=== PATIENT | male | born 1955 | race Caucasian/White ===

== ENCOUNTER 2022-07-24 15:39 | Inpatient (IN) ==
--- NOTE | 2022-07-24 16:16 | Emergency Department Note ---
Impression & Plan Abnormal laboratory test result, Neutropenic fever ED Provider Note ED Provider Note NAME: ARNOLD CORRIGAN AGE:66 SEX: Male : 1955 ARRIVES VIA: Private vehicle INFORMANT: Patient ED PROVIDER(s): Sonal Barbosa DO CHIEF COMPLAINT: Abnormal outpatient labs, fever HPI: This is a 66-year-old male with a history of leukemia who states he had outpatient labs done earlier today and was called this afternoon and stated they were abnormal and that he needed to come to the emergency room. He states he also noticed he had a temperature this evening 100.6. He states he did reach out to Dr. Marte who is his oncologist here locally however his leukemia is primarily being managed through [facility]. He states he spoke with the nurse Violet who advised him to come to the emergency room. He states he was just discharged from [facility] after his second cycle of chemotherapy last Wednesday. He states he had an infusion of platelets on . He states he then had an additional infusion of 2 units of platelets this Wednesday and was feeling well. He states some of the petechiae he had had prior to his infusion have been improving. He denies blood with brushing his teeth, blood in the urine or stool. He states tonight was the first time he developed a fever. He states his platelet count on Wednesday was 2. He states his hemoglobin has recently been 7.9. He has not recently required transfusion of blood. He does not know if he receives any infusions for his white blood cell count. He denies any known sick contacts. PAST MEDICAL HISTORY:See Below PAST SURGICAL HISTORY:See Below FAMILY HISTORY:See Below SOCIAL HISTORY:See Below HOME MEDICATIONS:See Below ALLERGIES:See Below VITALS:See Below PHYSICAL EXAMINATION: GENERAL: alert, well appearing, well nourished, no distress, non-toxic EYE EXAM: normal conjunctiva, PERRL and EOM's grossly intact, no subconjunctival hemorrhage OROPHARYNX: no exudate, no erythema, lips, buccal mucosa, and tongue normal and mucous membranes are moist NECK: supple, no nuchal rigidity, no adenopathy, non-tender LUNGS: Clear to auscultation. Normal chest wall mechanics, no w/r/r HEART: no murmurs, S1 normal and S2 normal, double-lumen catheter noted right anterior superior chest wall ABDOMEN: abdomen soft, non-tender, normo-active bowel sounds, no masses, no rebound or guarding. BACK: Back is symmetrical on inspection and there is no deformity, no midline tenderness, no CVA tenderness. SKIN: no rashes, petechiae noted bilateral lower extremities, less so bilateral upper extremities, none noted on the trunk UPPER EXTREMITIES: upper extremities are grossly normal. FROM, nml pulses b/l. LOWER EXTREMITIES: No pitting edema. FROM, nml pulses b/l. NEURO EXAM: Normal sensorium, cranial nerves II-XII grossly intact, normal speech, no facial droop,nogross weakness of arms, no gross weakness of legs. Gross sensation intact. No ataxia. Vital Signs: reviewed and remarkable Differential Diagnosis: Neutropenic fever, thrombocytopenia, anemia, transfusion reaction, side effect of chemotherapy, bacteremia/sepsis as well as others were considered MEDICAL DECISION MAKING: This is a 66-year-old male who presents emergency department due to concern for fever and abnormal outpatient labs. Patient instructed to come the emergency room by heme-onc. Patient well-appearing here on arrival, he was febrile however otherwise hemodynamically stable. No other focal symptoms to suggest potential source of infection. Patient did just finish his second cycle of chemotherapy and has recently received 2 infusions of platelets due to ongoing thrombocytopenia. I did speak with the patient's surveillance investigator and we discussed additional fever on top of abnormal labs. She was in agreement with broad- spectrum antibiotic coverage especially in light of indwelling catheter. She was able to read me the outpatient labs which I did not have access to. Additio nal labs here do show pancytopenia. Per her instruction, packed cells and platelets were ordered after patient signed blood consent at bedside. Patient's other labs reassuring, chest x-ray unremarkable. Nasal swab was deferred due to thrombocytopenia and risk of bleeding. Case discussed with hospitalist for additional evaluation and management. Patient did receive transfusion of blood and platelets while in the emergency room prior to going upstairs to his room. Patient remained hemodynamically stable throughout. Unclear etiology of fever at this time. Consultation(s): 1628: Discussed with Dr. Marte. She recommends giving the patient 2 units of packed red cells and 2 units of platelets. Agrees with use of vancomycin and cefepime for empiric coverage. Would not check a COVID swab or bio fire until after administration of platelets due to risk of bleeding. 1632: Patient updated on discussion with heme-onc. Blood consent form signed at bedside. 1934: Discussed with Dr. Valenzuela, hospitalist service. ER Treatment Provided: See below Diagnostics Interpreted By Me: -ECG: Normal sinus at 65, normal axis, normal QRS, QTC 468, nonspecific T wave changes V3, V4, V5 -Cardiac Monitoring: An order was placed for continuous cardiac monitoring. The monitor shows a rate of [] with [] rhythm. -Laboratory studies: As stated above and show below. -Imaging studies: cxr Triage Nursing Note Reviewed Prior/Outside Records Reviewed Procedures: [] Critical Care: Critical care of 39 min performed to assess and manage high likelihood of life- threatening neutropenic fever and pancytopenia, involving labs and imaging performed with assessment to evaluate neutropenic fever and pancytopenia diagnosis with frequent reassessment. This time includes bedside time, treatment discussions with patient/family/consultants, documentation time and excludes procedure time. Past Med/Surg History Medical History (Updated 07/24/22 @ 22:02 by Sonal Barbosa DO) Coronary artery disease Depression Hyperlipidemia Leukemia Surgical History Hx of heart artery stent Hx of laminectomy Social History Smoking Status: Former smoker Preferred Language: Portuguese Feels Safe at Home: Yes Allergies Allergies Allergy/AdvReac Type Severity Reaction Status Date / Time No Known Allergies Allergy Verified 07/21/22 12:04 Home Meds Home Medications Medication Instructions Recorded Confirmed acyclovir 400 mg tablet 400 mg PO BID 07/16/22 07/24/22 atenolol 25 mg tablet 25 mg PO DAILY 07/16/22 07/24/22 calcium carbonate 200 mg calcium 200 mg PO TID 07/16/22 07/24/22 (500 mg) chewable tablet (Tums) docusate sodium 100 mg capsule 100 mg PO BID 07/16/22 07/24/22 (Colace) furosemide 40 mg tablet 40 mg PO DAILY 07/16/22 07/24/22 isosorbide mononitrate 120 mg 120 mg PO QAM 07/16/22 07/24/22 tablet,extended release 24 hr levofloxacin 750 mg tablet 750 mg PO DAILY 07/16/22 07/24/22 loratadine 10 mg tablet 10 mg PO DAILY PRN Allergy Symptoms 07/16/22 07/24/22 magnesium oxide 400 mg PO BID 07/16/22 07/24/22 melatonin 10 mg tablet 10 mg PO HS PRN Insomnia 07/16/22 07/24/22 ondansetron 8 mg disintegrating 8 mg PO Q8H PRN nausea 07/16/22 07/24/22 tablet polyethylene glycol 3350 17 gram 17 g PO BID 07/16/22 07/24/22 oral powder packet (Miralax) posaconazole 100 mg tablet,delayed 400 mg PO DAILY 07/16/22 07/24/22 release potassium chloride 20 mEq 20 meq PO BID 07/16/22 07/24/22 tablet,extended release sertraline 25 mg tablet 25 mg PO DAILY 07/16/22 07/24/22 venetoclax 50 mg tablet 50 mg PO DAILY 07/16/22 07/24/22 venetoclax 10 mg tablet (Venclexta) 20 mg PO DAILY 07/24/22 07/24/22 Results & Data (ED) Vital Signs Vital Signs - 24 hr 07/24/22 15:44 07/24/22 16:10 07/24/22 17:04 Temperature 38.1 C H 38.1 C H Temperature Source Temporal Artery Scan Oral Pulse Rate 78 Pulse Rate from SpO2 Sensor Pulse Rhythm Regular Pulse Strength Normal Respiratory Rate 20 Respiratory Effort / Characteristics Non-Labored Spontaneous Respiratory Depth Normal Respiratory Pattern Regular Blood Pressure 109/74 Blood Pressure Mean 85 Blood Pressure Position Sitting Pulse Oximetry 98 98 Oxygen Delivery Method Room Air Room Air Sepsis Recent Fever Within 48 Hours No Sepsis New/Unexplained Change in Mental Status No Sepsis Action Taken by Nursing No Action Required 07/24/22 18:13 07/24/22 18:19 07/24/22 18:21 Temperature 37.4 C 37.4 C 37.4 C Temperature Source Oral Oral Oral Pulse Rate 61 59 L 64 Pulse Rate from SpO2 Sensor Pulse Rhythm Regular Pulse Strength Normal Respiratory Rate 16 19 22 Respiratory Effort / Characteristics Respiratory Depth Respiratory Pattern Blood Pressure 108/65 108/65 110/64 Blood Pressure Mean 79 79 79 Blood Pressure Position Lying Pulse Oximetry 95 96 98 Oxygen Delivery Method Sepsis Recent Fever Within 48 Hours Sepsis New/Unexplained Change in Mental Status Sepsis Action Taken by Nursing 07/24/22 18:29 07/24/22 17:30 07/24/22 18:00 Temperature 37.4 C Temperature Source Oral Pulse Rate 62 62 60 Pulse Rate from SpO2 Sensor 61 Pulse Rhythm Regular Pulse Strength Normal Respiratory Rate 18 20 20 Respiratory Effort / Characteristics Respiratory Depth Respiratory Pattern Blood Pressure 109/69 99/58 L 100/56 L Blood Pressure Mean 82 71 70 Blood Pressure Position Lying Pulse Oximetry 98 98 95 Oxygen Delivery Method Room Air Room Air Sepsis Recent Fever Within 48 Hours Sepsis New/Unexplained Change in Mental Status Sepsis Action Taken by Nursing 07/24/22 18:09 07/24/22 18:35 Temperature 37.1 C Temperature Source Oral Pulse Rate 62 63 Pulse Rate from SpO2 Sensor 61 Pulse Rhythm Regular Pulse Strength Normal Respiratory Rate 16 17 Respiratory Effort / Characteristics Respiratory Depth Respiratory Pattern Blood Pressure 95/67 L 109/69 Blood Pressure Mean 76 82 Blood Pressure Position Lying Pulse Oximetry 97 98 Oxygen Delivery Method Room Air Sepsis Recent Fever Within 48 Hours Sepsis New/Unexplained Change in Mental Status Sepsis Action Taken by Nursing Laboratory Data 07/24/22 15:59 07/24/22 15:59 Lab Results 07/24/22 07/24/22 07/24/22 Range/Units 15:59 15:59 15:59 WBC 0.11 L* (4.8-10.8) K/ul RBC 2.16 L (4.70-6.10) M/uL Hgb 6.4 L* (14.0-18.0) g/dl Hct 19.5 L* (42.0-52.0) % MCV 90.3 (80.0-100.0) fL MCH 29.6 (25.0-34.0) pg MCHC 32.8 (32.0-36.0) g/dL RDW Std Deviation 51.8 H (36.4-46.3) fL RDW Coeff of Lazaro 15.8 H (11.5-14.5) % Plt Count 3 L* (130-400) K/uL Immature Gran % (Auto) Cancelled Neut % (Auto) Cancelled Lymph % (Auto) Cancelled [place] % (Auto) Cancelled Eos % (Auto) Cancelled Baso % (Auto) Cancelled Neut # (Auto) Cancelled Lymph # (Auto) Cancelled [place] # (Auto) Cancelled Eos # (Auto) Cancelled Baso # (Auto) Cancelled Immature Gran # (Auto) Cancelled Neutrophils % (Manual) Cancelled Band Neutrophils % Cancelled Lymphocytes % (Manual) Cancelled Prolymphocyte % Cancelled Reactive Lymphs % (Man) Cancelled Monocytes % (Manual) Cancelled Eosinophils % (Manual) Cancelled Basophils % (Manual) Cancelled Metamyelocytes % (Man) Cancelled Myelocytes % (Man) Cancelled Promyelocytes % (Man) Cancelled Blast Cells % (Manual) Cancelled Plasma Cell % (Manual) Cancelled Other Cells % Cancelled Nucleated RBC % Cancelled Neutrophils # (Manual) Cancelled Band Neutrophils # Cancelled Total Absolute Neuts Cancelled Lymphocytes # (Manual) Cancelled Prolymphocyte # Cancelled Reactive Lymphs # Cancelled Total Abs Lymphocytes Cancelled Monocytes # (Manual) Cancelled Eosinophils # (Manual) Cancelled Basophils # (Manual) Cancelled Metamyelocytes # (Man) Cancelled Myelocytes # (Manual) Cancelled Promyelocytes # (Man) Cancelled Blast Cells # (Man) Cancelled Plasma Cell # (Manual) Cancelled Other Cells # Cancelled Nucleated RBCs # (Man) Cancelled Hypersegmented Neuts Cancelled Hyposegmented Neuts Cancelled Hypogranular Neuts Cancelled Large Granular Lymphs Cancelled # Lrg Granular Lymphs Cancelled Hairy Cells Cancelled Smudge Cells Cancelled Toxic Granulation Cancelled Toxic Vacuolation Cancelled Dohle Bodies Cancelled Hina Rods Cancelled Platelet Estimate Signific. Decreased L (Normal) Hypogranular Platelets Cancelled Clumped Platelets Cancelled Giant Platelets Cancelled Platelet Satelliting Cancelled RBC Morphology Cancelled Polychromasia Cancelled Hypochromasia Cancelled Poikilocytosis Cancelled Basophilic Stippling Cancelled Anisocytosis Cancelled Microcytosis Cancelled Macrocytosis Cancelled Spherocytes Cancelled Pappenheimer Bodies Cancelled Sickle Cells Cancelled Target Cells Cancelled Tear Drop Cells Cancelled Ovalocytes Cancelled Stomatocytes Cancelled [place] Bodies Cancelled Echinocytes Cancelled Acanthocytes (Spur) Cancelled Rouleaux Cancelled RBC Agglutinates Cancelled Schistocytes Cancelled Sezary Cell Cancelled PT 13.8 H (9.0-12.0) Seconds INR 1.3 H (0.9-1.1) Sodium 139 (136-145) mmol/L Potassium 4.0 (3.5-5.1) mmol/L Chloride 105 (98-107) mmol/L Carbon Dioxide 27 (21-32) mmol/L Anion Gap 7 (3-11) BUN 19 (6-23) mg/dl Creatinine 0.73 (0.6-1.4) mg/dl Est Cr Clr Drug Dosing 83.3 ml/min Est GFR ( Amer) 112.0 ml/min Est GFR (Non-Af Amer) 96.7 ml/min BUN/Creatinine Ratio 26.0 H (10-20) Glucose 111 H (70-99(Fasting)) mg/dl Lactate (0.4-2.0) mmol/L Calcium 8.7 (8.5-10.1) mg/dl Magnesium 2.0 (1.7-2.4) mg/dl Total Bilirubin 1.1 H (0.2-1.0) mg/dl Direct Bilirubin 0.2 (0-0.2) mg/dl AST 12 L (13-39) U/L ALT 15 (7-52) U/L Alkaline Phosphatase 83 (34-104) U/L Troponin I High Sens 30.8 H (0-20) pg/ml Total Protein 6.5 (6.0-8.3) gm/dl Albumin 3.3 L (3.4-5.0) gm/dl Procalcitonin (0-0.5) ng/ml Urine Color Urine Appearance (Clear) Urine pH (4.5-7.5) Ur Specific [place] (1.000-1.030) Urine Protein (Negative) Urine Glucose (UA) (Negative) Urine Ketones (Negative) Urine Blood (Negative) Urine Nitrite (Negative) Urine Bilirubin (Negative) Urine Urobilinogen (Negative) Ur Leukocyte Esterase (Negative) Urine WBC (Auto) (0-5) /hpf Urine RBC (Auto) (0-4) /hpf U Hyaline Cast (Auto) (0-5) /lpf U Epithel Cells (Auto) (0-5) /lpf Urine Bacteria (Auto) (Negative) Blood Parasites ID Cancelled Blood Type Antibody Screen Crossmatch 07/24/22 07/24/22 07/24/22 Range/Units 15:59 16:46 16:46 WBC (4.8-10.8) K/ul RBC (4.70-6.10) M/uL Hgb (14.0-18.0) g/dl Hct (42.0-52.0) % MCV (80.0-100.0) fL MCH (25.0-34.0) pg MCHC (32.0-36.0) g/dL RDW Std Deviation (36.4-46.3) fL RDW Coeff of Lazaro (11.5-14.5) % Plt Count (130-400) K/uL Immature Gran % (Auto) Neut % (Auto) Lymph % (Auto) [place] % (Auto) Eos % (Auto) Baso % (Auto) Neut # (Auto) Lymph # (Auto) [place] # (Auto) Eos # (Auto) Baso # (Auto) Immature Gran # (Auto) Neutrophils % (Manual) Band Neutrophils % Lymphocytes % (Manual) Prolymphocyte % Reactive Lymphs % (Man) Monocytes % (Manual) Eosinophils % (Manual) Basophils % (Manual) Metamyelocytes % (Man) Myelocytes % (Man) Promyelocytes % (Man) Blast Cells % (Manual) Plasma Cell % (Manual) Other Cells % Nucleated RBC % Neutrophils # (Manual) Band Neutrophils # Total Absolute Neuts Lymphocytes # (Manual) Prolymphocyte # Reactive Lymphs # Total Abs Lymphocytes Monocytes # (Manual) Eosinophils # (Manual) Basophils # (Manual) Metamyelocytes # (Man) Myelocytes # (Manual) Promyelocytes # (Man) Blast Cells # (Man) Plasma Cell # (Manual) Other Cells # Nucleated RBCs # (Man) Hypersegmented Neuts Hyposegmented Neuts Hypogranular Neuts Large Granular Lymphs # Lrg Granular Lymphs Hairy Cells Smudge Cells Toxic Granulation Toxic Vacuolation Dohle Bodies Hina Rods Platelet Estimate (Normal) Hypogranular Platelets Clumped Platelets Giant Platelets Platelet Satelliting RBC Morphology Polychromasia Hypochromasia Poikilocytosis Basophilic Stippling Anisocytosis Microcytosis Macrocytosis Spherocytes Pappenheimer Bodies Sickle Cells Target Cells Tear Drop Cells Ovalocytes Stomatocytes [place] Bodies Echinocytes Acanthocytes (Spur) Rouleaux RBC Agglutinates Schistocytes Sezary Cell PT (9.0-12.0) Seconds INR (0.9-1.1) Sodium (136-145) mmol/L Potassium (3.5-5.1) mmol/L Chloride (98-107) mmol/L Carbon Dioxide (21-32) mmol/L Anion Gap (3-11) BUN (6-23) mg/dl Creatinine (0.6-1.4) mg/dl Est Cr Clr Drug Dosing ml/min Est GFR ( Amer) ml/min Est GFR (Non-Af Amer) ml/min BUN/Creatinine Ratio (10-20) Glucose (70-99(Fasting)) mg/dl Lactate 1.4 (0.4-2.0) mmol/L Calcium (8.5-10.1) mg/dl Magnesium (1.7-2.4) mg/dl Total Bilirubin (0.2-1.0) mg/dl Direct Bilirubin (0-0.2) mg/dl AST (13-39) U/L ALT (7-52) U/L Alkaline Phosphatase (34-104) U/L Troponin I High Sens (0-20) pg/ml Total Protein (6.0-8.3) gm/dl Albumin (3.4-5.0) gm/dl Procalcitonin 0.34 (0-0.5) ng/ml Urine Color Urine Appearance (Clear) Urine pH (4.5-7.5) Ur Specific [place] (1.000-1.030) Urine Protein (Negative) Urine Glucose (UA) (Negative) Urine Ketones (Negative) Urine Blood (Negative) Urine Nitrite (Negative) Urine Bilirubin (Negative) Urine Urobilinogen (Negative) Ur Leukocyte Esterase (Negative) Urine WBC (Auto) (0-5) /hpf Urine RBC (Auto) (0-4) /hpf U Hyaline Cast (Auto) (0-5) /lpf U Epithel Cells (Auto) (0-5) /lpf Urine Bacteria (Auto) (Negative) Blood Parasites ID Blood Type A Positive Antibody Screen NEGATIVE Crossmatch See Detail 07/24/22 Range/Units 17:11 WBC (4.8-10.8) K/ul RBC (4.70-6.10) M/uL Hgb (14.0-18.0) g/dl Hct (42.0-52.0) % MCV (80.0-100.0) fL MCH (25.0-34.0) pg MCHC (32.0-36.0) g/dL RDW Std Deviation (36.4-46.3) fL RDW Coeff of Lazaro (11.5-14.5) % Plt Count (130-400) K/uL Immature Gran % (Auto) Neut % (Auto) Lymph % (Auto) [place] % (Auto) Eos % (Auto) Baso % (Auto) Neut # (Auto) Lymph # (Auto) [place] # (Auto) Eos # (Auto) Baso # (Auto) Immature Gran # (Auto) Neutrophils % (Manual) Band Neutrophils % Lymphocytes % (Manual) Prolymphocyte % Reactive Lymphs % (Man) Monocytes % (Manual) Eosinophils % (Manual) Basophils % (Manual) Metamyelocytes % (Man) Myelocytes % (Man) Promyelocytes % (Man) Blast Cells % (Manual) Plasma Cell % (Manual) Other Cells % Nucleated RBC % Neutrophils # (Manual) Band Neutrophils # Total Absolute Neuts Lymphocytes # (Manual) Prolymphocyte # Reactive Lymphs # Total Abs Lymphocytes Monocytes # (Manual) Eosinophils # (Manual) Basophils # (Manual) Metamyelocytes # (Man) Myelocytes # (Manual) Promyelocytes # (Man) Blast Cells # (Man) Plasma Cell # (Manual) Other Cells # Nucleated RBCs # (Man) Hypersegmented Neuts Hyposegmented Neuts Hypogranular Neuts Large Granular Lymphs # Lrg Granular Lymphs Hairy Cells Smudge Cells Toxic Granulation Toxic Vacuolation Dohle Bodies Hina Rods Platelet Estimate (Normal) Hypogranular Platelets Clumped Platelets Giant Platelets Platelet Satelliting RBC Morphology Polychromasia Hypochromasia Poikilocytosis Basophilic Stippling Anisocytosis Microcytosis Macrocytosis Spherocytes Pappenheimer Bodies Sickle Cells Target Cells Tear Drop Cells Ovalocytes Stomatocytes [place] Bodies Echinocytes Acanthocytes (Spur) Rouleaux RBC Agglutinates Schistocytes Sezary Cell PT (9.0-12.0) Seconds INR (0.9-1.1) Sodium (136-145) mmol/L Potassium (3.5-5.1) mmol/L Chloride (98-107) mmol/L Carbon Dioxide (21-32) mmol/L Anion Gap (3-11) BUN (6-23) mg/dl Creatinine (0.6-1.4) mg/dl Est Cr Clr Drug Dosing ml/min Est GFR ( Amer) ml/min Est GFR (Non-Af Amer) ml/min BUN/Creatinine Ratio (10-20) Glucose (70-99(Fasting)) mg/dl Lactate (0.4-2.0) mmol/L Calcium (8.5-10.1) mg/dl Magnesium (1.7-2.4) mg/dl Total Bilirubin (0.2-1.0) mg/dl Direct Bilirubin (0-0.2) mg/dl AST (13-39) U/L ALT (7-52) U/L Alkaline Phosphatase (34-104) U/L Troponin I High Sens (0-20) pg/ml Total Protein (6.0-8.3) gm/dl Albumin (3.4-5.0) gm/dl Procalcitonin (0-0.5) ng/ml Urine Color Yellow Urine Appearance Clear (Clear) Urine pH 7.5 (4.5-7.5) Ur Specific [place] 1.013 (1.000-1.030) Urine Protein 1+ H (Negative) Urine Glucose (UA) Negative (Negative) Urine Ketones Negative (Negative) Urine Blood 1+ H (Negative) Urine Nitrite Negative (Negative) Urine Bilirubin Negative (Negative) Urine Urobilinogen Negative (Negative) Ur Leukocyte Esterase Negative (Negative) Urine WBC (Auto) 1-5 (0-5) /hpf Urine RBC (Auto) 5-10 H (0-4) /hpf U Hyaline Cast (Auto) 1-5 (0-5) /lpf U Epithel Cells (Auto) 5-10 H (0-5) /lpf Urine Bacteria (Auto) Negative (Negative) Blood Parasites ID Blood Type Antibody Screen Crossmatch Administered Medications Discontinued Medications Cefepime HCl (Maxipime) 2,000 mg in 20 mls @ 5 mls/min IV NOW STA; Protocol Stop: 07/24/22 16:33 Last Admin: 07/24/22 16:49 Dose: 5 mls/min Documented By: KT Vancomycin HCl 1,250 mg/ (Sodium Chloride) 525 mls @ 200 mls/hr IV NOW ONE Stop: 07/24/22 19:07 Last Admin: 07/24/22 17:05 Dose: 200 mls/hr Documented By: NH Acetaminophen (Ofirmev) 1,000 mg in 100 mls @ 400 mls/hr IV NOW STA Stop: 07/24/22 16:54 Last Infusion: 07/24/22 18:31 Dose: 0 mls/hr Documented By: Admin: 07/24/22 17:05 Dose: 400 mls/hr Documented By: HAILE Sodium Chloride (Nss 1000ml) 1,000 mls @ 125 mls/hr IV .Q8H SAULO Stop: 08/23/22 17:14 Last Admin: 07/24/22 21:40 Dose: Not Given Documented By: PAH Imaging Data Radiologist's Impression: Chest X-Ray 07/24/22 16:10 XR chest 1V portable HISTORY: Sepsis COMPARISON: None. FINDINGS: The cardiac silhouette is mildly enlarged. Coronary artery stents are noted. The lungs are clear. There is an old, healed left clavicle fracture. No pleural effusions. No pneumothorax. IMPRESSION: Mild cardiomegaly. ACT 112: Negative or not required by law. Electronically signed by: Taqueria Rasheed M.D. 07/24/2022 4:26 PM Discharge Plan Visit Data Chief Complaint: Abnormal Labs/Diagnostic Testing Stated Complaint: NEEDS PLATELETS AND BLOOD ED Provider: Sonal Barbosa Discharge Problem: Abnormal laboratory test result, Neutropenic fever Patient Disposition: Admitted As Inpatient Discharge Instructions Interventions: ED Discharge Assessment Last Done: 07/24/22 21:12
--- NOTE | 2022-07-24 16:27 | XRay Report ---
XR chest 1V portable HISTORY: Sepsis COMPARISON: None. FINDINGS: The cardiac silhouette is mildly enlarged. Coronary artery stents are noted. The lungs are clear. There is an old, healed left clavicle fracture. No pleural effusions. No pneumothorax. IMPRESSION: Mild cardiomegaly. ACT 112: Negative or not required by law. Electronically signed by: Taqueria Rasheed M.D. 07/24/2022 4:26 PM
[2022-07-24] MEDS ORDERED: CEFEPIME 2,000 MG/20 ML VIAL IV STA (16:30)
[2022-07-24] MEDS ORDERED: VANCOMYCIN HCL 1,250 MG in SODIUM CHLORIDE 0.9% 500 ML IV ONE (16:30)
[2022-07-24] MEDS ORDERED: VANCOMYCIN CONSULT ACTIVE PRN (16:30)
[2022-07-24 16:36] LABS: INR 1.3 (0.9-1.1); Prothrombin Time 13.8 Seconds (9.0-12.0)
[2022-07-24] MEDS ORDERED: ACETAMINOPHEN 1,000 MG/100 ML VIAL IV STA (16:40)
[2022-07-24] MEDS ORDERED: SODIUM CHLORIDE 0.9% 250 ML IV PRN (16:40)
[2022-07-24 16:46] LABS: Albumin Level 3.3 gm/dl (3.4-5.0); Bilirubin Direct 0.2 mg/dl (0-0.2); Bilirubin,Total 1.1 mg/dl (0.2-1.0); Calcium 8.7 mg/dl (8.5-10.1)
[2022-07-24 16:47] LABS: Hematocrit (blood only) 19.5 % (42.0-52.0); Hemoglobin 6.4 g/dl (14.0-18.0); Mean Corpuscular Hemoglobin 29.6 pg (25.0-34.0); Mean Corpuscular Hgb Conc 32.8 g/dL (32.0-36.0); Mean Corpuscular Volume 90.3 fL (80.0-100.0); Platelet Count 3 K/uL (130-400); RDW Coefficient of Variation 15.8 % (11.5-14.5); RDW Standard Deviation 51.8 fL (36.4-46.3); Red Blood Count 2.16 M/uL (4.70-6.10); White Blood Count 0.11 K/ul (4.8-10.8)
[2022-07-24 16:52] LABS: Creatinine Clr Calc Pharmacy 83.3 ml/min; Est GFR (Non-African American) 96.7 ml/min; Platelet Estimate Signific. Decreased (Normal); Total Protein 6.5 gm/dl (6.0-8.3)
[2022-07-24 16:54] LABS: Troponin I High Sensitivity 30.8 pg/ml (0-20)
[2022-07-24] MEDS ORDERED: SODIUM CHLORIDE 0.9% 1000ML 1,000 ML IV SCH (17:15)
--- NOTE | 2022-07-24 17:35 | History & Physical Report ---
Date of Service July 24, 2022 Assessment & Plan (1) Neutropenic fever: Plan: Empiric antibiotic coverage with vancomycin and cefepime Lactate 1.4 History, CXR and UA not revealing of source. Pt has a central catheter placed as a potential source and x1 blood culture taken from line. x1 Peripheral blood culture taken Biofire to be taken following platelet transfusion - will be placed on COVID precautions until then Neutropenic precautions (2) Pancytopenia due to antineoplastic chemotherapy: Plan: Hgb 6.4 -> Transfuse 2 units irradiated packed RBCs. Aim Hgb > 7.5 Plt 3 -> Transfuse 2 units. Aim Plt > 15 on repeat CBC 1 hour after all transfusions Consult oncology (3) Acute myelogenous leukemia: Plan: s/p induction chemotherapy with decitabine/venetoclax, reinduction with CLAG regimen 07/08-07/12 Continue infection prophylaxis with acyclovir and posaconazole, Levaquin on hold in favor of antibiotics as above Stop Venetoclax due to pancytopenia (4) Coronary artery disease: Plan: Not on antiplatelet suspect due to thrombocytopenia Continue atenolol with hold parameters and ISMN Unclear reason he is not on a statin (5) Depression: Plan: Patient report only taking sertraline as needed (6) Chronic heart failure with preserved ejection fraction: Plan: Noted on PMHx however patient denies prior history of this or pulmonary edema but takes Lasix for bilateral pitting edema. Continue Lasix but hold if systolic blood pressure less than 100. Plan VTE Prophylaxis - no chemical prophylaxis due to thrombocytopenia Diet - low Na Disposition - admit to PCU Admission and Anticipated Discharge Date Admission Date: July 24, 2022 History of Present Illness Chief Complaint: Neutropenic fever Primary Care Provider: NO PCP Leroy Royerluana is a 66 year old male with acute myelogenous leukemia who presents to the ER with abnormal outpatient labs and fever. Acute myelogenous leukemia s/p induction chemotherapy with decitabine/venetoclax, reinduction with CLAG regimen 07/08-07/12 at [facility]. Repeat routine oncology labs today with pancytopenia and initially had planned on arranging platelets and blood transfusions as an outpatient but he spiked a fever of 100.6 degrees Fahrenheit and on calling his oncologist recommended going straight to the emergency room. He reports having last transfusion of 2 units of platelets on Karlene and was feeling well at that time. This morning he felt a little fatigued after having a shower but otherwise feels in his normal health. No cough, nasal congestion, sinus pain, chest pain, sore throat, abdominal pain, diarrhea or urinary symptoms. No known infection exposures. In regards to the anemia he denies any bright red blood in stool, hemoptysis, hematemesis or melena. Allergies Allergy/AdvReac Type Severity Reaction Status Date / Time No Known Allergies Allergy Verified 07/21/22 12:04 Home Medications Medication Instructions Recorded Confirmed Type acyclovir 400 mg tablet 400 mg PO BID 07/16/22 07/24/22 History atenolol 25 mg tablet 25 mg PO DAILY 07/16/22 07/24/22 History calcium carbonate 200 mg calcium 200 mg PO TID 07/16/22 07/24/22 History (500 mg) chewable tablet (Tums) docusate sodium 100 mg capsule 100 mg PO BID 07/16/22 07/24/22 History (Colace) furosemide 40 mg tablet 40 mg PO DAILY 07/16/22 07/24/22 History isosorbide mononitrate 120 mg 120 mg PO QAM 07/16/22 07/24/22 History tablet,extended release 24 hr levofloxacin 750 mg tablet 750 mg PO DAILY 07/16/22 07/24/22 History loratadine 10 mg tablet 10 mg PO DAILY PRN Allergy Symptoms 07/16/22 07/24/22 History magnesium oxide 400 mg PO BID 07/16/22 07/24/22 History melatonin 10 mg tablet 10 mg PO HS PRN Insomnia 07/16/22 07/24/22 History ondansetron 8 mg disintegrating 8 mg PO Q8H PRN nausea 07/16/22 07/24/22 History tablet polyethylene glycol 3350 17 gram 17 g PO BID 07/16/22 07/24/22 History oral powder packet (Miralax) posaconazole 100 mg tablet,delayed 400 mg PO DAILY 07/16/22 07/24/22 History release potassium chloride 20 mEq 20 meq PO BID 07/16/22 07/24/22 History tablet,extended release sertraline 25 mg tablet 25 mg PO DAILY 07/16/22 07/24/22 History venetoclax 50 mg tablet 50 mg PO DAILY 07/16/22 07/24/22 History venetoclax 10 mg tablet (Venclexta) 20 mg PO DAILY 07/24/22 07/24/22 History Past Med/Surg History Medical History Coronary artery disease Depression Hyperlipidemia Leukemia Surgical History Hx of heart artery stent Hx of laminectomy Social History Smoking Status: Former smoker Preferred Language: Lao Feels Safe at Home: Yes Review of Systems Review of Systems: All systems reviewed & are unremarkable except as noted in HPI & below Physical Exam Constitutional: WD/WN, vitals as above Eyes: PERRL, conjunctivae normal, anicteric sclerae ENMT: external ear and nose normal, oropharynx normal Respiratory: normal respiratory effort, lungs clear to auscultation Cardiovascular: RRR, no murmur, no edema Gastrointestinal (Abdomen): normal bowel sounds, soft, nontender, no hepatosplenomegaly Musculoskeletal: no cyanosis or clubbing, extremities motor strength 5/5 Skin: Numerous petechiae on all 4 extremities, few oral petechiae present Neurologic: moves all extremities and awake; no focal motor deficits and not confused Speech / Cognition: normal speech Cranial Nerves: EOM intact bilaterally, normal facial strength, tongue midline, able to rotate head bilaterally and able to elevate shoulders bilaterally Psychiatric: A+Ox3, euthymic affect Results & Data Results & Data ([facility]) Vital Signs (Past 12 Hours) Vital Signs Temp Pulse Resp BP Pulse Ox O2 Del Method 07/24/22 17:04 38.1 C H 07/24/22 16:10 98 Room Air 07/24/22 15:44 38.1 C H 78 20 109/74 98 Room Air Laboratory Results Abnormal lab results 07/24/22 07/24/22 07/24/22 Range/Units 15:59 15:59 15:59 WBC 0.11 L* (4.8-10.8) K/ul RBC 2.16 L (4.70-6.10) M/uL Hgb 6.4 L* (14.0-18.0) g/dl Hct 19.5 L* (42.0-52.0) % RDW Std Deviation 51.8 H (36.4-46.3) fL RDW Coeff of Lazaro 15.8 H (11.5-14.5) % Plt Count 3 L* (130-400) K/uL Platelet Estimate Signific. Decreased L (Normal) PT 13.8 H (9.0-12.0) Seconds INR 1.3 H (0.9-1.1) BUN/Creatinine Ratio 26.0 H (10-20) Glucose 111 H (70-99(Fasting)) mg/dl Total Bilirubin 1.1 H (0.2-1.0) mg/dl AST 12 L (13-39) U/L Troponin I High Sens 30.8 H (0-20) pg/ml Albumin 3.3 L (3.4-5.0) gm/dl Urine Protein (Negative) Urine Blood (Negative) Urine RBC (Auto) (0-4) /hpf U Epithel Cells (Auto) (0-5) /lpf Crossmatch 07/24/22 07/24/22 Range/Units 16:46 17:11 WBC (4.8-10.8) K/ul RBC (4.70-6.10) M/uL Hgb (14.0-18.0) g/dl Hct (42.0-52.0) % RDW Std Deviation (36.4-46.3) fL RDW Coeff of Lazaro (11.5-14.5) % Plt Count (130-400) K/uL Platelet Estimate (Normal) PT (9.0-12.0) Seconds INR (0.9-1.1) BUN/Creatinine Ratio (10-20) Glucose (70-99(Fasting)) mg/dl Total Bilirubin (0.2-1.0) mg/dl AST (13-39) U/L Troponin I High Sens (0-20) pg/ml Albumin (3.4-5.0) gm/dl Urine Protein 1+ H (Negative) Urine Blood 1+ H (Negative) Urine RBC (Auto) 5-10 H (0-4) /hpf U Epithel Cells (Auto) 5-10 H (0-5) /lpf Crossmatch See Detail Diagnostic Findings XR chest 1V portable HISTORY: Sepsis COMPARISON: None. FINDINGS: The cardiac silhouette is mildly enlarged. Coronary artery stents are noted. The lungs are clear. There is an old, healed left clavicle fracture. No pleural effusions. No pneumothorax. IMPRESSION: Mild cardiomegaly. Medications Administered ER medications given: Cefepime 2 g IV Vancomycin 1250 mg IV Acetaminophen 1 g IV NSS @ 125 ml/hr 2 units irradiated packed red blood cells ordered 2 units irradiated platelets ordered ECG Indication: other (neutropenic fever) Rate (beats per minute): 65 Rhythm: normal sinus Findings: no acute ischemic change Comparison ECG Date: no prior available Code Status & VTE Plan Code Status Full as discussed with the patient VTE Prophylaxis Plan VTE Prophylaxis will be ordered: No Reason for no VTE drug order: Contraindicated Reason for no VTE mechanical prophylaxis: Contraindicated (likely to cause skin breakdown with thrombocytopenia) PG Care Time/CCT Total # of Minutes Spent Total Time Spent with Patient: Total time spent is greater than 50% in coordination of care (as documented) at patient's floor/unit and/or counseling patient: Coding Level of Care Code 70978 INT INP/OBS CARE 3/75MIN Diagnoses Neutropenic fever D70.9; R50.81 Pancytopenia due to antineoplastic chemotherapy D61.810; T45.1X5A Acute myelogenous leukemia C92.00 Coronary artery disease I25.10 Depression F32.A Chronic heart failure with preserved ejection fraction I50.32
[2022-07-24 17:45] LABS: Appearance Urine Clear (Clear); Bacteria Urine Automated Negative (Negative); Bilirubin Urine Negative (Negative); Blood Urine 1+ (Negative); Color Urine Yellow; Glucose Urine UA Negative (Negative); Ketones Urine Negative (Negative); Leukocyte Esterase Urine Negative (Negative); Nitrite Urine Negative (Negative); Specific Gravity Urine 1.013 (1.000-1.030); Urobilinogen Urine Negative (Negative); pH Urine 7.5 (4.5-7.5)
[2022-07-24 17:49] LABS: Protein Urine 1+ (Negative)
[2022-07-24] MEDS ORDERED: ACETAMINOPHEN 325 MG TAB PO PRN (21:38)
[2022-07-24] MEDS ORDERED: MELATONIN 3 MG TAB PO PRN (21:56)
[2022-07-24] MEDS ORDERED: ONDANSETRON INJ 2 MG/ML 2 ML VIAL IV PRN (21:56)
--- NOTE | 2022-07-24 22:02 | Pharmacy Report ---
Pharmacy PK ABX Note - Date of Service July 24, 2022 - Assessment and Plan Assessment 66 year old M receiving VANCOMCYIN/CEFEPIME for treatment of NEUTROPENIC FEVER. Pertinent microbiologic data includes: BLOOD cultures PENDING. Day # 1/?? of antimicrobial therapy. Plan Vancomycin * Loading dose: 1250 mg IV x 1 * Maintenance dose: 1000 mg IV every hours * Regimen is predicted to achieve target AUC/SALVATORE of 400-600 mg/L.hr * Trough level ordered for: 07/24/22 @ 0430 Pharmacy will continue to follow and will adjust dose/frequency as necessary. Thank you. Pharmacy has transitioned to AUC monitoring for vancomycin. AUC/SALVATORE is the preferred PK/PD target and is associated with decreased risk of nephrotoxicity compared to traditional trough targets.
[2022-07-24] MEDS ORDERED: SERTRALINE HCL 50 MG TABLET PO PRN (22:21)
[2022-07-24] MEDS: POLYETHYLENE (MIRALAX) 17 GM PACK PO SCH (22:50)
[2022-07-24] MEDS: CALCIUM CARBONATE 500 MG CHEWABLE TAB PO SCH (22:50)
[2022-07-24] MEDS: CEFEPIME 2,000 MG in SYRINGE 0 ML IV SCH (22:51)
[2022-07-24] MEDS: DOCUSATE SODIUM 100 MG CAP PO SCH (22:51)
[2022-07-24] MEDS: VANCOMYCIN HCL 1,000 MG in SODIUM CHLORIDE 0.9% 250 ML IV SCH (22:51)
[2022-07-24] MEDS: MAGNESIUM OXIDE 400 MG TAB PO SCH (22:51)
[2022-07-24] MEDS: ACYCLOVIR 400 MG TAB PO SCH (22:51)
[2022-07-25] MEDS ORDERED: NITROGLYCERIN SL 0.4 MG/TAB TAB SL STA (00:11)
[2022-07-25 05:45] LABS: Mean Corpuscular Hemoglobin 29.4 pg (25.0-34.0); Mean Corpuscular Hgb Conc 34.1 g/dL (32.0-36.0); Mean Corpuscular Volume 86.4 fL (80.0-100.0); Platelet Count 15 K/uL (130-400); RDW Coefficient of Variation 16.8 % (11.5-14.5); RDW Standard Deviation 53.1 fL (36.4-46.3); Red Blood Count 2.14 M/uL (4.70-6.10); White Blood Count 0.04 K/ul (4.8-10.8)
[2022-07-25 05:59] LABS: Hematocrit (blood only) 18.5 % (42.0-52.0); Hemoglobin 6.3 g/dl (14.0-18.0)
[2022-07-25 06:00] LABS: INR 1.4 (0.9-1.1); Partial Thromboplastin Ratio 1.7; Prothrombin Time 14.7 Seconds (9.0-12.0)
[2022-07-25] MEDS ORDERED: SODIUM CHLORIDE 0.9% 250 ML IV PRN (06:01)
[2022-07-25 06:08] LABS: Albumin Globulin Ratio 1.1 (0.9-2); Albumin Level 2.8 gm/dl (3.4-5.0); BUN Creatinine Ratio 27.9 (10-20); Bilirubin,Total 1.7 mg/dl (0.2-1.0); Calcium 7.9 mg/dl (8.5-10.1); Creatinine Clr Calc Pharmacy 89.5 ml/min; Est GFR (African American) 115.3 ml/min; Est GFR (Non-African American) 99.5 ml/min; Globulin 2.6 gm/dl (2.5-4.0); Potassium 3.8 mmol/L (3.5-5.1); Total Protein 5.4 gm/dl (6.0-8.3)
--- NOTE | 2022-07-25 07:11 | Electrocardiogram Report ---
Test Reason : Blood Pressure : / mmHG Vent. Rate : 065 BPM Atrial Rate : 065 BPM P-R Int : 156 ms QRS Dur : 094 ms QT Int : 450 ms P-R-T Axes : 040 -22 -25 degrees QTc Int : 468 ms Normal sinus rhythm Nonspecific T wave abnormality Abnormal ECG No previous ECGs available Confirmed by Tarik Irwin ([id number]) on 07/25/2022 7:11:04 AM Referred By: REFERRED SELF Confirmed By:Dhaval Irwin
--- NOTE | 2022-07-25 07:11 | Hospitalist Progress Note ---
Date of Service July 25, 2022 Assessment & Plan (1) Neutropenic fever: Plan: - Continue empiric abx: Vancomycin and Cefipime - CXR, Urinalysis, and Biofire unremarkable - Blood cultures pending - Central catheter intact w/o erythema or purulence - Neutropenic precautions --- Currently afebrile 1100 (2) Pancytopenia due to antineoplastic chemotherapy: Plan: - S/p PRBC x 2, goal > 7.5, patient's baseline 9 - S/p Platelets x 2 - Oncology recommendations: * Continue broad spectrum abx, follow blood cultures * Recheck T-bili/direct bili, consider abdominal imaging if not improved * Continue venetoclax hold, continue posaconazole and acyclovir ppx * Maintain hgb > 7.5 and plt count ~ 15k --- Repeat CBC pending 1200, will transfuse prn (3) Acute myelogenous leukemia: Plan: - Management as above per Oncology recommendations (4) Coronary artery disease: Plan: - Not on antiplatelet suspect due to thrombocytopenia - Not on statin - Continue atenolol and ISMN (hold parameters set) (5) Depression: Plan: - Patient report only taking sertraline as needed (6) Chronic heart failure with preserved ejection fraction: Plan: - Noted on PMHx however patient denies prior history of this or pulmonary edema but takes Lasix for bilateral pitting edema. - Lasix but hold if SBP less than 100 Plan VTE Prophylaxis - no chemical prophylaxis due to thrombocytopenia Diet - Low Na Diet Code - Full Code Isolation - Neutropenic precautions Disposition - PCU Admission and Anticipated Discharge Date Admission Date: July 24, 2022 Supervising Physician Co-Signing Physician Notes 66-year-old male with past medical history pertinent for AML, CAD, HLD, HFpEF, and depression currently undergoing chemotherapy at [facility] with oncology with resultant pancytopenia. Patient presented with neutropenic fever. He is currently on broad-spectrum antibiotics (vancomycin and cefepime), blood cultures now positive for gram-positive cocci clusters, will have PICC line removed and consult ID. Continue to transfuse to maintain hemoglobin goal of greater than 7.5 and platelet count around 15 K. Patient examined independently of resident, discussed plan in detail, agree with history, physical, and plan. Dano Escobar is a 66 year old male with history of HFpEF, HLD, depression, CAD, and AML who presented to [facility] 07/24 for a fever in the setting of abnormal labs. Patient was diagnosed with Neutropenic Fever in the setting of AML on chemotherapy and was admitted for antibiotics and management of pancytopenia. Shawn is feeling overall well today, he notes that he is fatigued but is not in any other discomfort. He denies any chest pain, dyspnea, pleuritic pain, abdominal pain, dysuria, or bowel/bladder changes. He has not notices any new erythematous rashes, but does acknowledge the petechia on his UE and LE bilaterally. Patient is not experiencing any fevers or chills. Review of Systems Review of Systems: As per HPI Physical Exam Physical Exam: Gen: NAD, alert, calm/fatigued HEENT: Supple, no LAD, no thyromegaly, no JVD Resp:Non-labored, no wheezing/rhonchi/rales, CTAB CV:RRR, normal S1/S2, no M/R/G Abd: Soft, non-distended, no TTP, normoactive bowels, no masses Extr: 2+ dp bilaterally, no edema Skin: B/l petechia present on upper and lower extremities Results & Data Results & Data ([facility]) Vital Signs (Past 12 Hours) Vital Signs Temp Pulse Resp BP BP BP Pulse Ox 07/24/22 22:02 67 07/24/22 21:42 67 07/25/22 03:49 38.1 C H 79 14 136/78 95 07/25/22 03:17 38.1 C H 79 14 142/82 H 94 07/25/22 02:17 38.0 C H 80 14 136/78 94 07/24/22 22:30 07/25/22 01:47 38.0 C H 83 14 118/68 94 07/25/22 01:32 38.1 C H 82 12 118/76 94 07/25/22 01:16 37.5 C 83 14 121/74 93 07/25/22 00:47 37.6 C H 82 12 134/72 96 07/25/22 00:01 37.7 C H 82 14 134/68 96 07/24/22 23:01 37.5 C 80 16 128/68 96 07/24/22 22:31 37.3 C 73 16 135/84 95 07/24/22 22:29 37.8 C H 14 126/84 96 07/24/22 22:16 37.8 C H 69 14 126/84 96 07/24/22 21:38 07/24/22 21:53 38.0 C H 68 16 140/93 96 07/24/22 21:50 38.0 C H 18 140/93 100 07/24/22 20:50 37.4 C 64 20 119/70 100 07/24/22 21:12 62 18 125/71 100 07/24/22 20:02 36.8 C 64 20 119/80 100 07/24/22 20:20 37.3 C 64 20 107/76 99 07/24/22 19:20 37.1 C 70 18 109/63 95 Pulse Ox O2 Del Method O2 Del Method 07/24/22 22:02 07/24/22 21:42 07/25/22 03:49 07/25/22 03:17 07/25/22 02:17 07/24/22 22:30 Room Air 07/25/22 01:47 07/25/22 01:32 07/25/22 01:16 07/25/22 00:47 07/25/22 00:01 07/24/22 23:01 07/24/22 22:31 07/24/22 22:29 Room Air 07/24/22 22:16 07/24/22 21:38 96 Room Air 07/24/22 21:53 07/24/22 21:50 Room Air 07/24/22 20:50 07/24/22 21:12 07/24/22 20:02 07/24/22 20:20 07/24/22 19:20 Diagnostic Findings Abnormal lab results 07/24/22 07/24/22 07/24/22 Range/Units 15:59 15:59 15:59 WBC 0.11 L* (4.8-10.8) K/ul RBC 2.16 L (4.70-6.10) M/uL Hgb 6.4 L* (14.0-18.0) g/dl Hct 19.5 L* (42.0-52.0) % RDW Std Deviation 51.8 H (36.4-46.3) fL RDW Coeff of Lazaro 15.8 H (11.5-14.5) % Plt Count 3 L* (130-400) K/uL Platelet Estimate Signific. Decreased L (Normal) PT 13.8 H (9.0-12.0) Seconds INR 1.3 H (0.9-1.1) APTT (21.0-31.0) Seconds BUN/Creatinine Ratio 26.0 H (10-20) Glucose 111 H (70-99(Fasting)) mg/dl Calcium (8.5-10.1) mg/dl Total Bilirubin 1.1 H (0.2-1.0) mg/dl AST 12 L (13-39) U/L Troponin I High Sens 30.8 H (0-20) pg/ml Total Protein (6.0-8.3) gm/dl Albumin 3.3 L (3.4-5.0) gm/dl Urine Protein (Negative) Urine Blood (Negative) Urine RBC (Auto) (0-4) /hpf U Epithel Cells (Auto) (0-5) /lpf Crossmatch 07/24/22 07/24/22 07/25/22 Range/Units 16:46 17:11 00:37 WBC (4.8-10.8) K/ul RBC (4.70-6.10) M/uL Hgb (14.0-18.0) g/dl Hct (42.0-52.0) % RDW Std Deviation (36.4-46.3) fL RDW Coeff of Lazaro (11.5-14.5) % Plt Count (130-400) K/uL Platelet Estimate (Normal) PT (9.0-12.0) Seconds INR (0.9-1.1) APTT (21.0-31.0) Seconds BUN/Creatinine Ratio (10-20) Glucose (70-99(Fasting)) mg/dl Calcium (8.5-10.1) mg/dl Total Bilirubin (0.2-1.0) mg/dl AST (13-39) U/L Troponin I High Sens 28.1 H (0-20) pg/ml Total Protein (6.0-8.3) gm/dl Albumin (3.4-5.0) gm/dl Urine Protein 1+ H (Negative) Urine Blood 1+ H (Negative) Urine RBC (Auto) 5-10 H (0-4) /hpf U Epithel Cells (Auto) 5-10 H (0-5) /lpf Crossmatch See Detail 07/25/22 07/25/22 07/25/22 Range/Units 05:24 05:24 05:24 WBC 0.04 L* (4.8-10.8) K/ul RBC 2.14 L (4.70-6.10) M/uL Hgb 6.3 L* (14.0-18.0) g/dl Hct 18.5 L* (42.0-52.0) % RDW Std Deviation 53.1 H (36.4-46.3) fL RDW Coeff of Lazaro 16.8 H (11.5-14.5) % Plt Count 15 L* D (130-400) K/uL Platelet Estimate (Normal) PT 14.7 H (9.0-12.0) Seconds INR 1.4 H (0.9-1.1) APTT 46.0 H* (21.0-31.0) Seconds BUN/Creatinine Ratio 27.9 H (10-20) Glucose 111 H (70-99(Fasting)) mg/dl Calcium 7.9 L (8.5-10.1) mg/dl Total Bilirubin 1.7 H D (0.2-1.0) mg/dl AST 11 L (13-39) U/L Troponin I High Sens (0-20) pg/ml Total Protein 5.4 L (6.0-8.3) gm/dl Albumin 2.8 L (3.4-5.0) gm/dl Urine Protein (Negative) Urine Blood (Negative) Urine RBC (Auto) (0-4) /hpf U Epithel Cells (Auto) (0-5) /lpf Crossmatch Resident Activity Tracking Resident Involvement: Resident Care Provided Care Provided: Adult Hospital Medicine
--- NOTE | 2022-07-25 07:15 | Electrocardiogram Report ---
Test Reason : Blood Pressure : / mmHG Vent. Rate : 082 BPM Atrial Rate : 082 BPM P-R Int : 156 ms QRS Dur : 096 ms QT Int : 268 ms P-R-T Axes : 026 -11 -15 degrees QTc Int : 313 ms Poor data quality, interpretation may be adversely affected probably Normal sinus rhythm T wave abnormality, consider lateral ischemia Abnormal ECG When compared with ECG of 24-JUL-2022 16:26, (unconfirmed) T wave inversion now evident in Lateral leads QT has shortened Confirmed by Tarik Irwin ([id number]) on 07/25/2022 7:14:37 AM Referred By: REFERRED SELF Confirmed By:Dhaval Irwin
[2022-07-25 07:24] LABS: Adenovirus PCR Not Detected (NotDetected); Bordetella parapertussis PCR Not Detected (NotDetected); Bordetella pertussis PCR Not Detected (NotDetected); Chlamydia pneumoniae PCR Not Detected (NotDetected); Coronavirus 229E PCR Not Detected (NotDetected); Coronavirus CoV-2 (COVID19)PCR Not Detected (NotDetected); Coronavirus HKU1 PCR Not Detected (NotDetected); Coronavirus NL63 PCR Not Detected (NotDetected); Coronavirus OC43PCR Not Detected (NotDetected); Human Metapneumovirus PCR Not Detected (NotDetected); Influenza A PCR Not Detected (NotDetected); Influenza B PCR Not Detected (NotDetected); Mycoplasma pneumoniae PCR Not Detected (NotDetected); Parainfluenza Virus 1 PCR Not Detected (NotDetected); Parainfluenza Virus 2 PCR Not Detected (NotDetected); Parainfluenza Virus 3 PCR Not Detected (NotDetected); Parainfluenza Virus 4 PCR Not Detected (NotDetected); Respiratory Syncytial VirusPCR Not Detected (NotDetected); Rhinovirus/Enterovirus PCR Not Detected (NotDetected)
[2022-07-25] MEDS: MAGNESIUM OXIDE 400 MG TAB PO SCH ×2 (08:15→21:55)
[2022-07-25] MEDS: ACYCLOVIR 400 MG TAB PO SCH ×2 (08:15→21:55)
[2022-07-25] MEDS: LORATADINE 10 MG TAB PO PRN (08:15)
[2022-07-25] MEDS: ATENOLOL 25 MG TABLET PO SCH (08:15)
[2022-07-25] MEDS: DOCUSATE SODIUM 100 MG CAP PO SCH ×2 (08:15→21:54)
[2022-07-25] MEDS: CEFEPIME 2,000 MG in SYRINGE 0 ML IV SCH ×3 (08:15→22:00)
[2022-07-25] MEDS: POLYETHYLENE (MIRALAX) 17 GM PACK PO SCH ×2 (08:16→21:53)
[2022-07-25] MEDS: FUROSEMIDE 40 MG TAB PO SCH (08:16)
[2022-07-25] MEDS: ISOSORBIDE MONO EXTENDED REL 60 MG TABCR PO SCH (08:16)
[2022-07-25] MEDS ORDERED: SERTRALINE HCL 50 MG TABLET PO SCH (09:00)
[2022-07-25] MEDS: CALCIUM CARBONATE 500 MG CHEWABLE TAB PO SCH ×3 (09:02→21:53)
--- NOTE | 2022-07-25 10:01 | Oncology Consultation ---
Date of Consultation July 25, 2022 Assessment & Plan (1) Acute myelogenous leukemia: (2) Pancytopenia due to antineoplastic chemotherapy: Plan Pleasant gentleman with history of AML s/p 2 cycles of chemotherapy who most recently received CL AG regimen at [facility] from 07/08/2022 to 07/12/2022. He has remained on venetoclax ever since then. Presented with pancytopenia and neutropenic fever. He is currently on broad-spectrum antibiotics with gram-positive and gram-negative coverage. Has received 2 units of PRBC and 2 units of platelets. Work-up for infection has so far been negative with blood cultures pending. Suspect that his pancytopenia is most likely due to recent chemotherapy treatment as well as AML -Agree with broad-spectrum antibiotics -Follow-up on blood culture results -Labs show worsening hyperbilirubinemia. Would recommend rechecking total bilirubin and also checking direct bilirubin. If bilirubin continues to increase, consider obtaining abdominal imaging -Continue to hold venetoclax until his next scheduled bone marrow biopsy on -Continue with posaconazole and acyclovir -Transfuse to maintain hemoglobin greater than 7.5 and platelet count around 15,000 Thank you for this consult. Hematology will continue following patient while in the hospital. 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 Initially diagnosed with MDS with 15% blasts on 05/12/2022 for which he received induction chemotherapy at [facility] with venetoclax/decitabine from 05/16/2022 to 05/22/2022. Induction chemotherapy was complicated by neutropenic sepsis due to dental abscess requiring multiple tooth extraction on 06/13/2022. Repeat bone marrow biopsy on 06/17/2022 revealed 12% blast with flow cytometry demonstrating 20% blasts which was considered induction failure for which she received reinduction with CLAG regimen while inpatient at [facility] from 07/08/2022 to 07/12/2022. He presented to the ER on [facility] yesterday with neutropenic fever and pancytopenia. Outpatient labs revealed white cell count of 0, hemoglobin of 5.5, hematocrit of 16.4 and platelet count of 3000. He also had a fever with temperature of 100.6 for which it was recommended that he present to the ER. Work-up obtained in the ER included chest x-ray, urinalysis which were both negative for infection. Bio fire panel also negative. Blood cultures from central and peripheral line was also obtained with results pending.He was started on broad-spectrum antibiotics with vancomycin/cefepime which he remains on at this time. Continues with posaconazole and acyclovir. Venetoclax has been held At time of today's visit, he denied nausea, vomiting, chest pain, shortness of breath, abdominal pain or any other issues Allergies Allergy/AdvReac Type Severity Reaction Status Date / Time No Known Allergies Allergy Verified 07/21/22 12:04 Home Medications Medication Instructions Recorded Confirmed Type acyclovir 400 mg tablet 400 mg PO BID 07/16/22 07/24/22 History atenolol 25 mg tablet 25 mg PO DAILY 07/16/22 07/24/22 History calcium carbonate 200 mg calcium 200 mg PO TID 07/16/22 07/24/22 History (500 mg) chewable tablet (Tums) docusate sodium 100 mg capsule 100 mg PO BID 07/16/22 07/24/22 History (Colace) furosemide 40 mg tablet 40 mg PO DAILY 07/16/22 07/24/22 History isosorbide mononitrate 120 mg 120 mg PO QAM 07/16/22 07/24/22 History tablet,extended release 24 hr levofloxacin 750 mg tablet 750 mg PO DAILY 07/16/22 07/24/22 History loratadine 10 mg tablet 10 mg PO DAILY PRN Allergy Symptoms 07/16/22 07/24/22 History magnesium oxide 400 mg PO BID 07/16/22 07/24/22 History melatonin 10 mg tablet 10 mg PO HS PRN Insomnia 07/16/22 07/24/22 History ondansetron 8 mg disintegrating 8 mg PO Q8H PRN nausea 07/16/22 07/24/22 History tablet polyethylene glycol 3350 17 gram 17 g PO BID 07/16/22 07/24/22 History oral powder packet (Miralax) posaconazole 100 mg tablet,delayed 400 mg PO DAILY 07/16/22 07/24/22 History release potassium chloride 20 mEq 20 meq PO BID 07/16/22 07/24/22 History tablet,extended release sertraline 25 mg tablet 25 mg PO DAILY 07/16/22 07/24/22 History venetoclax 50 mg tablet 50 mg PO DAILY 07/16/22 07/24/22 History venetoclax 10 mg tablet (Venclexta) 20 mg PO DAILY 07/24/22 07/24/22 History Patient History Medical History Coronary artery disease Depression Hyperlipidemia Leukemia Surgical History Hx of heart artery stent Hx of laminectomy Social History Smoking Status: Never smoker Hx Alcohol Use: No Hx Substance Use: No Preferred Language: Vietnamese Communication Ability: Effective Capacity Management Specialist Required: No Beliefs That Will Affect Care: None Current Living Situation: Spouse Feels Safe at Home: Yes Safety Concerns: Feels Safe At This Time Assistive Devices: Glasses Review of Systems Review of Systems: All systems reviewed & are unremarkable except as noted in HPI & below Physical Exam Constitutional: WD/WN, vitals as above Eyes: PERRL, conjunctivae normal, anicteric sclerae ENMT: external ear and nose normal, oropharynx normal Respiratory: normal respiratory effort, lungs clear to auscultation Cardiovascular: RRR, no murmur, no edema Gastrointestinal (Abdomen): normal bowel sounds, soft, nontender, no hepatosplenomegaly Results & Data ([facility]) Vital Signs (Past 12 Hours) Vital Signs Temp Pulse Resp BP BP Pulse Ox O2 Del Method 07/25/22 08:21 37.8 C H 70 20 119/77 94 07/24/22 22:02 67 07/25/22 03:49 38.1 C H 79 14 136/78 95 07/25/22 03:17 38.1 C H 79 14 142/82 H 94 07/25/22 02:17 38.0 C H 80 14 136/78 94 07/24/22 22:30 Room Air 07/25/22 01:47 38.0 C H 83 14 118/68 94 07/25/22 01:32 38.1 C H 82 12 118/76 94 07/25/22 01:16 37.5 C 83 14 121/74 93 07/25/22 00:47 37.6 C H 82 12 134/72 96 07/25/22 00:01 37.7 C H 82 14 134/68 96 07/24/22 23:01 37.5 C 80 16 128/68 96 07/24/22 22:31 37.3 C 73 16 135/84 95 07/24/22 22:29 37.8 C H 14 126/84 96 Room Air 07/24/22 22:16 37.8 C H 69 14 126/84 96
[2022-07-25] MEDS: VANCOMYCIN HCL 1,000 MG in SODIUM CHLORIDE 0.9% 250 ML IV SCH ×2 (10:59→21:59)
[2022-07-25 13:31] LABS: A calco-baum cmplx NotReported Not Detected (NotDetected); Bact fragilis Not Reported Not Detected (NotDetected); C auris Not Reported Not Detected (NotDetected); Calbicans Not Reported Not Detected (NotDetected); Candida glabrata Not Reported Not Detected (NotDetected); Candida krusei Not Reported Not Detected (NotDetected); Cneoformans/gatti Not Reported Not Detected (NotDetected); Cparapsilosis Not Reported Not Detected (NotDetected); Ctropicalis Not Reported Not Detected (NotDetected); E cloacae compx Not Reported Not Detected (NotDetected); Efaecalis Not Reported Not Detected (NotDetected); Efaecium Not Reported Not Detected (NotDetected); Enterobacterales Not Reported Not Detected (NotDetected); Escherichia coli Not Reported Not Detected (NotDetected); H influenzae Not Reported Not Detected (NotDetected); K aerogenes Not Reported Not Detected (NotDetected); Koxytoca Not Reported Not Detected (NotDetected); Kpneumoniae grp Not Reported Not Detected (NotDetected); Lmonocyt Not Reported Not Detected (NotDetected); N meningitidis Not Reported Not Detected (NotDetected); P aeruginosa Not Reported Not Detected (NotDetected); Proteus spp Not Reported Not Detected (NotDetected); Salmonella spp Not Reported Not Detected (NotDetected); Smarcescens Not Reported Not Detected (NotDetected); Staph lugdunensis Not Reported Not Detected (NotDetected); Staph spp. Not Reported DETECTED (NotDetected); Staphaureus Not Reported Not Detected (NotDetected); Staphepi Not Reported DETECTED (NotDetected); Staphylococcus spp. DETECTED (NotDetected); Stenmaltophilia Not Reported Not Detected (NotDetected); Strep agal(GrpB) Not Reported Not Detected (NotDetected); Strep pneum Not Reported Not Detected (NotDetected); Strep pyog (GrpA) Not Reported Not Detected (NotDetected); Strep spp Not Reported Not Detected (NotDetected); mecAC Resistant Gene DETECTED (NotDetected)
[2022-07-25 14:08] LABS: Staphylococcus epidermidis DETECTED (NotDetected)
[2022-07-25 16:32] LABS: Hematocrit (blood only) 22.6 % (42.0-52.0); Hemoglobin 7.8 g/dl (14.0-18.0); Mean Corpuscular Hemoglobin 29.2 pg (25.0-34.0); Mean Corpuscular Hgb Conc 34.5 g/dL (32.0-36.0); Mean Corpuscular Volume 84.6 fL (80.0-100.0); Platelet Count 15 K/uL (130-400); RDW Coefficient of Variation 16.3 % (11.5-14.5); RDW Standard Deviation 50.7 fL (36.4-46.3); Red Blood Count 2.67 M/uL (4.70-6.10); White Blood Count 0.06 K/ul (4.8-10.8)
[2022-07-25 16:49] LABS: Bilirubin Direct 0.4 mg/dl (0-0.2); Bilirubin,Total 1.6 mg/dl (0.2-1.0)
[2022-07-26] MEDS ORDERED: VANCOMYCIN LEVEL ONE (04:30)
[2022-07-26] MEDS: CEFEPIME 2,000 MG in SYRINGE 0 ML IV SCH ×2 (06:18→15:21)
[2022-07-26 06:37] LABS: Hematocrit (blood only) 22.9 % (42.0-52.0); Hemoglobin 8.1 g/dl (14.0-18.0); Mean Corpuscular Hemoglobin 29.8 pg (25.0-34.0); Mean Corpuscular Hgb Conc 35.4 g/dL (32.0-36.0); Mean Corpuscular Volume 84.2 fL (80.0-100.0); Platelet Count 19 K/uL (130-400); RDW Coefficient of Variation 16.2 % (11.5-14.5); RDW Standard Deviation 47.4 fL (36.4-46.3); Red Blood Count 2.72 M/uL (4.70-6.10); White Blood Count 0.06 K/ul (4.8-10.8)
[2022-07-26 06:44] LABS: Albumin Level 2.6 gm/dl (3.4-5.0); Bilirubin,Total 1.6 mg/dl (0.2-1.0); Calcium 7.9 mg/dl (8.5-10.1); Potassium 3.6 mmol/L (3.5-5.1)
[2022-07-26 06:50] LABS: BUN Creatinine Ratio 33.9 (10-20); Creatinine Clr Calc Pharmacy 103.1 ml/min; Est GFR (African American) 122.3 ml/min; Est GFR (Non-African American) 105.5 ml/min; Globulin 2.6 gm/dl (2.5-4.0); Total Protein 5.2 gm/dl (6.0-8.3)
--- NOTE | 2022-07-26 07:40 | Hospitalist Progress Note ---
Date of Service July 26, 2022 Assessment & Plan (1) Gram-positive bacteremia: Plan: - 07/25 Evidence of gram positive cocci in clusters on blood culture (2 sites), staphylococcus species - Urgent Consult ID: recommending continued broad spectrum abx, central line removal, and Echocardiogram - Continue Vancomycin + Cefepime --- Surgical removal of central line scheduled pending platelet level > 50k --- Platelets ordered, 2 received, recheck pending --- 2 additional units pending PRN (2) Neutropenic fever: Plan: - Continue abx: Vancomycin and Cefipime - CXR, Urinalysis, and Biofire unremarkable - Blood cultures + - Central catheter to be removed - Neutropenic precautions --- Currently afebrile as of 1931 (3) Pancytopenia due to antineoplastic chemotherapy: Plan: - S/p PRBC x 2, goal > 7.5, patient's baseline 9 - S/p Platelets x 2 - Oncology recommendations: * Continue broad spectrum abx, follow blood cultures * Recheck T-bili/direct bili, consider abdominal imaging if not improved * Continue venetoclax hold, continue posaconazole and acyclovir ppx * Maintain hgb > 7.5 and plt count ~ 15k --- Hgb 8.1, Plt 19 in AM --- Plt repletion ongoing to 50k for surgery, goal of 15k following procedure (4) Acute myelogenous leukemia: Plan: - Management as above per Oncology recommendations (5) Coronary artery disease: Plan: - Not on antiplatelet suspect due to thrombocytopenia - Not on statin - Continue atenolol and ISMN (hold parameters set) (6) Depression: Plan: - Patient report only taking sertraline as needed (7) Chronic heart failure with preserved ejection fraction: Plan: - Noted on PMHx however patient denies prior history of this or pulmonary edema but takes Lasix for bilateral pitting edema. - Lasix but hold if SBP less than 100 Plan VTE Prophylaxis - no chemical prophylaxis due to thrombocytopenia Diet - Low Na Diet Code - Full Code Isolation - Neutropenic precautions Disposition - PCU Admission and Anticipated Discharge Date Admission Date: July 24, 2022 Supervising Physician Co-Signing Physician Notes 66-year-old male with past medical history pertinent for AML, CAD, HLD, HFpEF, and depression currently undergoing chemotherapy at [facility] with oncology with resultant pancytopenia. Patient presented with neutropenic fever. Plan for tomorrow is to have Lainez catheter removed in OR, per surgery team, platelets required over 50 K, attempted to transfuse today, however platelets needed to be obtained from outside Medical Center. 1 additional units of platelets available, will continue to transfuse to reach goal. Patient will be n.p.o. at midnight. Echo pending. Following catheter removal, goal to maintain hemoglobin of greater than 7.5 and platelet count around 15 K per oncology. Patient examined independently of resident, discussed plan in detail, agree with history, physical, and plan. Dano Escobar is a 66 year old male with history of HFpEF, HLD, depression, CAD, and AML who presented to [facility] 07/24 for a fever in the setting of abnormal labs. Patient was diagnosed with Neutropenic Fever in the setting of AML on chemotherapy and was admitted for antibiotics and management of pancytopenia. 07/26: Shawn is feeling overall well today, he notes that he is fatigued but is not in any other discomfort. He denies any chest pain, dyspnea, pleuritic pain, abdominal pain, dysuria, or bowel/bladder changes. He has not notices any new erythematous rashes, but does acknowledge the petechia on his UE and LE bilaterally. Patient is not experiencing any fevers or chills. 07/27: Patient was resting comfortably in bed upon arrival. He notes no new symptoms and states that he is comfortable. Discussed need for central line removal with patient at bedside, he expressed significant concern regarding the removal of the line. Provided reassurance and answered questions at bedside. Denies chest pain, dyspnea, pleuritic pain, abdominal pain, dysuria, or bowel/bladder changes. Review of Systems Review of Systems: As per HPI Physical Exam Physical Exam: Gen: NAD, alert, calm/fatigued Resp:Non-labored, no wheezing/rhonchi/rales, CTAB CV:RRR, normal S1/S2, no M/R/G Abd: Soft, non-distended, no TTP, normoactive bowels, no masses Extr: 2+ dp bilaterally, no edema Skin: B/l petechia present on upper and lower extremities Results & Data Results & Data ([facility]) Vital Signs (Past 12 Hours) Vital Signs Temp Pulse Resp BP Pulse Ox O2 Del Method 07/26/22 02:40 36.9 C 65 16 151/84 H 97 Room Air 07/25/22 22:24 36.9 C 53 L 16 120/75 97 Room Air Resident Activity Tracking Resident Involvement: Resident Care Provided Care Provided: Adult Hospital Medicine
[2022-07-26] MEDS ORDERED: SODIUM CHLORIDE 0.9% 250 ML IV PRN (07:48)
--- NOTE | 2022-07-26 08:01 | Hematology/Oncology Prog Note ---
Date of Service July 26, 2022 Assessment & Plan Admission and Anticipated Discharge Date Admission Date: July 24, 2022 Results & Data ([facility]) Vital Signs (Past 12 Hours) Vital Signs Temp Pulse Resp BP Pulse Ox O2 Del Method 07/26/22 07:36 37.2 C 59 L 18 131/78 91 Room Air 07/26/22 02:40 36.9 C 65 16 151/84 H 97 Room Air 07/25/22 22:24 36.9 C 53 L 16 120/75 97 Room Air
[2022-07-26] MEDS: MAGNESIUM OXIDE 400 MG TAB PO SCH ×2 (08:30→21:24)
[2022-07-26] MEDS: ACYCLOVIR 400 MG TAB PO SCH ×2 (08:30→21:24)
[2022-07-26] MEDS: ATENOLOL 25 MG TABLET PO SCH (08:30)
[2022-07-26] MEDS: FUROSEMIDE 40 MG TAB PO SCH (08:30)
[2022-07-26] MEDS: ISOSORBIDE MONO EXTENDED REL 60 MG TABCR PO SCH (08:30)
--- NOTE | 2022-07-26 08:31 | Anesthesiology Consultation ---
Date of Service July 26, 2022 Assessment & Plan Chart Review Chart Review: Acceptable Risk for Surgery Consults Requested none ASA ASA4 Proposed Anesthesia Anesthesia Type: MAC Risk / Benefits Reviewed With: PT / POA / Parent / Guardian, Accepts Plan and Informed Consent Obtained Additional Comments: PLT tfx pending, to OR once PLT level ok with gen surg. Neutropenic precautions. History Surgery Operation Date: 07/26/22 12:00 Proposed Procedures p Removal of Lainez catheter - Rosemary Chambers MD Height/Weight Height: 5 ft 4 in Weight: 64.7 kg Allergies Allergy/AdvReac Type Severity Reaction Status Date / Time No Known Allergies Allergy Verified 07/21/22 12:04 Medications Home Medications Medication Instructions Recorded Confirmed Last Taken acyclovir 400 mg tablet 400 mg PO BID 07/16/22 07/24/22 Unknown atenolol 25 mg tablet 25 mg PO DAILY 07/16/22 07/24/22 Unknown calcium carbonate 200 mg calcium 200 mg PO TID 07/16/22 07/24/22 Unknown (500 mg) chewable tablet (Tums) docusate sodium 100 mg capsule 100 mg PO BID 07/16/22 07/24/22 Unknown (Colace) furosemide 40 mg tablet 40 mg PO DAILY 07/16/22 07/24/22 Unknown isosorbide mononitrate 120 mg 120 mg PO QAM 07/16/22 07/24/22 Unknown tablet,extended release 24 hr levofloxacin 750 mg tablet 750 mg PO DAILY 07/16/22 07/24/22 Unknown loratadine 10 mg tablet 10 mg PO DAILY PRN Allergy Symptoms 07/16/22 07/24/22 Unknown magnesium oxide 400 mg PO BID 07/16/22 07/24/22 Unknown melatonin 10 mg tablet 10 mg PO HS PRN Insomnia 07/16/22 07/24/22 Unknown ondansetron 8 mg disintegrating 8 mg PO Q8H PRN nausea 07/16/22 07/24/22 Unknown tablet polyethylene glycol 3350 17 gram 17 g PO BID 07/16/22 07/24/22 Unknown oral powder packet (Miralax) posaconazole 100 mg tablet,delayed 400 mg PO DAILY 07/16/22 07/24/22 Unknown release potassium chloride 20 mEq 20 meq PO BID 07/16/22 07/24/22 Unknown tablet,extended release sertraline 25 mg tablet 25 mg PO DAILY 07/16/22 07/24/22 Unknown venetoclax 50 mg tablet 50 mg PO DAILY 07/16/22 07/24/22 Unknown venetoclax 10 mg tablet (Venclexta) 20 mg PO DAILY 07/24/22 07/24/22 Unknown Active Medications Generic Name Dose Route Start Last Admin Trade Name Ananthq PRN Reason Stop Dose Admin Acetaminophen 650 mg 07/24/22 21:38 07/25/22 16:50 Acetaminophen 325 Mg Tab PO 08/23/22 21:37 650 mg Q4H PRN Administration Pain or Fever Acyclovir 400 mg 07/24/22 21:38 07/26/22 08:30 Acyclovir 400 Mg Tab PO 08/23/22 21:37 400 mg BID SAULO Administration Atenolol 25 mg 07/25/22 09:00 07/26/22 08:30 Atenolol 25 Mg Tablet PO 08/24/22 08:59 25 mg DAILY SAULO Administration Calcium Carbonate 200 mg 07/24/22 21:38 07/26/22 09:49 Calcium Carbonate 500 Mg Chewable Tab PO 08/23/22 21:37 Not Given TID SAULO Docusate Sodium 100 mg 07/24/22 21:38 07/26/22 09:49 Docusate Sodium 100 Mg Cap PO 08/23/22 21:37 Not Given BID SAULO Furosemide 40 mg 07/25/22 09:00 07/26/22 08:30 Furosemide 40 Mg Tab PO 08/24/22 08:59 40 mg DAILY SAULO Administration Cefepime HCl 2,000 mg/ Syringe 20 mls @ 5 mls/min 07/24/22 23:00 07/26/22 06:18 IV 07/30/22 23:59 5 mls/min Q8H SAULO Administration Protocol Vancomycin HCl 1,500 mg/ 530 mls @ 200 mls/hr 07/26/22 10:00 07/26/22 11:15 Sodium Chloride IV 08/09/22 09:59 200 mls/hr Q12H SAULO Administration Protocol Isosorbide Mononitrate 120 mg 07/25/22 09:00 07/26/22 08:30 Isosorbide [place] Extended Rel 60 Mg Tabcr PO 08/24/22 08:59 120 mg QAM SAULO Administration Loratadine 10 mg 07/24/22 21:56 07/25/22 08:15 Loratadine 10 Mg Tab PO 08/23/22 21:55 10 mg DAILY PRN Administration Allergy Symptoms Magnesium Oxide 400 mg 07/24/22 21:45 07/26/22 08:30 Magnesium Oxide 400 Mg Tab PO 08/23/22 21:44 400 mg BID SAULO Administration Miscellaneous 1 each 07/25/22 00:00 07/25/22 23:52 Order Awaiting Action N/A 08/24/22 00:00 Not Given QS SAULO Polyethylene Glycol 17 gm 07/24/22 21:38 07/26/22 09:49 Polyethylene (Miralax) 17 Gm Pack PO 08/23/22 21:37 Not Given BID SAULO NPO Date Last Intake of Fluids: 07/25/22 Time Last Intake of Fluids: 23:59 Date Last Intake of Solids: 07/25/22 Time Last Intake of Solids: 23:59 Past Medical History Medical History (Updated 07/26/22 @ 11:16 by Kathleen Ramirez DO) Acute myelogenous leukemia Bacteremia associated with intravascular line Chronic heart failure with preserved ejection fraction Coronary artery disease Depression Hyperlipidemia Leukemia Neutropenic fever Pancytopenia due to antineoplastic chemotherapy Thrombocytopenia Exercise / Class Metabolic Activity III < 4 Walking/Shop/Light housework Past Surgical History Surgical History Hx of heart artery stent Hx of laminectomy Past Anesthesia History No Hx of Anesthesia Complications and No Family Hx of Anesthesia Complications History of PONV No Hx of PONV and No Hx of Motion Sickness Social History Smoking Status: Never smoker Hx Alcohol Use: No Hx Substance Use: No Physical Exam Vital Signs Last Vital Signs Temp 36.5 C 07/26/22 10:52 Pulse 55 L 07/26/22 10:52 Resp 18 07/26/22 10:52 BP 113/79 07/26/22 10:52 Pulse Ox 96 07/26/22 10:52 O2 Del Method 07/26/22 07:36 ENMT Mouth: no TMJ abnormality Thyromental Distance: > or= 3.5 Finger Breadths Mallampati Class: II Neck normal visual inspection, trachea midline and + facial hair; neck extension not limited Respiratory normal respiratory effort Auscultation: lungs clear to auscultation bilaterally Cardiovascular Rate/Rhythm: regular rate and regular rhythm Heart Sounds: no murmur Musculoskeletal Spine: normal cervical ROM Extremities: full ROM of extremities Neurologic moves all extremities Psychiatric Orientation: alert and oriented x 3 Testing Laboratory Results 07/26/22 05:40 07/26/22 05:40 PT 14.7 Seconds (9.0-12.0) H 07/25/22 05:24 INR 1.4 (0.9-1.1) H 07/25/22 05:24 APTT 46.0 Seconds (21.0-31.0) H* 07/25/22 05:24 Urine Color Yellow 07/24/22 17:11 Urine Appearance Clear (Clear) 07/24/22 17:11 Urine pH 7.5 (4.5-7.5) 07/24/22 17:11 Ur Specific [place] 1.013 (1.000-1.030) 07/24/22 17:11 Urine Protein 1+ (Negative) H 07/24/22 17:11 Urine Glucose (UA) Negative (Negative) 07/24/22 17:11 Urine Ketones Negative (Negative) 07/24/22 17:11 Urine Nitrite Negative (Negative) 07/24/22 17:11 Ur Leukocyte Esterase Negative (Negative) 07/24/22 17:11 Urine WBC (Auto) 1-5 /hpf (0-5) 07/24/22 17:11 Urine RBC (Auto) 5-10 /hpf (0-4) H 07/24/22 17:11 U Hyaline Cast (Auto) 1-5 /lpf (0-5) 07/24/22 17:11 U Epithel Cells (Auto) 5-10 /lpf (0-5) H 07/24/22 17:11 Urine Bacteria (Auto) Negative (Negative) 07/24/22 17:11 Blood Type A Positive 07/24/22 16:46 Antibody Screen NEGATIVE 07/24/22 16:46 07/24/22 16:20 Aerobic Blood Culture - Preliminary Blood Staphylococcus species Anaerobic Blood Culture - Preliminary Staphylococcus species 07/24/22 16:46 Aerobic Blood Culture - Preliminary Blood Staphylococcus species Anaerobic Blood Culture - Preliminary Staphylococcus species Electrocardiogram Date: 07/25/22 Findings: + NSR @ (82) and + NSST changes Chest X-Ray Date: 07/24/22 Findings: + NAD and + cardiomegaly
--- NOTE | 2022-07-26 08:38 | Surgery Consultation ---
Date of Consultation July 26, 2022 Assessment & Plan (1) Pancytopenia due to antineoplastic chemotherapy: Plan as per oncology. Will need platelet transfusion to allow for line removal. (2) Bacteremia associated with intravascular line: Plan for removal of right sided Lainez catheter once platelets above 50. Understands pancytopenia puts him at higher risk of bleeding, infection, failure of wound to heal. Consent signed. Will plan on OR later today following platelet transfusion. 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 Blood cultures growing staph. Lainez was placed in April. Has been working well. AML diagnosed on bloodwork done prior to cardiac cath. He was having angina and cath scheduled. Found to be quite anemic on bloodwork, this was felt to be the cause of his angina. History of cardiac stents. Evaluation by cardiology since then (including stress test) has been normal. Allergies Allergy/AdvReac Type Severity Reaction Status Date / Time No Known Allergies Allergy Verified 07/21/22 12:04 Home Medications Medication Instructions Recorded Confirmed Type acyclovir 400 mg tablet 400 mg PO BID 07/16/22 07/24/22 History atenolol 25 mg tablet 25 mg PO DAILY 07/16/22 07/24/22 History calcium carbonate 200 mg calcium 200 mg PO TID 07/16/22 07/24/22 History (500 mg) chewable tablet (Tums) docusate sodium 100 mg capsule 100 mg PO BID 07/16/22 07/24/22 History (Colace) furosemide 40 mg tablet 40 mg PO DAILY 07/16/22 07/24/22 History isosorbide mononitrate 120 mg 120 mg PO QAM 07/16/22 07/24/22 History tablet,extended release 24 hr levofloxacin 750 mg tablet 750 mg PO DAILY 07/16/22 07/24/22 History loratadine 10 mg tablet 10 mg PO DAILY PRN Allergy Symptoms 07/16/22 07/24/22 History magnesium oxide 400 mg PO BID 07/16/22 07/24/22 History melatonin 10 mg tablet 10 mg PO HS PRN Insomnia 07/16/22 07/24/22 History ondansetron 8 mg disintegrating 8 mg PO Q8H PRN nausea 07/16/22 07/24/22 History tablet polyethylene glycol 3350 17 gram 17 g PO BID 07/16/22 07/24/22 History oral powder packet (Miralax) posaconazole 100 mg tablet,delayed 400 mg PO DAILY 07/16/22 07/24/22 History release potassium chloride 20 mEq 20 meq PO BID 07/16/22 07/24/22 History tablet,extended release sertraline 25 mg tablet 25 mg PO DAILY 07/16/22 07/24/22 History venetoclax 50 mg tablet 50 mg PO DAILY 07/16/22 07/24/22 History venetoclax 10 mg tablet (Venclexta) 20 mg PO DAILY 07/24/22 07/24/22 History Patient History Medical History Coronary artery disease Depression Hyperlipidemia Leukemia Surgical History Hx of heart artery stent Hx of laminectomy Social History Smoking Status: Never smoker Hx Alcohol Use: No Hx Substance Use: No Preferred Language: Wolof Communication Ability: 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 Beliefs That Will Affect Care: None Current Living Situation: Spouse Feels Safe at Home: Yes Safety Concerns: Feels Safe At This Time Assistive Devices: Glasses Physical Exam Constitutional: + thin and + frail appearing; no acute distress Eyes: PERRL, conjunctivae normal, anicteric sclerae Neck: trachea midline Respiratory: normal respiratory effort, lungs clear to auscultation Cardiovascular: RRR, no murmur, no edema Skin: right sided Lainez in place Neurologic: awake; no focal motor deficits Psychiatric: A+Ox3, euthymic affect Results & Data ([facility]) Vital Signs (Past 12 Hours) Vital Signs Temp Pulse Resp BP Pulse Ox O2 Del Method 07/26/22 07:36 37.2 C 59 L 18 131/78 91 Room Air 07/26/22 02:40 36.9 C 65 16 151/84 H 97 Room Air 07/25/22 22:24 36.9 C 53 L 16 120/75 97 Room Air Laboratory Results 07/26/22 07/26/22 07/26/22 Range/Units 05:40 05:40 05:40 WBC 0.06 L* Cancelled (4.8-10.8) K/ul RBC 2.72 L Cancelled (4.70-6.10) M/uL Hgb 8.1 L Cancelled (14.0-18.0) g/dl Hct 22.9 L Cancelled (42.0-52.0) % MCV 84.2 Cancelled (80.0-100.0) fL MCH 29.8 Cancelled (25.0-34.0) pg MCHC 35.4 Cancelled (32.0-36.0) g/dL RDW Std Deviation 47.4 H Cancelled (36.4-46.3) fL RDW Coeff of Lazaro 16.2 H Cancelled (11.5-14.5) % Plt Count 19 L* Cancelled (130-400) K/uL MPV Cancelled Immature Gran % (Auto) Cancelled Neut % (Auto) Cancelled Lymph % (Auto) Cancelled Cooke % (Auto) Cancelled Eos % (Auto) Cancelled Baso % (Auto) Cancelled Neut # (Auto) Cancelled Lymph # (Auto) Cancelled Cooke # (Auto) Cancelled Eos # (Auto) Cancelled Baso # (Auto) Cancelled Immature Gran # (Auto) Cancelled Absolute Nucleated RBC Cancelled Nucleated RBC % (auto) Cancelled Neutrophils % (Manual) Cancelled Band Neutrophils % Cancelled Lymphocytes % (Manual) Cancelled Prolymphocyte % Cancelled Reactive Lymphs % (Man) Cancelled Monocytes % (Manual) Cancelled Eosinophils % (Manual) Cancelled Basophils % (Manual) Cancelled Metamyelocytes % (Man) Cancelled Myelocytes % (Man) Cancelled Promyelocytes % (Man) Cancelled Blast Cells % (Manual) Cancelled Plasma Cell % (Manual) Cancelled Other Cells % Cancelled Nucleated RBC % Cancelled Neutrophils # (Manual) Cancelled Band Neutrophils # Cancelled Total Absolute Neuts Cancelled Lymphocytes # (Manual) Cancelled Prolymphocyte # Cancelled Reactive Lymphs # Cancelled Total Abs Lymphocytes Cancelled Monocytes # (Manual) Cancelled Eosinophils # (Manual) Cancelled Basophils # (Manual) Cancelled Metamyelocytes # (Man) Cancelled Myelocytes # (Manual) Cancelled Promyelocytes # (Man) Cancelled Blast Cells # (Man) Cancelled Plasma Cell # (Manual) Cancelled Other Cells # Cancelled Nucleated RBCs # (Man) Cancelled Hypersegmented Neuts Cancelled Hyposegmented Neuts Cancelled Hypogranular Neuts Cancelled Large Granular Lymphs Cancelled # Lrg Granular Lymphs Cancelled Hairy Cells Cancelled Smudge Cells Cancelled Toxic Granulation Cancelled Toxic Vacuolation Cancelled Dohle Bodies Cancelled Hina Rods Cancelled Platelet Estimate Cancelled Hypogranular Platelets Cancelled Clumped Platelets Cancelled Giant Platelets Cancelled Platelet Satelliting Cancelled RBC Morphology Cancelled Polychromasia Cancelled Hypochromasia Cancelled Poikilocytosis Cancelled Basophilic Stippling Cancelled Anisocytosis Cancelled Microcytosis Cancelled Macrocytosis Cancelled Spherocytes Cancelled Pappenheimer Bodies Cancelled Sickle Cells Cancelled Target Cells Cancelled Tear Drop Cells Cancelled Ovalocytes Cancelled Stomatocytes Cancelled Hines-Ravenel Bodies Cancelled Echinocytes Cancelled Acanthocytes (Spur) Cancelled Rouleaux Cancelled RBC Agglutinates Cancelled Schistocytes Cancelled Sezary Cell Cancelled Sodium (136-145) mmol/L Potassium (3.5-5.1) mmol/L Chloride (98-107) mmol/L Carbon Dioxide (21-32) mmol/L Anion Gap (3-11) BUN (6-23) mg/dl Creatinine (0.6-1.4) mg/dl Est Cr Clr Drug Dosing ml/min Est GFR ( Amer) ml/min Est GFR (Non-Af Amer) ml/min BUN/Creatinine Ratio (10-20) Glucose (70-99(Fasting)) mg/dl Calcium (8.5-10.1) mg/dl Total Bilirubin (0.2-1.0) mg/dl Direct Bilirubin (0-0.2) mg/dl AST (13-39) U/L ALT (7-52) U/L Alkaline Phosphatase (34-104) U/L Total Protein (6.0-8.3) gm/dl Albumin (3.4-5.0) gm/dl Globulin (2.5-4.0) gm/dl Albumin/Globulin Ratio (0.9-2) Vitamin B12 (180-914) pg/ml Folate (>5.38) ng/ml Random Vancomycin 11.9 (10-20) mcg/ml Staphylococcus sp PCR (NotDetected) mecA/C-Methicil Resis Gene (NotDetected) Staph epidermidis (PCR) (NotDetected) Bld Cult ID Panel PCR (NotDetected) Blood Parasites ID Cancelled Blood Type Antibody Screen Crossmatch 07/26/22 07/25/22 07/25/22 Range/Units 05:40 16:15 16:15 WBC 0.06 L* (4.8-10.8) K/ul RBC 2.67 L (4.70-6.10) M/uL Hgb 7.8 L (14.0-18.0) g/dl Hct 22.6 L (42.0-52.0) % MCV 84.6 (80.0-100.0) fL MCH 29.2 (25.0-34.0) pg MCHC 34.5 (32.0-36.0) g/dL RDW Std Deviation 50.7 H (36.4-46.3) fL RDW Coeff of Lazaro 16.3 H (11.5-14.5) % Plt Count 15 L* (130-400) K/uL MPV Immature Gran % (Auto) Neut % (Auto) Lymph % (Auto) Cooke % (Auto) Eos % (Auto) Baso % (Auto) Neut # (Auto) Lymph # (Auto) Cooke # (Auto) Eos # (Auto) Baso # (Auto) Immature Gran # (Auto) Absolute Nucleated RBC Nucleated RBC % (auto) Neutrophils % (Manual) Band Neutrophils % Lymphocytes % (Manual) Prolymphocyte % Reactive Lymphs % (Man) Monocytes % (Manual) Eosinophils % (Manual) Basophils % (Manual) Metamyelocytes % (Man) Myelocytes % (Man) Promyelocytes % (Man) Blast Cells % (Manual) Plasma Cell % (Manual) Other Cells % Nucleated RBC % Neutrophils # (Manual) Band Neutrophils # Total Absolute Neuts Lymphocytes # (Manual) Prolymphocyte # Reactive Lymphs # Total Abs Lymphocytes Monocytes # (Manual) Eosinophils # (Manual) Basophils # (Manual) Metamyelocytes # (Man) Myelocytes # (Manual) Promyelocytes # (Man) Blast Cells # (Man) Plasma Cell # (Manual) Other Cells # Nucleated RBCs # (Man) Hypersegmented Neuts Hyposegmented Neuts Hypogranular Neuts Large Granular Lymphs # Lrg Granular Lymphs Hairy Cells Smudge Cells Toxic Granulation Toxic Vacuolation Dohle Bodies Hina Rods Platelet Estimate Hypogranular Platelets Clumped Platelets Giant Platelets Platelet Satelliting RBC Morphology Polychromasia Hypochromasia Poikilocytosis Basophilic Stippling Anisocytosis Microcytosis Macrocytosis Spherocytes Pappenheimer Bodies Sickle Cells Target Cells Tear Drop Cells Ovalocytes Stomatocytes Hines-Ravenel Bodies Echinocytes Acanthocytes (Spur) Rouleaux RBC Agglutinates Schistocytes Sezary Cell Sodium 139 (136-145) mmol/L Potassium 3.6 (3.5-5.1) mmol/L Chloride 107 (98-107) mmol/L Carbon Dioxide 28 (21-32) mmol/L Anion Gap 4 (3-11) BUN 20 (6-23) mg/dl Creatinine 0.59 L (0.6-1.4) mg/dl Est Cr Clr Drug Dosing 103.1 ml/min Est GFR ( Amer) 122.3 ml/min Est GFR (Non-Af Amer) 105.5 ml/min BUN/Creatinine Ratio 33.9 H (10-20) Glucose 93 (70-99(Fasting)) mg/dl Calcium 7.9 L (8.5-10.1) mg/dl Total Bilirubin 1.6 H (0.2-1.0) mg/dl Direct Bilirubin (0-0.2) mg/dl AST 9 L (13-39) U/L ALT 14 (7-52) U/L Alkaline Phosphatase 66 (34-104) U/L Total Protein 5.2 L (6.0-8.3) gm/dl Albumin 2.6 L (3.4-5.0) gm/dl Globulin 2.6 (2.5-4.0) gm/dl Albumin/Globulin Ratio 1.0 (0.9-2) Vitamin B12 351 (180-914) pg/ml Folate 14.23 (>5.38) ng/ml Random Vancomycin (10-20) mcg/ml Staphylococcus sp PCR (NotDetected) mecA/C-Methicil Resis Gene (NotDetected) Staph epidermidis (PCR) (NotDetected) Bld Cult ID Panel PCR (NotDetected) Blood Parasites ID Blood Type Antibody Screen Crossmatch 07/25/22 07/24/22 07/24/22 Range/Units 16:15 16:46 16:46 WBC (4.8-10.8) K/ul RBC (4.70-6.10) M/uL Hgb (14.0-18.0) g/dl Hct (42.0-52.0) % MCV (80.0-100.0) fL MCH (25.0-34.0) pg MCHC (32.0-36.0) g/dL RDW Std Deviation (36.4-46.3) fL RDW Coeff of Lazaro (11.5-14.5) % Plt Count (130-400) K/uL MPV Immature Gran % (Auto) Neut % (Auto) Lymph % (Auto) Cooke % (Auto) Eos % (Auto) Baso % (Auto) Neut # (Auto) Lymph # (Auto) Cooke # (Auto) Eos # (Auto) Baso # (Auto) Immature Gran # (Auto) Absolute Nucleated RBC Nucleated RBC % (auto) Neutrophils % (Manual) Band Neutrophils % Lymphocytes % (Manual) Prolymphocyte % Reactive Lymphs % (Man) Monocytes % (Manual) Eosinophils % (Manual) Basophils % (Manual) Metamyelocytes % (Man) Myelocytes % (Man) Promyelocytes % (Man) Blast Cells % (Manual) Plasma Cell % (Manual) Other Cells % Nucleated RBC % Neutrophils # (Manual) Band Neutrophils # Total Absolute Neuts Lymphocytes # (Manual) Prolymphocyte # Reactive Lymphs # Total Abs Lymphocytes Monocytes # (Manual) Eosinophils # (Manual) Basophils # (Manual) Metamyelocytes # (Man) Myelocytes # (Manual) Promyelocytes # (Man) Blast Cells # (Man) Plasma Cell # (Manual) Other Cells # Nucleated RBCs # (Man) Hypersegmented Neuts Hyposegmented Neuts Hypogranular Neuts Large Granular Lymphs # Lrg Granular Lymphs Hairy Cells Smudge Cells Toxic Granulation Toxic Vacuolation Dohle Bodies Hina Rods Platelet Estimate Hypogranular Platelets Clumped Platelets Giant Platelets Platelet Satelliting RBC Morphology Polychromasia Hypochromasia Poikilocytosis Basophilic Stippling Anisocytosis Microcytosis Macrocytosis Spherocytes Pappenheimer Bodies Sickle Cells Target Cells Tear Drop Cells Ovalocytes Stomatocytes Hines-Ravenel Bodies Echinocytes Acanthocytes (Spur) Rouleaux RBC Agglutinates Schistocytes Sezary Cell Sodium (136-145) mmol/L Potassium (3.5-5.1) mmol/L Chloride (98-107) mmol/L Carbon Dioxide (21-32) mmol/L Anion Gap (3-11) BUN (6-23) mg/dl Creatinine (0.6-1.4) mg/dl Est Cr Clr Drug Dosing ml/min Est GFR ( Amer) ml/min Est GFR (Non-Af Amer) ml/min BUN/Creatinine Ratio (10-20) Glucose (70-99(Fasting)) mg/dl Calcium (8.5-10.1) mg/dl Total Bilirubin 1.6 H (0.2-1.0) mg/dl Direct Bilirubin 0.4 H (0-0.2) mg/dl AST (13-39) U/L ALT (7-52) U/L Alkaline Phosphatase (34-104) U/L Total Protein (6.0-8.3) gm/dl Albumin (3.4-5.0) gm/dl Globulin (2.5-4.0) gm/dl Albumin/Globulin Ratio (0.9-2) Vitamin B12 (180-914) pg/ml Folate (>5.38) ng/ml Random Vancomycin (10-20) mcg/ml Staphylococcus sp PCR DETECTED A (NotDetected) mecA/C-Methicil Resis Gene DETECTED A (NotDetected) Staph epidermidis (PCR) DETECTED A (NotDetected) Bld Cult ID Panel PCR See PCR Comment (NotDetected) Blood Parasites ID Blood Type A Positive Antibody Screen NEGATIVE Crossmatch See Detail
[2022-07-26] MEDS ORDERED: fentaNYL citrate 100 MCG/2 ML VIAL IV PRN (09:30)
[2022-07-26] MEDS ORDERED: MEPERIDINE HCL 25 MG/ML CARP/VIAL IV PRN (09:30)
[2022-07-26] MEDS ORDERED: MoRPHine SULFATE 10 MG/ML CARP/VIAL IV PRN (09:30)
[2022-07-26] MEDS ORDERED: ATROPINE SULFATE 0.1 MG/ML 10ML SYR IV PRN (09:30)
[2022-07-26] MEDS ORDERED: ONDANSETRON INJ 2 MG/ML 2 ML VIAL IV PRN (09:30)
[2022-07-26] MEDS ORDERED: ePHEDrine sulfate 50 MG/ML AMP IV PRN (09:30)
--- NOTE | 2022-07-26 09:48 | Hematology/Oncology Prog Note ---
Date of Service July 26, 2022 Assessment & Plan (1) Neutropenic fever: (2) Acute myelogenous leukemia: (3) Bacteremia associated with intravascular line: (4) Pancytopenia due to antineoplastic chemotherapy: Plan -Agree with plan to remove Lainez catheter given catheter related bloodstream infection -Suspected count is currently 17,000, he will require several units of platelet transfusion to get him to threshold of 50,000 as required by general surgery for Lainez catheter removal -Recommend giving 2 units of platelets and rechecking platelet count thereafter .Based on this, will determine how much more platelets he would require -Continue broad-spectrum antibiotics. -Transfuse with PRBCs for hemoglobin less than 7.5g/dl. After Lainez catheter is removed, transfuse with platelets for goal of platelet count of 15,000 Admission and Anticipated Discharge Date Admission Date: July 24, 2022 Subjective Denies any new issues. Blood cultures from peripheral and Lainez catheter growing Staphylococcus species Remains on broad-spectrum antibiotics with vancomycin/cefepime and has not had any more temperature spikes since 6 PM last night Review of Systems Review of Systems: All systems reviewed & are unremarkable except as noted in Subjective Results & Data ([facility]) Vital Signs (Past 12 Hours) Vital Signs Temp Pulse Pulse Resp BP BP Pulse Ox 07/26/22 09:05 37.5 C 58 L 18 144/86 H 98 07/26/22 07:36 37.2 C 59 L 18 131/78 91 07/26/22 02:40 36.9 C 65 16 151/84 H 97 07/25/22 22:24 36.9 C 53 L 16 120/75 97 O2 Del Method 07/26/22 09:05 07/26/22 07:36 Room Air 07/26/22 02:40 Room Air 07/25/22 22:24 Room Air
[2022-07-26] MEDS: POLYETHYLENE (MIRALAX) 17 GM PACK PO SCH ×2 (09:49→21:21)
[2022-07-26] MEDS: CALCIUM CARBONATE 500 MG CHEWABLE TAB PO SCH ×3 (09:49→21:21)
[2022-07-26] MEDS: DOCUSATE SODIUM 100 MG CAP PO SCH ×2 (09:49→21:21)
--- NOTE | 2022-07-26 09:53 | Pharmacy Report ---
Pharmacy PK ABX Note - Date of Service July 26, 2022 - Assessment and Plan Assessment 66 year old M receiving Vancomycin and Cefepime for treatment of bacteremia/neutropenic fever. * PMHx significant for AML on active chemotherapy. Day #3 of abx. * 24 hr Tmax of 38.2oC. Pancytopenic. SCr at baseline. * Blood cx are growing MRSE. To OR for removal of Lainez catheter today. * Extend both abx for 7 days per provider. Plan Vancomycin * Current regimen: 1000 mg IV every 12 hours * Random level obtained 07/26/22 resulted as 11.9 mcg/mL. This is subtherapeutic. * Change to 1500 mg IV every 12 hours. Predicted AUC at steady state: 551 mg/L.hr * Repeat random level ordered for: 07/28/22 Cefepime * 2000 mg IV every 8 hours Pharmacy will continue to follow and will adjust dose/frequency as necessary. Thank you. Pharmacy has transitioned to AUC monitoring for vancomycin. AUC/SALVATORE is the preferred PK/PD target and is associated with decreased risk of nephrotoxicity compared to traditional trough targets.
[2022-07-26] MEDS: VANCOMYCIN HCL 1,500 MG in SODIUM CHLORIDE 0.9% 500 ML IV SCH ×2 (11:15→21:20)
[2022-07-26 12:09] LABS: Platelet Count 30 K/uL (130-400)
--- NOTE | 2022-07-26 16:41 | XCELERA ---
[id number]
[2022-07-26 18:56] LABS: Platelet Count 57 K/uL (130-400)
[2022-07-27] MEDS: CEFEPIME 2,000 MG in SYRINGE 0 ML IV SCH ×2 (00:04→06:02)
[2022-07-27 06:47] LABS: Hematocrit (blood only) 21.1 % (42.0-52.0); Hemoglobin 7.3 g/dl (14.0-18.0); Mean Corpuscular Hemoglobin 29.6 pg (25.0-34.0); Mean Corpuscular Hgb Conc 34.6 g/dL (32.0-36.0); Mean Corpuscular Volume 85.4 fL (80.0-100.0); Platelet Count 31 K/uL (130-400); RDW Coefficient of Variation 15.6 % (11.5-14.5); RDW Standard Deviation 49.3 fL (36.4-46.3); Red Blood Count 2.47 M/uL (4.70-6.10); White Blood Count 0.07 K/ul (4.8-10.8)
--- NOTE | 2022-07-27 06:51 | Hospitalist Progress Note ---
Date of Service July 27, 2022 Assessment & Plan (1) Gram-positive bacteremia: Plan: - 07/25 Evidence of gram positive cocci in clusters on blood culture (2 sites), staphylococcus species - Urgent Consult ID: recommending continued broad spectrum abx, central line removal, and Echocardiogram - Continue Vancomycin, discontinue Cefepime - Blood cultures indicating MRSE - TTE negative, possible need for TERRANCE - Appreciate ID recommendations, anticipating Daptomycin for outpatient IV therapy --- Surgical removal of central line scheduled pending platelet level > 50k --- Platelets ordered with rechecks q2bags --- 1 unit PRBC in AM d/t Hgb 7.3 (2) Neutropenic fever: Plan: - Continue empiric abx: Vancomycin (discontinue Cefipime) - CXR, Urinalysis, and Biofire unremarkable - Blood cultures indicating MRSE - Central catheter intact w/o erythema or purulence - Neutropenic precautions --- Afebrile since 07/25 (3) Pancytopenia due to antineoplastic chemotherapy: Plan: - S/p PRBC x 2, goal > 7.5, patient's baseline 9 - S/p Platelets x 2 - Oncology recommendations: * Continue broad spectrum abx, follow blood cultures * Recheck T-bili/direct bili, consider abdominal imaging if not improved * Continue venetoclax hold, continue posaconazole and acyclovir ppx * Maintain hgb > 7.5 and plt count ~ 15k --- Hgb 7.3., Plt 30 in AM --- PRBC repletion this AM x 1 unit --- Plt repletion ongoing to 50k for surgery, goal of 15k following procedure (4) Acute myelogenous leukemia: Plan: - Management as above per Oncology recommendations (5) Coronary artery disease: Plan: - Not on antiplatelet suspect due to thrombocytopenia - Not on statin - Continue atenolol and ISMN (hold parameters set) (6) Depression: Plan: - Patient report only taking sertraline as needed (7) Chronic heart failure with preserved ejection fraction: Plan: - Noted on PMHx however patient denies prior history of this or pulmonary edema but takes Lasix for bilateral pitting edema. - Lasix but hold if SBP less than 100 --- IV Lasix 20 mg d/t worsening LE edema Plan VTE Prophylaxis - no chemical prophylaxis due to thrombocytopenia Diet - Low Na Diet Code - Full Code Isolation - Neutropenic precautions Disposition - PCU Admission and Anticipated Discharge Date Admission Date: July 24, 2022 Supervising Physician Co-Signing Physician Notes I personally examined the patient and verified all huston points of history and exam, discussed case, and agree with decision making with Dr Ramirez Feeling okay right now. Notes appreciation of care. No new complaints. Vitals noted, in general he is awake and alert pleasant no distress. HEENT normocephalic atraumatic mucous membranes moist. Breathing unlabored no accessory muscle use good effort. Skin shows no rashes no pallor or icterus. Neutropenic sepsis due to MRSA bacteremiahave to assume infected IV line, requiring removalplatelets are now above 50, hopefully surgery will be able to proceed. Continue vancomycinwe will likely need daptomycin as outpatient. High risk due to severe infection in severely immunocompromised patient. Otherwise as above. Dano Escobar is a 66 year old male with history of HFpEF, HLD, depression, CAD, and AML who presented to [facility] 07/24 for a fever in the setting of abnormal labs. Patient was diagnosed with Neutropenic Fever in the setting of AML on chemotherapy and was admitted for antibiotics and management of pancytopenia. 07/27: Patient was resting comfortably in bed upon arrival. He notes no new symptoms and states that he is comfortable. Discussed ongoing need for line removal with patient at bedside and ongoing efforts to raise his platelet level. Denies chest pain, dyspnea, pleuritic pain, abdominal pain, dysuria, or bowel/bladder changes. Patient notes that he requires Lasix at baseline and feels as though his legs are slightly more edematous than normal. Review of Systems Review of Systems: As per HPI Physical Exam Physical Exam: Gen: NAD, alert, calm/fatigued Resp:Non-labored, no wheezing/rhonchi/rales, CTAB CV:RRR, normal S1/S2, no M/R/G Abd: Soft, non-distended, no TTP, normoactive bowels, no masses Extr: 2+ dp bilaterally, trace edema Skin: B/l petechia present on upper and lower extremities Results & Data Results & Data ([facility]) Vital Signs (Past 12 Hours) Vital Signs Temp Pulse Pulse Resp BP BP Pulse Ox 07/27/22 06:45 37 C 53 L 16 144/77 H 95 07/27/22 06:30 37 C 58 L 16 138/84 96 07/27/22 06:11 36.8 C 55 L 16 138/76 91 07/27/22 02:30 37.2 C 61 15 128/77 90 07/26/22 22:40 37.5 C 63 16 142/80 H 95 07/26/22 19:06 37.2 C 59 L 18 129/71 92 07/26/22 18:50 37.4 C 58 L 18 125/76 98 O2 Del Method 07/27/22 06:45 07/27/22 06:30 07/27/22 06:11 07/27/22 02:30 Room Air 07/26/22 22:40 Room Air 07/26/22 19:06 Room Air 07/26/22 18:50 Resident Activity Tracking Resident Involvement: Resident Care Provided Care Provided: Adult Hospital Medicine
[2022-07-27] MEDS ORDERED: SODIUM CHLORIDE 0.9% 250 ML IV PRN (07:13)
[2022-07-27 07:26] LABS: Albumin Level 2.5 gm/dl (3.4-5.0); BUN Creatinine Ratio 36.2 (10-20); Calcium 8.1 mg/dl (8.5-10.1); Creatinine Clr Calc Pharmacy 104.9 ml/min; Est GFR (African American) 123.1 ml/min; Est GFR (Non-African American) 106.2 ml/min; Globulin 2.5 gm/dl (2.5-4.0); Potassium 3.2 mmol/L (3.5-5.1)
[2022-07-27] MEDS ORDERED: POTASSIUM CHLORIDE CRTAB 20 MEQ TABCR PO STA (07:40)
[2022-07-27] MEDS: MAGNESIUM OXIDE 400 MG TAB PO SCH ×2 (08:27→21:36)
[2022-07-27] MEDS: FUROSEMIDE 40 MG TAB PO SCH (08:27)
[2022-07-27] MEDS: LORATADINE 10 MG TAB PO PRN (08:27)
[2022-07-27] MEDS: ATENOLOL 25 MG TABLET PO SCH (08:27)
[2022-07-27] MEDS: ISOSORBIDE MONO EXTENDED REL 60 MG TABCR PO SCH (08:27)
[2022-07-27] MEDS: ACYCLOVIR 400 MG TAB PO SCH ×2 (08:29→21:36)
[2022-07-27] MEDS: DOCUSATE SODIUM 100 MG CAP PO SCH ×2 (09:03→21:37)
[2022-07-27] MEDS: CALCIUM CARBONATE 500 MG CHEWABLE TAB PO SCH ×3 (09:03→21:37)
[2022-07-27] MEDS: POLYETHYLENE (MIRALAX) 17 GM PACK PO SCH ×2 (09:03→21:37)
[2022-07-27] MEDS ORDERED: FUROSEMIDE INJ 20 MG/2 ML VIAL IV ONE (09:14)
[2022-07-27] MEDS: VANCOMYCIN HCL 1,500 MG in SODIUM CHLORIDE 0.9% 500 ML IV SCH ×2 (11:25→21:47)
--- NOTE | 2022-07-27 12:50 | Infectious Disease Consult ---
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 Patient receiving are at [facility]. Review of Oncology notes states he received venetoclax/decitabine from 05/16/2022 to 05/22/2022 c/b neutropenic sepsis due to dental abscess requiring multiple tooth extraction on 06/13/2022. He had a repeat bone marrow biopsy on 06/17 concerning for induction failure and treated with Cladnribine/Cyatrabine/GCSF/Mitoxantrone (CLAG regimen) while inpatient at [facility] [place] [facility] from 07/08/2022 to 07/12/2022. On Prophylaxis with Acyclovir, Posaconazole, levofloxacin. Patient was admitted to [facility] 07/24 after his outpatient labs showed pancytopenia and initially had planned on arranging platelets and blood transfusions as an outpatient but developed a fever of 100.6F . Initial white cell count of 0, hemoglobin of 5.5, hematocrit of 16.4 and platelet count of 3000. On admission, chest x-ray, urinalysis were negative. Bio fire negative. Lactate 1.4 Blood cultures from central and peripheral line was also obtained 4/4 bottles now growing CoNS (Oxacillin resistant). 07/26 Blood cultures are in lab currently. Patient transfused with pRBCs and platelets. Empiric antibiotic coverage with vancomycin and cefepime. 2DEcho done and no evidence of mass or vegetation seen. Fever curve has improved 07/25 was last fever. Overnight, he has not had fever, other vitals are stable. Surgery evaluation for sweeney catheter plans for removal once platelets above 50. PROBLEM LIST 1.MRSE bacteremia likely secondary to line 2. Neutropenic fever 3.Pancytopenia 4. AML MICRO 07/24 Blood cultures 4/4 Bottles Staph Epi (R Oxacillin) 07/26 Blood cultures in lab ANTIBIOTICS Vancomycin Cefepime DISCUSSION: Patient admitted with neutropenic fevers after 2nd cycle of chemotherapy for AML. Sweeney in place, Urine/CXR clear. Blood cultures growing 4/4 bottles MRSE. Likely secondary to line. So far repeat cultures are negative. He is severely pancytopenic. Given this is MRSE. Can DC Cefepime, change back to levofloxacin and c/w Vancomycin. I anticipate we will give Daptomycin for outpatient IV therapy. Anticipate sweeney removal While this is recommended, should be done when safe to do so. If cannot be done safely alternatively we could treat and check blood cultures after treatment is completed. Will d/w Primary RECOMMENDATION: -C/W Vancomycin for now, pharmacy to follow levels/protocol -Can dc Cefepime -Restart outpatient Levofloxacin -Sweeney removal when/if safe to do so -Follow repeat cultures Thank you for this consultation, ID will follow with you Nancy Miles MD Infectious Diseases [facility], [facility] Consultation Information This patient recommendation is based on a telemedicine consult request which was completed asynchronously through chart review and information provided by the primary physician. The patient was not seen or examined today. The evaluation is consultative in nature and all patient care and treatment decisions can either be accepted or rejected by the patient's primary hospital-based treating physician using their own independent medical judgment for their patient. [employer] contact information: Please call [facility] Call Center . 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 Patient receiving are at [facility]. Review of Oncology notes states he received venetoclax/decitabine from 05/16/2022 to 05/22/2022 c/b neutropenic sepsis due to dental abscess requiring multiple tooth extraction on 06/13/2022. He had a repeat bone marrow biopsy on 06/17 concerning for induction failure and treated with Cladnribine/Cyatrabine/GCSF/Mitoxantrone (CLAG regimen) while inpatient at [facility] [place] [facility] from 07/08/2022 to 07/12/2022. On Prophylaxis with Acyclovir, Posaconazole, levofloxacin. Patient was admitted to [facility] 07/24 after his outpatient labs showed pancytopenia and initially had planned on arranging platelets and blood transfusions as an outpatient but developed a fever of 100.6F . Initial white cell count of 0, hemoglobin of 5.5, hematocrit of 16.4 and platelet count of 3000. On admission, chest x-ray, urinalysis were negative. Bio fire negative. Lactate 1.4 Blood cultures from central and peripheral line was also obtained 09/29 bottles now growing CoNS (Oxacillin resistant). 07/26 Blood cultures are in lab currently. Patient transfused with pRBCs and platelets. Empiric antibiotic coverage with vancomycin and cefepime. 2DEcho done and no evidence of mass or vegetation seen. Fever curve has improved 07/25 was last fever. Overnight, he has not had fever, other vitals are stable. Surgery evaluation for sweeney catheter plans for removal once platelets above 50. Allergies Allergy/AdvReac Type Severity Reaction Status Date / Time No Known Allergies Allergy Verified 07/21/22 12:04 Home Medications Medication Instructions Recorded Confirmed Type acyclovir 400 mg tablet 400 mg PO BID 07/16/22 07/24/22 History atenolol 25 mg tablet 25 mg PO DAILY 07/16/22 07/24/22 History calcium carbonate 200 mg calcium 200 mg PO TID 07/16/22 07/24/22 History (500 mg) chewable tablet (Tums) docusate sodium 100 mg capsule 100 mg PO BID 07/16/22 07/24/22 History (Colace) furosemide 40 mg tablet 40 mg PO DAILY 07/16/22 07/24/22 History isosorbide mononitrate 120 mg 120 mg PO QAM 07/16/22 07/24/22 History tablet,extended release 24 hr levofloxacin 750 mg tablet 750 mg PO DAILY 07/16/22 07/24/22 History loratadine 10 mg tablet 10 mg PO DAILY PRN Allergy Symptoms 07/16/22 07/24/22 History magnesium oxide 400 mg PO BID 07/16/22 07/24/22 History melatonin 10 mg tablet 10 mg PO HS PRN Insomnia 07/16/22 07/24/22 History ondansetron 8 mg disintegrating 8 mg PO Q8H PRN nausea 07/16/22 07/24/22 History tablet polyethylene glycol 3350 17 gram 17 g PO BID 07/16/22 07/24/22 History oral powder packet (Miralax) posaconazole 100 mg tablet,delayed 400 mg PO DAILY 07/16/22 07/24/22 History release potassium chloride 20 mEq 20 meq PO BID 07/16/22 07/24/22 History tablet,extended release sertraline 25 mg tablet 25 mg PO DAILY 07/16/22 07/24/22 History venetoclax 50 mg tablet 50 mg PO DAILY 07/16/22 07/24/22 History venetoclax 10 mg tablet (Venclexta) 20 mg PO DAILY 07/24/22 07/24/22 History Patient History Medical History (Updated 07/26/22 @ 11:16 by Kathleen Ramirez DO) Acute myelogenous leukemia Bacteremia associated with intravascular line Chronic heart failure with preserved ejection fraction Coronary artery disease Depression Hyperlipidemia Leukemia Neutropenic fever Pancytopenia due to antineoplastic chemotherapy Thrombocytopenia Surgical History Hx of heart artery stent Hx of laminectomy Social History Smoking Status: Never smoker Hx Alcohol Use: No Hx Substance Use: No Preferred Language: Occitan Communication Ability: Effective Rapier Insertion Loom Fixer Required: No Beliefs That Will Affect Care: None Current Living Situation: Spouse Feels Safe at Home: Yes Safety Concerns: Feels Safe At This Time Assistive Devices: Walker Results & Data ([facility]) Vital Signs (Past 12 Hours) Vital Signs Temp Pulse Pulse Resp BP BP Pulse Ox 07/27/22 11:50 36.9 C 60 18 134/70 98 07/27/22 11:29 36.9 C 58 L 18 135/70 98 07/27/22 10:29 37 C 64 18 132/68 98 07/27/22 09:59 35.8 C L 58 L 18 124/68 97 07/27/22 09:44 36.9 C 52 L 18 118/64 98 07/27/22 11:53 36.6 C 62 18 134/78 98 07/27/22 09:28 36.8 C 62 20 118/74 94 07/27/22 08:20 37 C 62 18 124/70 98 07/27/22 07:00 37 C 66 18 130/77 98 07/27/22 06:45 37 C 53 L 16 144/77 H 95 07/27/22 06:30 37 C 58 L 16 138/84 96 07/27/22 06:11 36.8 C 55 L 16 138/76 91 01/30/23 02:30 37.2 C 61 15 128/77 90 O2 Del Method 07/27/22 11:50 07/27/22 11:29 07/27/22 10:29 07/27/22 09:59 07/27/22 09:44 07/27/22 11:53 07/27/22 09:28 07/27/22 08:20 07/27/22 07:00 07/27/22 06:45 07/27/22 06:30 07/27/22 06:11 07/27/22 02:30 Room Air Laboratory Results Laboratory Results - last 48 hr 07/24/22 07/24/22 07/25/22 16:46 16:46 16:15 WBC RBC Hgb Hct MCV MCH MCHC RDW Std Deviation RDW Coeff of Lazaro Plt Count MPV Immature Gran % (Auto) Neut % (Auto) Lymph % (Auto) Eagle % (Auto) Eos % (Auto) Baso % (Auto) Neut # (Auto) Lymph # (Auto) Eagle # (Auto) Eos # (Auto) Baso # (Auto) Immature Gran # (Auto) Absolute Nucleated RBC Nucleated RBC % (auto) Neutrophils % (Manual) Band Neutrophils % Lymphocytes % (Manual) Prolymphocyte % Reactive Lymphs % (Man) Monocytes % (Manual) Eosinophils % (Manual) Basophils % (Manual) Metamyelocytes % (Man) Myelocytes % (Man) Promyelocytes % (Man) Blast Cells % (Manual) Plasma Cell % (Manual) Other Cells % Nucleated RBC % Neutrophils # (Manual) Band Neutrophils # Total Absolute Neuts Lymphocytes # (Manual) Prolymphocyte # Reactive Lymphs # Total Abs Lymphocytes Monocytes # (Manual) Eosinophils # (Manual) Basophils # (Manual) Metamyelocytes # (Man) Myelocytes # (Manual) Promyelocytes # (Man) Blast Cells # (Man) Plasma Cell # (Manual) Other Cells # Nucleated RBCs # (Man) Hypersegmented Neuts Hyposegmented Neuts Hypogranular Neuts Large Granular Lymphs # Lrg Granular Lymphs Hairy Cells Smudge Cells Toxic Granulation Toxic Vacuolation Dohle Bodies Hina Rods Platelet Estimate Hypogranular Platelets Clumped Platelets Giant Platelets Platelet Satelliting RBC Morphology Polychromasia Hypochromasia Poikilocytosis Basophilic Stippling Anisocytosis Microcytosis Macrocytosis Spherocytes Pappenheimer Bodies Sickle Cells Target Cells Tear Drop Cells Ovalocytes Stomatocytes [place] Bodies Echinocytes Acanthocytes (Spur) Rouleaux RBC Agglutinates Schistocytes Sezary Cell Sodium Potassium Chloride Carbon Dioxide Anion Gap BUN Creatinine Est Cr Clr Drug Dosing Est GFR ( Amer) Est GFR (Non-Af Amer) BUN/Creatinine Ratio Glucose Calcium Total Bilirubin 1.6 H Direct Bilirubin 0.4 H AST ALT Alkaline Phosphatase Total Protein Albumin Globulin Albumin/Globulin Ratio Vitamin B12 Folate Random Vancomycin Staphylococcus sp PCR DETECTED A mecA/C-Methicil Resis Gene DETECTED A Staph epidermidis (PCR) DETECTED A Bld Cult ID Panel PCR See PCR Comment Blood Parasites ID Blood Type A Positive Antibody Screen NEGATIVE Crossmatch See Detail 07/25/22 07/25/22 07/26/22 16:15 16:15 05:40 WBC 0.06 L* RBC 2.67 L Hgb 7.8 L Hct 22.6 L MCV 84.6 MCH 29.2 MCHC 34.5 RDW Std Deviation 50.7 H RDW Coeff of Lazaro 16.3 H Plt Count 15 L* MPV Immature Gran % (Auto) Neut % (Auto) Lymph % (Auto) Eagle % (Auto) Eos % (Auto) Baso % (Auto) Neut # (Auto) Lymph # (Auto) Eagle # (Auto) Eos # (Auto) Baso # (Auto) Immature Gran # (Auto) Absolute Nucleated RBC Nucleated RBC % (auto) Neutrophils % (Manual) Band Neutrophils % Lymphocytes % (Manual) Prolymphocyte % Reactive Lymphs % (Man) Monocytes % (Manual) Eosinophils % (Manual) Basophils % (Manual) Metamyelocytes % (Man) Myelocytes % (Man) Promyelocytes % (Man) Blast Cells % (Manual) Plasma Cell % (Manual) Other Cells % Nucleated RBC % Neutrophils # (Manual) Band Neutrophils # Total Absolute Neuts Lymphocytes # (Manual) Prolymphocyte # Reactive Lymphs # Total Abs Lymphocytes Monocytes # (Manual) Eosinophils # (Manual) Basophils # (Manual) Metamyelocytes # (Man) Myelocytes # (Manual) Promyelocytes # (Man) Blast Cells # (Man) Plasma Cell # (Manual) Other Cells # Nucleated RBCs # (Man) Hypersegmented Neuts Hyposegmented Neuts Hypogranular Neuts Large Granular Lymphs # Lrg Granular Lymphs Hairy Cells Smudge Cells Toxic Granulation Toxic Vacuolation Dohle Bodies Hina Rods Platelet Estimate Hypogranular Platelets Clumped Platelets Giant Platelets Platelet Satelliting RBC Morphology Polychromasia Hypochromasia Poikilocytosis Basophilic Stippling Anisocytosis Microcytosis Macrocytosis Spherocytes Pappenheimer Bodies Sickle Cells Target Cells Tear Drop Cells Ovalocytes Stomatocytes [place] Bodies Echinocytes Acanthocytes (Spur) Rouleaux RBC Agglutinates Schistocytes Sezary Cell Sodium 139 Potassium 3.6 Chloride 107 Carbon Dioxide 28 Anion Gap 4 BUN 20 Creatinine 0.59 L Est Cr Clr Drug Dosing 103.1 Est GFR ( Amer) 122.3 Est GFR (Non-Af Amer) 105.5 BUN/Creatinine Ratio 33.9 H Glucose 93 Calcium 7.9 L Total Bilirubin 1.6 H Direct Bilirubin AST 9 L ALT 14 Alkaline Phosphatase 66 Total Protein 5.2 L Albumin 2.6 L Globulin 2.6 Albumin/Globulin Ratio 1.0 Vitamin B12 351 Folate 14.23 Random Vancomycin Staphylococcus sp PCR mecA/C-Methicil Resis Gene Staph epidermidis (PCR) Bld Cult ID Panel PCR Blood Parasites ID Blood Type Antibody Screen Crossmatch 07/26/22 07/26/22 07/26/22 05:40 05:40 05:40 WBC Cancelled 0.06 L* RBC Cancelled 2.72 L Hgb Cancelled 8.1 L Hct Cancelled 22.9 L MCV Cancelled 84.2 MCH Cancelled 29.8 MCHC Cancelled 35.4 RDW Std Deviation Cancelled 47.4 H RDW Coeff of Lazaro Cancelled 16.2 H Plt Count Cancelled 19 L* MPV Cancelled Immature Gran % (Auto) Cancelled Neut % (Auto) Cancelled Lymph % (Auto) Cancelled Eagle % (Auto) Cancelled Eos % (Auto) Cancelled Baso % (Auto) Cancelled Neut # (Auto) Cancelled Lymph # (Auto) Cancelled Eagle # (Auto) Cancelled Eos # (Auto) Cancelled Baso # (Auto) Cancelled Immature Gran # (Auto) Cancelled Absolute Nucleated RBC Cancelled Nucleated RBC % (auto) Cancelled Neutrophils % (Manual) Cancelled Band Neutrophils % Cancelled Lymphocytes % (Manual) Cancelled Prolymphocyte % Cancelled Reactive Lymphs % (Man) Cancelled Monocytes % (Manual) Cancelled Eosinophils % (Manual) Cancelled Basophils % (Manual) Cancelled Metamyelocytes % (Man) Cancelled Myelocytes % (Man) Cancelled Promyelocytes % (Man) Cancelled Blast Cells % (Manual) Cancelled Plasma Cell % (Manual) Cancelled Other Cells % Cancelled Nucleated RBC % Cancelled Neutrophils # (Manual) Cancelled Band Neutrophils # Cancelled Total Absolute Neuts Cancelled Lymphocytes # (Manual) Cancelled Prolymphocyte # Cancelled Reactive Lymphs # Cancelled Total Abs Lymphocytes Cancelled Monocytes # (Manual) Cancelled Eosinophils # (Manual) Cancelled Basophils # (Manual) Cancelled Metamyelocytes # (Man) Cancelled Myelocytes # (Manual) Cancelled Promyelocytes # (Man) Cancelled Blast Cells # (Man) Cancelled Plasma Cell # (Manual) Cancelled Other Cells # Cancelled Nucleated RBCs # (Man) Cancelled Hypersegmented Neuts Cancelled Hyposegmented Neuts Cancelled Hypogranular Neuts Cancelled Large Granular Lymphs Cancelled # Lrg Granular Lymphs Cancelled Hairy Cells Cancelled Smudge Cells Cancelled Toxic Granulation Cancelled Toxic Vacuolation Cancelled Dohle Bodies Cancelled Hina Rods Cancelled Platelet Estimate Cancelled Hypogranular Platelets Cancelled Clumped Platelets Cancelled Giant Platelets Cancelled Platelet Satelliting Cancelled RBC Morphology Cancelled Polychromasia Cancelled Hypochromasia Cancelled Poikilocytosis Cancelled Basophilic Stippling Cancelled Anisocytosis Cancelled Microcytosis Cancelled Macrocytosis Cancelled Spherocytes Cancelled Pappenheimer Bodies Cancelled Sickle Cells Cancelled Target Cells Cancelled Tear Drop Cells Cancelled Ovalocytes Cancelled Stomatocytes Cancelled [place] Bodies Cancelled Echinocytes Cancelled Acanthocytes (Spur) Cancelled Rouleaux Cancelled RBC Agglutinates Cancelled Schistocytes Cancelled Sezary Cell Cancelled Sodium Potassium Chloride Carbon Dioxide Anion Gap BUN Creatinine Est Cr Clr Drug Dosing Est GFR ( Amer) Est GFR (Non-Af Amer) BUN/Creatinine Ratio Glucose Calcium Total Bilirubin Direct Bilirubin AST ALT Alkaline Phosphatase Total Protein Albumin Globulin Albumin/Globulin Ratio Vitamin B12 Folate Random Vancomycin 11.9 Staphylococcus sp PCR mecA/C-Methicil Resis Gene Staph epidermidis (PCR) Bld Cult ID Panel PCR Blood Parasites ID Cancelled Blood Type Antibody Screen Crossmatch 07/26/22 07/26/22 07/27/22 11:52 18:28 05:52 WBC RBC Hgb Hct MCV MCH MCHC RDW Std Deviation RDW Coeff of Lazaro Plt Count 30 L D 57 L D MPV Immature Gran % (Auto) Neut % (Auto) Lymph % (Auto) Eagle % (Auto) Eos % (Auto) Baso % (Auto) Neut # (Auto) Lymph # (Auto) Eagle # (Auto) Eos # (Auto) Baso # (Auto) Immature Gran # (Auto) Absolute Nucleated RBC Nucleated RBC % (auto) Neutrophils % (Manual) Band Neutrophils % Lymphocytes % (Manual) Prolymphocyte % Reactive Lymphs % (Man) Monocytes % (Manual) Eosinophils % (Manual) Basophils % (Manual) Metamyelocytes % (Man) Myelocytes % (Man) Promyelocytes % (Man) Blast Cells % (Manual) Plasma Cell % (Manual) Other Cells % Nucleated RBC % Neutrophils # (Manual) Band Neutrophils # Total Absolute Neuts Lymphocytes # (Manual) Prolymphocyte # Reactive Lymphs # Total Abs Lymphocytes Monocytes # (Manual) Eosinophils # (Manual) Basophils # (Manual) Metamyelocytes # (Man) Myelocytes # (Manual) Promyelocytes # (Man) Blast Cells # (Man) Plasma Cell # (Manual) Other Cells # Nucleated RBCs # (Man) Hypersegmented Neuts Hyposegmented Neuts Hypogranular Neuts Large Granular Lymphs # Lrg Granular Lymphs Hairy Cells Smudge Cells Toxic Granulation Toxic Vacuolation Dohle Bodies Hina Rods Platelet Estimate Hypogranular Platelets Clumped Platelets Giant Platelets Platelet Satelliting RBC Morphology Polychromasia Hypochromasia Poikilocytosis Basophilic Stippling Anisocytosis Microcytosis Macrocytosis Spherocytes Pappenheimer Bodies Sickle Cells Target Cells Tear Drop Cells Ovalocytes Stomatocytes [place] Bodies Echinocytes Acanthocytes (Spur) Rouleaux RBC Agglutinates Schistocytes Sezary Cell Sodium 140 Potassium 3.2 L Chloride 107 Carbon Dioxide 29 Anion Gap 4 BUN 21 Creatinine 0.58 L Est Cr Clr Drug Dosing 104.9 Est GFR ( Amer) 123.1 Est GFR (Non-Af Amer) 106.2 BUN/Creatinine Ratio 36.2 H Glucose 93 Calcium 8.1 L Total Bilirubin 1.0 D Direct Bilirubin AST 8 L ALT 12 Alkaline Phosphatase 61 Total Protein 5.0 L Albumin 2.5 L Globulin 2.5 Albumin/Globulin Ratio 1.0 Vitamin B12 Folate Random Vancomycin Staphylococcus sp PCR mecA/C-Methicil Resis Gene Staph epidermidis (PCR) Bld Cult ID Panel PCR Blood Parasites ID Blood Type Antibody Screen Crossmatch 07/27/22 05:52 WBC 0.07 L* RBC 2.47 L Hgb 7.3 L Hct 21.1 L MCV 85.4 MCH 29.6 MCHC 34.6 RDW Std Deviation 49.3 H RDW Coeff of Lazaro 15.6 H Plt Count 31 L MPV Immature Gran % (Auto) Neut % (Auto) Lymph % (Auto) Eagle % (Auto) Eos % (Auto) Baso % (Auto) Neut # (Auto) Lymph # (Auto) Eagle # (Auto) Eos # (Auto) Baso # (Auto) Immature Gran # (Auto) Absolute Nucleated RBC Nucleated RBC % (auto) Neutrophils % (Manual) Band Neutrophils % Lymphocytes % (Manual) Prolymphocyte % Reactive Lymphs % (Man) Monocytes % (Manual) Eosinophils % (Manual) Basophils % (Manual) Metamyelocytes % (Man) Myelocytes % (Man) Promyelocytes % (Man) Blast Cells % (Manual) Plasma Cell % (Manual) Other Cells % Nucleated RBC % Neutrophils # (Manual) Band Neutrophils # Total Absolute Neuts Lymphocytes # (Manual) Prolymphocyte # Reactive Lymphs # Total Abs Lymphocytes Monocytes # (Manual) Eosinophils # (Manual) Basophils # (Manual) Metamyelocytes # (Man) Myelocytes # (Manual) Promyelocytes # (Man) Blast Cells # (Man) Plasma Cell # (Manual) Other Cells # Nucleated RBCs # (Man) Hypersegmented Neuts Hyposegmented Neuts Hypogranular Neuts Large Granular Lymphs # Lrg Granular Lymphs Hairy Cells Smudge Cells Toxic Granulation Toxic Vacuolation Dohle Bodies Hina Rods Platelet Estimate Hypogranular Platelets Clumped Platelets Giant Platelets Platelet Satelliting RBC Morphology Polychromasia Hypochromasia Poikilocytosis Basophilic Stippling Anisocytosis Microcytosis Macrocytosis Spherocytes Pappenheimer Bodies Sickle Cells Target Cells Tear Drop Cells Ovalocytes Stomatocytes [place] Bodies Echinocytes Acanthocytes (Spur) Rouleaux RBC Agglutinates Schistocytes Sezary Cell Sodium Potassium Chloride Carbon Dioxide Anion Gap BUN Creatinine Est Cr Clr Drug Dosing Est GFR ( Amer) Est GFR (Non-Af Amer) BUN/Creatinine Ratio Glucose Calcium Total Bilirubin Direct Bilirubin AST ALT Alkaline Phosphatase Total Protein Albumin Globulin Albumin/Globulin Ratio Vitamin B12 Folate Random Vancomycin Staphylococcus sp PCR mecA/C-Methicil Resis Gene Staph epidermidis (PCR) Bld Cult ID Panel PCR Blood Parasites ID Blood Type Antibody Screen Crossmatch Diagnostic Findings Chest X-Ray 07/24/22 16:10 XR chest 1V portable HISTORY: Sepsis COMPARISON: None. FINDINGS: The cardiac silhouette is mildly enlarged. Coronary artery stents are noted. The lungs are clear. There is an old, healed left clavicle fracture. No pleural effusions. No pneumothorax. IMPRESSION: Mild cardiomegaly. ACT 112: Negative or not required by law. Electronically signed by: Taqueria Rasheed M.D. 07/24/2022 4:26 PM Medications Administered Current Inpatient Medications Acetaminophen (Acetaminophen 325 Mg Tab) 650 mg PO Q4H PRN PRN Reason: Pain or Fever Stop: 08/23/22 21:37 Last Admin: 07/25/22 16:50 Dose: 650 mg Acyclovir (Acyclovir 400 Mg Tab) 400 mg PO BID [facility] Stop: 08/23/22 21:37 Last Admin: 07/27/22 08:29 Dose: 400 mg Atenolol (Atenolol 25 Mg Tablet) 25 mg PO DAILY [facility] Stop: 08/24/22 08:59 Last Admin: 07/27/22 08:27 Dose: 25 mg Calcium Carbonate (Calcium Carbonate 500 Mg Chewable Tab) 200 mg PO TID [facility] Stop: 08/23/22 21:37 Last Admin: 07/27/22 09:03 Dose: Not Given Docusate Sodium (Docusate Sodium 100 Mg Cap) 100 mg PO BID [facility] Stop: 08/23/22 21:37 Last Admin: 07/27/22 09:03 Dose: Not Given Furosemide (Furosemide 40 Mg Tab) 40 mg PO DAILY [facility] Stop: 08/24/22 08:59 Last Admin: 07/27/22 08:27 Dose: 40 mg Vancomycin HCl 1,500 mg/ (Sodium Chloride) 530 mls @ 200 mls/hr IV Q12H [facility]; Protocol Stop: 08/09/22 09:59 Last Admin: 07/27/22 11:25 Dose: 200 mls/hr Sodium Chloride (Nss) 250 mls @ 15 mls/hr IV .[id number] PRN PRN Reason: For Transfusion Duration Stop: 07/27/22 17:13 Isosorbide Mononitrate (Isosorbide Eagle Extended Rel 60 Mg Tabcr) 120 mg PO QAM [facility] Stop: 08/24/22 08:59 Last Admin: 07/27/22 08:27 Dose: 120 mg Loratadine (Loratadine 10 Mg Tab) 10 mg PO DAILY PRN PRN Reason: Allergy Symptoms Stop: 08/23/22 21:55 Last Admin: 07/27/22 08:27 Dose: 10 mg Magnesium Oxide (Magnesium Oxide 400 Mg Tab) 400 mg PO BID [facility] Stop: 08/23/22 21:44 Last Admin: 07/27/22 08:27 Dose: 400 mg Melatonin (Melatonin 3 Mg Tab) 9 mg PO HS PRN PRN Reason: Insomnia Miscellaneous (Order Awaiting Action) 1 each N/A QS [facility] Stop: 08/24/22 00:00 Last Admin: 07/27/22 00:04 Dose: Not Given Miscellaneous Information (Vancomycin Consult Active) 1 each N/A UD PRN PRN Reason: Consult Stop: 08/23/22 16:29 Ondansetron HCl (Ondansetron Inj 2 Mg/Ml 2 Ml Vial) 4 mg IV Q4H PRN PRN Reason: Nausea Stop: 08/23/22 21:55 Polyethylene Glycol (Polyethylene (Miralax) 17 Gm Pack) 17 gm PO BID [facility] Stop: 08/23/22 21:37 Last Admin: 07/27/22 09:03 Dose: Not Given Sertraline HCl (Sertraline Hcl 50 Mg Tablet) 25 mg PO HS PRN PRN Reason: depression Stop: 08/24/22 20:59
[2022-07-27 13:34] LABS: Platelet Count 56 K/uL (130-400)
[2022-07-27 14:10] LABS: Mean Corpuscular Hemoglobin 30.1 pg (25.0-34.0); Mean Platelet Volume 11.8 fL (9.4-12.4); RDW Coefficient of Variation 15.1 % (11.5-14.5); RDW Standard Deviation 48.3 fL (36.4-46.3); Red Blood Count 2.99 M/uL (4.70-6.10); White Blood Count 0.09 K/ul (4.8-10.8)
[2022-07-27 14:19] LABS: Mean Corpuscular Hgb Conc 34.6 g/dL (32.0-36.0); Mean Corpuscular Volume 86.4 fL (80.0-100.0)
--- NOTE | 2022-07-27 15:36 | Surgery Progress Note ---
Date of Service July 27, 2022 Assessment & Plan (1) Pancytopenia due to antineoplastic chemotherapy: Plan: Plan as per oncology. Will need platelet transfusion to allow for line removal. (2) Bacteremia associated with intravascular line: Plan: Plan for removal of right sided Lainez catheter once platelets above 50. Understands pancytopenia puts him at higher risk of bleeding, infection, failure of wound to heal. Consent signed. Will plan on OR later today following platelet transfusion. 07/27/2022 3: [address] Samuel, pt's platelet is 56,000, I recommend to remove the Lainez catheter on right chest wall under sedation + local, D/W benefits, risks and alternatives of the surgery, the risks - infection, bleeding, hematoma, may need other surgery to stop bleeding, pt understood, he agreed with surgery, he signed informed consent, I answered all questions, Admission and Anticipated Discharge Date Admission Date: July 24, 2022 Supervising Physician Co-Signing Physician Notes 66-year-old male with past medical history pertinent for AML, CAD, HLD, HFpEF, and depression currently undergoing chemotherapy at [facility] with oncology with resultant pancytopenia. Patient presented with neutropenic fever. Plan for tomorrow is to have Lainez catheter removed in OR, per surgery team, platelets required over 50 K, attempted to transfuse today, however platelets needed to be obtained from outside Medical Center. 1 additional units of platelets available, will continue to transfuse to reach goal. Patient will be n.p.o. at midnight. Echo pending. Following catheter removal, goal to maintain hemoglobin of greater than 7.5 and platelet count around 15 K per oncology. Patient examined independently of resident, discussed plan in detail, agree with history, physical, and plan. Dano Escobar is a 66 year old male with history of HFpEF, HLD, depression, CAD, and AML who presented to [facility] 07/24 for a fever in the setting of abnormal labs. Patient was diagnosed with Neutropenic Fever in the setting of AML on chemotherapy and was admitted for antibiotics and management of pancytopenia. 07/27: Patient was resting comfortably in bed upon arrival. He notes no new symptoms and states that he is comfortable. Discussed ongoing need for line removal with patient at bedside and ongoing efforts to raise his platelet level. Denies chest pain, dyspnea, pleuritic pain, abdominal pain, dysuria, or bowel/bladder changes. Patient notes that he requires Lasix at baseline and feels as though his legs are slightly more edematous than normal. 07/27/2022 3:33PM Dr. Jimmie Loera reviewed pt's H/P, labs with pt, base on blood culture +, pt wants to remove the Lainez catheter on right chest wall, platelet 56, 000 Physical Exam Constitutional: WD/WN, vitals as above Eyes: PERRL, conjunctivae normal, anicteric sclerae Neck: trachea midline, no thyromegaly Cardiovascular: RRR, no murmur, no edema Chest (Breasts): Additional Comments: Lainez catheter on right side chest wall, no redness, no active bleeding, Gastrointestinal (Abdomen): normal bowel sounds, soft, nontender, no hepatos plenomegaly Musculoskeletal: no cyanosis or clubbing, extremities motor strength 5/5 Neurologic: patellar DTR's 2+ bilat, sensation intact Psychiatric: A+Ox3, euthymic affect Results & Data ([facility]) Vital Signs (Past 12 Hours) Vital Signs Temp Pulse Resp BP Pulse Ox 07/27/22 13:00 37 C 55 L 18 122/68 98 07/27/22 11:50 36.9 C 60 18 134/70 98 07/27/22 11:29 36.9 C 58 L 18 135/70 98 07/27/22 10:29 37 C 64 18 132/68 98 07/27/22 09:59 35.8 C L 58 L 18 124/68 97 07/27/22 09:44 36.9 C 52 L 18 118/64 98 07/27/22 11:53 36.6 C 62 18 134/78 98 07/27/22 09:28 36.8 C 62 20 118/74 94 07/27/22 08:20 37 C 62 18 124/70 98 07/27/22 07:00 37 C 66 18 130/77 98 07/27/22 06:45 37 C 53 L 16 144/77 H 95 07/27/22 06:30 37 C 58 L 16 138/84 96 07/27/22 06:11 36.8 C 55 L 16 138/76 91 Laboratory Results Abnormal lab results 01/27/23 01/29/23 01/30/23 Range/Units 16:46 18:28 05:52 WBC (4.8-10.8) K/ul RBC (4.70-6.10) M/uL Hgb (14.0-18.0) g/dl Hct (42.0-52.0) % RDW Std Deviation (36.4-46.3) fL RDW Coeff of Lazaro (11.5-14.5) % Plt Count 57 L D (130-400) K/uL Potassium 3.2 L (3.5-5.1) mmol/L Creatinine 0.58 L (0.6-1.4) mg/dl BUN/Creatinine Ratio 36.2 H (10-20) Calcium 8.1 L (8.5-10.1) mg/dl AST 8 L (13-39) U/L Total Protein 5.0 L (6.0-8.3) gm/dl Albumin 2.5 L (3.4-5.0) gm/dl Crossmatch See Detail 07/27/22 07/27/22 Range/Units 05:52 13:04 WBC 0.07 L* 0.09 L* (4.8-10.8) K/ul RBC 2.47 L 2.99 L (4.70-6.10) M/uL Hgb 7.3 L 9.0 L (14.0-18.0) g/dl Hct 21.1 L 26.0 L (42.0-52.0) % RDW Std Deviation 49.3 H 48.3 H (36.4-46.3) fL RDW Coeff of Lazaro 15.6 H 15.1 H (11.5-14.5) % Plt Count 31 L 56 L D (130-400) K/uL Potassium (3.5-5.1) mmol/L Creatinine (0.6-1.4) mg/dl BUN/Creatinine Ratio (10-20) Calcium (8.5-10.1) mg/dl AST (13-39) U/L Total Protein (6.0-8.3) gm/dl Albumin (3.4-5.0) gm/dl Crossmatch
[2022-07-27] MEDS ORDERED: ceFAZolin 2000MG 2,000 MG/15 ML SYR IV ONE (15:44)
--- NOTE | 2022-07-27 15:44 | History & Physical Bridge Note ---
Date of Service July 27, 2022 History & Physical Bridge Note I have examined the patient, reviewed the History & Physical and in the interval since the performance of the History & Physical I have noted the following changes of clinical significance: no changes noted Supervising Physician Co-Signing Physician Notes 66-year-old male with past medical history pertinent for AML, CAD, HLD, HFpEF, and depression currently undergoing chemotherapy at [facility] with oncology with resultant pancytopenia. Patient presented with neutropenic fever. Plan for tomorrow is to have Lainez catheter removed in OR, per surgery team, platelets required over 50 K, attempted to transfuse today, however platelets needed to be obtained from outside Medical Center. 1 additional units of platelets available, will continue to transfuse to reach goal. Patient will be n.p.o. at midnight. Echo pending. Following catheter removal, goal to maintain hemoglobin of greater than 7.5 and platelet count around 15 K per oncology. Patient examined independently of resident, discussed plan in detail, agree with history, physical, and plan.
--- NOTE | 2022-07-27 17:07 | Billing Data ---
Date of Service July 27, 2022 Coding Level of Care Code 82113 SUB INP/OBS CARE MIN
[2022-07-27] MEDS ORDERED: PROPOFOL IV EMULSION 10 MG/ML 20 ML VIAL IV ONE (17:11)
[2022-07-27] MEDS ORDERED: fentaNYL citrate 100 MCG/2 ML VIAL ONE (17:11)
[2022-07-27] MEDS ORDERED: LIDOCAINE 2% MPF LOCAL 5 ML VIAL INFIL ONE (17:11)
[2022-07-27] MEDS ORDERED: ONDANSETRON INJ 2 MG/ML 2 ML VIAL ONE (17:11)
[2022-07-27] MEDS ORDERED: MIDAZOLAM HCL 1 MG/ML 2ML VIAL ONE (17:12)
[2022-07-27] MEDS ORDERED: LIDOCAINE 1% LOCAL 20 ML VIAL ONE (17:12)
[2022-07-27] MEDS ORDERED: BACITRACIN OINT 15 GM TUBE ONE (17:12)
[2022-07-27] MEDS ORDERED: BUPIVACAINE 0.5 % 5 MG/1 ML MPF 30ML VIAL ONE (17:12)
--- NOTE | 2022-07-27 17:48 | Post Operative Brief Note ---
Immediate Post Op Note v1 Date of Surgery July 27, 2022 Pre & Post Diagnosis Operation Date: 07/26/22 12:00 <No data on this case meets the specified criteria> Operation Date: 07/27/22 08:20 Pre-Op Diagnosis: Infected lainez catheter Post-Op Diagnosis: Infected lainez catheter I identified the patient and participated in the time-out.: Yes Procedure Operation Date: 07/26/22 12:00 <No data on this case meets the specified criteria> Operation Date: 07/27/22 08:20 Actual Procedures Removal of Lainez Catheter(Right chest wall) - Adeline Samuel MD Surgeon Adeline Samuel MD Plant Care Worker surgical services manager Estimated Blood Loss 1 Findings Consistent with Post-Op Diagnosis intact catheter, culture tip of catheter, Fluids 200ml Anesthesia Type Local Complications none Disposition Accompanied Patient To Recovery: Yes
[2022-07-27] MEDS ORDERED: ONDANSETRON 4 MG OD TAB PO PRN (18:22)
--- NOTE | 2022-07-27 18:30 | Anesthesiology Progress Note ---
Date of Service July 27, 2022 Anesthesia Post Procedure Vital Signs Vital Signs: Temp Pulse Pulse Pulse Resp BP BP 07/27/22 18:27 36.9 C 53 L 20 136/82 07/27/22 18:10 36.4 C L 52 L 12 123/83 07/27/22 18:00 56 L 12 121/83 07/27/22 17:52 36.4 C L 55 L 16 108/73 07/27/22 08:00 55 L 07/27/22 15:32 37.5 C 52 L 16 145/84 H 07/27/22 13:00 37 C 55 L 18 122/68 07/27/22 11:50 36.9 C 60 18 134/70 07/27/22 11:29 36.9 C 58 L 18 135/70 07/27/22 10:29 37 C 64 18 132/68 07/27/22 09:59 35.8 C L 58 L 18 124/68 07/27/22 09:44 36.9 C 52 L 18 118/64 07/27/22 11:53 36.6 C 62 18 134/78 07/27/22 09:28 36.8 C 62 20 118/74 07/27/22 08:20 37 C 62 18 124/70 07/27/22 07:00 37 C 66 18 130/77 07/27/22 06:45 37 C 53 L 16 144/77 H 07/27/22 06:30 37 C 58 L 16 138/84 07/27/22 06:11 36.8 C 55 L 16 138/76 07/27/22 02:30 37.2 C 61 15 128/77 07/26/22 22:40 37.5 C 63 16 142/80 H 07/26/22 19:06 37.2 C 59 L 18 129/71 07/26/22 18:50 37.4 C 58 L 18 125/76 Pulse Ox O2 Del Method O2 Flow Rate 07/27/22 18:27 94 Room Air 07/27/22 18:10 99 Room Air 07/27/22 18:00 100 Room Air 07/27/22 17:52 100 Oxymask 9 07/27/22 08:00 07/27/22 15:32 96 Room Air 07/27/22 13:00 98 07/27/22 11:50 98 07/27/22 11:29 98 07/27/22 10:29 98 07/27/22 09:59 97 07/27/22 09:44 98 07/27/22 11:53 98 07/27/22 09:28 94 07/27/22 08:20 98 07/27/22 07:00 98 07/27/22 06:45 95 07/27/22 06:30 96 07/27/22 06:11 91 07/27/22 02:30 90 Room Air 07/26/22 22:40 95 Room Air 07/26/22 19:06 92 Room Air 07/26/22 18:50 98 Transfer of Care Handoff Completed per policy Notes Mental Status: alert / awake / arousable and participated in evaluation Patient Amnestic to Procedure: Yes Nausea / Vomiting: adequately controlled Pain: adequately controlled Airway Patency, RR, SpO2: stable & adequate BP & HR: stable & adequate Hydration State: stable & adequate Anesthetic Complications: no major complications apparent and Pt Satisfied with anesthetic care
--- NOTE | 2022-07-27 20:48 | Operative Report (OR) ---
PREOPERATIVE DIAGNOSIS: Infected Lainez catheter. POSTOPERATIVE DIAGNOSIS: Infected Lainez catheter on the right chest wall. OPERATION: Removal of Lainez catheter on the right chest wall. SURGEON: Adeline Samuel MD. ANESTHESIA: Conscious sedation plus local. ESTIMATED BLOOD LOSS: About 1 mL. FINDINGS: The catheter is intact. Tip of the catheter sent for culture. COMPLICATIONS: None. INDICATIONS FOR THE PROCEDURE: This is a 66-year-old gentleman, who had an infected Lainez catheter on the right chest wall and I recommended to remove the Lainez catheter on the right upper chest wa ll under sedation plus local. I did talk to the patient about the benefits, risks, and alternate pro cedure. I indicated the risks may include, but not limited to, such as bleeding, infection, blood cl ot, hematoma, may need more procedure to stop bleeding. The patient understands. The patient signed informed consent and I answered all questions. DETAILS OF PROCEDURE: After we identified the patient and verified the procedure, we brought the pat ient to the OR, put the patient in the supine position on the OR table. The patient received SCD on bilateral legs to prevent DVT. Also, the patient received 1 gram vancomycin prophylactic IV antibiot ic and the patient received conscious sedation by the anesthesiology. The right upper chest wall was prepped and draped in routine sterile fashion. After timeout, I injected the local anesthesia by us ing 1% lidocaine mixed with 0.5% Marcaine around the catheter. Then, I made about 1 centimeter incis ion on the right upper chest wall and mobilized the catheter. As completely mobilized the catheter a nd hemostasis was obtained, then I completely pulled out the catheter easily. We put pressure on the right side of the neck. The tip of the catheter was sent to culture and hemostasis was obtained. The n I closed the incision by using 0 nylon interruptedly. Then we put the dressing on. The patient kelsea erated the procedure well. All instrument, needle, and sponge counts were correct x2 at the end of t he case. The catheter was intact and the patient was transferred to recovery room in stable conditio n. After the procedure, I did talk to the patient about the OR finding and the procedure we did. Al so I gave the patient on postoperative care instruction and the patient understands. Job ID: [id number]
[2022-07-27] MEDS: POTASSIUM CHLORIDE CRTAB 20 MEQ TABCR PO SCH (21:34)
[2022-07-27] MEDS: levoFLOXacin 750 MG TAB PO SCH (21:38)
[2022-07-28 07:24] LABS: Hematocrit (blood only) 24.6 % (42.0-52.0); Hemoglobin 8.4 g/dl (14.0-18.0); Mean Corpuscular Hemoglobin 29.5 pg (25.0-34.0); Mean Corpuscular Hgb Conc 34.1 g/dL (32.0-36.0); Mean Corpuscular Volume 86.3 fL (80.0-100.0); Platelet Count 30 K/uL (130-400); RDW Coefficient of Variation 14.8 % (11.5-14.5); RDW Standard Deviation 47.2 fL (36.4-46.3); Red Blood Count 2.85 M/uL (4.70-6.10); White Blood Count 0.08 K/ul (4.8-10.8)
[2022-07-28 07:29] LABS: Albumin Globulin Ratio 0.9 (0.9-2); Albumin Level 2.5 gm/dl (3.4-5.0); BUN Creatinine Ratio 40.4 (10-20); Calcium 8.4 mg/dl (8.5-10.1); Est GFR (African American) 128.8 ml/min; Est GFR (Non-African American) 111.1 ml/min; Globulin 2.7 gm/dl (2.5-4.0); Potassium 3.4 mmol/L (3.5-5.1); Total Protein 5.2 gm/dl (6.0-8.3)
[2022-07-28] MEDS ORDERED: POTASSIUM CHLORIDE CRTAB 20 MEQ TABCR PO STA (07:47)
--- NOTE | 2022-07-28 07:49 | Hospitalist Progress Note ---
Date of Service July 28, 2022 Assessment & Plan (1) Gram-positive bacteremia: Plan: - 07/25 Evidence of gram positive cocci in clusters on blood culture (2 sites), staphylococcus species - Urgent Consult ID: recommending continued broad spectrum abx, central line removal, and Echocardiogram - Continue Vancomycin, discontinue Cefepime - Blood cultures indicating MRSE - TTE negative, possible need for TERRANCE (contact ID) - Appreciate ID recommendations, anticipating Daptomycin for outpatient IV therapy --- Patient doing well following Lainez line removal, Hgb and Plt stable --- Continue to follow blood cultures --- ID recommending transition to Daptomycin and baseline CPK (2) Neutropenic fever: Plan: - Continue empiric abx: Vancomycin (discontinue Cefipime) - CXR, Urinalysis, and Biofire unremarkable - Blood cultures indicating MRSE - Central catheter intact w/o erythema or purulence - Neutropenic precautions --- Afebrile since 07/25 (3) Pancytopenia due to antineoplastic chemotherapy: Plan: - S/p PRBC x 2, goal > 7.5, patient's baseline 9 - S/p Platelets x 2 - Oncology recommendations: * Continue broad spectrum abx, follow blood cultures * Recheck T-bili/direct bili, consider abdominal imaging if not improved * Continue venetoclax hold, continue posaconazole and acyclovir ppx * Maintain hgb > 7.5 and plt count ~ 15k --- Hgb 7.3., Plt 30 in AM (4) Acute myelogenous leukemia: Plan: - Management as above per Oncology recommendations (5) Coronary artery disease: Plan: - Not on antiplatelet suspect due to thrombocytopenia - Not on statin - Continue atenolol and ISMN (hold parameters set) (6) Depression: Plan: - Patient report only taking sertraline as needed (7) Chronic heart failure with preserved ejection fraction: Plan: - Noted on PMHx however patient denies prior history of this or pulmonary edema but takes Lasix for bilateral pitting edema. - Lasix but hold if SBP less than 100 - Received dose of IV Lasix 20 mg d/t worsening LE edema --- Follow edema Plan VTE Prophylaxis - no chemical prophylaxis due to thrombocytopenia Diet - Low Na Diet Code - Full Code Isolation - Neutropenic precautions Disposition - PCU Admission and Anticipated Discharge Date Admission Date: July 24, 2022 Supervising Physician Co-Signing Physician Notes I personally examined the patient and verified all huston points of history and exam, discussed case, and agree with decision making with Dr Ramirez Feels good. Surgical site healing well. Extensive discussion on gram-positive bacteremia, etiology, treatment. CBC, basic metabolic panel reviewed. Vitals noted, in general he is awake and alert pleasant no distress. HEENT normocephalic atraumatic mucous membranes moist. Breathing unlabored no accessory muscle use good effort. Skin shows no rashes no pallor or icterus. Neutropenic sepsis due to MRSA bacteremiaport now removed. Transition to daptomycin. Given that he will likely only need a few weeks, and he does not need central IV access in the immediate future, will likely utilize ultrasound- guided peripheral for now, and wait on putting in any more central access until he is well out of the window of this current infection. Start to work towards daptomycin for home. His pancytopenia is quite severebut likely indicative of his AML chemo being effective. Dano Escobar is a 66 year old male with history of HFpEF, HLD, depression, CAD, and AML who presented to [facility] 07/24 for a fever in the setting of abnormal labs. Patient was diagnosed with Neutropenic Fever in the setting of AML on chemotherapy and was admitted for antibiotics and management of pancytopenia. 07/28: Patient feeling much improved today, sitting more upright in bed. Patient notes he 'feels like he has more life in him'. Patient feeling well s/p line removal 07/27, has had no episode of bleeding. Patient ambulates within room. Patient states that his legs remains edematous despite diuretic. Denies chest pain, dyspnea, pleuritic pain, abdominal pain, dysuria, or bowel/bladder changes. Review of Systems Review of Systems: As per HPI Physical Exam Physical Exam: Gen: NAD, alert, calm/fatigued Resp:Non-labored, no wheezing/rhonchi/rales, CTAB CV:RRR, normal S1/S2, no M/R/G Abd: Soft, non-distended, no TTP, normoactive bowels, no masses Extr: 2+ dp bilaterally, trace edema Skin: B/l petechia present on upper and lower extremities (improving) Results & Data Results & Data ([facility]) Vital Signs (Past 12 Hours) Vital Signs Temp Pulse Resp BP Pulse Ox Pulse Ox O2 Del Method 07/28/22 03:50 36.8 C 57 L 18 152/78 H 95 Room Air 07/27/22 21:38 94 07/27/22 23:42 37.1 C 57 L 18 132/78 92 Room Air O2 Del Method 07/28/22 03:50 07/27/22 21:38 Room Air 07/27/22 23:42 Resident Activity Tracking Resident Involvement: Resident Care Provided Care Provided: Adult Hospital Medicine
[2022-07-28] MEDS: ACYCLOVIR 400 MG TAB PO SCH ×2 (09:02→19:50)
[2022-07-28] MEDS: FUROSEMIDE 40 MG TAB PO SCH (09:02)
[2022-07-28] MEDS: LORATADINE 10 MG TAB PO PRN (09:02)
[2022-07-28] MEDS: ISOSORBIDE MONO EXTENDED REL 60 MG TABCR PO SCH (09:02)
[2022-07-28] MEDS: MAGNESIUM OXIDE 400 MG TAB PO SCH ×2 (09:02→19:51)
[2022-07-28] MEDS: ATENOLOL 25 MG TABLET PO SCH (09:02)
[2022-07-28] MEDS: POTASSIUM CHLORIDE CRTAB 20 MEQ TABCR PO SCH ×2 (09:04→19:50)
[2022-07-28] MEDS: CYANOCOBALAMIN (B-12) 500 MCG TABLET PO SCH (09:04)
--- NOTE | 2022-07-28 10:22 | Pharmacy Report ---
Pharmacy PK ABX Note - Date of Service July 28, 2022 - Assessment and Plan Assessment 66 year old M receiving Vancomycin for treatment of bacteremia/neutropenic fever. * PMHx significant for AML on active chemotherapy. Day #5 of abx. * Renal function stable. * 07/24 Blood cx are growing MRSE in 09/29, repeat BCx (-) at 24h. S/P removal of Lainez catheter 07/27 * ID consulted/following Plan Vancomycin * Current regimen: 1500 mg IV every 12 hours * Random level obtained 07/28/22 resulted as 18.4 mcg/mL (~9hr level) - therapeutic. Regimen is predicted to achieve a steady state AUC of 501mg/L.hr and SS trough of 12.5mg/L. * Continue 1500mg IV q12h * Will repeat a level in around 48h, or sooner if clinically indicated Pharmacy will continue to follow and will adjust dose/frequency as necessary. Thank you. Pharmacy has transitioned to AUC monitoring for vancomycin. AUC/SALVATORE is the preferred PK/PD target and is associated with decreased risk of nephrotoxicity compared to traditional trough targets.
[2022-07-28] MEDS: POLYETHYLENE (MIRALAX) 17 GM PACK PO SCH ×2 (10:46→19:51)
[2022-07-28] MEDS: CALCIUM CARBONATE 500 MG CHEWABLE TAB PO SCH ×3 (10:46→19:51)
[2022-07-28] MEDS: DOCUSATE SODIUM 100 MG CAP PO SCH ×2 (10:46→19:50)
[2022-07-28] MEDS: VANCOMYCIN HCL 1,500 MG in SODIUM CHLORIDE 0.9% 500 ML IV SCH (10:47)
--- NOTE | 2022-07-28 11:40 | Surgery Progress Note ---
Date of Service July 28, 2022 Assessment & Plan (1) Pancytopenia due to antineoplastic chemotherapy: (2) Bacteremia associated with intravascular line: Plan POD # 1 s/p removal of right Lainez catheter -afebrile - no signs of bleeding at prior catheter site Plan: Keep dressing on for 2 more days, change daily Keep external sutures in for 2 weeks and then remove continue antibiotics and current medical management our services signing off, please call with questions/concerns Dr. archuleta has seen and examined pt, agrees with above. Admission and Anticipated Discharge Date Admission Date: July 24, 2022 Subjective pressure dressing removed this morning, no evidence of any bleeding or subcutaneous hematoma no pain Physical Exam Constitutional: + frail appearing, cooperative and comfortable; no acute distress Neck: right neck without any evidence of subcutaneous edema or hematoma formation since pressure dressing removed dressing on prior catheter site present and clean and dry Psychiatric: A+Ox3, euthymic affect Results & Data ([facility]) Vital Signs (Past 12 Hours) Vital Signs Temp Pulse Resp BP Pulse Ox O2 Del Method 07/28/22 11:36 36.9 C 50 L 20 135/76 94 Room Air 07/28/22 08:09 36.8 C 56 L 20 145/75 H 96 Room Air 07/28/22 03:50 36.8 C 57 L 18 152/78 H 95 Room Air 07/27/22 23:42 37.1 C 57 L 18 132/78 92 Room Air Laboratory Results 07/28/22 07/28/22 07/28/22 Range/Units 06:48 06:48 06:48 WBC 0.08 L* (4.8-10.8) K/ul RBC 2.85 L (4.70-6.10) M/uL Hgb 8.4 L (14.0-18.0) g/dl Hct 24.6 L (42.0-52.0) % MCV 86.3 (80.0-100.0) fL MCH 29.5 (25.0-34.0) pg MCHC 34.1 (32.0-36.0) g/dL RDW Std Deviation 47.2 H (36.4-46.3) fL RDW Coeff of Lazaro 14.8 H (11.5-14.5) % Plt Count 30 L (130-400) K/uL MPV (9.4-12.4) fL Absolute Nucleated RBC Nucleated RBC % (auto) Platelet Estimate Sodium 141 (136-145) mmol/L Potassium 3.4 L (3.5-5.1) mmol/L Chloride 106 (98-107) mmol/L Carbon Dioxide 32 (21-32) mmol/L Anion Gap 3 (3-11) BUN 21 (6-23) mg/dl Creatinine 0.52 L (0.6-1.4) mg/dl Est Cr Clr Drug Dosing 117.0 ml/min Est GFR ( Amer) 128.8 ml/min Est GFR (Non-Af Amer) 111.1 ml/min BUN/Creatinine Ratio 40.4 H (10-20) Glucose 94 (70-99(Fasting)) mg/dl Calcium 8.4 L (8.5-10.1) mg/dl Total Bilirubin 1.0 (0.2-1.0) mg/dl AST 7 L (13-39) U/L ALT 11 (7-52) U/L Alkaline Phosphatase 61 (34-104) U/L Total Protein 5.2 L (6.0-8.3) gm/dl Albumin 2.5 L (3.4-5.0) gm/dl Globulin 2.7 (2.5-4.0) gm/dl Albumin/Globulin Ratio 0.9 (0.9-2) Random Vancomycin 18.4 (10-20) mcg/ml Crossmatch 07/27/22 07/27/22 07/24/22 Range/Units 13:04 13:04 16:46 WBC Cancelled 0.09 L* (4.8-10.8) K/ul RBC Cancelled 2.99 L (4.70-6.10) M/uL Hgb Cancelled 9.0 L (14.0-18.0) g/dl Hct Cancelled 26.0 L (42.0-52.0) % MCV Cancelled 86.4 (80.0-100.0) fL MCH Cancelled 30.1 (25.0-34.0) pg MCHC Cancelled 34.6 (32.0-36.0) g/dL RDW Std Deviation Cancelled 48.3 H (36.4-46.3) fL RDW Coeff of Lazaro Cancelled 15.1 H (11.5-14.5) % Plt Count Cancelled 56 L D (130-400) K/uL MPV Cancelled 11.8 (9.4-12.4) fL Absolute Nucleated RBC Cancelled Nucleated RBC % (auto) Cancelled Platelet Estimate Cancelled Sodium (136-145) mmol/L Potassium (3.5-5.1) mmol/L Chloride (98-107) mmol/L Carbon Dioxide (21-32) mmol/L Anion Gap (3-11) BUN (6-23) mg/dl Creatinine (0.6-1.4) mg/dl Est Cr Clr Drug Dosing ml/min Est GFR ( Amer) ml/min Est GFR (Non-Af Amer) ml/min BUN/Creatinine Ratio (10-20) Glucose (70-99(Fasting)) mg/dl Calcium (8.5-10.1) mg/dl Total Bilirubin (0.2-1.0) mg/dl AST (13-39) U/L ALT (7-52) U/L Alkaline Phosphatase (34-104) U/L Total Protein (6.0-8.3) gm/dl Albumin (3.4-5.0) gm/dl Globulin (2.5-4.0) gm/dl Albumin/Globulin Ratio (0.9-2) Random Vancomycin (10-20) mcg/ml Crossmatch See Detail
[2022-07-28] MEDS: levoFLOXacin 750 MG TAB PO SCH (12:01)
--- NOTE | 2022-07-28 14:38 | Infectious Disease Progress Nt ---
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 Patient receiving are at [facility] Review of Oncology notes states he received venetoclax/decitabine from 05/16/2022 to 05/22/2022 c/b neutropenic sepsis due to dental abscess requiring multiple tooth extraction on 06/13/2022. He had a repeat bone marrow biopsy on 06/17 concerning for induction failure and treated with Cladnribine/Cyatrabine/GCSF/Mitoxantrone (CLAG regimen) while inpatient at [facility] from 07/08/2022 to 07/12/2022. On Prophylaxis with Acyclovir, Posaconazole, levofloxacin. Patient was admitted to [facility] 07/24 after his outpatient labs showed pancytopenia and initially had planned on arranging platelets and blood transfusions as an outpatient but developed a fever of 100.6F . Initial white cell count of 0, hemoglobin of 5.5, hematocrit of 16.4 and platelet count of 3000. On admission, chest x-ray, urinalysis were negative. Bio fire negative. Lactate 1.4 Blood cultures from central and peripheral line was also obtained 4/4 bottles now growing CoNS (Oxacillin resistant). 07/26 Blood cultures are in lab currently. Patient transfused with pRBCs and platelets. Empiric antibiotic coverage with vancomycin and cefepime. 2DEcho done and no evidence of mass or vegetation seen. Fever curve has improved 07/25 was last fever. Overnight, he has not had fever, other vitals are stable. Surgery evaluation for lainez catheter plans for removal once platelets above 50. PROBLEM LIST 1.MRSE bacteremia likely secondary to line, s/p lainez removal 07/27 2. Neutropenic fever, afebrile 3.Pancytopenia 4. AML MICRO 07/24 Blood cultures 4/4 Bottles Staph Epi (R Oxacillin) 07/26 Blood cultures in lab ANTIBIOTICS Vancomycin 07/24- present Cefepime 07/24-07/27 Levofloxacin 07/27- present DISCUSSION: Patient admitted with neutropenic fevers after 2nd cycle of chemotherapy for AML. Laniez in place, Urine/CXR clear. Blood cultures growing 4/4 bottles MRSE. Likely secondary to line. So far repeat cultures are negative. He is severely pancytopenic. Given this is MRSE. Can DC Cefepime, change back to levofloxacin and c/w Vancomycin. I anticipate we will give Daptomycin for outpatient IV therapy. Anticipate lainez removal While this is recommended, should be done when safe to do so. If cannot be done safely alternatively we could treat and check blood cultures after treatment is completed. Will d/w Primary RECOMMENDATION: -He is on Vancomycin I would like to change him to Daptomycin for ease of therapy for outpatient (much safer for kidneys) -DC Vancomycin, Start Daptomycin 6mg/kg IV daily, check CPK baseline -C/W Prophylaxis with Acyclovir, Posaconazole, levofloxacin -Will d/w Oncology placement of PICC line this may be easier for patient in outpatient setting -Follow repeat cultures anticipate 2 week course of therapy but will need to follow his neutropenia ID will follow with you Nancy Miles MD Infectious Diseases [facility], [facility] Admission and Anticipated Discharge Date Admission Date: July 24, 2022 Subjective Subsequent visit was provided via telemedicine using two-way real-time interactive telecommunication between the patient and the telemedicine provider. For the duration of the visit, the provider was performing the assessment from a different facility than the patient. This includesuse of bluetooth stethoscope forauscultationperformed by the telepresenter that the telemedicine provider can hear if described in the physical exam. Pilot Captain contact information: Please call [facility] Call Center . (Phone Number For Physician Use Only) After establishing a telemedicine visit, patient was: Patient was verified with two unique identifiers, Patient/authorized rep acknowledged consent and understanding and Gave permission to continue telehealth session Time Spent with Patient: Subsequent => 35 min Physical Exam Constitutional: NAD Respiratory: normal respiratory effort, lungs clear to auscultation Cardiovascular: Rate/Rhythm: regular rate Results & Data ([facility]) Vital Signs (Past 12 Hours) Vital Signs Temp Pulse Resp BP Pulse Ox O2 Del Method 07/28/22 11:36 36.9 C 50 L 20 135/76 94 Room Air 07/28/22 08:09 36.8 C 56 L 20 145/75 H 96 Room Air 07/28/22 03:50 36.8 C 57 L 18 152/78 H 95 Room Air Laboratory Results Laboratory Results - last 48 hr 07/24/22 07/26/22 07/27/22 16:46 18:28 05:52 WBC RBC Hgb Hct MCV MCH MCHC RDW Std Deviation RDW Coeff of Lazaro Plt Count 57 L D MPV Absolute Nucleated RBC Nucleated RBC % (auto) Platelet Estimate Sodium 140 Potassium 3.2 L Chloride 107 Carbon Dioxide 29 Anion Gap 4 BUN 21 Creatinine 0.58 L Est Cr Clr Drug Dosing 104.9 Est GFR ( Amer) 123.1 Est GFR (Non-Af Amer) 106.2 BUN/Creatinine Ratio 36.2 H Glucose 93 Calcium 8.1 L Total Bilirubin 1.0 D AST 8 L ALT 12 Alkaline Phosphatase 61 Total Protein 5.0 L Albumin 2.5 L Globulin 2.5 Albumin/Globulin Ratio 1.0 Random Vancomycin Blood Type A Positive Antibody Screen NEGATIVE Crossmatch See Detail 07/27/22 07/27/22 07/27/22 05:52 13:04 13:04 WBC 0.07 L* 0.09 L* Cancelled RBC 2.47 L 2.99 L Cancelled Hgb 7.3 L 9.0 L Cancelled Hct 21.1 L 26.0 L Cancelled MCV 85.4 86.4 Cancelled MCH 29.6 30.1 Cancelled MCHC 34.6 34.6 Cancelled RDW Std Deviation 49.3 H 48.3 H Cancelled RDW Coeff of Lazaro 15.6 H 15.1 H Cancelled Plt Count 31 L 56 L D Cancelled MPV 11.8 Cancelled Absolute Nucleated RBC Cancelled Nucleated RBC % (auto) Cancelled Platelet Estimate Cancelled Sodium Potassium Chloride Carbon Dioxide Anion Gap BUN Creatinine Est Cr Clr Drug Dosing Est GFR ( Amer) Est GFR (Non-Af Amer) BUN/Creatinine Ratio Glucose Calcium Total Bilirubin AST ALT Alkaline Phosphatase Total Protein Albumin Globulin Albumin/Globulin Ratio Random Vancomycin Blood Type Antibody Screen Crossmatch 07/28/22 07/28/22 07/28/22 06:48 06:48 06:48 WBC 0.08 L* RBC 2.85 L Hgb 8.4 L Hct 24.6 L MCV 86.3 MCH 29.5 MCHC 34.1 RDW Std Deviation 47.2 H RDW Coeff of Lazaro 14.8 H Plt Count 30 L MPV Absolute Nucleated RBC Nucleated RBC % (auto) Platelet Estimate Sodium 141 Potassium 3.4 L Chloride 106 Carbon Dioxide 32 Anion Gap 3 BUN 21 Creatinine 0.52 L Est Cr Clr Drug Dosing 117.0 Est GFR ( Amer) 128.8 Est GFR (Non-Af Amer) 111.1 BUN/Creatinine Ratio 40.4 H Glucose 94 Calcium 8.4 L Total Bilirubin 1.0 AST 7 L ALT 11 Alkaline Phosphatase 61 Total Protein 5.2 L Albumin 2.5 L Globulin 2.7 Albumin/Globulin Ratio 0.9 Random Vancomycin 18.4 Blood Type Antibody Screen Crossmatch Microbiology 07/27/22 Unknown A-Port Gram Stain - Final 07/27/22 Unknown A-Port Aerobic and Anaerobic Culture - Preliminary No growth to date. 07/26/22 18:28 Blood Aerobic Blood Culture - Preliminary No growth in Aerobic bottle after 24 hours. 07/26/22 18:28 Blood Anaerobic Blood Culture - Preliminary No growth in Anaerobic bottle after 24 hours. 07/26/22 18:42 Blood Aerobic Blood Culture - Preliminary No growth in Aerobic bottle after 24 hours. 07/26/22 18:42 Blood Anaerobic Blood Culture - Preliminary No growth in Anaerobic bottle after 24 hours. 07/24/22 16:20 Blood Aerobic Blood Culture - Final Coag neg staph not lugdunensis 07/24/22 16:20 Blood Anaerobic Blood Culture - Final Coag neg staph not lugdunensis 07/24/22 16:46 Blood Aerobic Blood Culture - Final Coag neg staph not lugdunensis 07/24/22 16:46 Blood Anaerobic Blood Culture - Final Coag neg staph not lugdunensis Medications Administered Current Inpatient Medications Acetaminophen (Acetaminophen 325 Mg Tab) 650 mg PO Q4H PRN PRN Reason: Pain or Fever Stop: 08/23/22 21:37 Last Admin: 07/25/22 16:50 Dose: 650 mg Acyclovir (Acyclovir 400 Mg Tab) 400 mg PO BID [facility] Stop: 08/23/22 21:37 Last Admin: 07/28/22 09:02 Dose: 400 mg Atenolol (Atenolol 25 Mg Tablet) 25 mg PO DAILY [facility] Stop: 08/24/22 08:59 Last Admin: 07/28/22 09:02 Dose: 25 mg Calcium Carbonate (Calcium Carbonate 500 Mg Chewable Tab) 200 mg PO TID [facility] Stop: 08/23/22 21:37 Last Admin: 07/28/22 14:27 Dose: Not Given Cyanocobalamin (Cyanocobalamin (B-12) 500 Mcg Tablet) 1,000 mcg PO QAM [facility] Stop: 08/27/22 08:59 Last Admin: 07/28/22 09:04 Dose: 1,000 mcg Docusate Sodium (Docusate Sodium 100 Mg Cap) 100 mg PO BID [facility] Stop: 08/23/22 21:37 Last Admin: 07/28/22 10:46 Dose: Not Given Furosemide (Furosemide 40 Mg Tab) 40 mg PO DAILY [facility] Stop: 08/24/22 08:59 Last Admin: 07/28/22 09:02 Dose: 40 mg Vancomycin HCl 1,500 mg/ (Sodium Chloride) 530 mls @ 200 mls/hr IV Q12H [facility]; Protocol Stop: 08/09/22 09:59 Last Infusion: 07/28/22 13:36 Dose: Infused Isosorbide Mononitrate (Isosorbide [place] Extended Rel 60 Mg Tabcr) 120 mg PO [facility] Stop: 08/24/22 08:59 Last Admin: 07/28/22 09:02 Dose: 120 mg Levofloxacin (Levofloxacin 750 Mg Tab) 750 mg PO DAILY@1100 [facility] Stop: 08/27/22 10:59 Last Admin: 07/28/22 12:01 Dose: 750 mg Loratadine (Loratadine 10 Mg Tab) 10 mg PO DAILY PRN PRN Reason: Allergy Symptoms Stop: 08/23/22 21:55 Last Admin: 07/28/22 09:02 Dose: 10 mg Magnesium Oxide (Magnesium Oxide 400 Mg Tab) 400 mg PO BID [facility] Stop: 08/23/22 21:44 Last Admin: 07/28/22 09:02 Dose: 400 mg Melatonin (Melatonin 3 Mg Tab) 9 mg PO HS PRN PRN Reason: Insomnia Miscellaneous (Posaconazole-Order Awaiting Action) 1 each N/A QS [facility] Stop: 08/24/22 00:00 Last Admin: 07/27/22 00:04 Dose: Not Given Miscellaneous (Venetoclax 10mg: Order Awaiting Action) 1 each N/A QS [facility] Stop: 08/27/22 00:00 Miscellaneous (Venetoclax 50mg: Order Awaiting Action) 1 each N/A QS [facility] Stop: 08/27/22 00:00 Miscellaneous Information (Vancomycin Consult Active) 1 each N/A UD PRN PRN Reason: Consult Stop: 08/23/22 16:29 Ondansetron HCl (Ondansetron Inj 2 Mg/Ml 2 Ml Vial) 4 mg IV Q4H PRN PRN Reason: Nausea Stop: 08/23/22 21:55 Ondansetron HCl (Ondansetron 4 Mg Od Tab) 8 mg PO Q8H PRN PRN Reason: nausea Stop: 08/26/22 18:21 Polyethylene Glycol (Polyethylene (Miralax) 17 Gm Pack) 17 gm PO BID [facility] Stop: 08/23/22 21:37 Last Admin: 07/28/22 10:46 Dose: Not Given Potassium Chloride (Potassium Chloride Crtab 20 Meq Tabcr) 20 meq PO BID [facility] Stop: 08/26/22 20:59 Last Admin: 07/28/22 09:04 Dose: 20 meq Sertraline HCl (Sertraline Hcl 50 Mg Tablet) 25 mg PO HS PRN PRN Reason: depression Stop: 08/24/22 20:59
--- NOTE | 2022-07-28 18:14 | Billing Data ---
Date of Service July 28, 2022 Coding Level of Care Code 62135 SUB INP/OBS CARE
[2022-07-28] MEDS: DAPTOmycin 350 MG in SYRINGE 0 ML IV SCH (19:51)
[2022-07-29 07:44] LABS: Hematocrit (blood only) 24.9 % (42.0-52.0); Hemoglobin 8.6 g/dl (14.0-18.0); Mean Corpuscular Hemoglobin 30.3 pg (25.0-34.0); Mean Corpuscular Hgb Conc 34.5 g/dL (32.0-36.0); Mean Corpuscular Volume 87.7 fL (80.0-100.0); Platelet Count 18 K/uL (130-400); RDW Coefficient of Variation 14.2 % (11.5-14.5); RDW Standard Deviation 45.4 fL (36.4-46.3); Red Blood Count 2.84 M/uL (4.70-6.10); White Blood Count 0.13 K/ul (4.8-10.8)
[2022-07-29 07:57] LABS: Anion Gap 4 (3-11); BUN Creatinine Ratio 35.8 (10-20); Blood Urea Nitrogen 19 mg/dl (6-23); Calcium 8.6 mg/dl (8.5-10.1); Carbon Dioxide 31 mmol/L (21-32); Chloride 105 mmol/L (98-107); Creatinine Clr Calc Pharmacy 114.8 ml/min; Est GFR (African American) 127.8 ml/min; Est GFR (Non-African American) 110.3 ml/min; Glucose 89 mg/dl (70-99(Fasting)); Sodium 140 mmol/L (136-145)
--- NOTE | 2022-07-29 08:00 | Hospitalist Progress Note ---
Date of Service July 29, 2022 Assessment & Plan (1) Gram-positive bacteremia: Plan: - 07/25 Evidence of gram positive cocci in clusters on blood culture (2 sites), staphylococcus species - Urgent Consult ID: recommending continued broad spectrum abx, central line removal, and Echocardiogram - Continue Vancomycin, discontinue Cefepime - Blood cultures indicating MRSE - TTE negative, possible need for TERRANCE (contact ID) - Appreciate ID recommendations, anticipating Daptomycin for outpatient IV therapy - Patient doing well following Lainez line removal, Hgb and Plt stable - Continue to follow blood cultures --- Transitioned to Daptomycin, arranging home antibiotics and care, anticipating two week course and discharge tomorrow (2) Neutropenic fever: Plan: - Continue empiric abx: Vancomycin (discontinue Cefipime) - CXR, Urinalysis, and Biofire unremarkable - Blood cultures indicating MRSE - Central catheter intact w/o erythema or purulence - Neutropenic precautions --- Afebrile since 07/25 (3) Pancytopenia due to antineoplastic chemotherapy: Plan: - S/p PRBC x 2, goal > 7.5, patient's baseline 9 - S/p Platelets x 2 - Oncology recommendations: * Continue broad spectrum abx, follow blood cultures * Recheck T-bili/direct bili, consider abdominal imaging if not improved * Continue venetoclax hold, continue posaconazole and acyclovir ppx * Maintain hgb > 7.5 and plt count ~ 15k --- Hgb 8.6., Plt 18 in AM (4) Acute myelogenous leukemia: Plan: - Management as above per Oncology recommendations (5) Coronary artery disease: Plan: - Not on antiplatelet suspect due to thrombocytopenia - Not on statin - Continue atenolol and ISMN (hold parameters set) (6) Depression: Plan: - Patient report only taking sertraline as needed (7) Chronic heart failure with preserved ejection fraction: Plan: - Noted on PMHx however patient denies prior history of this or pulmonary edema but takes Lasix for bilateral pitting edema. - Lasix but hold if SBP less than 100 - Received dose of IV Lasix 20 mg d/t worsening LE edema --- Follow edema Plan VTE Prophylaxis - no chemical prophylaxis due to thrombocytopenia Diet - Low Na Diet Code - Full Code Isolation - Neutropenic precautions Disposition - D/c to home planned tomorrow Admission and Anticipated Discharge Date Admission Date: July 24, 2022 Supervising Physician Co-Signing Physician Notes I personally examined the patient and verified all huston points of history and exam, discussed case, and agree with decision making with Dr Ramirez Feels good. Discussed discharge planning. Discussed PICC line versus ultrasoun d-guided peripheralafter weighing risk/benefit, he would prefer ultrasound- guided peripheral at the current time. Vitals noted, in general he is awake and alert pleasant no distress. HEENT normocephalic atraumatic mucous membranes moist. Breathing unlabored no accessory muscle use good effort. Skin shows no rashes no pallor or icterus. Neutropenic sepsis due to MRSA bacteremiaport now removed. tolerating daptomycin. For 14 days after removal of Hickmanlast dose on 08/10/2022. After discussion of risk/benefit, he would prefer ultrasound-guided peripheral for now, knowing that he will likely need a PICC or repeat port in the future, but would prefer to at least have a little bit of a break from the larger/more risky/higher maintenance IV lines. Improving nicely. Dano Escobar is a 66 year old male with history of HFpEF, HLD, depression, CAD, and AML who presented to [facility] 07/24 for a fever in the setting of abnormal labs. Patient was diagnosed with Neutropenic Fever in the setting of AML on chemotherapy and was admitted for antibiotics and management of pancytopenia. 07/29: Patient continues to note improvement in his strength and is anticipating going home. Patient has had no fevers or chills, chest pain, dyspnea, abdominal pain, dysuria, or bowel/bladder changes. Patient ambulates throughout the room. He has had no episode of bleeding and notes his Lainez removal site is without pain. Review of Systems Review of Systems: As per HPI Physical Exam Physical Exam: Gen: NAD, alert, interactive Resp:Non-labored, no wheezing/rhonchi/rales, CTAB CV:RRR, normal S1/S2, no M/R/G Abd: Soft, non-distended, no TTP, normoactive bowels, no masses Extr: 2+ dp bilaterally, trace edema Skin: B/l petechia present on upper and lower extremities (improving) Results & Data Results & Data ([facility]) Vital Signs (Past 12 Hours) Vital Signs Temp Pulse Pulse Resp BP Pulse Ox O2 Del Method 07/29/22 07:43 36.4 C L 48 L 18 157/87 H 95 Room Air 07/29/22 04:11 36.8 C 52 L 18 148/86 H 95 Room Air 07/28/22 23:28 36.9 C 50 L 16 158/90 H 96 Room Air Resident Activity Tracking Resident Involvement: Resident Care Provided Care Provided: Adult Hospital Medicine
[2022-07-29 08:16] LABS: Alanine Aminotransferase 9 U/L (7-52); Albumin Globulin Ratio 0.9 (0.9-2); Albumin Level 2.5 gm/dl (3.4-5.0); Alkaline Phosphatase 67 U/L (34-104); Aspartate Aminotransferase 7 U/L (13-39); Bilirubin,Total 0.9 mg/dl (0.2-1.0); Creatine Kinase < 10 U/L (30-223); Globulin 2.7 gm/dl (2.5-4.0); Total Protein 5.2 gm/dl (6.0-8.3)
[2022-07-29] MEDS: ACYCLOVIR 400 MG TAB PO SCH ×2 (09:09→20:25)
[2022-07-29] MEDS: MAGNESIUM OXIDE 400 MG TAB PO SCH ×2 (09:09→20:25)
[2022-07-29] MEDS: POTASSIUM CHLORIDE CRTAB 20 MEQ TABCR PO SCH ×2 (09:09→20:25)
[2022-07-29] MEDS: ISOSORBIDE MONO EXTENDED REL 60 MG TABCR PO SCH (09:10)
[2022-07-29] MEDS: FUROSEMIDE 40 MG TAB PO SCH (09:10)
[2022-07-29] MEDS: CYANOCOBALAMIN (B-12) 500 MCG TABLET PO SCH (09:10)
[2022-07-29] MEDS: LORATADINE 10 MG TAB PO PRN (09:11)
[2022-07-29] MEDS: ATENOLOL 25 MG TABLET PO SCH (09:11)
[2022-07-29] MEDS: POLYETHYLENE (MIRALAX) 17 GM PACK PO SCH ×2 (09:11→20:23)
[2022-07-29] MEDS: DOCUSATE SODIUM 100 MG CAP PO SCH ×2 (09:12→20:24)
[2022-07-29] MEDS: CALCIUM CARBONATE 500 MG CHEWABLE TAB PO SCH ×3 (09:12→20:23)
[2022-07-29] MEDS: levoFLOXacin 750 MG TAB PO SCH (11:15)
--- NOTE | 2022-07-29 12:57 | Infectious Disease Progress Nt ---
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 [place] [facility] Review of Oncology notes states he received venetoclax/decitabine from 05/16/2022 to 05/22/2022 c/b neutropenic sepsis due to dental abscess requiring multiple tooth extraction on 06/13/2022. He had a repeat bone marrow biopsy on 06/17 concerning for induction failure and treated with Cladnribine/Cyatrabine/GCSF/Mitoxantrone (CLAG regimen) while inpatient at [facility] from 07/08/2022 to 07/12/2022. On Prophylaxis with Acyclovir, Posaconazole, levofloxacin. Patient was admitted to [facility] 07/24 after his outpatient labs showed pancytopenia and initially had planned on arranging platelets and blood transfusions as an outpatient but developed a fever of 100.6F . Initial white cell count of 0, hemoglobin of 5.5, hematocrit of 16.4 and platelet count of 3000. On admission, chest x-ray, urinalysis were negative. Bio fire negative. Lactate 1.4 Blood cultures from central and peripheral line was also obtained / bottles now growing CoNS (Oxacillin resistant). 07/26 Blood cultures are in lab currently. Patient transfused with pRBCs and platelets. Empiric antibiotic coverage with vancomycin and cefepime. 2DEcho done and no evidence of mass or vegetation seen. Fever curve has improved 07/25 was last fever. Overnight, he has not had fever, other vitals are stable. Surgery evaluation for lainez catheter plans for removal once platelets above 50. PROBLEM LIST 1.MRSE bacteremia likely secondary to line, s/p lainez removal 07/27 2. Neutropenic fever, afebrile 3.Pancytopenia 4. AML MICRO 07/24 Blood cultures 4/4 Bottles Staph Epi (R Oxacillin) 07/26 Blood cultures NGTD 07/27 Tip gram stain wbcs, ngtd ANTIBIOTICS Vancomycin 07/24- 07/27 Cefepime 07/24-07/27 Levofloxacin 07/27- present Daptomycin 6mg/kg IV daily 07/27 - present DISCUSSION: Patient admitted with neutropenic fevers after 2nd cycle of chemotherapy for AML. Lainez in place (now removed), Urine/CXR clear. Blood cultures growing 4/4 bottles MRSE. Likely secondary to line. 07/26 repeat cultures are negative. He is severely pancytopenic. Given this is MRSE. Dcd Cefepime, change back to levofloxacin and cw Vancomycin. Have now changed to Daptomycin for safer, outpatient IV therapy.Lainez removed 07/27. Will plan to treat for 2 full weeks from lainez removal (traditionally 5-7 days, but extending d/t neutropenia) I spoke with Oncology, hopefully counts will recover in the next few weeks. At the end of therapy, recommend repeat blood cultures 3-7 days after antibiotics completed. If he is still severely neutropenic would consider addition of Bactrim. CoNS is not typically a/w endocarditis and 2DE showed clear AV and MV without issue. I would not recommend TERRANCE at this time as he quickly cleared cultures and invasive testing would put him at risk for additional infections, bleeding. Can consider a repeat 2DE towards end of antibiotic therapy RECOMMENDATION: -C/W Daptomycin 6mg/kg IV daily, CPK baseline <10 not on statin, plan to treat through 08/10/22 -After IV therapy recommend repeat blood cultures in 3-7 days -Midline can be placed -Weekly CBCD, CMP, CPK recommended while on IV antibiotics -At end of therapy if he is neutropenic still, consider addition of Bactrim -C/W Prophylaxis with Acyclovir, Posaconazole, levofloxacin -Can consider 2DE at end of therapy I spoke with Oncology and Primary team. Nancy Miles MD Infectious Diseases [facility], [facility] Admission and Anticipated Discharge Date Admission Date: July 24, 2022 Subjective Subsequent visit was provided via telemedicine using two-way real-time interactive telecommunication between the patient and the telemedicine provider. For the duration of the visit, the provider was performing the assessment from a different facility than the patient. This includesuse of bluetooth stethoscope forauscultationperformed by the telepresenter that the telemedicine provider can hear if described in the physical exam. Envelope Machine Adjuster contact information: Please call [facility] [employer] [facility] . (Phone Number For Physician Use Only) After establishing a telemedicine visit, patient was: Patient was verified with two unique identifiers, Patient/authorized rep acknowledged consent and understanding and Gave permission to continue telehealth session Time Spent with Patient: Subsequent => 35 min Patient does not have complaints. Tolerated Daptomycin well without issue. Physical Exam Physical Exam: NAD PIVS Results & Data ([facility]) Vital Signs (Past 12 Hours) Vital Signs Temp Pulse Pulse Resp BP Pulse Ox O2 Del Method 07/29/22 10:47 36.8 C 51 L 18 140/77 96 Room Air 07/29/22 07:43 36.4 C L 48 L 18 157/87 H 95 Room Air 07/29/22 04:11 36.8 C 52 L 18 148/86 H 95 Room Air Laboratory Results Laboratory Results - last 48 hr 07/27/22 07/27/22 07/28/22 13:04 13:04 06:48 WBC 0.09 L* Cancelled RBC 2.99 L Cancelled Hgb 9.0 L Cancelled Hct 26.0 L Cancelled MCV 86.4 Cancelled MCH 30.1 Cancelled MCHC 34.6 Cancelled RDW Std Deviation 48.3 H Cancelled RDW Coeff of Lazaro 15.1 H Cancelled Plt Count 56 L D Cancelled MPV 11.8 Cancelled Absolute Nucleated RBC Cancelled Nucleated RBC % (auto) Cancelled Platelet Estimate Cancelled Sodium 141 Potassium 3.4 L Chloride 106 Carbon Dioxide 32 Anion Gap 3 BUN 21 Creatinine 0.52 L Est Cr Clr Drug Dosing 117.0 Est GFR ( Amer) 128.8 Est GFR (Non-Af Amer) 111.1 BUN/Creatinine Ratio 40.4 H Glucose 94 Calcium 8.4 L Total Bilirubin 1.0 AST 7 L ALT 11 Alkaline Phosphatase 61 Total Creatine Kinase Total Protein 5.2 L Albumin 2.5 L Globulin 2.7 Albumin/Globulin Ratio 0.9 Random Vancomycin 07/28/22 07/28/22 07/29/22 06:48 06:48 06:44 WBC 0.08 L* RBC 2.85 L Hgb 8.4 L Hct 24.6 L MCV 86.3 MCH 29.5 MCHC 34.1 RDW Std Deviation 47.2 H RDW Coeff of Lazaro 14.8 H Plt Count 30 L MPV Absolute Nucleated RBC Nucleated RBC % (auto) Platelet Estimate Sodium 140 Potassium 4.0 Chloride 105 Carbon Dioxide 31 Anion Gap 4 BUN 19 Creatinine 0.53 L Est Cr Clr Drug Dosing 114.8 Est GFR ( Amer) 127.8 Est GFR (Non-Af Amer) 110.3 BUN/Creatinine Ratio 35.8 H Glucose 89 Calcium 8.6 Total Bilirubin 0.9 AST 7 L ALT 9 Alkaline Phosphatase 67 Total Creatine Kinase < 10 L Total Protein 5.2 L Albumin 2.5 L Globulin 2.7 Albumin/Globulin Ratio 0.9 Random Vancomycin 18.4 07/29/22 06:44 WBC 0.13 L* RBC 2.84 L Hgb 8.6 L Hct 24.9 L MCV 87.7 MCH 30.3 MCHC 34.5 RDW Std Deviation 45.4 RDW Coeff of Lazaro 14.2 Plt Count 18 L* MPV Absolute Nucleated RBC Nucleated RBC % (auto) Platelet Estimate Sodium Potassium Chloride Carbon Dioxide Anion Gap BUN Creatinine Est Cr Clr Drug Dosing Est GFR ( Amer) Est GFR (Non-Af Amer) BUN/Creatinine Ratio Glucose Calcium Total Bilirubin AST ALT Alkaline Phosphatase Total Creatine Kinase Total Protein Albumin Globulin Albumin/Globulin Ratio Random Vancomycin Microbiology 07/26/22 18:28 Blood Aerobic Blood Culture - Preliminary No growth in Aerobic bottle after 48 hours. 07/26/22 18:28 Blood Anaerobic Blood Culture - Preliminary No growth in Anaerobic bottle after 48 hours. 07/26/22 18:42 Blood Aerobic Blood Culture - Preliminary No growth in Aerobic bottle after 48 hours. 07/26/22 18:42 Blood Anaerobic Blood Culture - Preliminary No growth in Anaerobic bottle after 48 hours. 07/27/22 Unknown A-Port Gram Stain - Final 07/27/22 Unknown A-Port Aerobic and Anaerobic Culture - Preliminary No growth to date. 07/24/22 16:20 Blood Aerobic Blood Culture - Final Coag neg staph not lugdunensis 07/24/22 16:20 Blood Anaerobic Blood Culture - Final Coag neg staph not lugdunensis 07/24/22 16:46 Blood Aerobic Blood Culture - Final Coag neg staph not lugdunensis 07/24/22 16:46 Blood Anaerobic Blood Culture - Final Coag neg staph not lugdunensis Medications Administered Current Inpatient Medications Acetaminophen (Acetaminophen 325 Mg Tab) 650 mg PO Q4H PRN PRN Reason: Pain or Fever Stop: 08/23/22 21:37 Last Admin: 07/25/22 16:50 Dose: 650 mg Acyclovir (Acyclovir 400 Mg Tab) 400 mg PO BID [facility] Stop: 08/23/22 21:37 Last Admin: 07/29/22 09:09 Dose: 400 mg Atenolol (Atenolol 25 Mg Tablet) 25 mg PO DAILY [facility] Stop: 08/24/22 08:59 Last Admin: 07/29/22 09:11 Dose: 25 mg Calcium Carbonate (Calcium Carbonate 500 Mg Chewable Tab) 200 mg PO TID [facility] Stop: 08/23/22 21:37 Last Admin: 07/29/22 09:12 Dose: Not Given Cyanocobalamin (Cyanocobalamin (B-12) 500 Mcg Tablet) 1,000 mcg PO QAM [facility] Stop: 08/27/22 08:59 Last Admin: 07/29/22 09:10 Dose: 1,000 mcg Docusate Sodium (Docusate Sodium 100 Mg Cap) 100 mg PO BID [facility] Stop: 08/23/22 21:37 Last Admin: 07/29/22 09:12 Dose: Not Given Furosemide (Furosemide 40 Mg Tab) 40 mg PO DAILY [facility] Stop: 08/24/22 08:59 Last Admin: 07/29/22 09:10 Dose: 40 mg Daptomycin 350 mg/ Syringe 7 mls @ 3.5 mls/min IV Q24H [facility]; Protocol Stop: 08/11/22 19:59 Last Admin: 07/28/22 19:51 Dose: 3.5 mls/min Isosorbide Mononitrate (Isosorbide [place] Extended Rel 60 Mg Tabcr) 120 mg PO QAM [facility] Stop: 08/24/22 08:59 Last Admin: 07/29/22 09:10 Dose: 120 mg Levofloxacin (Levofloxacin 750 Mg Tab) 750 mg PO DAILY@1100 [facility] Stop: 08/27/22 10:59 Last Admin: 07/29/22 11:15 Dose: 750 mg Loratadine (Loratadine 10 Mg Tab) 10 mg PO DAILY PRN PRN Reason: Allergy Symptoms Stop: 08/23/22 21:55 Last Admin: 07/29/22 09:11 Dose: 10 mg Magnesium Oxide (Magnesium Oxide 400 Mg Tab) 400 mg PO BID [facility] Stop: 08/23/22 21:44 Last Admin: 07/29/22 09:09 Dose: 400 mg Melatonin (Melatonin 3 Mg Tab) 9 mg PO HS PRN PRN Reason: Insomnia Miscellaneous (Posaconazole-Order Awaiting Action) 1 each N/A QS [facility] Stop: 08/24/22 00:00 Last Admin: 07/29/22 06:24 Dose: Not Given Miscellaneous (Venetoclax 10mg: Order Awaiting Action) 1 each N/A QS [facility] Stop: 08/27/22 00:00 Last Admin: 07/29/22 06:24 Dose: Not Given Miscellaneous (Venetoclax 50mg: Order Awaiting Action) 1 each N/A QS [facility] Stop: 08/27/22 00:00 Last Admin: 07/29/22 06:25 Dose: Not Given Ondansetron HCl (Ondansetron Inj 2 Mg/Ml 2 Ml Vial) 4 mg IV Q4H PRN PRN Reason: Nausea Stop: 08/23/22 21:55 Ondansetron HCl (Ondansetron 4 Mg Od Tab) 8 mg PO Q8H PRN PRN Reason: nausea Stop: 08/26/22 18:21 Polyethylene Glycol (Polyethylene (Miralax) 17 Gm Pack) 17 gm PO BID [facility] Stop: 08/23/22 21:37 Last Admin: 07/29/22 09:11 Dose: Not Given Potassium Chloride (Potassium Chloride Crtab 20 Meq Tabcr) 20 meq PO BID [facility] Stop: 08/26/22 20:59 Last Admin: 07/29/22 09:09 Dose: 20 meq Sertraline HCl (Sertraline Hcl 50 Mg Tablet) 25 mg PO HS PRN PRN Reason: depression Stop: 08/24/22 20:59
[2022-07-29] MEDS ORDERED: DAPTOmycin 350 MG in SYRINGE 0 ML IV SCH (16:30)
[2022-07-29] MEDS: DAPTOmycin 350 MG in SYRINGE 0 ML IV SCH (17:40)
--- NOTE | 2022-07-29 18:19 | Billing Data ---
Date of Service July 29, 2022 Coding Level of Care Code 95576 SUB INP/OBS CARE
[2022-07-30 07:59] LABS: Hematocrit (blood only) 24.7 % (42.0-52.0); Hemoglobin 8.4 g/dl (14.0-18.0); Mean Corpuscular Hemoglobin 29.8 pg (25.0-34.0); Mean Corpuscular Volume 87.6 fL (80.0-100.0); Platelet Count 11 K/uL (130-400); RDW Coefficient of Variation 13.7 % (11.5-14.5); RDW Standard Deviation 44.2 fL (36.4-46.3); Red Blood Count 2.82 M/uL (4.70-6.10); White Blood Count 0.13 K/ul (4.8-10.8)
[2022-07-30] MEDS ORDERED: SODIUM CHLORIDE 0.9% 250 ML IV PRN (08:01)
--- NOTE | 2022-07-30 08:06 | Discharge Summary ---
Date of Service July 30, 2022 Admission HPI Per Admitting Provider Leroy Gardiner is a 66 year old male with acute myelogenous leukemia who presents to the ER with abnormal outpatient labs and fever. Acute myelogenous leukemia s/p induction chemotherapy with decitabine/venetoclax, reinduction with CLAG regimen 07/08-07/12 at [facility]. Repeat routine oncology labs today with pancytopenia and initially had planned on arranging platelets and blood transfusions as an outpatient but he spiked a fever of 100.6 degrees Fahrenheit and on calling his oncologist recommended going straight to the emergency room. He reports having last transfusion of 2 units of platelets on Wednesday and was feeling well at that time. This morning he felt a little fatigued after having a shower but otherwise feels in his normal health. No cough, nasal congestion, sinus pain, chest pain, sore throat, abdominal pain, diarrhea or urinary symptoms. No known infection exposures. In regards to the anemia he denies any bright red blood in stool, hemoptysis, hematemesis or melena. Admission Exam Per Admitting Provider Constitutional: WD/WN, vitals as above Eyes: PERRL, conjunctivae normal, anicteric sclerae ENMT: external ear and nose normal, oropharynx normal Respiratory: normal respiratory effort, lungs clear to auscultation Cardiovascular: RRR, no murmur, no edema Gastrointestinal (Abdomen): normal bowel sounds, soft, nontender, no hepatosplenomegaly Musculoskeletal: no cyanosis or clubbing, extremities motor strength 5/5 Skin: Numerous petechiae on all 4 extremities, few oral petechiae present Neurologic: moves all extremities and awake; no focal motor deficits and not confused Speech / Cognition: normal speech Cranial Nerves: EOM intact bilaterally, normal facial strength, tongue midline, able to rotate head bilaterally and able to elevate shoulders bilaterally Psychiatric: A+Ox3, euthymic affect Principal Diagnosis Neutropenic Fever MRSA Bacteremia Discharge Exam Gen: NAD, alert, interactive Resp:Non-labored, no wheezing/rhonchi/rales, CTAB CV:RRR, normal S1/S2, no M/R/G Abd: Soft, non-distended, no TTP, normoactive bowels, no masses Extr: 2+ dp bilaterally, trace edema Skin: B/l petechia present on upper and lower extremities (resolved) Discharge Data Allergies Allergy/AdvReac Type Severity Reaction Status Date / Time No Known Allergies Allergy Verified 07/21/22 12:04 Consultations 07/24/22 17:29 ED Decision to Admit Stat 07/25/22 08:49 Consult Oncology Routine 07/25/22 16:40 Consult Infectious Diseases Routine 07/25/22 18:44 Consult General Surgery Routine Procedures Performed Operation Date: 07/26/22 12:00 <No data on this case meets the specified criteria> Operation Date: 07/27/22 08:20 Actual Procedures p Right Removal of Lainez Catheter(Right) - Adeline Samuel MD Hospital Course (1) Gram-positive bacteremia: - 07/25 Evidence of gram positive cocci in clusters on blood culture (2 sites), staphylococcus species - Urgent Consult ID: recommending continued broad spectrum abx, central line removal, and Echocardiogram - Continue Vancomycin, discontinue Cefepime - Blood cultures indicating MRSE - TTE negative, possible need for TERRANCE (contact ID) - Appreciate ID recommendations, anticipating Daptomycin for outpatient IV therapy - Patient doing well following Lainez line removal, Hgb and Plt stable - Continue to follow blood cultures --- Transitioned to Daptomycin, arranging home antibiotics and care, plan two week course and discharge today (2) Neutropenic fever: - Continue empiric abx: Vancomycin (discontinue Cefipime) - CXR, Urinalysis, and Biofire unremarkable - Blood cultures indicating MRSE - Central catheter intact w/o erythema or purulence - Neutropenic precautions --- Afebrile since 07/25 (3) Pancytopenia due to antineoplastic chemotherapy: - S/p PRBC x 2, goal > 7.5, patient's baseline 9 - S/p Platelets x 2 - Oncology recommendations: * Continue broad spectrum abx, follow blood cultures * Recheck T-bili/direct bili, consider abdominal imaging if not improved * Continue venetoclax hold, continue posaconazole and acyclovir ppx * Maintain hgb > 7.5 and plt count ~ 15k --- Hgb 8.4., Plt 11 in AM, repleted w/ 1 unit of platelets prior to d/c --- Continue to follow with Hem/Onc for labs/management (4) Acute myelogenous leukemia: - Management as above per Oncology recommendations (5) Coronary artery disease: - Not on antiplatelet suspect due to thrombocytopenia - Not on statin - Continue atenolol and ISMN (hold parameters set) (6) Depression: - Patient report only taking sertraline as needed (7) Chronic heart failure with preserved ejection fraction: - Noted on PMHx however patient denies prior history of this or pulmonary edema but takes Lasix for bilateral pitting edema. - Lasix but hold if SBP less than 100 - Received dose of IV Lasix 20 mg d/t worsening LE edema --- Return to home diuresis regimen Plan VTE Prophylaxis - no chemical prophylaxis due to thrombocytopenia Diet - Low Na Diet Code - Full Code Isolation - Neutropenic precautions Disposition - D/c to home Total Time Total Time Spent Total Time Spent (In Minutes): <30 Discharge Plan Discharge Items Patient Disposition: Home - Home Health Services Reason For Visit: NEUTROPENIC FEVER Discharge Diagnosis: Gram Positive Bacteremia Central Line Infection Activity: Per Instructions section Non-emergency contact: Primary Care Provider and Oncologist Call non-emergency contact if: you have any medication questions, your symptoms worsen and you have a fever Follow-up/Referrals: Beba Marte MD [Physician] - ([email or web address] center will call you with a follow up appointment) Kathleen Ramirez DO [Resident] - 08/07/22 10:30 am (please schedule f/u within 1 week of discharge) Diet: Regular Addtl Attending Provider Instructions: You were admitted to [facility] from 07/24 - 07/30 for a blood- borne infection due to an infection of your central line. You were started on IV antibiotics when you were admitted to the hospital, and our surgeons were consulted and removed your central line on 07/27. You also had several infusions while hospitalized due to low blood counts. You improved with removal of the central line and antibiotics, and your fevers resolved. You will be discharged on 07/30. You should continue to take an IV antibiotic called Daptomycin, which will be infused through your IV once per day for the next 12 days. We will have a home health nurse come see you to help with the infusions. You will need to get blood work done after the last infusion, which will be on 08/10. You should continue to take all of your regular home medications as scheduled. Please follow up with your PCP within 1 week of discharge. Please continue to follow up with your Oncologist for your scheduled appointment on 08/10. We hope you continue to feel better. It was a pleasure to help provide your care while you were hospitalized. Pending Studies at Discharge: No Stand-Alone Forms: My [facility], Smoking Cessation Medications and DC Order Prescriptions: Continued Venclexta 10 mg tablet 20 mg PO DAILY furosemide 40 mg Tablet 40 mg PO DAILY polyethylene glycol 3350 [Miralax] 17 gram Powder In Packet 17 g PO BID atenolol 25 mg Tablet 25 mg PO DAILY Rx Instructions: hold for HR <55 acyclovir 400 mg Tablet 400 mg PO BID ondansetron 8 mg Tablet,Disintegrating 8 mg PO Q8H PRN (Reason: nausea) isosorbide mononitrate 120 mg Tablet Extended Release 24 Hr 120 mg PO QAM calcium carbonate [Tums] 200 mg calcium (500 mg) Tablet,Chewable 200 mg PO TID docusate sodium [Colace] 100 mg Capsule 100 mg PO BID sertraline 25 mg Tablet 25 mg PO DAILY levofloxacin 750 mg Tablet 750 mg PO DAILY loratadine 10 mg Tablet 10 mg PO DAILY PRN (Reason: Allergy Symptoms) melatonin 10 mg Tablet 10 mg PO HS PRN (Reason: Insomnia) posaconazole 100 mg Tablet,Delayed Release (Dr/Ec) 400 mg PO DAILY potassium chloride 20 mEq Tablet Extended Release 20 meq PO BID venetoclax 50 mg Tablet 50 mg PO DAILY magnesium oxide 400 mg magnesium Tablet 400 mg PO BID Discharge Orders: Discharge Order (Routine); Ordered 07/30/22 Ordered By: Kathleen Ramirez Admission Data Admit Date/Time: 07/24/22 18:37 Attending Provider: Gilberto Russell Admit Provider: Edd Valenzuela Primary Care Provider: PCP,NO Other Providers: Sabrina Abdi ; [facility],Home Healthcare ; Edd Valenzuela ; Beba Marte ; Margot Mcclellan ; Dionisio Blackburn ; Melissa Cardoza ; Kika Hancock ; Lindsay Nolasco ; Nancy Miles ; Zeenat Orta ; Yonatan Greer ; Itzel Alvarez ; Rosemary Chambers Other Interventions: Discharge Summary Assessment (RN) Last Done: 07/30/22 09:15 Supervising Physician Co-Signing Physician Notes I personally examined the patient and verified all huston points of history and exam, discussed case, and agree with decision making with Dr Ramirez Feels good, feels up to going home, would like to go home. Vitals noted, in general he is awake and alert pleasant no distress. HEENT normocephalic atraumatic mucous membranes moist. Breathing unlabored no accessory muscle use good effort. Skin shows no rashes no pallor or icterus. CBC, basic metabolic panel reviewed Neutropenic sepsis due to MRSA bacteremiaport now removed. tolerating daptomycin. For 14 days after removal of Hickmanlast dose on 08/10/2022. After discussion of risk/benefit, he preferred ultrasound-guided peripheral rather than a PICCwanting to not have central lines for the time being, even though he knows that he will need in the future. Transfused a unit of platelets prior to discharge. Close outpatient heme/unk follow-up, in addition to regular h ematology labs, weekly CBC, CMP, CPK while on daptomycin. Would recommend repeat blood cultures few days after his last dose of antibiotics as well, given his severely compromised immune system. Resident Activity Tracking Resident Involvement: Resident Care Provided Care Provided: Adult Hospital Medicine
[2022-07-30] MEDS: CALCIUM CARBONATE 500 MG CHEWABLE TAB PO SCH (08:10)
[2022-07-30] MEDS: POLYETHYLENE (MIRALAX) 17 GM PACK PO SCH (08:10)
[2022-07-30] MEDS: CYANOCOBALAMIN (B-12) 500 MCG TABLET PO SCH (08:25)
[2022-07-30] MEDS: ATENOLOL 25 MG TABLET PO SCH (08:25)
[2022-07-30] MEDS: MAGNESIUM OXIDE 400 MG TAB PO SCH (08:25)
[2022-07-30] MEDS: FUROSEMIDE 40 MG TAB PO SCH (08:25)
[2022-07-30] MEDS: ISOSORBIDE MONO EXTENDED REL 60 MG TABCR PO SCH (08:25)
[2022-07-30] MEDS: DOCUSATE SODIUM 100 MG CAP PO SCH (08:25)
[2022-07-30] MEDS: POTASSIUM CHLORIDE CRTAB 20 MEQ TABCR PO SCH (08:25)
[2022-07-30] MEDS: ACYCLOVIR 400 MG TAB PO SCH (08:25)
[2022-07-30 08:58] LABS: Albumin Level 2.6 gm/dl (3.4-5.0); Bilirubin,Total 0.8 mg/dl (0.2-1.0); Calcium 8.7 mg/dl (8.5-10.1); Potassium 4.4 mmol/L (3.5-5.1)
[2022-07-30 09:04] LABS: Albumin Globulin Ratio 0.9 (0.9-2); BUN Creatinine Ratio 36.2 (10-20); Creatinine Clr Calc Pharmacy 129.5 ml/min; Est GFR (African American) 134.3 ml/min; Est GFR (Non-African American) 115.8 ml/min; Globulin 2.8 gm/dl (2.5-4.0); Total Protein 5.4 gm/dl (6.0-8.3)
[2022-07-30] MEDS: levoFLOXacin 750 MG TAB PO SCH (10:56)
--- NOTE | 2022-07-30 18:26 | Billing Data ---
Date of Service July 30, 2022 Coding Level of Care Code HOSP INP/OBS DISCH 30 MIN/LESS
== END 2022-07-30 13:47 | disposition home health service (06) | DRG 314 ==
LOC: ED 15:39 → SUATTDRO 18:37 → 2E 18:37

== ENCOUNTER 2022-08-07 11:36 | Inpatient (IN) ==
--- NOTE | 2022-08-07 11:51 | Emergency Department Note ---
Impression & Plan Neutropenic fever, Leukemia ED Provider Note Name: ARNOLD CORRIGAN Age: 66 Sex: M Arrives Via: Walk-In Informant: Patient, oncologist, records ED Provider: Rubin Denton MD Chief Complaint: Fever Impression: As per impressions above Medical Decision Making: Pleasant 66-year-old gentleman with leukemia who arrives from [facility] currently receiving a blood transfusion. Patient with issues pertaining to anemia as well as recent hospitalization for febrile neutropenia. He once again had a fever last night of 102. He was sent over for management with advice to get cultures start antibiotics and hospitalize. On examination patient is comfortable no distress breathing easily with unremarkable vitals besides mildly soft blood pressure which is similar to what he is previously had and is currently receiving blood further results not indicated. Patient does not appear in severe sepsis of sepsis shock. I do have concerns that given his acute fever he will need to be managed inpatient with IV antibiotics. Fortunately labs are not overly concerning besides his baseline severe neutropenia and anemia. Hospitalist was consulted for further management. Prior Medical Record and Triage/Nursing Notes reviewed by Me External chart reviewed by me including recent hospitalization discharge summary. Further information obtained via discussions with oncology team Differentials:Neutropenic fever, viral infection, pneumonia, UTI, endocarditis, bacteremia amongst many other pathologies considered Vital Signs: reviewed and remarkable for mildly low blood pressure with good MAP Interventions: Continued 1 unit PRBC Labs:Reviewed and remarkable for neutropenia, anemia. BMP, LFTs, procalcitonin, lactate amongst other sepsis labs reviewed Imagin view chest x-ray no infiltrate, lobar consolidation effusion or other concerning findings at this time Cardiac/Tele Monitoring: Cardiac Monitoring: An Order was placed for continuous cardiac monitoring. The monitor shows a rate of 68 with a normal sinus rhythm. Consults:Dr Barrera of Oncology & Angi from Onc advise Abx & hospitalization Dr Bianca PENA Hospitalist Service Plan: Disposition:Hospitalization. Condition: fair History of Present Illness:66-year-old male arrives for evaluation of fever. Patient with severe leukemia and an ANC of 0. He notes last evening he had a fever of 102 F. He notes he feels a bit tired but no specific pain. He was coming in to have a blood transfusion this morning and mentioned it to [facility] team. Patient states he denies any fevers, chills, chest pain, shortness of breath, runny nose, headache, sore throat, pancho pain, back pain, cough, rashes or other concerning signs or symptoms. Has been getting a blood transfusion for the last hour without any difficulty. Denies any current symptoms. No medications prior to arrival. Past History:See Below Home Medications:See Below Allergies:nkda Vitals:Blood Pressure: 98/66, Pulse 68, RR 20, T 36.8 C, O2 97% on RA Physical Exam: GENERAL: Patient is chronically unwell appearing and in no acute distress. EYES: Pales, unremarkable pupils. ENT: Mucous membranes dry, no nasal congestion. RESPIRATORY: No dyspnea. Clear to auscultation and equal bilaterally. No wheeze, no rhonchi. CARDIOVASCULAR: Regular rate and rhythm.No murmurs, rubs, gallops appreciated. GASTROINTESTINAL: Abdomen soft, non-tender, no peritonitis.Bowel sounds positive.No masses appreciated. EXTREMITIES: Normal motion all extremities, no cyanosis, no edema. NEUROLOGIC: Alert and oriented, no gross focal neurologic deficit appreciated SKIN: No rash, no jaundice, no diaphoresis. PSYCH: Appropriate GCS: 15 ED Course: Times/Reassessments: Patient is breathing comfortably receiving IV transfusion in no distress. No breathing difficulty. Patient stable throughout and no evidence of transfusion reaction. Rubin Denton MD Past Med/Surg History Medical History (Updated 08/08/22 @ 08:41 by Rubin Denton MD) Acute myelogenous leukemia Bacteremia associated with intravascular line Bloodstream infection due to Lainez catheter Chronic heart failure with preserved ejection fraction Coronary artery disease Depression Hyperlipidemia Leukemia Local infection due to Lainez catheter removed due to fevers Neutropenic fever Pancytopenia due to antineoplastic chemotherapy Thrombocytopenia Surgical History Hx of heart artery stent Hx of laminectomy Social History Smoking Status: Never smoker Second Hand Exposure: Yes; Do You Dip or Chew Tobacco: No; Tobacco Cessation Education Requested by Patient: No Hx Alcohol Use: No Hx Substance Use: No Preferred Language: Faroese Communication Ability: Effective Cafeteria Table Attendant Required: No Beliefs That Will Affect Care: Protestant Current Living Situation: Alone Feels Safe at Home: Yes Safety Concerns: Feels Safe At This Time Assistive Devices: Walker Allergies Allergies Allergy/AdvReac Type Severity Reaction Status Date / Time No Known Allergies Allergy Verified 08/04/22 12:48 Home Meds Home Medications Medication Instructions Recorded Confirmed acyclovir 400 mg tablet 400 mg PO BID 07/16/22 08/07/22 atenolol 25 mg tablet 25 mg PO DAILY 07/16/22 08/07/22 calcium carbonate 200 mg calcium 200 mg PO TID PRN GERD 07/16/22 08/07/22 (500 mg) chewable tablet (Tums) docusate sodium 100 mg capsule 100 mg PO BID 07/16/22 08/07/22 (Colace) furosemide 40 mg tablet 40 mg PO DAILY 07/16/22 08/07/22 isosorbide mononitrate 120 mg 120 mg PO QAM 07/16/22 08/07/22 tablet,extended release 24 hr levofloxacin 750 mg tablet 750 mg PO DAILY 07/16/22 08/07/22 loratadine 10 mg tablet 10 mg PO DAILY PRN Allergy Symptoms 07/16/22 08/07/22 magnesium oxide 400 mg PO BID 07/16/22 08/07/22 melatonin 10 mg tablet 10 mg PO HS PRN Insomnia 07/16/22 08/07/22 ondansetron 8 mg disintegrating 8 mg PO Q8H PRN nausea 07/16/22 08/07/22 tablet polyethylene glycol 3350 17 gram 17 g PO BID 07/16/22 08/07/22 oral powder packet (Miralax) posaconazole 100 mg tablet,delayed 400 mg PO DAILY 07/16/22 08/07/22 release potassium chloride 20 mEq 20 meq PO BID 07/16/22 08/07/22 tablet,extended release venetoclax 50 mg tablet 50 mg PO DAILY 07/16/22 08/07/22 venetoclax 10 mg tablet (Venclexta) 20 mg PO DAILY 07/24/22 08/07/22 daptomycin mg IV DAILY 08/04/22 Results & Data (ED) Vital Signs Vital Signs - 24 hr 08/07/22 11:56 08/07/22 13:37 Temperature 36.8 C Temperature Source Oral Pulse Rate 91 H Pulse Rate [Apical] 59 L Pulse Rhythm Regular Pulse Strength Normal Respiratory Rate 19 14 Respiratory Effort / Characteristics Non-Labored Respiratory Depth Normal Respiratory Pattern Regular Blood Pressure 105/61 Blood Pressure [Right Arm] 132/85 Blood Pressure Mean 75 Blood Pressure Mean [Right Arm] 100 Blood Pressure Position Lying Pulse Oximetry 98 98 Oxygen Delivery Method Room Air Sepsis Recent Fever Within 48 Hours Yes Sepsis New/Unexplained Change in Mental Status No Sepsis Action Taken by Nursing No Action Required Laboratory Data 08/08/22 05:41 08/08/22 05:41 Lab Results 08/07/22 08/07/22 08/07/22 Range/Units 12:12 12:12 12:12 WBC 0.14 L* (4.8-10.8) K/ul RBC 2.08 L (4.70-6.10) M/uL Hgb 6.1 L* (14.0-18.0) g/dl Hct 18.1 L* (42.0-52.0) % MCV 87.0 (80.0-100.0) fL MCH 29.3 (25.0-34.0) pg MCHC 33.7 (32.0-36.0) g/dL RDW Std Deviation 41.5 (36.4-46.3) fL RDW Coeff of Lazaro 13.0 (11.5-14.5) % Plt Count 23 L* (130-400) K/uL Immature Gran % (Auto) Cancelled Neut % (Auto) Cancelled Lymph % (Auto) Cancelled Rapides % (Auto) Cancelled Eos % (Auto) Cancelled Baso % (Auto) Cancelled Neut # (Auto) Cancelled Lymph # (Auto) Cancelled Rapides # (Auto) Cancelled Eos # (Auto) Cancelled Baso # (Auto) Cancelled Immature Gran # (Auto) Cancelled Neutrophils % (Manual) Cancelled Band Neutrophils % Cancelled Lymphocytes % (Manual) Cancelled Prolymphocyte % Cancelled Reactive Lymphs % (Man) Cancelled Monocytes % (Manual) Cancelled Eosinophils % (Manual) Cancelled Basophils % (Manual) Cancelled Metamyelocytes % (Man) Cancelled Myelocytes % (Man) Cancelled Promyelocytes % (Man) Cancelled Blast Cells % (Manual) Cancelled Plasma Cell % (Manual) Cancelled Other Cells % Cancelled Nucleated RBC % Cancelled Neutrophils # (Manual) Cancelled Band Neutrophils # Cancelled Total Absolute Neuts Cancelled Lymphocytes # (Manual) Cancelled Prolymphocyte # Cancelled Reactive Lymphs # Cancelled Total Abs Lymphocytes Cancelled Monocytes # (Manual) Cancelled Eosinophils # (Manual) Cancelled Basophils # (Manual) Cancelled Metamyelocytes # (Man) Cancelled Myelocytes # (Manual) Cancelled Promyelocytes # (Man) Cancelled Blast Cells # (Man) Cancelled Plasma Cell # (Manual) Cancelled Other Cells # Cancelled Nucleated RBCs # (Man) Cancelled Hypersegmented Neuts Cancelled Hyposegmented Neuts Cancelled Hypogranular Neuts Cancelled Large Granular Lymphs Cancelled # Lrg Granular Lymphs Cancelled Hairy Cells Cancelled Smudge Cells Cancelled Toxic Granulation Cancelled Toxic Vacuolation Cancelled Dohle Bodies Cancelled Hina Rods Cancelled Hypogranular Platelets Cancelled Clumped Platelets Cancelled Giant Platelets Cancelled Platelet Satelliting Cancelled RBC Morphology Cancelled Polychromasia Cancelled Hypochromasia Cancelled Poikilocytosis Cancelled Basophilic Stippling Cancelled Anisocytosis Cancelled Microcytosis Cancelled Macrocytosis Cancelled Spherocytes Cancelled Pappenheimer Bodies Cancelled Sickle Cells Cancelled Target Cells Cancelled Tear Drop Cells Cancelled Ovalocytes Cancelled Stomatocytes Cancelled Hines-[place] Bodies Cancelled Echinocytes Cancelled Acanthocytes (Spur) Cancelled Rouleaux Cancelled RBC Agglutinates Cancelled Schistocytes Cancelled Sezary Cell Cancelled Sodium 138 (136-145) mmol/L Potassium 3.8 (3.5-5.1) mmol/L Chloride 102 (98-107) mmol/L Carbon Dioxide 32 (21-32) mmol/L Anion Gap 4 (3-11) BUN 23 (6-23) mg/dl Creatinine 0.63 (0.6-1.4) mg/dl Est Cr Clr Drug Dosing 96.6 ml/min Est GFR ( Amer) 119.0 ml/min Est GFR (Non-Af Amer) 102.7 ml/min BUN/Creatinine Ratio 36.5 H (10-20) Glucose 99 (70-99(Fasting)) mg/dl Lactate 1.2 (0.4-2.0) mmol/L Calcium 8.9 (8.5-10.1) mg/dl Magnesium 2.0 (1.7-2.4) mg/dl Total Bilirubin 1.1 H (0.2-1.0) mg/dl Direct Bilirubin 0.3 H (0-0.2) mg/dl AST 12 L (13-39) U/L ALT 15 (7-52) U/L Alkaline Phosphatase 85 (34-104) U/L Troponin I High Sens 7.9 (0-20) pg/ml Total Protein 6.3 (6.0-8.3) gm/dl Albumin 2.9 L (3.4-5.0) gm/dl Procalcitonin (0-0.5) ng/ml Blood Parasites ID Cancelled 08/07/22 Range/Units 12:12 WBC (4.8-10.8) K/ul RBC (4.70-6.10) M/uL Hgb (14.0-18.0) g/dl Hct (42.0-52.0) % MCV (80.0-100.0) fL MCH (25.0-34.0) pg MCHC (32.0-36.0) g/dL RDW Std Deviation (36.4-46.3) fL RDW Coeff of Lazaro (11.5-14.5) % Plt Count (130-400) K/uL Immature Gran % (Auto) Neut % (Auto) Lymph % (Auto) Rapides % (Auto) Eos % (Auto) Baso % (Auto) Neut # (Auto) Lymph # (Auto) Rapides # (Auto) Eos # (Auto) Baso # (Auto) Immature Gran # (Auto) Neutrophils % (Manual) Band Neutrophils % Lymphocytes % (Manual) Prolymphocyte % Reactive Lymphs % (Man) Monocytes % (Manual) Eosinophils % (Manual) Basophils % (Manual) Metamyelocytes % (Man) Myelocytes % (Man) Promyelocytes % (Man) Blast Cells % (Manual) Plasma Cell % (Manual) Other Cells % Nucleated RBC % Neutrophils # (Manual) Band Neutrophils # Total Absolute Neuts Lymphocytes # (Manual) Prolymphocyte # Reactive Lymphs # Total Abs Lymphocytes Monocytes # (Manual) Eosinophils # (Manual) Basophils # (Manual) Metamyelocytes # (Man) Myelocytes # (Manual) Promyelocytes # (Man) Blast Cells # (Man) Plasma Cell # (Manual) Other Cells # Nucleated RBCs # (Man) Hypersegmented Neuts Hyposegmented Neuts Hypogranular Neuts Large Granular Lymphs # Lrg Granular Lymphs Hairy Cells Smudge Cells Toxic Granulation Toxic Vacuolation Dohle Bodies Hina Rods Hypogranular Platelets Clumped Platelets Giant Platelets Platelet Satelliting RBC Morphology Polychromasia Hypochromasia Poikilocytosis Basophilic Stippling Anisocytosis Microcytosis Macrocytosis Spherocytes Pappenheimer Bodies Sickle Cells Target Cells Tear Drop Cells Ovalocytes Stomatocytes Hines-[place] Bodies Echinocytes Acanthocytes (Spur) Rouleaux RBC Agglutinates Schistocytes Sezary Cell Sodium (136-145) mmol/L Potassium (3.5-5.1) mmol/L Chloride (98-107) mmol/L Carbon Dioxide (21-32) mmol/L Anion Gap (3-11) BUN (6-23) mg/dl Creatinine (0.6-1.4) mg/dl Est Cr Clr Drug Dosing ml/min Est GFR ( Amer) ml/min Est GFR (Non-Af Amer) ml/min BUN/Creatinine Ratio (10-20) Glucose (70-99(Fasting)) mg/dl Lactate (0.4-2.0) mmol/L Calcium (8.5-10.1) mg/dl Magnesium (1.7-2.4) mg/dl Total Bilirubin (0.2-1.0) mg/dl Direct Bilirubin (0-0.2) mg/dl AST (13-39) U/L ALT (7-52) U/L Alkaline Phosphatase (34-104) U/L Troponin I High Sens (0-20) pg/ml Total Protein (6.0-8.3) gm/dl Albumin (3.4-5.0) gm/dl Procalcitonin 0.36 (0-0.5) ng/ml Blood Parasites ID Administered Medications Acetaminophen (Acetaminophen 325 Mg Tab) 650 mg PO Q4H PRN PRN Reason: Pain or Fever Stop: 09/06/22 18:05 Last Admin: 08/07/22 21:02 Dose: 650 mg Documented By: TMD Acyclovir (Acyclovir 400 Mg Tab) 400 mg PO BID [facility] Stop: 09/06/22 20:59 Last Admin: 08/07/22 20:49 Dose: 400 mg Documented By: TMD Docusate Sodium (Docusate Sodium 100 Mg Cap) 100 mg PO BID [facility] Stop: 09/06/22 20:59 Last Admin: 08/07/22 20:49 Dose: 100 mg Documented By: TMD Cefepime HCl 2,000 mg/ Syringe 20 mls @ 5 mls/min IV Q8H [facility]; Protocol Stop: 08/09/22 20:59 Last Admin: 08/08/22 05:29 Dose: 5 mls/min Documented By: Admin: 08/07/22 20:47 Dose: 5 mls/min Documented By: TMD Loratadine (Loratadine 10 Mg Tab) 10 mg PO DAILY [facility] Stop: 09/06/22 18:05 Last Admin: 08/07/22 20:48 Dose: 10 mg Documented By: TMD Magnesium Oxide (Magnesium Oxide 400 Mg Tab) 400 mg PO BID [facility] Stop: 09/06/22 20:59 Last Admin: 08/07/22 20:49 Dose: 400 mg Documented By: TMD Miscellaneous (Posaconazole: Order Awaiting Action) 1 each N/A QS [facility] Stop: 09/07/22 00:00 Last Admin: 08/07/22 23:23 Dose: Not Given Documented By: TMD Potassium Chloride (Potassium Chloride Crtab 20 Meq Tabcr) 20 meq PO BID [facility] Stop: 09/06/22 20:59 Last Admin: 08/07/22 20:51 Dose: 20 meq Documented By: TMD Discontinued Medications Cefepime HCl (Maxipime) 2,000 mg in 20 mls @ 5 mls/min IV NOW STA; Protocol Stop: 08/07/22 12:29 Last Admin: 08/07/22 13:02 Dose: 5 mls/min Documented By: NIC Vancomycin HCl 1,250 mg/ (Sodium Chloride) 525 mls @ 200 mls/hr IV NOW ONE Stop: 08/07/22 15:03 Last Admin: 08/07/22 13:03 Dose: 200 mls/hr Documented By: NIC Daptomycin 350 mg/ Syringe 7 mls @ 3.5 mls/min IV TODAY@1600 ONE; Protocol Stop: 08/07/22 16:01 Last Admin: 08/07/22 15:55 Dose: 3.5 mls/min Documented By: ARS Discharge Plan Visit Data Chief Complaint: Fever Stated Complaint: FEVER ED Provider: Rubin Denton Discharge Problem: Neutropenic fever, Leukemia Patient Disposition: Admitted As Inpatient Discharge Instructions Interventions: ED Discharge Assessment Last Done: 08/07/22 18:36
[2022-08-07] MEDS ORDERED: VANCOMYCIN CONSULT ACTIVE PRN (12:26)
[2022-08-07] MEDS ORDERED: VANCOMYCIN HCL 1,250 MG in SODIUM CHLORIDE 0.9% 500 ML IV ONE (12:26)
[2022-08-07] MEDS ORDERED: CEFEPIME 2,000 MG/20 ML VIAL IV STA (12:26)
--- NOTE | 2022-08-07 12:39 | XRay Report ---
XR chest 1V portable HISTORY: 66 years-old Male fever, neutropenic acute fever COMPARISON: 07/24/2022 TECHNIQUE: AP view of the chest FINDINGS: Cardiac silhouette is enlarged. Coronary arterial stenting. No pneumothorax, pleural effusion, airspa ce consolidation or overt pulmonary edema. Degenerative changes of the shoulders and spine. IMPRESSION: Cardiomegaly without acute process. ACT 112: Negative or not required by law. The above report was generated using voice recognition software. It may contain grammatical, syntax o r spelling errors. Electronically signed by: lAex Jiménez M.D. 08/07/2022 12:38 PM
[2022-08-07 13:04] LABS: Albumin Level 2.9 gm/dl (3.4-5.0); BUN Creatinine Ratio 36.5 (10-20); Bilirubin Direct 0.3 mg/dl (0-0.2); Bilirubin,Total 1.1 mg/dl (0.2-1.0); Calcium 8.9 mg/dl (8.5-10.1); Creatinine Clr Calc Pharmacy 96.6 ml/min; Est GFR (Non-African American) 102.7 ml/min; Potassium 3.8 mmol/L (3.5-5.1); Total Protein 6.3 gm/dl (6.0-8.3)
[2022-08-07 13:10] LABS: Troponin I High Sensitivity 7.9 pg/ml (0-20)
[2022-08-07 13:25] LABS: Hematocrit (blood only) 18.1 % (42.0-52.0); Hemoglobin 6.1 g/dl (14.0-18.0); Mean Corpuscular Hemoglobin 29.3 pg (25.0-34.0); Mean Corpuscular Hgb Conc 33.7 g/dL (32.0-36.0); Platelet Count 23 K/uL (130-400); RDW Standard Deviation 41.5 fL (36.4-46.3); Red Blood Count 2.08 M/uL (4.70-6.10); White Blood Count 0.14 K/ul (4.8-10.8)
--- NOTE | 2022-08-07 13:55 | History & Physical Report ---
Date of Service August 07, 2022 Assessment & Plan (1) Neutropenic fever: Plan: Venetoclax on hold prior to admission On daptomycin since last discharge for coag negative staph bacteremia with Lainez line removed. Vancomycin given in the emergency room but due to prior SALVATORE 2 we will continue on daptomycin. Continue cefepime 2 g IV q8h Follow up blood cultures (only one currently taken, 2nd blood culture ordered) Neutropenic isolation precautions Possible Janeway lesions noted on back of right hand - consult cardiology to consider TERRANCE although lack of persistently positive blood cultures makes infective endocarditis much less likely (2) Pancytopenia due to antineoplastic chemotherapy: Plan: Secondary to chemotherapy and AML Transfused 2 units of platelets earlier today in [facility]. Repeat platelets 23. We will continue to monitor for platelet transfusion threshold of greater than 15. Transfused 1 unit of irradiated packed red blood cells earlier today in [facility]. Transfuse planned 2nd unit irradiated packed red blood cells to aim hemoglobin greater than 7. Patient requires irradiated blood for any further transfusions Currently venetoclax on hold for upcoming bone biopsy and recent bacteremia (3) Acute myelogenous leukemia: Plan: s/p induction chemotherapy with decitabine/venetoclax, reinduction with CLAG regimen 07/08-07/12 Continue infection prophylaxis with acyclovir and posaconazole, Levaquin on hold in favor of antibiotics as above (4) Depression: Plan: Patient reports is no longer an issue and no longer on sertraline. Removed from medication reconciliation. (5) Coronary artery disease: Plan: Not on antiplatelet suspect due to thrombocytopenia Continue atenolol with hold parameters and ISMN Unclear reason he is not on a statin (6) Chronic heart failure with preserved ejection fraction: Plan: Noted on PMHx however patient denies prior history of this or pulmonary edema but takes Lasix for bilateral pitting edema. Continue Lasix but hold if systolic blood pressure less than 100. Plan VTE prophylaxis - chemical prophylaxis deferred due to thrombocytopenia Diet - regular Disposition - admit to [facility] telemetry Admission and Anticipated Discharge Date Admission Date: August 07, 2022 History of Present Illness Chief Complaint: Neutropenic fever Primary Care Provider: NO PCP Shawn Gardiner is a 66-year-old male with acute myelogenous leukemia who presents to the ER from the medical treatment unit due to a fever last night and current neutropenia. He was seen in the medical treatment unit for blood and platelet transfusions. He reports receiving 2 units of platelets and 1 unit of packed red blood cells and was due to receive a second unit of packed red blood cells when he was transferred to the emergency room. He reports having a mild fever for the last 3 nights but reached 102 F last night. He denies any nasal congestion, sinus pain, cough, sore throat, chest pain, shortness of breath, abdominal pain, diarrhea, melena, bright red blood in stool, hemoptysis, epistaxis, hematemesis, nausea, vomiting, urinary symptoms. The patient has acute myelogenous leukemia s/p induction chemotherapy with decitabine/venetoclax, reinduction with CLAG regimen July 08 to July 12, 2022 at [facility]. He was taking venetoclax up until his admission here from July 24 to July 30, 2022 with neutropenic fever with subsequent coag negative staph bacteremia and Lainez catheter removal. Follow-up blood cultures were negative. He has been taking daily intravenous daptomycin since then. He also went back on his usual prophylaxis of Levaquin. In the ER white blood count 0.14, platelets 23. He was started on vancomycin and cefepime for broad-spectrum antibiotics for neutropenic fever. He was referred to medicine for admission ongoing management of neutropenic fever. Allergies Allergy/AdvReac Type Severity Reaction Status Date / Time No Known Allergies Allergy Verified 08/04/22 12:48 Home Medications Medication Instructions Recorded Confirmed Type acyclovir 400 mg tablet 400 mg PO BID 07/16/22 08/07/22 History atenolol 25 mg tablet 25 mg PO DAILY 07/16/22 08/07/22 History calcium carbonate 200 mg calcium 200 mg PO TID PRN GERD 07/16/22 08/07/22 History (500 mg) chewable tablet (Tums) docusate sodium 100 mg capsule 100 mg PO BID 07/16/22 08/07/22 History (Colace) furosemide 40 mg tablet 40 mg PO DAILY 07/16/22 08/07/22 History isosorbide mononitrate 120 mg 120 mg PO QAM 07/16/22 08/07/22 History tablet,extended release 24 hr levofloxacin 750 mg tablet 750 mg PO DAILY 07/16/22 08/07/22 History loratadine 10 mg tablet 10 mg PO DAILY PRN Allergy Symptoms 07/16/22 08/07/22 History magnesium oxide 400 mg PO BID 07/16/22 08/07/22 History melatonin 10 mg tablet 10 mg PO HS PRN Insomnia 07/16/22 08/07/22 History ondansetron 8 mg disintegrating 8 mg PO Q8H PRN nausea 07/16/22 08/07/22 History tablet polyethylene glycol 3350 17 gram 17 g PO BID 07/16/22 08/07/22 History oral powder packet (Miralax) posaconazole 100 mg tablet,delayed 400 mg PO DAILY 07/16/22 08/07/22 History release potassium chloride 20 mEq 20 meq PO BID 07/16/22 08/07/22 History tablet,extended release venetoclax 50 mg tablet 50 mg PO DAILY 07/16/22 08/07/22 History venetoclax 10 mg tablet (Venclexta) 20 mg PO DAILY 07/24/22 08/07/22 History daptomycin mg IV DAILY 08/04/22 History Past Med/Surg History Medical History (Updated 08/07/22 @ 14:24 by Edd Valenzuela MD) Acute myelogenous leukemia Bacteremia associated with intravascular line Bloodstream infection due to Lainez catheter Chronic heart failure with preserved ejection fraction Coronary artery disease Depression Hyperlipidemia Leukemia Local infection due to Lainez catheter removed due to fevers Neutropenic fever Pancytopenia due to antineoplastic chemotherapy Thrombocytopenia Surgical History Hx of heart artery stent Hx of laminectomy Social History Smoking Status: Never smoker Second Hand Exposure: Yes; Do You Dip or Chew Tobacco: No; Tobacco Cessation Education Requested by Patient: No Hx Alcohol Use: No Hx Substance Use: No Preferred Language: [place] Communication Ability: Effective [employer]astering [employer]or Required: No Beliefs That Will Affect Care: Pent[employer]ism Current Living Situation: Alone Feels Safe at Home: Yes Safety Concerns: Feels Safe At This Time Assistive Devices: Walker Review of Systems Review of Systems: All systems reviewed & are unremarkable except as noted in HPI & below Physical Exam Constitutional: WD/WN, vitals as above ENMT: external ear and nose normal, oropharynx normal Neck: trachea midline, no thyromegaly Respiratory: normal respiratory effort, lungs clear to auscultation Cardiovascular: RRR, no murmur, no edema Gastrointestinal (Abdomen): normal bowel sounds, soft, nontender, no hepatosplenomegaly Musculoskeletal: no cyanosis or clubbing, extremities motor strength 5/5 Skin: Petechiae on bilateral lower extremities Possible Janeway lesion on the back of his right hand Neurologic: moves all extremities and awake; not confused Psychiatric: A+Ox3, euthymic affect Results & Data Results & Data ([facility]) Vital Signs (Past 12 Hours) Vital Signs Temp Pulse Pulse Resp BP BP Pulse Ox 08/07/22 13:37 59 L 14 132/85 98 08/07/22 11:56 36.8 C 91 H 19 105/61 98 O2 Del Method 08/07/22 13:37 08/07/22 11:56 Room Air Laboratory Results Abnormal lab results 08/07/22 08/07/22 08/07/22 Range/Units 12:12 12:12 14:38 WBC 0.14 L* (4.8-10.8) K/ul RBC 2.08 L (4.70-6.10) M/uL Hgb 6.1 L* (14.0-18.0) g/dl Hct 18.1 L* (42.0-52.0) % Plt Count 23 L* (130-400) K/uL BUN/Creatinine Ratio 36.5 H (10-20) Total Bilirubin 1.1 H (0.2-1.0) mg/dl Direct Bilirubin 0.3 H (0-0.2) mg/dl AST 12 L (13-39) U/L Albumin 2.9 L (3.4-5.0) gm/dl Urine Protein (Negative) U Epithel Cells (Auto) (0-5) /lpf Crossmatch See Detail 08/07/22 Range/Units Unknown WBC (4.8-10.8) K/ul RBC (4.70-6.10) M/uL Hgb (14.0-18.0) g/dl Hct (42.0-52.0) % Plt Count (130-400) K/uL BUN/Creatinine Ratio (10-20) Total Bilirubin (0.2-1.0) mg/dl Direct Bilirubin (0-0.2) mg/dl AST (13-39) U/L Albumin (3.4-5.0) gm/dl Urine Protein 1+ H (Negative) U Epithel Cells (Auto) 10-20 H (0-5) /lpf Crossmatch Diagnostic Findings XR chest 1V portable HISTORY: 66 years-old Male fever, neutropenic acute fever COMPARISON: 07/24/2022 TECHNIQUE: AP view of the chest FINDINGS: Cardiac silhouette is enlarged. Coronary arterial stenting. No pneumothorax, pleural effusion, airspace consolidation or overt pulmonary edema. Degenerative changes of the shoulders and spine. IMPRESSION: Cardiomegaly without acute process. Medications Administered ER medications given: Cefepime 2 g IV Vancomycin 1250 mg IV Code Status & VTE Plan Code Status Full VTE Prophylaxis Plan VTE Prophylaxis will be ordered: No Reason for no VTE drug order: Contraindicated Reason for no VTE mechanical prophylaxis: Contraindicated (Petechiae) PG Care Time/CCT Total # of Minutes Spent Total Time Spent with Patient: Total time spent is greater than 50% in coordination of care (as documented) at patient's floor/unit and/or counseling patient: Coding Level of Care Code 19349 INT INP/OBS CARE 3/75MIN Diagnoses Neutropenic fever D70.9; R50.81 Pancytopenia due to antineoplastic chemotherapy D61.810; T45.1X5A Acute myelogenous leukemia C92.00 Depression F32.A Coronary artery disease I25.10 Chronic heart failure with preserved ejection fraction I50.32
[2022-08-07 14:03] LABS: Appearance Urine Clear (Clear); Bacteria Urine Automated Negative (Negative); Bilirubin Urine Negative (Negative); Blood Urine Negative (Negative); Color Urine Dark Yellow; Glucose Urine UA Negative (Negative); Ketones Urine Negative (Negative); Leukocyte Esterase Urine Negative (Negative); Nitrite Urine Negative (Negative); Protein Urine 1+ (Negative); RBC Urine Automated 0-4 /hpf (0-4); Specific Gravity Urine 1.023 (1.000-1.030); Urobilinogen Urine Negative (Negative); pH Urine 5.5 (4.5-7.5)
[2022-08-07] MEDS ORDERED: SODIUM CHLORIDE 0.9% 250 ML IV PRN (14:15)
[2022-08-07 14:47] LABS: Adenovirus PCR Not Detected (NotDetected); Bordetella parapertussis PCR Not Detected (NotDetected); Bordetella pertussis PCR Not Detected (NotDetected); Chlamydia pneumoniae PCR Not Detected (NotDetected); Coronavirus 229E PCR Not Detected (NotDetected); Coronavirus CoV-2 (COVID19)PCR Not Detected (NotDetected); Coronavirus HKU1 PCR Not Detected (NotDetected); Coronavirus NL63 PCR Not Detected (NotDetected); Coronavirus OC43PCR Not Detected (NotDetected); Human Metapneumovirus PCR Not Detected (NotDetected); Influenza A PCR Not Detected (NotDetected); Influenza B PCR Not Detected (NotDetected); Mycoplasma pneumoniae PCR Not Detected (NotDetected); Parainfluenza Virus 1 PCR Not Detected (NotDetected); Parainfluenza Virus 2 PCR Not Detected (NotDetected); Parainfluenza Virus 3 PCR Not Detected (NotDetected); Parainfluenza Virus 4 PCR Not Detected (NotDetected); Respiratory Syncytial VirusPCR Not Detected (NotDetected); Rhinovirus/Enterovirus PCR Not Detected (NotDetected)
[2022-08-07] MEDS ORDERED: DAPTOmycin 350 MG in SYRINGE 0 ML IV ONE (16:00)
[2022-08-07] MEDS ORDERED: MELATONIN 3 MG TAB PO PRN (18:17)
[2022-08-07] MEDS: CEFEPIME 2,000 MG in SYRINGE 0 ML IV SCH (20:47)
[2022-08-07] MEDS: LORATADINE 10 MG TAB PO SCH (20:48)
[2022-08-07] MEDS: DOCUSATE SODIUM 100 MG CAP PO SCH (20:49)
[2022-08-07] MEDS: MAGNESIUM OXIDE 400 MG TAB PO SCH (20:49)
[2022-08-07] MEDS: ACYCLOVIR 400 MG TAB PO SCH (20:49)
[2022-08-07] MEDS: POTASSIUM CHLORIDE CRTAB 20 MEQ TABCR PO SCH (20:51)
[2022-08-07] MEDS: ACETAMINOPHEN 325 MG TAB PO PRN (21:02)
[2022-08-08 00:59] LABS: Hematocrit (blood only) 21.6 % (42.0-52.0); Hemoglobin 7.7 g/dl (14.0-18.0); Mean Corpuscular Hemoglobin 30.1 pg (25.0-34.0); Mean Corpuscular Hgb Conc 35.6 g/dL (32.0-36.0); Mean Corpuscular Volume 84.4 fL (80.0-100.0); Platelet Count 22 K/uL (130-400); RDW Coefficient of Variation 13.2 % (11.5-14.5); RDW Standard Deviation 41.1 fL (36.4-46.3); Red Blood Count 2.56 M/uL (4.70-6.10); White Blood Count 0.07 K/ul (4.8-10.8)
[2022-08-08] MEDS: CEFEPIME 2,000 MG in SYRINGE 0 ML IV SCH ×3 (05:29→20:30)
[2022-08-08 06:18] LABS: Albumin Globulin Ratio 0.8 (0.9-2); Albumin Level 2.5 gm/dl (3.4-5.0); BUN Creatinine Ratio 32.3 (10-20); Bilirubin,Total 1.8 mg/dl (0.2-1.0); Calcium 8.5 mg/dl (8.5-10.1); Est GFR (African American) 119.8 ml/min; Est GFR (Non-African American) 103.4 ml/min; Globulin 3.3 gm/dl (2.5-4.0); Potassium 3.8 mmol/L (3.5-5.1); Total Protein 5.8 gm/dl (6.0-8.3)
[2022-08-08 06:37] LABS: Hematocrit (blood only) 22.5 % (42.0-52.0); Hemoglobin 7.9 g/dl (14.0-18.0); Mean Corpuscular Hemoglobin 29.5 pg (25.0-34.0); Mean Corpuscular Hgb Conc 35.1 g/dL (32.0-36.0); Platelet Count 19 K/uL (130-400); RDW Coefficient of Variation 13.2 % (11.5-14.5); RDW Standard Deviation 41.5 fL (36.4-46.3); Red Blood Count 2.68 M/uL (4.70-6.10); White Blood Count 0.08 K/ul (4.8-10.8)
[2022-08-08 06:39] LABS: INR 1.4 (0.9-1.1); Partial Thromboplastin Ratio 1.8; Prothrombin Time 15.1 Seconds (9.0-12.0)
[2022-08-08 06:45] LABS: Partial Thromboplastin Time 49.8 Seconds (21.0-31.0)
--- NOTE | 2022-08-08 07:13 | Hospitalist Progress Note ---
Date of Service August 08, 2022 Assessment & Plan (1) Neutropenic fever: Plan: 66 y/o male w/ PMHx of HLD, depression, CAD, and AML who presented w/ neutropenic fever, notable for recent 07/24-07/30 hospitalization w/ gram pos MRSE bacteremia. Neutropenic fever, source unknown - Tmax 38.3C at admission - On daptomycin since last discharge for coag negative staph bacteremia (oxacillin resistant) with Lainez line removed 07/27. Vancomycin given in the emergency room but due to prior SALVATORE 2 we will continue on daptomycin. - This admission, he is on daptomycin and cefepime. PO prophylaxis of antivral/antifungal continued. IV antibiotics will replace outpatient PO levofloxacin. Posaconazole will be replaced with voriconazole as it is not on formulary. - Follow blood cultures - Neutropenic isolation precautions - Lesion at dorsal 4th digit of right hand; less consistent w/ Janeway lesion. Cardiology was consulted; TERRANCE not recommended given the degree of thrombocytopenia. Can repeat TTE, though lower suspicion for infective endocardi tis per last TTE (especially with visible valves) and neg blood culture at last admission after abx. - ID recs from previous admission reviewed. Consider consult if clinical worsening, new culture data, or persistent fevers. Lower abdominal pain - KUB ordered. Reportedly w/ constipation. Considered intraabd infection (e.g. diverticulitis). May consider CT abd/pelv w/ IV contrast if worsening, but deferring at this time given improvement in abd pain. If intraabd infection, dapto may be insufficient coverage; cefepime would cover gram negatives, but not some anaerobes. KUB reassuring w/ no evidence of bowel obstruction or perforation. L nephrolithiasis and nonspecific calcifications within the left deep pelvis (phleboliths vs distal L ureteral stones) noted. UA neg for hematuria. - BID miralax started for possible constipation. Pancytopenia due to antineoplastic chemotherapy - Secondary to chemotherapy and AML - S/p 2u prbc and 1u irradiated prbc at [facility] on 08/07 and 1u irradiated prbc at admission. Platelet transfusion threshold 15. - Fever less likely from transfusion reaction given that they preceded the transfusion by 2 days. - Patient requires irradiated blood for transfusions - Venetoclax on hold for upcoming bone biopsy (cancelled) and recent bacteremia. Chronic congestive heart failure with mildly reduced ejection fraction - 07/26 echo. mildly reduced ef 45-50. grade 2 diastolic dysfunction. rvsp 40-50. mildly dilated IVC. - Because of CHF; not on maintenance IV fluids. - Continue home PO Lasix 40. Currently euvolemic. - Will follow Is/Os Coronary artery disease - Not on antiplatelet therapy due to thrombocytopenia. Per cardiology, recommends resuming baby ASA 81mg when thrombocytopenia is milder. - Not on statin therapy; defer to outpatient cardiology - Continue atenolol Acute myelogenous leukemia - s/p induction chemotherapy with decitabine/venetoclax, reinduction with CLAG regimen 07/08-07/12 - See antibiotic treatment regimen and prophylaxis regimen above. Depression - Patient reports is no longer an issue and no longer on sertraline. Removed from medication list. VTE prophylaxis - SCDs. chemical prophylaxis deferred due to thrombocytopenia Diet - regular (poor appetite, on chemo. CHF hx noted, euvolemic currently) Disposition - med/tele Code - Full (2) Pancytopenia due to antineoplastic chemotherapy: (3) Acute myelogenous leukemia: (4) Depression: (5) Coronary artery disease: (6) Lower abdominal pain: (7) Congestive heart failure: Admission and Anticipated Discharge Date Admission Date: August 07, 2022 Supervising Physician Co-Signing Physician Notes Resident Physician Supervision Note: I independently interviewed and examined the patient and verified the huston history and physical, reviewed labs and image studies and agree with resident findings and care plan. Subjective Patient states he is feeling fine. No subjective fevers/chills this monring. no chest pain or shortness of breath. He has 2/10 dull lower abd aching. Has umbilical hernia luis is reducible. Had a wk w/o BM. Has been passing BMs since 3 days ago, and has had the dull abd ache since. There is some worsening w/ eating. It is better w/ raising leg and laying down. No melena or bloody stool. No hx abd surgeries. Patient states the lesion on his R dorsal 4th digit has been there 4 days, was bright red before. He had low grade temps in the evening at home the last 3 nights. Afternoon assessment: Lower abd pain has improved and is milder. He passes another small BM today. Review of Systems Review of Systems: All systems reviewed & are unremarkable except as noted in HPI & below Physical Exam Physical Exam: General: Grossly A&O. NAD. Cooperative. HEENT: Atraumatic, normocephalic. EOMI Pulm: CTAB. -wheezes, -rales, -rhonchi. No respiratory distress. Cardiac: RRR, no murmur. no lower extremity edema. Abdominal: Mild lower abd ttp, 1 episode of wincing on palpation near umbilical hernia. nondistended, soft. Afternoon exam: Tolerating deeper palpation. Integ: R 4th digit dorsal PIP w/ rash, annular peeling skin, not erythematous. No erythema of line at R ventral forearm. Results & Data Results & Data ([facility]) Vital Signs (Past 12 Hours) Vital Signs Temp Pulse Pulse Pulse Resp BP BP 08/08/22 04:00 37.5 C 73 18 123/73 08/08/22 00:30 79 08/08/22 00:05 36.7 C 75 18 109/65 08/07/22 22:19 36.9 C 08/07/22 20:11 37.9 C H 71 18 130/74 Pulse Ox O2 Del Method 08/08/22 04:00 96 Room Air 08/08/22 00:30 08/08/22 00:05 96 Room Air 08/07/22 22:19 08/07/22 20:11 98 Resident Activity Tracking Resident Involvement: Resident Care Provided Care Provided: Adult Hospital Medicine
[2022-08-08] MEDS: ATENOLOL 25 MG TABLET PO SCH (09:32)
[2022-08-08] MEDS: FUROSEMIDE 40 MG TAB PO SCH (09:32)
[2022-08-08] MEDS: POTASSIUM CHLORIDE CRTAB 20 MEQ TABCR PO SCH ×2 (09:32→20:27)
[2022-08-08] MEDS: LORATADINE 10 MG TAB PO SCH (09:32)
[2022-08-08] MEDS: DOCUSATE SODIUM 100 MG CAP PO SCH ×2 (09:33→20:27)
[2022-08-08] MEDS: ACYCLOVIR 400 MG TAB PO SCH ×2 (09:33→20:28)
[2022-08-08] MEDS: ISOSORBIDE MONO EXTENDED REL 60 MG TABCR PO SCH (09:33)
[2022-08-08] MEDS: ONDANSETRON INJ 2 MG/ML 2 ML VIAL IV PRN (09:53)
[2022-08-08] MEDS: MAGNESIUM OXIDE 400 MG TAB PO SCH ×2 (10:05→20:27)
[2022-08-08] MEDS: POLYETHYLENE (MIRALAX) 17 GM PACK PO SCH ×2 (11:41→20:30)
--- NOTE | 2022-08-08 14:00 | Cardiology Consultation ---
Date of Consultation August 08, 2022 Assessment & Plan (1) Coronary artery disease: (2) S/P coronary artery stent placement: (3) Chronic heart failure with preserved ejection fraction: (4) Hyperlipidemia: (5) Neutropenic fever: Plan ASSESSMENT/PLAN: 1. Neutropenic fever: Will defer to primary hospitalist team and if applicable, infectious Disease. Skin lesion on the dorsal aspect of the right fourth digit is not consistent with Janeway lesion. Typically Janeway lesions are macular and involve the homes or soles of the feet. This particular lesion is more consistent with papule vs nodule, as it is raised, and apparently a less so raised than it was the past few days. Blood cultures are currently preliminary. If there is more concern for endocarditis, would recommend repeating transthoracic echo, although he had 1 recently and does not necessarily need 1 at this point. He is not a candidate for transesophageal echo currently with his profound thrombocytopenia. 2. CAD s/p PCI x 3: Details of his PCI are not known at the time of this note. He has had chronic stable angina but with blood transfusions and improved hemoglobin, has not had any recent angina. Would recommend continuation of home dose of atenolol and nitrate therapy. Currently not on anti-platelet therapy, presumably due to profound thrombocytopenia but if able in the future, would resume aspirin 81 mg daily when safe. Recommend high-intensity statin therapy if no contraindication. No angina currently. 3. Chronic heart failure with mid range EF: He does not appear hyper uses daily Lasix at home and continue home does. Low-sodium diet. He is not familiar with this diagnosis but believes it may have been while admitted in April of 2022 when diagnosed with AML. 4. Dyslipidemia: Goal LDL < 70. He is not on statin therapy at home. Unclear if he had issues with statin therapy if there was contraindication or issues with incompatibility with other medications. High-intensity statin therapy is otherwise indicated but this can be left up to his primary marzipan molder who he follows with regular. 5. Disposition: Cardiology will sign off at this time. Patient care communicated with Dr. Wild of the primary hospitalist service. Please call with questions or concerns. He should follow-up with his primary marzipan molder, Dr. Dos Santos, sometime after discharge (can be as scheduled). Thank you for allowing me to participate in the care of your patient. Please call for any other questions or concerns. Sincerely, Dionisio Vitale M.D. History of Present Illness Reason for Consultation: Possible Janeway lesion right hand, consider TERRANCE Requesting Physician: Dr. Valenzuela Attending Physician: Riya Wild MD History of Present Illness Mr. Gardiner is a very pleasant 66-year-old gentleman with history significant for AML with chemotherapy he he stated the, CAD s/p PCI x 3 (Dr. Dos Santos), HFpEF, and dyslipidemia. His primary marzipan molder is Dr. Dos Santos. He reports having his first PCI at approximately age 42 years. He has had 3 total stents per his recollection, the last being more than 10 years ago. He has chronic stable angina and had been managed medically by Dr. Dos Santos. He reports that in April of 2022, he was experiencing more angina and had preprocedural labs in anticipation of cardiac catheterization but had significantly abnormal blood counts, rate 4. He was diagnosed with AML. After blood transfusion, he has not had any further angina. Angina had been occurring only with more strenuous exercise. He was admitted on 08/07/2022 with neutropenic fever. He developed fever on 08/04/2021 and has been taking Tylenol intermittently, which has been successfully lowering his temperature. On presentation, admitting physician was concerned about Janeway lesion and has requested cardiology consultation for consideration of transesophageal echo. One blood culture on presentation is negative thus far. On 07/24/2022, had 2 blood cultures that were positive for coag-negative staph but negative cultures on 07/26/22 x 2. Lainez catheter was removed at that time. Home He has a lesion on his fourth digit on his right hand on the dorsal aspect. He states that is improving. He does not recall any specific trauma. There has not been any discharge. It was much more raised but has improved. It is nontender and nonpainful. He has occasional cough in the morning which is chronic. He has been constipated for 7 days and has had some abdominal pain for the past 1.5 days. He states that he has an umbilical hernia which causes discomfort at times. He denies shaking chills, angina, shortness of breath, syncope, near-syncope, palpitations, edema, diarrhea, melena, hematochezia, or hematuria. Review of systems: As above. Review of systems otherwise negative/unremarkable. Family history: Father from [place] in his 70s review. Social history: He denies smoking, alcohol, or drug abuse. He is but lives alone. His has been ill. Three children. He worked in construction enjoys hunting. He was alone in his hospital room. Allergies Allergy/AdvReac Type Severity Reaction Status Date / Time No Known Allergies Allergy Verified 08/04/22 12:48 Home Medications Medication Instructions Recorded Confirmed Type acyclovir 400 mg tablet 400 mg PO BID 07/16/22 08/07/22 History atenolol 25 mg tablet 25 mg PO DAILY 07/16/22 08/07/22 History calcium carbonate 200 mg calcium 200 mg PO TID PRN GERD 07/16/22 08/07/22 History (500 mg) chewable tablet (Tums) docusate sodium 100 mg capsule 100 mg PO BID 07/16/22 08/07/22 History (Colace) furosemide 40 mg tablet 40 mg PO DAILY 07/16/22 08/07/22 History isosorbide mononitrate 120 mg 120 mg PO QAM 07/16/22 08/07/22 History tablet,extended release 24 hr levofloxacin 750 mg tablet 750 mg PO DAILY 07/16/22 08/07/22 History loratadine 10 mg tablet 10 mg PO DAILY PRN Allergy Symptoms 07/16/22 08/07/22 History magnesium oxide 400 mg PO BID 07/16/22 08/07/22 History melatonin 10 mg tablet 10 mg PO HS PRN Insomnia 07/16/22 08/07/22 History ondansetron 8 mg disintegrating 8 mg PO Q8H PRN nausea 07/16/22 08/07/22 History tablet polyethylene glycol 3350 17 gram 17 g PO BID 07/16/22 08/07/22 History oral powder packet (Miralax) posaconazole 100 mg tablet,delayed 400 mg PO DAILY 07/16/22 08/07/22 History release potassium chloride 20 mEq 20 meq PO BID 07/16/22 08/07/22 History tablet,extended release venetoclax 50 mg tablet 50 mg PO DAILY 07/16/22 08/07/22 History venetoclax 10 mg tablet (Venclexta) 20 mg PO DAILY 07/24/22 08/07/22 History daptomycin mg IV DAILY 08/04/22 History Patient History Medical History Acute myelogenous leukemia Bacteremia associated with intravascular line Bloodstream infection due to Lainez catheter Chronic heart failure with preserved ejection fraction Coronary artery disease Depression Hyperlipidemia Leukemia Local infection due to Lainez catheter removed due to fevers Neutropenic fever Pancytopenia due to antineoplastic chemotherapy Thrombocytopenia Surgical History (Updated 08/08/22 @ 14:11 by Hubert Vitale MD) Hx of heart artery stent Hx of laminectomy Social History Smoking Status: Never smoker Second Hand Exposure: Yes; Do You Dip or Chew Tobacco: No; Tobacco Cessation Education Requested by Patient: No Hx Alcohol Use: No Hx Substance Use: No Preferred Language: Czech Communication Ability: Effective Aviation Safety Technician Required: No Beliefs That Will Affect Care: Yazdanism Current Living Situation: Alone Feels Safe at Home: Yes Safety Concerns: Feels Safe At This Time Assistive Devices: Walker Physical Exam Physical Exam: Gen.: No acute distress. Alert and oriented. HEENT: Anicteric sclera. Neck: No JVD. No bruits. Normal carotid upstrokes bilaterally. Cardiac: PMI was nondisplaced. No ventricular heave. Regular. Normal S1-S2. No murmurs, rubs, or gallops. Pulmonary: Clear to auscultation bilaterally without wheezes, rales, or rhonchi. Abdomen: Soft, nondistended, with normoactive bowel sounds. No bruits noted. Mild tenderness in the umbilical area. Extremities: 2+ radial pulses bilaterally. 2+ posterior tibialis pulses bilaterally. Trace left lower extremity edema. No cyanosis. Psychiatric: Affect appears appropriate. Results & Data ([facility]) Vital Signs (Past 12 Hours) Vital Signs Temp Pulse Pulse Resp BP Pulse Ox O2 Del Method 08/08/22 12:06 37.6 C H 68 20 132/85 98 Room Air 08/08/22 09:30 Room Air 08/08/22 07:55 37.7 C H 72 18 126/73 95 Room Air 08/08/22 07:24 70 08/08/22 04:00 37.5 C 73 18 123/73 96 Room Air Laboratory Results Laboratory Results - last 24 hr 08/07/22 08/07/22 08/07/22 14:38 23:35 Unknown WBC 0.07 L* RBC 2.56 L Hgb 7.7 L Hct 21.6 L MCV 84.4 MCH 30.1 MCHC 35.6 RDW Std Deviation 41.1 RDW Coeff of Lazaro 13.2 Plt Count 22 L* Immature Gran % (Auto) Neut % (Auto) Lymph % (Auto) Camp % (Auto) Eos % (Auto) Baso % (Auto) Neut # (Auto) Lymph # (Auto) Camp # (Auto) Eos # (Auto) Baso # (Auto) Immature Gran # (Auto) Neutrophils % (Manual) Band Neutrophils % Lymphocytes % (Manual) Prolymphocyte % Reactive Lymphs % (Man) Monocytes % (Manual) Eosinophils % (Manual) Basophils % (Manual) Metamyelocytes % (Man) Myelocytes % (Man) Promyelocytes % (Man) Blast Cells % (Manual) Plasma Cell % (Manual) Other Cells % Nucleated RBC % Neutrophils # (Manual) Band Neutrophils # Total Absolute Neuts Lymphocytes # (Manual) Prolymphocyte # Reactive Lymphs # Total Abs Lymphocytes Monocytes # (Manual) Eosinophils # (Manual) Basophils # (Manual) Metamyelocytes # (Man) Myelocytes # (Manual) Promyelocytes # (Man) Blast Cells # (Man) Plasma Cell # (Manual) Other Cells # Nucleated RBCs # (Man) Hypersegmented Neuts Hyposegmented Neuts Hypogranular Neuts Large Granular Lymphs # Lrg Granular Lymphs Hairy Cells Smudge Cells Toxic Granulation Toxic Vacuolation Dohle Bodies Hina Rods Hypogranular Platelets Clumped Platelets Giant Platelets Platelet Satelliting RBC Morphology Polychromasia Hypochromasia Poikilocytosis Basophilic Stippling Anisocytosis Microcytosis Macrocytosis Spherocytes Pappenheimer Bodies Sickle Cells Target Cells Tear Drop Cells Ovalocytes Stomatocytes Hines-[place]ree Bodies Echinocytes Acanthocytes (Spur) Rouleaux RBC Agglutinates Schistocytes Sezary Cell PT INR APTT PTT Ratio Sodium Potassium Chloride Carbon Dioxide Anion Gap BUN Creatinine Est Cr Clr Drug Dosing Est GFR ( Amer) Est GFR (Non-Af Amer) BUN/Creatinine Ratio Glucose Calcium Total Bilirubin AST ALT Alkaline Phosphatase Total Protein Albumin Globulin Albumin/Globulin Ratio Adenovirus (PCR) Not Detected B. pertussis DNA (PCR) Not Detected B.parapertussis DNA PCR Not Detected C. pneumoniae DNA (PCR) Not Detected Coronavirus OC43 (PCR) Not Detected Coronavirus HKU1 (PCR) Not Detected Coronavirus 229E (PCR) Not Detected SARS-CoV-2 (PCR) Not Detected Coronavirus NL63 (PCR) Not Detected Hepatitis C Ab (EIA) Hep C Ab Signal/Cutoff Human Metapneumovir PCR Not Detected Influenza Type A (PCR) Not Detected Influenza Type B (PCR) Not Detected M. pneumoniae (PCR) Not Detected Parainfluenza 1 (PCR) Not Detected Parainfluenza 2 (PCR) Not Detected Parainfluenza 3 (PCR) Not Detected Parainfluenza 4 (PCR) Not Detected RSV (PCR) Not Detected Entero/Rhino (PCR) Not Detected Blood Parasites ID Blood Type A Positive Antibody Screen NEGATIVE Crossmatch See Detail 08/08/22 08/08/22 08/08/22 05:41 05:41 05:41 WBC 0.08 L* RBC 2.68 L Hgb 7.9 L Hct 22.5 L MCV 84.0 MCH 29.5 MCHC 35.1 RDW Std Deviation 41.5 RDW Coeff of Lazaro 13.2 Plt Count 19 L* Immature Gran % (Auto) Cancelled Neut % (Auto) Cancelled Lymph % (Auto) Cancelled Camp % (Auto) Cancelled Eos % (Auto) Cancelled Baso % (Auto) Cancelled Neut # (Auto) Cancelled Lymph # (Auto) Cancelled Camp # (Auto) Cancelled Eos # (Auto) Cancelled Baso # (Auto) Cancelled Immature Gran # (Auto) Cancelled Neutrophils % (Manual) Cancelled Band Neutrophils % Cancelled Lymphocytes % (Manual) Cancelled Prolymphocyte % Cancelled Reactive Lymphs % (Man) Cancelled Monocytes % (Manual) Cancelled Eosinophils % (Manual) Cancelled Basophils % (Manual) Cancelled Metamyelocytes % (Man) Cancelled Myelocytes % (Man) Cancelled Promyelocytes % (Man) Cancelled Blast Cells % (Manual) Cancelled Plasma Cell % (Manual) Cancelled Other Cells % Cancelled Nucleated RBC % Cancelled Neutrophils # (Manual) Cancelled Band Neutrophils # Cancelled Total Absolute Neuts Cancelled Lymphocytes # (Manual) Cancelled Prolymphocyte # Cancelled Reactive Lymphs # Cancelled Total Abs Lymphocytes Cancelled Monocytes # (Manual) Cancelled Eosinophils # (Manual) Cancelled Basophils # (Manual) Cancelled Metamyelocytes # (Man) Cancelled Myelocytes # (Manual) Cancelled Promyelocytes # (Man) Cancelled Blast Cells # (Man) Cancelled Plasma Cell # (Manual) Cancelled Other Cells # Cancelled Nucleated RBCs # (Man) Cancelled Hypersegmented Neuts Cancelled Hyposegmented Neuts Cancelled Hypogranular Neuts Cancelled Large Granular Lymphs Cancelled # Lrg Granular Lymphs Cancelled Hairy Cells Cancelled Smudge Cells Cancelled Toxic Granulation Cancelled Toxic Vacuolation Cancelled Dohle Bodies Cancelled Hina Rods Cancelled Hypogranular Platelets Cancelled Clumped Platelets Cancelled Giant Platelets Cancelled Platelet Satelliting Cancelled RBC Morphology Cancelled Polychromasia Cancelled Hypochromasia Cancelled Poikilocytosis Cancelled Basophilic Stippling Cancelled Anisocytosis Cancelled Microcytosis Cancelled Macrocytosis Cancelled Spherocytes Cancelled Pappenheimer Bodies Cancelled Sickle Cells Cancelled Target Cells Cancelled Tear Drop Cells Cancelled Ovalocytes Cancelled Stomatocytes Cancelled Hines-[place] Bodies Cancelled Echinocytes Cancelled Acanthocytes (Spur) Cancelled Rouleaux Cancelled RBC Agglutinates Cancelled Schistocytes Cancelled Sezary Cell Cancelled PT INR APTT PTT Ratio Sodium 138 Potassium 3.8 Chloride 105 Carbon Dioxide 31 Anion Gap 2 L BUN 20 Creatinine 0.62 Est Cr Clr Drug Dosing 97.0 Est GFR ( Amer) 119.8 Est GFR (Non-Af Amer) 103.4 BUN/Creatinine Ratio 32.3 H Glucose 106 H Calcium 8.5 Total Bilirubin 1.8 H D AST 9 L ALT 12 Alkaline Phosphatase 80 Total Protein 5.8 L Albumin 2.5 L Globulin 3.3 Albumin/Globulin Ratio 0.8 L Adenovirus (PCR) B. pertussis DNA (PCR) B.parapertussis DNA PCR C. pneumoniae DNA (PCR) Coronavirus OC43 (PCR) Coronavirus HKU1 (PCR) Coronavirus 229E (PCR) SARS-CoV-2 (PCR) Coronavirus NL63 (PCR) Hepatitis C Ab (EIA) Pending Hep C Ab Signal/Cutoff Pending Human Metapneumovir PCR Influenza Type A (PCR) Influenza Type B (PCR) M. pneumoniae (PCR) Parainfluenza 1 (PCR) Parainfluenza 2 (PCR) Parainfluenza 3 (PCR) Parainfluenza 4 (PCR) RSV (PCR) Entero/Rhino (PCR) Blood Parasites ID Cancelled Blood Type Antibody Screen Crossmatch 08/08/22 05:41 WBC RBC Hgb Hct MCV MCH MCHC RDW Std Deviation RDW Coeff of Lazaro Plt Count Immature Gran % (Auto) Neut % (Auto) Lymph % (Auto) Camp % (Auto) Eos % (Auto) Baso % (Auto) Neut # (Auto) Lymph # (Auto) Camp # (Auto) Eos # (Auto) Baso # (Auto) Immature Gran # (Auto) Neutrophils % (Manual) Band Neutrophils % Lymphocytes % (Manual) Prolymphocyte % Reactive Lymphs % (Man) Monocytes % (Manual) Eosinophils % (Manual) Basophils % (Manual) Metamyelocytes % (Man) Myelocytes % (Man) Promyelocytes % (Man) Blast Cells % (Manual) Plasma Cell % (Manual) Other Cells % Nucleated RBC % Neutrophils # (Manual) Band Neutrophils # Total Absolute Neuts Lymphocytes # (Manual) Prolymphocyte # Reactive Lymphs # Total Abs Lymphocytes Monocytes # (Manual) Eosinophils # (Manual) Basophils # (Manual) Metamyelocytes # (Man) Myelocytes # (Manual) Promyelocytes # (Man) Blast Cells # (Man) Plasma Cell # (Manual) Other Cells # Nucleated RBCs # (Man) Hypersegmented Neuts Hyposegmented Neuts Hypogranular Neuts Large Granular Lymphs # Lrg Granular Lymphs Hairy Cells Smudge Cells Toxic Granulation Toxic Vacuolation Dohle Bodies Hina Rods Hypogranular Platelets Clumped Platelets Giant Platelets Platelet Satelliting RBC Morphology Polychromasia Hypochromasia Poikilocytosis Basophilic Stippling Anisocytosis Microcytosis Macrocytosis Spherocytes Pappenheimer Bodies Sickle Cells Target Cells Tear Drop Cells Ovalocytes Stomatocytes Hines-[place]ree Bodies Echinocytes Acanthocytes (Spur) Rouleaux RBC Agglutinates Schistocytes Sezary Cell PT 15.1 H INR 1.4 H APTT 49.8 H* PTT Ratio 1.8 Sodium Potassium Chloride Carbon Dioxide Anion Gap BUN Creatinine Est Cr Clr Drug Dosing Est GFR ( Amer) Est GFR (Non-Af Amer) BUN/Creatinine Ratio Glucose Calcium Total Bilirubin AST ALT Alkaline Phosphatase Total Protein Albumin Globulin Albumin/Globulin Ratio Adenovirus (PCR) B. pertussis DNA (PCR) B.parapertussis DNA PCR C. pneumoniae DNA (PCR) Coronavirus OC43 (PCR) Coronavirus HKU1 (PCR) Coronavirus 229E (PCR) SARS-CoV-2 (PCR) Coronavirus NL63 (PCR) Hepatitis C Ab (EIA) Hep C Ab Signal/Cutoff Human Metapneumovir PCR Influenza Type A (PCR) Influenza Type B (PCR) M. pneumoniae (PCR) Parainfluenza 1 (PCR) Parainfluenza 2 (PCR) Parainfluenza 3 (PCR) Parainfluenza 4 (PCR) RSV (PCR) Entero/Rhino (PCR) Blood Parasites ID Blood Type Antibody Screen Crossmatch Diagnostic Findings Telemetry personally reviewed: Sinus rhythm. No arrhythmia. Blood cultures reviewed as noted above in HPI. Chest x-ray from 08/07/2022 personally reviewed: No infiltrate. No significant pleural effusion. Radiology has interpreted as no acute process. Echo 07/26/2022: Reported EF 45-50%. Normal wall motion. Sclerotic aortic valve without stenosis. Elevated RVSP. ECG personally reviewed 08/08/2022: NSR 69 beats per minute. Poor R-wave progression. Inferior and anterior T-wave abnormality. Similar findings compared to 07/24/2022 ECG. Chart reviewed. Medications Administered Current Inpatient Medications Acetaminophen (Acetaminophen 325 Mg Tab) 650 mg PO Q4H PRN PRN Reason: Pain or Fever Stop: 09/06/22 18:05 Last Admin: 08/07/22 21:02 Dose: 650 mg Acyclovir (Acyclovir 400 Mg Tab) 400 mg PO BID [facility] Stop: 09/06/22 20:59 Last Admin: 08/08/22 09:33 Dose: 400 mg Atenolol (Atenolol 25 Mg Tablet) 25 mg PO DAILY [facility] Stop: 09/07/22 08:59 Last Admin: 08/08/22 09:32 Dose: 25 mg Docusate Sodium (Docusate Sodium 100 Mg Cap) 100 mg PO BID [facility] Stop: 09/06/22 20:59 Last Admin: 08/08/22 09:33 Dose: 100 mg Furosemide (Furosemide 40 Mg Tab) 40 mg PO DAILY [facility] Stop: 09/07/22 08:59 Last Admin: 08/08/22 09:32 Dose: 40 mg Daptomycin 350 mg/ Syringe 7 mls @ 3.5 mls/min IV Q24H [facility]; Protocol Stop: 08/22/22 15:59 Cefepime HCl 2,000 mg/ Syringe 20 mls @ 5 mls/min IV Q8H [facility]; Protocol Stop: 08/09/22 20:59 Last Admin: 08/08/22 13:00 Dose: 5 mls/min Isosorbide Mononitrate (Isosorbide Camp Extended Rel 60 Mg Tabcr) 120 mg PO QAM [facility] Stop: 09/07/22 08:59 Last Admin: 08/08/22 09:33 Dose: 120 mg Loratadine (Loratadine 10 Mg Tab) 10 mg PO DAILY [facility] Stop: 09/06/22 18:05 Last Admin: 08/08/22 09:32 Dose: 10 mg Magnesium Oxide (Magnesium Oxide 400 Mg Tab) 400 mg PO BID [facility] Stop: 09/06/22 20:59 Last Admin: 08/08/22 10:05 Dose: 400 mg Melatonin (Melatonin 3 Mg Tab) 9 mg PO HS PRN PRN Reason: Insomnia Stop: 09/06/22 18:16 Miscellaneous (Posaconazole: Order Awaiting Action) 1 each N/A QS [facility] Stop: 09/07/22 00:00 Last Admin: 08/08/22 09:31 Dose: Not Given Ondansetron HCl (Ondansetron Inj 2 Mg/Ml 2 Ml Vial) 4 mg IV Q4H PRN PRN Reason: Nausea Stop: 09/06/22 18:05 Last Admin: 08/08/22 09:53 Dose: 4 mg Polyethylene Glycol (Polyethylene (Miralax) 17 Gm Pack) 17 gm PO BID [facility] Stop: 09/07/22 10:44 Last Admin: 08/08/22 11:41 Dose: 17 gm Potassium Chloride (Potassium Chloride Crtab 20 Meq Tabcr) 20 meq PO BID [facility] Stop: 09/06/22 20:59 Last Admin: 08/08/22 09:32 Dose: 20 meq PG Care Time/CCT Total # of Minutes Spent Total Time Spent with Patient: Total time spent is greater than 50% in coordination of care (as documented) at patient's floor/unit and/or counseling patient: Coding Level of Care Code 42721 INT INP/OBS CARE 2/55MIN Diagnoses Coronary artery disease I25.10 S/P coronary artery stent placement Z95.5 Chronic heart failure with preserved ejection fraction I50.32 Hyperlipidemia E78.5 Neutropenic fever D70.9; R50.81
[2022-08-08] MEDS: ACETAMINOPHEN 325 MG TAB PO PRN (14:19)
--- NOTE | 2022-08-08 14:48 | XRay Report ---
KUB HISTORY: lower abd pain COMPARISON: None. FINDINGS: The bowel gas pattern is unremarkable. There are no dilated loops of small bowel to suggest an obstruction. Renal shadows are partially obscured by overlying bowel gas. There are a few left r enal calculi with the largest measuring 7 mm. No definite right renal calculi. Nonspecific calcificat ions are seen within the left deep pelvis. These could represent phleboliths or distal left ureteral stones. No pneumoperitoneum or pneumatosis. IMPRESSION: 1. No evidence for a bowel obstruction. 2. Left-sided nephrolithiasis. 3. Nonspecific calcifications within the left deep pelvis which could represent phleboliths or distal left ureteral stones. Follow-up renal ultrasound can be used for further evaluation if the patient i s complaining of left flank pain. ACT 112: Negative or not required by law. Electronically signed by: Taqueria Rasheed M.D. 08/08/2022 2:46 PM
[2022-08-08] MEDS: VORICONAZOLE 200 MG TABLET PO SCH (15:46)
[2022-08-08] MEDS: DAPTOmycin 350 MG in SYRINGE 0 ML IV SCH (16:32)
[2022-08-09] MEDS: CEFEPIME 2,000 MG in SYRINGE 0 ML IV SCH ×2 (04:56→13:16)
--- NOTE | 2022-08-09 07:01 | Hospitalist Progress Note ---
Date of Service August 09, 2022 Assessment & Plan (1) Neutropenic fever: Plan: Shawn Gardiner is a 66 yo male with PMHx significant for AML with associated pancytopenia, HLD, depression, and CAD who presented to [facility] on 08/07 with neutropenic fever. Of note patient was recently admitted here from 07/24-07/30 for MRSA bacteremia due to Lainez line (had it removed and was discharged on Daptomycin). Neutropenic fever, Unknown Source Patient is asymptomatic apart from fever/chills, weakness and fatigue - no localizing symptoms. UA, KUB and CXR without signs of infection. Unclear etiology - may be developing endocarditis although less likely given Daptomycin treatment prior to admission, as well as recent negative TTE 4 weeks ago. Patient did have upset stomach several days ago --> may have had colitis although asymptomatic currently. - blood cx negative on 08/07 - repeat blood cx this morning - procalcitonin elevated at 1.01 this morning, increasing suspicion for bacterial infection - trend in AM - check CT A/P with IV contrast, given recent GI symptoms (albeit mild and now resolved) - ordered PCR stool panel as well - check TTE for endocarditis eval - may need TERRANCE but would need improvement in platelet count first - consulted ID this morning - appreciate recs - patient on Daptomycin for recent MRSA bacteremia (has been covered with Vanco/Daptomycin since 07/25 - 2 weeks treatment thus far) - continue - continue Cefepime for now - consider addition of anaerobic coverage, pending CT A/P - PO prophylaxis of antivral/antifungal continued. IV antibiotics will replace outpatient PO levofloxacin. Posaconazole replaced with voriconazole per hospital formulary. - Neutropenic isolation precautions AML; Pancytopenia due to antineoplastic chemotherapy - S/p 2u prbc and 1u irradiated prbc at [facility] on 08/07 and 1u irradiated prbc at admission. Platelet transfusion threshold 15. - plts 9 this morning - gave 1 unit irradiated plts - Venetoclax on hold for upcoming bone biopsy (cancelled) and recent bacteremia. 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 grade 2 diastolic dysfunction. RVSP 40-50. mildly dilated IVC. - cautious use of IVFs if becomes necessary - Continue home PO Lasix 40. Currently euvolemic. - strict I/Os, daily weights Coronary artery disease - Not on antiplatelet therapy due to thrombocytopenia. Per cardiology, recommends resuming baby ASA 81mg when thrombocytopenia is milder. - Not on statin therapy; defer to outpatient cardiology - Continue atenolol FEN/GI - regular diet DVT ppx - SCDs. chemical prophylaxis contraindicated due to thrombocytopenia Code status: full Disposition - med/tele (2) Pancytopenia due to antineoplastic chemotherapy: (3) Acute myelogenous leukemia: (4) Depression: (5) Coronary artery disease: (6) Lower abdominal pain: (7) Congestive heart failure: Admission and Anticipated Discharge Date Admission Date: August 07, 2022 Supervising Physician Co-Signing Physician Notes Resident Physician Supervision Note: I independently interviewed and examined the patient and verified the huston history and physical, reviewed labs and image studies and agree with resident findings and care plan. Subjective Patient febrile overnight and this morning to 38.5C. Patient reports feeling weak, "run down", and did have subjective fever/chills overnight. Reports that he had some stomach upset over last several days but none currently, and no constipation/diarrhea. Denies respiratory/urinary symptoms. Denies back pain. Denies rash. Review of Systems Review of Systems: All systems reviewed & are unremarkable except as noted in HPI & below Physical Exam Physical Exam: General: A&Ox3. NAD. Cooperative. HEENT: Atraumatic, normocephalic. Pulm: CTAB A&P. -wheezes, -rales, -rhonchi. Symmetrical chest rise. No increase work of breathing. No respiratory distress. Cardiac: RRR, -mrg. Radial pulses intact and symmetrical. No LE edema. Abdominal: soft, non-tender, non-distended, BS x 4 Skin: warm, dry, no rash Results & Data Results & Data ([facility]) Vital Signs (Past 12 Hours) Vital Signs Temp Pulse Pulse Resp BP Pulse Ox O2 Del Method 08/09/22 04:19 37.6 C H 76 20 128/73 93 Room Air 08/09/22 01:44 37.1 C 08/08/22 22:01 77 08/09/22 00:00 38.2 C H 81 20 69/69 L 98 Room Air 08/08/22 20:00 37.1 C 72 20 137/71 97 Room Air Resident Activity Tracking Resident Involvement: Resident Care Provided Care Provided: Adult [facility]
[2022-08-09] MEDS: ACETAMINOPHEN 325 MG TAB PO PRN ×3 (07:36→23:13)
[2022-08-09 08:15] LABS: Hematocrit (blood only) 21.9 % (42.0-52.0); Hemoglobin 7.5 g/dl (14.0-18.0); Mean Corpuscular Hemoglobin 29.1 pg (25.0-34.0); Mean Corpuscular Hgb Conc 34.2 g/dL (32.0-36.0); Mean Corpuscular Volume 84.9 fL (80.0-100.0); Platelet Count 9 K/uL (130-400); RDW Coefficient of Variation 13.2 % (11.5-14.5); RDW Standard Deviation 41.8 fL (36.4-46.3); Red Blood Count 2.58 M/uL (4.70-6.10)
[2022-08-09] MEDS: ACYCLOVIR 400 MG TAB PO SCH ×2 (08:19→22:11)
[2022-08-09] MEDS: DOCUSATE SODIUM 100 MG CAP PO SCH ×2 (08:19→22:11)
[2022-08-09 08:20] LABS: Albumin Globulin Ratio 0.9 (0.9-2); Albumin Level 2.6 gm/dl (3.4-5.0); BUN Creatinine Ratio 31.7 (10-20); Bilirubin,Total 1.7 mg/dl (0.2-1.0); Calcium 8.4 mg/dl (8.5-10.1); Creatinine Clr Calc Pharmacy 100.4 ml/min; Est GFR (African American) 121.4 ml/min; Est GFR (Non-African American) 104.8 ml/min; Total Protein 5.6 gm/dl (6.0-8.3)
[2022-08-09] MEDS: MAGNESIUM OXIDE 400 MG TAB PO SCH ×2 (08:20→22:11)
[2022-08-09] MEDS: LORATADINE 10 MG TAB PO SCH (08:20)
[2022-08-09] MEDS: POTASSIUM CHLORIDE CRTAB 20 MEQ TABCR PO SCH ×2 (08:20→22:11)
[2022-08-09] MEDS: ATENOLOL 25 MG TABLET PO SCH (08:20)
[2022-08-09] MEDS: FUROSEMIDE 40 MG TAB PO SCH (08:20)
[2022-08-09] MEDS: ISOSORBIDE MONO EXTENDED REL 60 MG TABCR PO SCH (08:20)
[2022-08-09] MEDS: VORICONAZOLE 200 MG TABLET PO SCH ×2 (08:20→22:11)
[2022-08-09] MEDS: POLYETHYLENE (MIRALAX) 17 GM PACK PO SCH ×2 (08:25→22:13)
[2022-08-09 14:02] LABS: Adenovirus F 40/41 PCR Not Detected (NotDetected); Astrovirus PCR Not Detected (NotDetected); Campylobacter PCR Not Detected (NotDetected); Cryptosporidium PCR Not Detected (NotDetected); Cyclospora cayetanensis PCR Not Detected (NotDetected); Entamoeba histolytica PCR Not Detected (NotDetected); Enteroaggregative E.coli(EAEC) Not Detected (NotDetected); Enteropathogenic E.coli (EPEC) Not Detected (NotDetected); Enterotoxigenic E.coli (ETEC) Not Detected (NotDetected); Giardia lamblia PCR Not Detected (NotDetected); Norovirus GI/GII PCR Not Detected (NotDetected); Plesiomonas shigelloides PCR Not Detected (NotDetected); Rotavirus A PCR Not Detected (NotDetected); Salmonella PCR Not Detected (NotDetected); Sapovirus PCR Not Detected (NotDetected); Shiga-like Toxin E.coli (STEC) Not Detected (NotDetected); Shigella/Enteroinvasive E.coli Not Detected (NotDetected); Vibrio cholerae PCR Not Detected (NotDetected); Vibrio species PCR Not Detected (NotDetected); Yersinia enterocolitica PCR Not Detected (NotDetected)
[2022-08-09] MEDS ORDERED: OPTIRAY 350 100ml IV ONE (15:45)
--- NOTE | 2022-08-09 16:30 | CT Scan Report ---
CT OF THE ABDOMEN AND PELVIS WITH CONTRAST CLINICAL HISTORY: stomach upset, fevers, ?GI infection COMPARISON STUDY: KUB August 08, 2022. TECHNIQUE: Following IV administration of 89 mL of Optiray, axial images of the abdomen and pelvis we re obtained from the lung bases to the proximal femurs. Images were reviewed in the axial, sagittal, and coronal planes. IV contrast was administered without complication. Automated exposure control wa s utilized for the study. A dose lowering technique was utilized adhering to the principles of ALARA . CT DOSE: 285.24 mGy.cm FINDINGS: Visualized portions of the lower chest demonstrate moderate cardiomegaly and extensive rodney nary artery calcification. There is a trace left pleural effusion. No pneumatosis, free air or portal venous gas is present. The liver, adrenal glands and pancreas are unremarkable. There is mild gallbl adder wall thickening and prominent mucosal enhancement of the gallbladder. Densities within the gall bladder favor gallstones. There is no gallbladder distention. The spleen is mildly enlarged. Several renal cysts are noted, the largest of which is a 6.7 cm left upper pole cyst. Numerous bilateral anna marie l calculi measure up to 7 mm. There are no ureteral calculi. There is no hydronephrosis. There are nu merous mildly enlarged retroperitoneal lymph nodes. Index left para-aortic lymph node on image 215 of 456 measures 1.8 x 1.4 cm. In addition, there are are ill-defined matted mildly enlarged mesenteric lymph nodes. These are difficult to measure given configuration. Diffuse stranding within the mesente ry is noted. There is no evidence for a bowel obstruction. Moderate amount of stool within the colon and rectum is present. The appendix is normal. Major vasculature is patent. There is moderate aortoil iac atherosclerotic plaque. Mild bladder wall thickening with mild adjacent stranding is noted. There are small fat-containing bilateral inguinal hernias. No acute fractures are present. No suspicious o sseous lesions are noted. IMPRESSION: 1. No bowel obstruction. No bowel wall thickening. Moderate amount of stool within the colon and rect um. 2. Numerous mildly enlarged retroperitoneal lymph nodes and ill-defined mildly enlarged matted mesent almaz nodes with adjacent stranding. Mild splenomegaly. These findings are nonspecific but raise the p ossibility of a lymphoproliferative process. 3. Bilateral nephrolithiasis. No ureteral calculi or hydronephrosis. Mild bladder wall thickening wit h adjacent stranding which could be correlated with urinalysis to exclude cystitis. 4. Cholelithiasis with mild gallbladder wall thickening and prominent mucosal enhancement. However, g allbladder not distended. Therefore, acute cholecystitis is considered unlikely however if right uppe r quadrant pain, ultrasound is recommended. 5. Nonspecific stranding throughout the abdomen and pelvis. 6. Cardiomegaly. Extensive coronary artery calcification. ACT 112: Negative or not required by law. Electronically signed by: Juanjose Gaspar M.D. 08/09/2022 4:28 PM
[2022-08-09] MEDS: DAPTOmycin 350 MG in SYRINGE 0 ML IV SCH (16:44)
--- NOTE | 2022-08-09 22:07 | XCELERA ---
[id number] \\[id number]
--- NOTE | 2022-08-09 22:18 | Electrocardiogram Report ---
Test Reason : Blood Pressure : / mmHG Vent. Rate : 069 BPM Atrial Rate : 069 BPM P-R Int : 152 ms QRS Dur : 092 ms QT Int : 426 ms P-R-T Axes : 042 -32 -25 degrees QTc Int : 456 ms Normal sinus rhythm Left axis deviation Inferior infarct , age undetermined Cannot rule out Anterior infarct (cited on or before 08-AUG-2022) T wave abnormality, consider inferior ischemia Nonspecific T wave abnormality Abnormal ECG When compared with ECG of 25-JUL-2022 00:21, T wave inversion now evident in Inferior leads Confirmed by Hubert Vitale ([id number]) on 08/09/2022 10:18:25 PM Referred By: REFERRED SELF Confirmed By:Hubert Vitale
[2022-08-10 07:15] LABS: Hematocrit (blood only) 19.4 % (42.0-52.0); Hemoglobin 6.6 g/dl (14.0-18.0); Mean Corpuscular Hemoglobin 29.3 pg (25.0-34.0); Mean Corpuscular Volume 86.2 fL (80.0-100.0); Platelet Count 11 K/uL (130-400); RDW Coefficient of Variation 13.5 % (11.5-14.5); RDW Standard Deviation 42.8 fL (36.4-46.3); Red Blood Count 2.25 M/uL (4.70-6.10); White Blood Count 0.08 K/ul (4.8-10.8)
[2022-08-10 07:19] LABS: Albumin Globulin Ratio 0.9 (0.9-2); Albumin Level 2.6 gm/dl (3.4-5.0); BUN Creatinine Ratio 37.1 (10-20); Bilirubin,Total 1.8 mg/dl (0.2-1.0); Calcium 8.5 mg/dl (8.5-10.1); Est GFR (African American) 119.8 ml/min; Est GFR (Non-African American) 103.4 ml/min; Magnesium 2.1 mg/dl (1.7-2.4); Potassium 4.3 mmol/L (3.5-5.1); Total Protein 5.6 gm/dl (6.0-8.3)
--- NOTE | 2022-08-10 07:19 | Ultrasound Report ---
US liver HISTORY: 66 years-old Male gallbladder distension acute right upper quadrant abdominal pain COMPARISON: CT abdomen pelvis 08/09/2022 TECHNIQUE: Multiple real-time sonographic images of the abdominal right upper quadrant were obtained assessing grayscale appearance and color flow FINDINGS: The pancreas is obscured by bowel gas. The liver measures 17 cm in length and is unremarkable. Normal common bile duct, 5 mm. Calculus of the right kidney measure up to approximately 4 mm. 1.5 cm cyst o f the interpolar right kidney. There are several echogenic intraluminal nonmobile foci within the gallbladder lumen measuring up to 1.5 cm without color flow. Trace pericholecystic fluid is noted along with mild gallbladder sludge. N egative sonographic Rodriguez's sign. Mild gallbladder wall thickening measures up to 5 mm. IMPRESSION: 1. Echogenic nonshadowing and nonmobile intraluminal foci within the gallbladder are nonspecific and may represent areas of tumefactive sludge versus gallbladder polyps measuring up to 1.5 cm. Follow-up is needed. 2. Nonspecific gallbladder wall thickening with trace pericholecystic fluid. If there is clinical con cern for acute cholecystitis, nuclear medicine hepatobiliary scan may be considered. 3. No biliary ductal dilation. 4. Nephrolithiasis. ACT 112: Negative or not required by law. The above report was generated using voice recognition software. It may contain grammatical, syntax o r spelling errors. Electronically signed by: Alex Jiménez M.D. 08/10/2022 7:17 AM
[2022-08-10] MEDS ORDERED: SODIUM CHLORIDE 0.9% 250 ML IV PRN (07:53)
--- NOTE | 2022-08-10 08:32 | Hospitalist Progress Note ---
Date of Service August 10, 2022 Assessment & Plan (1) Neutropenic fever: Plan: Shawn Gardiner is a 66 yo male with PMHx significant for AML with associated pancytopenia, HLD, depression, and CAD who presented to [facility] on 08/07 with neutropenic fever. Of note patient was recently admitted here from 07/24-07/30 for MRSA bacteremia due to Lainez line (had it removed and was discharged on Daptomycin). Neutropenic fever, Unknown Source Patient is asymptomatic apart from fever/chills, weakness and fatigue - no localizing symptoms. UA, KUB and CXR without signs of infection. Unclear etiology - may be developing endocarditis although less likely given Daptomycin treatment prior to admission, as well as recent negative TTE 4 weeks ago. Patient did have upset stomach several days ago --> may have had colitis although asymptomatic currently. - blood cx negative on 08/07, repeated 08/09 no growth at 24 hours - procalcitonin elevated at 1.01 on 08/09, blood cx 4 bottles no growth at 24/48 hours - CT A/P with IV contrast - nonspecifc stranding, mild GB wall thickening, and abd u/s with possible sludge - plan for HIDA scan per ID reocmmendations - PCR stool panel and Resp Biofire negative - TTE, neg for endocarditis eval - may need TERRANCE but would need improvement in platelet count first - consulted ID - recommendations included - patient on Daptomycin for recent MRSA bacteremia (has been covered with Vanco/Daptomycin since 07/25 - 2 weeks treatment thus far) - continue - continue Cefepime for now - Addition of Metronidazole - PO prophylaxis of antivral/antifungal continued. IV antibiotics will replace outpatient PO levofloxacin. Posaconazole replaced with voriconazole per hospital formulary, will request if patient can arrange for home posaconazole. - Neutropenic isolation precautions AML; Pancytopenia due to antineoplastic chemotherapy - S/p 2u prbc and 1u irradiated prbc [facility] on 08/07 and 1u irradiated prbc at admission. 1 unit irradiated plts on 08/09, Platelet transfusion threshold 15. - 08/10. Hgb 6.6, plts11, 1u irradiated pRBC and 1u irradiated plts - Venetoclax on hold for upcoming bone biopsy (cancelled) and recent bacteremia. 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 grade 2 diastolic dysfunction. RVSP 40-50. mildly dilated IVC. - 08/09 TTE EF 60-65%, small pericardial effusion - cautious use of IVFs if becomes necessary - Continue home PO Lasix 40. Currently euvolemic. - strict I/Os, daily weights Coronary artery disease - Not on antiplatelet therapy due to thrombocytopenia. Per cardiology, recommends resuming baby ASA 81mg when thrombocytopenia is milder. - Not on statin therapy; defer to outpatient cardiology - Continue atenolol FEN/GI - regular diet DVT ppx - SCDs. chemical prophylaxis contraindicated due to thrombocytopenia Code status: full Disposition - med/tele (2) Pancytopenia due to antineoplastic chemotherapy: (3) Acute myelogenous leukemia: (4) Depression: (5) Coronary artery disease: (6) Lower abdominal pain: (7) Congestive heart failure: Admission and Anticipated Discharge Date Admission Date: August 07, 2022 Supervising Physician Co-Signing Physician Notes I personally examined the patient and verified all huston points of history and exam, discussed case, and agree with decision making with S Joe MS4 feels lousy and a little listless. poor appetite and feels easily gagged but able to eat. no diarrhea vitals noted nad heent nc at mmm breathing unlabored no accessory muscles good effort skin no rashes no pallor or icterus, abd soft mild epigastric ttp no guarding rebound/rigidity. no RUQ pain/tenderness/guarding/etc neutropenic fever - continue broad empiric abx coverage, follow cultures, serial exams, supportive care otherwise as above Subjective Shawn Gardiner is a 66 yo male with acute myelogenous leukemia who presented to the ED on 08/07 with several days diarrhea, vomiting, and fever. Last episode of diarrhea was . Since then he has been passing gas and small volume solid stools. He is eating and drinking well. Denies rash. Physical Exam Constitutional: WD/WN, vitals as above ENMT: external ear and nose normal, oropharynx normal Neck: trachea midline, no thyromegaly Respiratory: normal respiratory effort, lungs clear to auscultation Cardiovascular: RRR, no murmur, no edema Gastrointestinal (Abdomen): normal bowel sounds, soft, nontender, no hepatosplenomegaly Musculoskeletal: no cyanosis or clubbing, extremities motor strength 5/5 Neurologic: moves all extremities and awake; not confused Psychiatric: A+Ox3, euthymic affect Results & Data Results & Data ([facility]) Vital Signs (Past 12 Hours) Vital Signs Temp Pulse Pulse Resp BP Pulse Ox O2 Del Method 08/10/22 07:28 37.4 C 77 20 123/73 96 Room Air 08/10/22 07:03 80 08/10/22 03:06 36.9 C 69 16 125/78 97 Room Air 08/10/22 00:21 37.1 C 08/09/22 23:36 39.4 C H 79 20 116/71 95 Room Air 08/09/22 23:03 81 Laboratory Results 08/10/22 06:30 08/10/22 06:30
[2022-08-10] MEDS: ATENOLOL 25 MG TABLET PO SCH (08:50)
[2022-08-10] MEDS: ISOSORBIDE MONO EXTENDED REL 60 MG TABCR PO SCH (08:50)
[2022-08-10] MEDS: FUROSEMIDE 40 MG TAB PO SCH (08:50)
[2022-08-10] MEDS: LORATADINE 10 MG TAB PO SCH (08:51)
[2022-08-10] MEDS: MAGNESIUM OXIDE 400 MG TAB PO SCH ×2 (08:51→20:43)
[2022-08-10] MEDS: ACYCLOVIR 400 MG TAB PO SCH ×2 (08:51→20:42)
[2022-08-10] MEDS: POLYETHYLENE (MIRALAX) 17 GM PACK PO SCH ×2 (08:51→20:16)
[2022-08-10] MEDS: DOCUSATE SODIUM 100 MG CAP PO SCH ×2 (08:51→20:43)
[2022-08-10] MEDS: POTASSIUM CHLORIDE CRTAB 20 MEQ TABCR PO SCH ×2 (08:51→20:41)
[2022-08-10] MEDS: VORICONAZOLE 200 MG TABLET PO SCH ×2 (08:51→20:42)
[2022-08-10] MEDS: ONDANSETRON INJ 2 MG/ML 2 ML VIAL IV PRN (09:48)
[2022-08-10] MEDS: CEFEPIME 2,000 MG in SYRINGE 0 ML IV SCH ×2 (10:35→17:58)
[2022-08-10] MEDS ORDERED: Nursing to Pharmacy Communication SCH (11:15)
--- NOTE | 2022-08-10 11:19 | Infectious Disease Consult ---
Date of Consultation August 10, 2022 Assessment & Plan (1) Neutropenic fever: #neutropenic fever -in setting of AML, last chemo Jun 2022, pancytopenia -in setting of daptomycin IV and LVQ, acyclovir, azole ppx -absence of focal symptoms other than some abd discomfort related to constipation, now significantly improved with BMs per pt -Bcxs are NGTD -CT a/p with mild GB wall thickening and abd u/s with possible sludge #h/o MRSE bacteremia - present in 4 out of 4 bottles 07/24, likely secondary to line. 2D echo had no evidence of mass or vegetation. Patient underwent Sweeney removal 07/27. 07/26 blood cultures were negative. Plan was for daptomycin 350 mg (~6 mg/kilograms) IV daily until 08/10/2022 (2 weeks after clearance) with repeat blood cultures performed 3-7 days after IV therapy completed. -agree that IE is unlikely, as Bcxs quickly cleared, and lesion on hand does not appear c/w janeway lesion #AML, severe pancytopenia Plan Rec: While patient is without sxs c/w cholecystitis, in absence of other focal signs/sxs, would obtain HIDA. F/u Bcxs. In meantime, would continue cefepime 2 g IV q8. Will add metronidazole 500mg q8 for anaerobic coverage. Daptomycin was supposed to be completed today- for now, will continue empirically at increased dose of 480mg IV q24 (~8mg/kg) but if Bcxs remain negative, will stop and repeat Bcxs off abx as originally recommended. Will check CPK in AM. Please page with any questions. Lindsay Nolasco M.D. [facility] Pager [phone] Consultation Information Consultation was provided via telemedicine using two-way real-time interactive telecommunication between the patient and the telemedicine provider. For the duration of the visit, the provider was performing the assessment from a different facility than the patient. This includesuse of bluetooth stethoscope forauscultationperformed by the telepresenter that the telemedicine provider can hear if described in the physical exam. Family Services Assistant contact information: Please call [facility] Call Center . (Phone Number For Physician Use Only) After establishing a telemedicine visit, patient was: Patient was verified with two unique identifiers, Patient/authorized rep acknowledged consent and understanding and Gave permission to continue telehealth session Time Spent with Patient: Initial => 40 min History of Present Illness Reason for Consultation: neutropenic fever Attending Physician: Gilebrto Russell DO History of Present Illness ID consult requested for neutropenic fever with recent MRSE bacteremia in this 66-year-old male with history of CAD, depression, heart failure, with preserved EF, 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 2D echo had no evidence of mass or vegetation. Patient underwent Sweeney removal 07/27. 07/26 blood cultures were negative. Plan was for daptomycin 350 mg (~6 mg/kilograms) IV daily until 08/10/2022 (2 weeks after clearance) with repeat blood cultures performed 3-7 days after IV therapy completed. It was recommended that he continue with prophylaxis with acyclovir, posaconazole and levofloxacin. Patient was discharged on 07/30/2022. Patient then presented to the ED on 08/07/2022 reporting fever the night prior of 102. Patient is neutropenic with ANC of 0 and mentioned the fever to his team when he presented for blood transfusion and therefore was sent over for admission. He reported having mild fever for the last several nights but denied any URI complaints, shortness of breath, cough, chest pain, or urinary symptoms. Patient reported some lower abdominal pain associate with constipation. In the ED, temperature was 36.8, heart rate 68, blood pressure 98/66, respiratory rate 20, O2 saturation 97% on room air. Admission labs significant for WBC 0.14, hemoglobin 6.1, platelets 23, creatinine 0.63, TB 1.8, other LFTs ok. UA with 15 WBC, 10-20 epithelial cells. Procalcitonin was 0.36 on admission and 1.01 on 08/09 repeat. Portable chest x-ray was negative for acute process. Cardiology was consulted for possible TERRANCE but did not think patient had Janeway lesion on right fourth digit and did not recommend TERRANCE given degree of thrombocytopenia. CT abdomen pelvis 08/09 with contrast showed mild gallbladder wall thickening, no gallbladder distention, no bowel wall thickening, numerous enlarged lymph nodes, mild bladder wall thickening, nephrolithiasis, and nonspecific stranding throughout the abdomen pelvis. Abd u/s with sludge vs. polyps. Patient is currently on acyclovir 400 mg twice a day, cefepime 2 g every 8, daptomycin 350 mg every 24, and voriconazole 200 mg twice a day. 08/07 blood cultures are no growth to date. 08/09 blood cultures are pending. Stool PCR panel is negative. Patient had fever yesterday evening. He is hemodynamically stable, and on room air. He remains pancytopenic and severely neutropenic with WBC 0.08. Patient was started on stool regimen and has been passing small bowel movements. He reports that since having BMs, his abd discomfort (which was located on L side only) has improved significantly. No RUQ discomfort. He vomited this AM, but no N/v prior to admission. He denies any issues with daptomycin, no missed doses, no issues with midline, no changes in medications, no procedures, no travel and no sick contacts. Lives alone, no pets. No blood in stool. He reports he has been taking LVQ. He denies any hardware or foreign material other than cardiac stents. Allergies Allergy/AdvReac Type Severity Reaction Status Date / Time No Known Allergies Allergy Verified 08/04/22 12:48 Home Medications Medication Instructions Recorded Confirmed Type acyclovir 400 mg tablet 400 mg PO BID 07/16/22 08/07/22 History atenolol 25 mg tablet 25 mg PO DAILY 07/16/22 08/07/22 History calcium carbonate 200 mg calcium 200 mg PO TID PRN GERD 07/16/22 08/07/22 History (500 mg) chewable tablet (Tums) docusate sodium 100 mg capsule 100 mg PO BID 07/16/22 08/07/22 History (Colace) furosemide 40 mg tablet 40 mg PO DAILY 07/16/22 08/07/22 History isosorbide mononitrate 120 mg 120 mg PO QAM 07/16/22 08/07/22 History tablet,extended release 24 hr levofloxacin 750 mg tablet 750 mg PO DAILY 07/16/22 08/07/22 History loratadine 10 mg tablet 10 mg PO DAILY PRN Allergy Symptoms 07/16/22 08/07/22 History magnesium oxide 400 mg PO BID 07/16/22 08/07/22 History melatonin 10 mg tablet 10 mg PO HS PRN Insomnia 07/16/22 08/07/22 History ondansetron 8 mg disintegrating 8 mg PO Q8H PRN nausea 07/16/22 08/07/22 History tablet polyethylene glycol 3350 17 gram 17 g PO BID 07/16/22 08/07/22 History oral powder packet (Miralax) posaconazole 100 mg tablet,delayed 400 mg PO DAILY 07/16/22 08/07/22 History release potassium chloride 20 mEq 20 meq PO BID 07/16/22 08/07/22 History tablet,extended release venetoclax 50 mg tablet 50 mg PO DAILY 07/16/22 08/07/22 History venetoclax 10 mg tablet (Venclexta) 20 mg PO DAILY 07/24/22 08/07/22 History daptomycin mg IV DAILY 08/04/22 History Patient History Medical History Acute myelogenous leukemia Bacteremia associated with intravascular line Bloodstream infection due to Sweeney catheter Congestive heart failure Coronary artery disease Depression Hyperlipidemia Leukemia Local infection due to Sweeney catheter removed due to fevers Neutropenic fever Pancytopenia due to antineoplastic chemotherapy Thrombocytopenia Surgical History Hx of heart artery stent Hx of laminectomy Social History Smoking Status: Never smoker Second Hand Exposure: Yes; Do You Dip or Chew Tobacco: No; Tobacco Cessation Education Requested by Patient: No Hx Alcohol Use: No Hx Substance Use: No Preferred Language: Egyptian Communication Ability: Effective Can Capper Required: No Beliefs That Will Affect Care: Mosque Current Living Situation: Alone Feels Safe at Home: Yes Safety Concerns: Feels Safe At This Time Assistive Devices: Walker Review of System Constitutional: as per Subjective / HPI Physical Exam Physical Exam: . PE: Gen: Awake, alert, NAD HEENT: anicteric, neck supple Resp: no resp distress on RA Chest: R chest prior sweeney site incision with sutures- dry, no evidence infection Abd: Soft, slightly tender LLQ and LUQ, no RUQ tenderness, umbilical hernia Extr: no c/c/e R 4th digit with small erythematous papule dorsal surface Skin: R midline dressed Results & Data ([facility]) Vital Signs (Past 12 Hours) Vital Signs Temp Pulse Pulse Resp BP Pulse Ox O2 Del Method 08/10/22 07:28 37.4 C 77 20 123/73 96 Room Air 08/10/22 07:03 80 08/10/22 03:06 36.9 C 69 16 125/78 97 Room Air 08/10/22 00:21 37.1 C 08/09/22 23:36 39.4 C H 79 20 116/71 95 Room Air Laboratory Results 08/07/22 14:38 Aerobic Blood Culture - Preliminary Blood No growth in Aerobic bottle after 48 hours. Anaerobic Blood Culture - Preliminary No growth in Anaerobic bottle after 48 hours. 08/07/22 12:12 Aerobic Blood Culture - Preliminary Blood No growth in Aerobic bottle after 48 hours. Anaerobic Blood Culture - Preliminary No growth in Anaerobic bottle after 48 hours. 08/09/22 09:38 Aerobic Blood Culture - Pending Blood Anaerobic Blood Culture - Pending 08/09/22 09:38 Aerobic Blood Culture - Pending Blood Anaerobic Blood Culture - Pending 08/10/22 08/10/22 08/09/22 06:30 06:30 12:22 WBC 0.08 L* RBC 2.25 L Hgb 6.6 L* Hct 19.4 L* MCV 86.2 MCH 29.3 MCHC 34.0 RDW Std Deviation 42.8 RDW Coeff of Lazaro 13.5 Plt Count 11 L* Immature Gran % (Auto) Cancelled Neut % (Auto) Cancelled Lymph % (Auto) Cancelled [place] % (Auto) Cancelled Eos % (Auto) Cancelled Baso % (Auto) Cancelled Neut # (Auto) Cancelled Lymph # (Auto) Cancelled [place] # (Auto) Cancelled Eos # (Auto) Cancelled Baso # (Auto) Cancelled Immature Gran # (Auto) Cancelled Neutrophils % (Manual) Cancelled Band Neutrophils % Cancelled Lymphocytes % (Manual) Cancelled Prolymphocyte % Cancelled Reactive Lymphs % (Man) Cancelled Monocytes % (Manual) Cancelled Eosinophils % (Manual) Cancelled Basophils % (Manual) Cancelled Metamyelocytes % (Man) Cancelled Myelocytes % (Man) Cancelled Promyelocytes % (Man) Cancelled Blast Cells % (Manual) Cancelled Plasma Cell % (Manual) Cancelled Other Cells % Cancelled Nucleated RBC % Cancelled Neutrophils # (Manual) Cancelled Band Neutrophils # Cancelled Total Absolute Neuts Cancelled Lymphocytes # (Manual) Cancelled Prolymphocyte # Cancelled Reactive Lymphs # Cancelled Total Abs Lymphocytes Cancelled Monocytes # (Manual) Cancelled Eosinophils # (Manual) Cancelled Basophils # (Manual) Cancelled Metamyelocytes # (Man) Cancelled Myelocytes # (Manual) Cancelled Promyelocytes # (Man) Cancelled Blast Cells # (Man) Cancelled Plasma Cell # (Manual) Cancelled Other Cells # Cancelled Nucleated RBCs # (Man) Cancelled Hypersegmented Neuts Cancelled Hyposegmented Neuts Cancelled Hypogranular Neuts Cancelled Large Granular Lymphs Cancelled # Lrg Granular Lymphs Cancelled Hairy Cells Cancelled Smudge Cells Cancelled Toxic Granulation Cancelled Toxic Vacuolation Cancelled Dohle Bodies Cancelled Hina Rods Cancelled Hypogranular Platelets Cancelled Clumped Platelets Cancelled Giant Platelets Cancelled Platelet Satelliting Cancelled RBC Morphology Cancelled Polychromasia Cancelled Hypochromasia Cancelled Poikilocytosis Cancelled Basophilic Stippling Cancelled Anisocytosis Cancelled Microcytosis Cancelled Macrocytosis Cancelled Spherocytes Cancelled Pappenheimer Bodies Cancelled Sickle Cells Cancelled Target Cells Cancelled Tear Drop Cells Cancelled Ovalocytes Cancelled Stomatocytes Cancelled Hines[place]art[place] Bodies Cancelled Echinocytes Cancelled Acanthocytes (Spur) Cancelled Rouleaux Cancelled RBC Agglutinates Cancelled Schistocytes Cancelled Sezary Cell Cancelled Sodium 138 Potassium 4.3 Chloride 105 Carbon Dioxide 31 Anion Gap 2 L BUN 23 Creatinine 0.62 Est Cr Clr Drug Dosing 98.0 Est GFR ( Amer) 119.8 Est GFR (Non-Af Amer) 103.4 BUN/Creatinine Ratio 37.1 H Glucose 104 H Calcium 8.5 Magnesium 2.1 Total Bilirubin 1.8 H AST 13 ALT 23 Alkaline Phosphatase 87 Total Protein 5.6 L Albumin 2.6 L Globulin 3.0 Albumin/Globulin Ratio 0.9 Stl C. cayetanensis PCR Not Detected Stool Rotavirus A PCR Not Detected Stl Adenov F 40/41 PCR Not Detected Stool Astrovirus (PCR) Not Detected Stool Campylobacter PCR Not Detected Stool Cryptosporidium PCR Not Detected Stl E.coli Shiga Tox PCR Not Detected Stl Enterotoxigenic E PCR Not Detected Stool EPEC (PCR) Not Detected Stool EAEC (PCR) Not Detected Stl E. histolytica PCR Not Detected Stool Giardia Lamblia PCR Not Detected Stool Salmonella PCR Not Detected Stool Sapovirus (PCR) Not Detected Stl P. shigelloides PCR Not Detected Stl Shigella/EIEC PCR Not Detected St Y.enterocolitica PCR Not Detected Stool Vibrio (PCR) Not Detected Stl Vibrio cholerae PCR Not Detected Stl Norovirus GI/GII PCR Not Detected Hepatitis C Ab (EIA) Hep C Ab Signal/Cutoff Blood Parasites ID Cancelled Blood Type Antibody Screen Crossmatch 08/08/22 08/07/22 05:41 14:38 WBC RBC Hgb Hct MCV MCH MCHC RDW Std Deviation RDW Coeff of Lazaro Plt Count Immature Gran % (Auto) Neut % (Auto) Lymph % (Auto) [place] % (Auto) Eos % (Auto) Baso % (Auto) Neut # (Auto) Lymph # (Auto) [place] # (Auto) Eos # (Auto) Baso # (Auto) Immature Gran # (Auto) Neutrophils % (Manual) Band Neutrophils % Lymphocytes % (Manual) Prolymphocyte % Reactive Lymphs % (Man) Monocytes % (Manual) Eosinophils % (Manual) Basophils % (Manual) Metamyelocytes % (Man) Myelocytes % (Man) Promyelocytes % (Man) Blast Cells % (Manual) Plasma Cell % (Manual) Other Cells % Nucleated RBC % Neutrophils # (Manual) Band Neutrophils # Total Absolute Neuts Lymphocytes # (Manual) Prolymphocyte # Reactive Lymphs # Total Abs Lymphocytes Monocytes # (Manual) Eosinophils # (Manual) Basophils # (Manual) Metamyelocytes # (Man) Myelocytes # (Manual) Promyelocytes # (Man) Blast Cells # (Man) Plasma Cell # (Manual) Other Cells # Nucleated RBCs # (Man) Hypersegmented Neuts Hyposegmented Neuts Hypogranular Neuts Large Granular Lymphs # Lrg Granular Lymphs Hairy Cells Smudge Cells Toxic Granulation Toxic Vacuolation Dohle Bodies Hina Rods Hypogranular Platelets Clumped Platelets Giant Platelets Platelet Satelliting RBC Morphology Polychromasia Hypochromasia Poikilocytosis Basophilic Stippling Anisocytosis Microcytosis Macrocytosis Spherocytes Pappenheimer Bodies Sickle Cells Target Cells Tear Drop Cells Ovalocytes Stomatocytes Hines-[place]art[place] Bodies Echinocytes Acanthocytes (Spur) Rouleaux RBC Agglutinates Schistocytes Sezary Cell Sodium Potassium Chloride Carbon Dioxide Anion Gap BUN Creatinine Est Cr Clr Drug Dosing Est GFR ( Amer) Est GFR (Non-Af Amer) BUN/Creatinine Ratio Glucose Calcium Magnesium Total Bilirubin AST ALT Alkaline Phosphatase Total Protein Albumin Globulin Albumin/Globulin Ratio Stl C. cayetanensis PCR Stool Rotavirus A PCR Stl Adenov F 40/41 PCR Stool Astrovirus (PCR) Stool Campylobacter PCR Stool Cryptosporidium PCR Stl E.coli Shiga Tox PCR Stl Enterotoxigenic E PCR Stool EPEC (PCR) Stool EAEC (PCR) Stl E. histolytica PCR Stool Giardia Lamblia PCR Stool Salmonella PCR Stool Sapovirus (PCR) Stl P. shigelloides PCR Stl Shigella/EIEC PCR St Y.enterocolitica PCR Stool Vibrio (PCR) Stl Vibrio cholerae PCR Stl Norovirus GI/GII PCR Hepatitis C Ab (EIA) NON-REACTIVE Hep C Ab Signal/Cutoff 0.03 Blood Parasites ID Blood Type A Positive Antibody Screen NEGATIVE Crossmatch See Detail
[2022-08-10] MEDS ORDERED: DAPTOmycin 475 MG in SYRINGE 0 ML IV SCH (11:30)
[2022-08-10] MEDS: metroNIDAZOLE 500 MG/100 ML BAG IV SCH ×2 (12:55→20:41)
[2022-08-10] MEDS: ACETAMINOPHEN 325 MG TAB PO PRN ×2 (12:56→20:41)
--- NOTE | 2022-08-10 18:13 | Billing Data ---
Date of Service August 10, 2022 Coding Level of Care Code 97227 SUB INP/OBS CARE 3MIN
[2022-08-10 18:29] LABS: Hematocrit (blood only) 24.3 % (42.0-52.0); Hemoglobin 8.2 g/dl (14.0-18.0); Mean Corpuscular Hemoglobin 29.8 pg (25.0-34.0); Mean Corpuscular Hgb Conc 33.7 g/dL (32.0-36.0); Mean Corpuscular Volume 88.4 fL (80.0-100.0); Mean Platelet Volume 9.8 fL (9.4-12.4); Platelet Count 12 K/uL (130-400); RDW Coefficient of Variation 13.2 % (11.5-14.5); RDW Standard Deviation 43.4 fL (36.4-46.3); Red Blood Count 2.75 M/uL (4.70-6.10)
[2022-08-11] MEDS: CEFEPIME 2,000 MG in SYRINGE 0 ML IV SCH ×3 (01:42→17:46)
[2022-08-11] MEDS: metroNIDAZOLE 500 MG/100 ML BAG IV SCH ×3 (05:31→19:43)
--- NOTE | 2022-08-11 08:04 | Oncology Consultation ---
Date of Consultation August 11, 2022 Assessment & Plan (1) Neutropenic fever: (2) Acute myelogenous leukemia: (3) Lower abdominal pain: Plan Pleasant gentleman with history of AML for which he s/p 2 cycles of chemotherapy. His most recent chemotherapy was CLAG regimen at [facility] from 07/08/2022 to 07/12/2022. He completed 14-day course of venetoclax on 07/23/2022 Prolonged pancytopenia is concerning for residual disease for which he will require bone marrow biopsy in the near future. Abdominal imaging and GI symptoms concerning for possible GI infection. Agree with broad-spectrum antibiotics since he continues to have temperature spikes. Recommend transfusing to maintain hemoglobin greater than 7.5 and platelet count greater than 10,000. Continue with voriconazole and acyclovir. Hematology continue following patient when the hospital. 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 Initially diagnosed with MDS with 15% blasts on 05/12/2022 for which he received induction chemotherapy at [facility] with venetoclax/decitabine from 05/16/2022 to 05/22/2022. Induction chemotherapy was complicated by neutropenic sepsis due to dental abscess requiring multiple tooth extraction on 06/13/2022. Repeat bone marrow biopsy on 06/17/2022 revealed 12% blast with flow cytometry demonstrating 20% blasts considered induction failure and he received reinduction with CLAG regimen while inpatient at [facility] from 07/08/2022 to 07/12/2022. He was recently discharged from [facility] in late June, after being treated for catheter associated staph bacteremia Which necessitated Lainez catheter removal at the time. He was discharged on IV daptomycin and prophylactic Levaquin. He however presented to the ER [facility] [address] on 08/07/2022 with fever and abdominal pain. Chest x-ray was negative for acute process. KUB revealed left-sided nephrolithiasis. CT abdomen and pelvis on 08/09/2022 revealed numerous mildly enlarged retroperitoneal lymph nodes and ill-defined mildly enlarged matted mesenteric l ymph nodes possibly due to lymphoproliferative process as well as cholelithiasis with mild gallbladder wall thickening and prominent mucosal enhancement. Liver ultrasound revealed echogenic nonshadowing nonmobile intraluminal foci within the gallbladder possibly due to tumefactive sludge versus gallbladder polyp as well as nonspecific gallbladder wall thickening with trace pericholecystic fluid concerning for acute cholecystitis for which HIDA was recommended. HIDA scan obtained today was normal with no evidence of acute cholecystitis. Blood culture has been negative so far and urinalysis was not concerning for infection. He is currently on broad-spectrum antibiotics with cefepime and metronidazole. Also on voriconazole and acyclovir. Allergies Allergy/AdvReac Type Severity Reaction Status Date / Time No Known Allergies Allergy Verified 08/04/22 12:48 Home Medications Medication Instructions Recorded Confirmed Type acyclovir 400 mg tablet 400 mg PO BID 07/16/22 08/07/22 History atenolol 25 mg tablet 25 mg PO DAILY 07/16/22 08/07/22 History calcium carbonate 200 mg calcium 200 mg PO TID PRN GERD 07/16/22 08/07/22 History (500 mg) chewable tablet (Tums) docusate sodium 100 mg capsule 100 mg PO BID 07/16/22 08/07/22 History (Colace) furosemide 40 mg tablet 40 mg PO DAILY 07/16/22 08/07/22 History isosorbide mononitrate 120 mg 120 mg PO QAM 07/16/22 08/07/22 History tablet,extended release 24 hr levofloxacin 750 mg tablet 750 mg PO DAILY 07/16/22 08/07/22 History loratadine 10 mg tablet 10 mg PO DAILY PRN Allergy Symptoms 07/16/22 08/07/22 History magnesium oxide 400 mg PO BID 07/16/22 08/07/22 History melatonin 10 mg tablet 10 mg PO HS PRN Insomnia 07/16/22 08/07/22 History ondansetron 8 mg disintegrating 8 mg PO Q8H PRN nausea 07/16/22 08/07/22 History tablet polyethylene glycol 3350 17 gram 17 g PO BID 07/16/22 08/07/22 History oral powder packet (Miralax) posaconazole 100 mg tablet,delayed 400 mg PO DAILY 07/16/22 08/07/22 History release potassium chloride 20 mEq 20 meq PO BID 07/16/22 08/07/22 History tablet,extended release venetoclax 50 mg tablet 50 mg PO DAILY 07/16/22 08/07/22 History venetoclax 10 mg tablet (Venclexta) 20 mg PO DAILY 07/24/22 08/07/22 History daptomycin mg IV DAILY 08/04/22 History Patient History Medical History Acute myelogenous leukemia Bacteremia associated with intravascular line Bloodstream infection due to Lainez catheter Congestive heart failure Coronary artery disease Depression Hyperlipidemia Leukemia Local infection due to Lainez catheter removed due to fevers Neutropenic fever Pancytopenia due to antineoplastic chemotherapy Thrombocytopenia Surgical History Hx of heart artery stent Hx of laminectomy Social History Smoking Status: Never smoker Second Hand Exposure: Yes; Do You Dip or Chew Tobacco: No; Tobacco Cessation Education Requested by Patient: No Hx Alcohol Use: No Hx Substance Use: No Preferred Language: Estonian Communication Ability: Effective Tan Room Supervisor Required: No Beliefs That Will Affect Care: [facility] Current Living Situation: Alone Feels Safe at Home: Yes Safety Concerns: Feels Safe At This Time Assistive Devices: Walker Review of Systems Review of Systems: All systems reviewed & are unremarkable except as noted in HPI & below Results & Data ([facility]) Vital Signs (Past 12 Hours) Vital Signs Temp Pulse Pulse Resp BP BP BP 08/11/22 07:34 37.5 C 68 18 104/66 08/11/22 07:30 87 08/11/22 05:00 37.3 C 78 18 147/68 H 08/11/22 02:08 37.3 C 78 18 158/88 H 08/11/22 01:40 37.3 C 74 18 127/75 08/11/22 01:23 36.9 C 69 20 125/78 08/11/22 01:02 36.9 C 73 20 118/72 08/10/22 22:22 88 08/10/22 23:27 37.5 C 88 20 109/70 08/10/22 20:09 39.3 C H 88 20 131/75 Pulse Ox O2 Del Method O2 Flow Rate 08/11/22 07:34 96 Room Air 08/11/22 07:30 08/11/22 05:00 97 Room Air 08/11/22 02:08 98 08/11/22 01:40 100 08/11/22 01:23 96 0 08/11/22 01:02 98 0 08/10/22 22:22 08/10/22 23:27 92 Room Air 08/10/22 20:09 94 Room Air
[2022-08-11 08:17] LABS: Albumin Globulin Ratio 0.9 (0.9-2); Albumin Level 2.6 gm/dl (3.4-5.0); BUN Creatinine Ratio 38.5 (10-20); Bilirubin,Total 1.8 mg/dl (0.2-1.0); Calcium 8.6 mg/dl (8.5-10.1); Creatinine Clr Calc Pharmacy 93.6 ml/min; Est GFR (African American) 117.5 ml/min; Est GFR (Non-African American) 101.4 ml/min; Potassium 4.5 mmol/L (3.5-5.1); Total Protein 5.6 gm/dl (6.0-8.3)
[2022-08-11 08:46] LABS: Hematocrit (blood only) 20.3 % (42.0-52.0); Hemoglobin 6.9 g/dl (14.0-18.0); Mean Corpuscular Hemoglobin 29.9 pg (25.0-34.0); Mean Corpuscular Volume 87.9 fL (80.0-100.0); Mean Platelet Volume 10.9 fL (9.4-12.4); Platelet Count 15 K/uL (130-400); RDW Coefficient of Variation 13.5 % (11.5-14.5); Red Blood Count 2.31 M/uL (4.70-6.10); White Blood Count 0.09 K/ul (4.8-10.8)
[2022-08-11] MEDS: ACYCLOVIR 400 MG TAB PO SCH ×2 (09:26→21:02)
[2022-08-11] MEDS: FUROSEMIDE 40 MG TAB PO SCH (09:26)
[2022-08-11] MEDS: ISOSORBIDE MONO EXTENDED REL 60 MG TABCR PO SCH (09:26)
[2022-08-11] MEDS: VORICONAZOLE 200 MG TABLET PO SCH ×2 (09:26→21:04)
[2022-08-11] MEDS: DOCUSATE SODIUM 100 MG CAP PO SCH ×2 (09:26→21:04)
[2022-08-11] MEDS: MAGNESIUM OXIDE 400 MG TAB PO SCH ×2 (09:26→21:03)
[2022-08-11] MEDS: LORATADINE 10 MG TAB PO SCH (09:27)
[2022-08-11] MEDS: ATENOLOL 25 MG TABLET PO SCH (09:27)
[2022-08-11] MEDS: POTASSIUM CHLORIDE CRTAB 20 MEQ TABCR PO SCH ×3 (09:27→21:04)
[2022-08-11] MEDS: POLYETHYLENE (MIRALAX) 17 GM PACK PO SCH ×2 (09:31→21:04)
[2022-08-11] MEDS ORDERED: SODIUM CHLORIDE 0.9% 250 ML IV PRN (09:39)
--- NOTE | 2022-08-11 10:45 | Nuclear Medicine Report ---
NM hepatobiliary CLINICAL HISTORY: r/o cholecystitis TECHNIQUE: Following the intravenous injection of 5.0 mCi of Tc-99m labeled Technetium 99m mebrofeni n, multiple images of the upper abdomen were obtained in the anterior projection with uptake measurem ents of the gallbladder obtained. Comparison: None available at the time of this dictation. FINDINGS: Sequential images demonstrate normal uptake in the liver, common bile duct, and small bowel . No defects in uptake are identified. IMPRESSION: Normal uptake of contrast by the gallbladder. No evidence of acute cholecystitis. ACT 112: Negative or not required by law. Electronically signed by: Orville Garcia M.D. 08/11/2022 10:44 AM
--- NOTE | 2022-08-11 12:10 | Infectious Disease Progress Nt ---
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 2D echo had no evidence of mass or vegetation. Patient underwent Sweeney removal 07/27. 07/26 blood cultures were negative. Plan was for daptomycin 350 mg (~6 mg/kilograms) IV da verónica until 08/10/2022 (2 weeks after clearance) with repeat blood cultures performed 3-7 days after IV therapy completed. It was recommended that he continue with prophylaxis with acyclovir, posaconazole and levofloxacin. Patient was discharged on 07/30/2022. Patient then presented to the ED on 08/07/2022 reporting fever the night prior of 102. Patient is neutropenic with ANC of 0 and mentioned the fever to his team when he presented for blood transfusion and therefore was sent over for admission. He reported having mild fever for the last several nights but denied any URI complaints, shortness of breath, cough, chest pain, or urinary symptoms. Patient reported some lower abdominal pain associate with constipation. (1) Neutropenic fever: #neutropenic fever -in setting of AML, last chemo Jun 2022, pancytopenia -in setting of daptomycin IV and LVQ, acyclovir, azole ppx -absence of focal symptoms other than some abd discomfort related to constipation, now significantly improved with semi-formed BMs per pt -stool GI PCR panel negative -RVP negative -08/07 and 08/09 Bcxs are NGTD -CT a/p with mild GB wall thickening and abd u/s with possible sludge. HIDA negative for cholecystitis #h/o MRSE bacteremia - present in 4 out of 4 bottles 07/24, likely secondary to line. 2D echo had no evidence of mass or vegetation. Patient underwent Sweeney removal 07/27. 07/26 blood cultures were negative. Plan was for daptomycin 350 mg (~6 mg/kilograms) IV daily until 08/10/2022 (2 weeks after clearance) with repeat blood cultures performed 3-7 days after IV therapy completed. -agree that IE is unlikely, as Bcxs quickly cleared, and lesion on hand does not appear c/w janeway lesion -TTE 08/09 negative for vegetations -08/11 CPK 12 #AML, severe pancytopenia- followed by oncology- oncology recs pending Plan Rec:As multiple Bcxs negative x 48 hours, will stop daptomycin for patient has completed course of treatment for MRSE bacteremia. Pt was advised to have blood cultures repeated after several days off daptomycin. I communicated that recommendation as well to pt's oncology office today at number provided by pt. Pt with fever last night- afebrile so far today. Pt without current focal complaints but given h/o dental abscess, would obtain facial CT with contrast if additional fever. Possible that fevers were secondary to transient gut translocation in setting of constipation but would expect resolution at this point. Will continue cefepime 2 g IV q8 and metronidazole 500mg q8 for now. Please page with any questions. Lindsay Nolasco M.D. [facility] [employer] Pager [phone] (2) Pancytopenia due to antineoplastic chemotherapy: (3) Acute myelogenous leukemia: (4) Depression: (5) Coronary artery disease: (6) Lower abdominal pain: (7) Congestive heart failure: Admission and Anticipated Discharge Date Admission Date: August 07, 2022 Subjective Subsequent visit was provided via telemedicine using two-way real-time interactive telecommunication between the patient and the telemedicine provider. For the duration of the visit, the provider was performing the assessment from a different facility than the patient. This includesuse of bluetooth stethoscope forauscultationperformed by the telepresenter that the telemedicine provider can hear if described in the physical exam. Survey And Mapping Technician contact information: Please call [employer] Connect Call Center . (Phone Number For Physician Use Only) After establishing a telemedicine visit, patient was: Patient was verified with two unique identifiers, Patient/authorized rep acknowledged consent and understanding and Gave permission to continue telehealth session Time Spent with Patient: Subsequent => 25 min Pt had fever yesterday evening with sweats/chills- denies rigors still having BMs- reports stool semi-formed and abdominal discomfort significantly improved fatigued but pt also reports this has improved from admission he denies any new symptoms/complaints HIDA negative for cholecystitis Physical Exam Physical Exam: . PE: Gen: Awake, alert, NAD, pleasant HEENT: anicteric, neck supple Resp: no resp distress on RA Chest: R chest prior sweeney site incision with sutures- dry, no evidence infection Abd: Soft, slightly tender LUQ and LLQ, no RUQ tenderness, umbilical hernia Extr: no c/c/e R 4th digit with small erythematous papule dorsal surface Skin: R midline removed- site ok. R and L UE IVs ok. Results & Data ([facility]) Vital Signs (Past 12 Hours) Vital Signs Temp Pulse Pulse Resp BP BP BP 08/11/22 11:54 37.4 C 74 18 117/72 08/11/22 10:54 37.2 C 78 18 109/71 08/11/22 07:34 37.5 C 68 18 104/66 08/11/22 07:30 87 08/11/22 05:00 37.3 C 78 18 147/68 H 08/11/22 02:08 37.3 C 78 18 158/88 H 08/11/22 01:40 37.3 C 74 18 127/75 08/11/22 01:23 36.9 C 69 20 125/78 08/11/22 01:02 36.9 C 73 20 118/72 Pulse Ox O2 Del Method O2 Flow Rate 08/11/22 11:54 95 08/11/22 10:54 95 Room Air 08/11/22 07:34 96 Room Air 08/11/22 07:30 08/11/22 05:00 97 Room Air 08/11/22 02:08 98 08/11/22 01:40 100 08/11/22 01:23 96 0 08/11/22 01:02 98 0 Laboratory Results 08/09/22 09:38 Aerobic Blood Culture - Preliminary Blood No growth in Aerobic bottle after 48 hours. Anaerobic Blood Culture - Preliminary No growth in Anaerobic bottle after 48 hours. 08/09/22 09:38 Aerobic Blood Culture - Preliminary Blood No growth in Aerobic bottle after 48 hours. Anaerobic Blood Culture - Preliminary No growth in Anaerobic bottle after 48 hours. 08/11/22 08/11/22 08/10/22 07:26 07:26 17:57 WBC 0.09 L* 0.10 L* RBC 2.31 L 2.75 L Hgb 6.9 L* 8.2 L Hct 20.3 L* 24.3 L MCV 87.9 88.4 MCH 29.9 29.8 MCHC 34.0 33.7 RDW Std Deviation 43.0 43.4 RDW Coeff of Lazaro 13.5 13.2 Plt Count 15 L* 12 L* MPV 10.9 9.8 Sodium 137 Potassium 4.5 Chloride 105 Carbon Dioxide 31 Anion Gap 1 L BUN 25 H Creatinine 0.65 Est Cr Clr Drug Dosing 93.6 Est GFR ( Amer) 117.5 Est GFR (Non-Af Amer) 101.4 BUN/Creatinine Ratio 38.5 H Glucose 111 H Calcium 8.6 Total Bilirubin 1.8 H AST 11 L ALT 21 Alkaline Phosphatase 86 Total Creatine Kinase 14 L Total Protein 5.6 L Albumin 2.6 L Globulin 3.0 Albumin/Globulin Ratio 0.9 Blood Type Antibody Screen Crossmatch 08/10/22 08/07/22 08:07 14:38 WBC RBC Hgb Hct MCV MCH MCHC RDW Std Deviation RDW Coeff of Lazaro Plt Count MPV Sodium Potassium Chloride Carbon Dioxide Anion Gap BUN Creatinine Est Cr Clr Drug Dosing Est GFR ( Amer) Est GFR (Non-Af Amer) BUN/Creatinine Ratio Glucose Calcium Total Bilirubin AST ALT Alkaline Phosphatase Total Creatine Kinase Total Protein Albumin Globulin Albumin/Globulin Ratio Blood Type A Positive Antibody Screen NEGATIVE Crossmatch See Detail See Detail Diagnostic Findings Abdomen/Pelvis CT 08/09/22 10:48 CT OF THE ABDOMEN AND PELVIS WITH CONTRAST CLINICAL HISTORY: stomach upset, fevers, ?GI infection COMPARISON STUDY: KUB August 08, 2022. TECHNIQUE: Following IV administration of 89 mL of Optiray, axial images of the abdomen and pelvis were obtained from the lung bases to the proximal femurs. Images were reviewed in the axial, sagittal, and coronal planes. IV contrast was administered without complication. Automated exposure control was utilized for the study. A dose lowering technique was utilized adhering to the principles of ALARA. CT DOSE: 285.24 mGy.cm FINDINGS: Visualized portions of the lower chest demonstrate moderate cardiomegaly and extensive coronary artery calcification. There is a trace left pleural effusion. No pneumatosis, free air or portal venous gas is present. The liver, adrenal glands and pancreas are unremarkable. There is mild gallbladder wall thickening and prominent mucosal enhancement of the gallbladder. Densities within the gallbladder favor gallstones. There is no gallbladder distention. The spleen is mildly enlarged. Several renal cysts are noted, the largest of which is a 6.7 cm left upper pole cyst. Numerous bilateral renal calculi measure up to 7 mm. There are no ureteral calculi. There is no hydronephrosis. There are numerous mildly enlarged retroperitoneal lymph nodes. Index left para-aortic lymph node on image 215 of 456 measures 1.8 x 1.4 cm. In addition, there are are ill-defined matted mildly enlarged mesenteric lymph nodes. These are difficult to measure given configuration. Diffuse stranding within the mesentery is noted. There is no evidence for a bowel obstruction. Moderate amount of stool within the colon and rectum is present. The appendix is normal. Major vasculature is patent. There is moderate aortoiliac atherosclerotic plaque. Mild bladder wall thickening with mild adjacent stranding is noted. There are small fat-containing bilateral inguinal hernias. No acute fractures are present. No suspicious osseous lesions are noted. IMPRESSION: 1. No bowel obstruction. No bowel wall thickening. Moderate amount of stool within the colon and rectum. 2. Numerous mildly enlarged retroperitoneal lymph nodes and ill-defined mildly enlarged matted mesenteric nodes with adjacent stranding. Mild splenomegaly. These findings are nonspecific but raise the possibility of a lymphoproliferative process. 3. Bilateral nephrolithiasis. No ureteral calculi or hydronephrosis. Mild bladder wall thickening with adjacent stranding which could be correlated with urinalysis to exclude cystitis. 4. Cholelithiasis with mild gallbladder wall thickening and prominent mucosal enhancement. However, gallbladder not distended. Therefore, acute cholecystitis is considered unlikely however if right upper quadrant pain, ultrasound is recommended. 5. Nonspecific stranding throughout the abdomen and pelvis. 6. Cardiomegaly. Extensive coronary artery calcification. ACT 112: Negative or not required by law. Electronically signed by: Juanjose Gaspar M.D. 08/09/2022 4:28 PM Liver Ultrasound 08/09/22 17:26 US liver HISTORY: 66 years-old Male gallbladder distension acute right upper quadrant abdominal pain COMPARISON: CT abdomen pelvis 08/09/2022 TECHNIQUE: Multiple real-time sonographic images of the abdominal right upper quadrant were obtained assessing grayscale appearance and color flow FINDINGS: The pancreas is obscured by bowel gas. The liver measures 17 cm in length and is unremarkable. Normal common bile duct, 5 mm. Calculus of the right kidney measure up to approximately 4 mm. 1.5 cm cyst of the interpolar right kidney. There are several echogenic intraluminal nonmobile foci within the gallbladder lumen measuring up to 1.5 cm without color flow. Trace pericholecystic fluid is noted along with mild gallbladder sludge. Negative sonographic Rodriguez's sign. Mild gallbladder wall thickening measures up to 5 mm. IMPRESSION: 1. Echogenic nonshadowing and nonmobile intraluminal foci within the gallbladder are nonspecific and may represent areas of tumefactive sludge versus gallbladder polyps measuring up to 1.5 cm. Follow-up is needed. 2. Nonspecific gallbladder wall thickening with trace pericholecystic fluid. If there is clinical concern for acute cholecystitis, nuclear medicine hepatobiliary scan may be considered. 3. No biliary ductal dilation. 4. Nephrolithiasis. ACT 112: Negative or not required by law. The above report was generated using voice recognition software. It may contain grammatical, syntax or spelling errors. Electronically signed by: Alex Jiménez M.D. 08/10/2022 7:17 AM Hepatobiliary Scan Nuclear Medicine 08/11/22 08:00 NM hepatobiliary CLINICAL HISTORY: r/o cholecystitis TECHNIQUE: Following the intravenous injection of 5.0 mCi of Tc-99m labeled Technetium 99m mebrofenin, multiple images of the upper abdomen were obtained in the anterior projection with uptake measurements of the gallbladder obtained. Comparison: None available at the time of this dictation. FINDINGS: Sequential images demonstrate normal uptake in the liver, common bile duct, and small bowel. No defects in uptake are identified. IMPRESSION: Normal uptake of contrast by the gallbladder. No evidence of acute cholecystitis. ACT 112: Negative or not required by law. Electronically signed by: Orville Garcia M.D. 08/11/2022 10:44 AM Medications Administered Current Medications Acetaminophen (Acetaminophen 325 Mg Tab) 650 mg PO Q4H PRN PRN Reason: Pain or Fever Stop: 09/06/22 18:05 Last Admin: 08/10/22 20:41 Dose: 650 mg Acyclovir (Acyclovir 400 Mg Tab) 400 mg PO BID [facility] Stop: 09/06/22 20:59 Last Admin: 08/11/22 09:26 Dose: 400 mg Atenolol (Atenolol 25 Mg Tablet) 25 mg PO DAILY [facility] Stop: 09/07/22 08:59 Last Admin: 08/11/22 09:27 Dose: 25 mg Docusate Sodium (Docusate Sodium 100 Mg Cap) 100 mg PO BID [facility] Stop: 09/06/22 20:59 Last Admin: 08/11/22 09:26 Dose: 100 mg Furosemide (Furosemide 40 Mg Tab) 40 mg PO DAILY [facility] Stop: 09/07/22 08:59 Last Admin: 08/11/22 09:26 Dose: 40 mg Cefepime HCl 2,000 mg/ Syringe 20 mls @ 5 mls/min IV Q8H [facility]; Protocol Stop: 08/17/22 10:14 Last Admin: 08/11/22 10:16 Dose: 5 mls/min Daptomycin 475 mg/ Syringe 9.5 mls @ 3.5 mls/min IV Q24H [facility]; Protocol Stop: 08/24/22 11:29 Last Admin: 08/10/22 15:52 Dose: 3.5 mls/min Metronidazole (Flagyl) 500 mg in 100 mls @ 100 mls/hr IV Q8H [facility] Stop: 08/20/22 11:59 Last Admin: 08/11/22 11:37 Dose: 100 mls/hr Sodium Chloride (Nss) 250 mls @ 15 mls/hr IV .[id number] PRN PRN Reason: For Transfusion Duration Stop: 08/11/22 19:40 Isosorbide Mononitrate (Isosorbide Posey Extended Rel 60 Mg Tabcr) 120 mg PO QAM [facility] Stop: 09/07/22 08:59 Last Admin: 08/11/22 09:26 Dose: 120 mg Loratadine (Loratadine 10 Mg Tab) 10 mg PO DAILY [facility] Stop: 09/06/22 18:05 Last Admin: 08/11/22 09:27 Dose: 10 mg Magnesium Oxide (Magnesium Oxide 400 Mg Tab) 400 mg PO BID [facility] Stop: 09/06/22 20:59 Last Admin: 02/14/23 09:26 Dose: 400 mg Melatonin (Melatonin 3 Mg Tab) 9 mg PO HS PRN PRN Reason: Insomnia Stop: 09/06/22 18:16 Miscellaneous (Posaconazole: Order Awaiting Action) 1 each N/A QS [facility] Stop: 09/09/22 15:59 Last Admin: 08/11/22 07:20 Dose: Not Given Ondansetron HCl (Ondansetron Inj 2 Mg/Ml 2 Ml Vial) 4 mg IV Q4H PRN PRN Reason: Nausea Stop: 09/06/22 18:05 Last Admin: 08/10/22 09:48 Dose: 4 mg Polyethylene Glycol (Polyethylene (Miralax) 17 Gm Pack) 17 gm PO BID [facility] Stop: 09/07/22 10:44 Last Admin: 08/11/22 09:31 Dose: 17 gm Potassium Chloride (Potassium Chloride Crtab 20 Meq Tabcr) 20 meq PO BID [facility] Stop: 09/06/22 20:59 Last Admin: 08/11/22 09:32 Dose: Not Given Voriconazole (Voriconazole 200 Mg Tablet) 200 mg PO BID [facility] Stop: 09/07/22 15:29 Last Admin: 08/11/22 09:26 Dose: 200 mg
--- NOTE | 2022-08-11 14:16 | Hospitalist Progress Note ---
Date of Service August 11, 2022 Assessment & Plan (1) Neutropenic fever: Plan: Shawn Gardiner is a 66 yo male with PMHx significant for AML with associated pancytopenia, HLD, depression, and CAD who presented to [facility] on 08/07 with neutropenic fever. Of note patient was recently admitted here from 07/24-07/30 for MRSA bacteremia due to Lainez line (had it removed and was discharged on Daptomycin). Neutropenic fever, Unknown Source Patient is asymptomatic apart from fever/chills, weakness and fatigue - no localizing symptoms. UA, KUB and CXR without signs of infection. Unclear etiology - may be developing endocarditis although less likely given Daptomycin treatment prior to admission, as well as recent negative TTE 4 weeks ago. Patie nt did have upset stomach several days ago --> may have had colitis although asymptomatic currently. - blood cx negative on 08/07, repeated 08/09 no growth at 24 hours - procalcitonin elevated at 1.01 on 08/09, blood cx 4 bottles no growth at 24/48 hours - CT A/P with IV contrast - nonspecifc stranding, mild GB wall thickening, and abd u/s with possible sludge, HIDA normal - PCR stool panel and Resp Biofire negative - TTE, neg for endocarditis eval - may need TERRANCE but would need improvement in platelet count first - consulted ID - recommendations included - patient on Daptomycin for recent MRSA bacteremia (has been covered with Vanco/Daptomycin since 07/25 - 2 weeks treatment thus far), per ID recommendation, Daptomycin stopped, recommend blood cx in the next few days - continue Cefepime and Metronidazole - PO prophylaxis of antivral/antifungal continued. IV antibiotics replaced outpatient PO levofloxacin. Posaconazole replaced with voriconazole per hospital formulary, will request if patient can arrange for home posaconazole. - Neutropenic isolation precautions AML; Pancytopenia due to antineoplastic chemotherapy - S/p 2u prbc and 1u irradiated prbc at [facility] on 08/07 and 1u irradiated prbc at admission. 1 unit irradiated plts on 08/09, Platelet transfusion threshold 15. - 08/10. Hgb 6.6, plts 11, 1u irradiated pRBC and 2u irradiated plts, - 08/11 Hgb 6.9 plts 15, 1u pRBC and 1u plts - Venetoclax on hold for upcoming bone biopsy (cancelled) and recent bacteremia. - Hem/Onc consulted Chronic HFmrEF TTE 07/26 with EF 45-50%,. grade 2 diastolic dysfunction. RVSP 40-50. mildly dilated IVC. - 08/09 TTE EF 60-65%, small pericardial effusion - cautious use of IVFs if becomes necessary - Continue home PO Lasix 40. Currently euvolemic. - strict I/Os, daily weights Coronary artery disease - Not on antiplatelet therapy due to thrombocytopenia. Per cardiology, recommends resuming baby ASA 81mg when thrombocytopenia is milder. - Not on statin therapy; defer to outpatient cardiology - Continue atenolol FEN/GI - regular diet DVT ppx - SCDs. chemical prophylaxis contraindicated due to thrombocytopenia Code status: full Disposition - med/tele (2) Pancytopenia due to antineoplastic chemotherapy: (3) Acute myelogenous leukemia: (4) Depression: (5) Coronary artery disease: (6) Lower abdominal pain: (7) Congestive heart failure: Admission and Anticipated Discharge Date Admission Date: August 07, 2022 Supervising Physician Co-Signing Physician Notes I personally examined the patient and verified all huston points of history and exam, discussed case, and agree with decision making with S Joe MS4 feeling a bit better today. no focal sx. heme/onc and ID input greatly appreciated vitals noted nad heent nc at mmm breathing unlabored no accessory muscles good effort skin no rashes no pallor or icterus, R chest port site c/d/i. neutropenic fever - continue broad empiric abx coverage, follow cultures, serial exams, supportive care, recurrent fever --> repeat cultures. otherwise as above Subjective Shawn Gardiner is a 66 yo male with acute myelogenous leukemia who presented to the ED on 08/07 with several days diarrhea, vomiting, and fever. Last episode of diarrhea was . Fever yesterday evening 8pm and today at noon. Physical Exam Constitutional: WD/WN, vitals as above ENMT: external ear and nose normal, oropharynx normal Neck: trachea midline, no thyromegaly Respiratory: normal respiratory effort, lungs clear to auscultation Cardiovascular: RRR, no murmur, no edema Gastrointestinal (Abdomen): normal bowel sounds, soft, nontender, no hepatosplenomegaly Musculoskeletal: no cyanosis or clubbing, extremities motor strength 5/5 Neurologic: moves all extremities and awake; not confused Psychiatric: A+Ox3, euthymic affect Results & Data Results & Data ([facility]) Vital Signs (Past 12 Hours) Vital Signs Temp Pulse Pulse Resp BP BP BP 08/11/22 07:34 37.5 C 68 18 104/66 08/11/22 07:30 87 08/11/22 05:00 37.3 C 78 18 147/68 H 08/11/22 02:08 37.3 C 78 18 158/88 H 08/11/22 01:40 37.3 C 74 18 127/75 08/11/22 01:23 36.9 C 69 20 125/78 08/11/22 01:02 36.9 C 73 20 118/72 08/10/22 22:22 88 08/10/22 23:27 37.5 C 88 20 109/70 Pulse Ox O2 Del Method O2 Flow Rate 08/11/22 07:34 96 Room Air 08/11/22 07:30 08/11/22 05:00 97 Room Air 08/11/22 02:08 98 08/11/22 01:40 100 08/11/22 01:23 96 0 08/11/22 01:02 98 0 08/10/22 22:22 08/10/22 23:27 92 Room Air Laboratory Results 08/11/22 07:26 08/11/22 07:26
[2022-08-11] MEDS: ACETAMINOPHEN 325 MG TAB PO PRN ×2 (15:17→22:33)
[2022-08-11] MEDS ORDERED: OPTIRAY 350 100ml IV ONE (18:48)
--- NOTE | 2022-08-11 19:11 | CT Scan Report ---
FACIAL BONE CT WITH CONTRAST CLINICAL HISTORY: h/o dental abscess; neutropenic fever COMPARISON STUDY: No previous studies for comparison. TECHNIQUE: Axial images of the face were obtained following intravenous injection of 84 cc of Optiray . Sagittal and coronal reconstructions were viewed. Automated exposure control was utilized for the s tudy. A dose lowering technique was utilized adhering to the principles of ALARA. FINDINGS: Incidental note is made of a small 3 mm aneurysm arising from the junction of the right A1 and A2 segments of the right anterior cerebral artery. Left A1 segment is hypoplastic. No additional intracranial abnormalities are identified on this exam. Possible mucous retention cyst within the lef t] sinus is present. No air-fluid levels are present. There is mild mucosal thickening within the inf erior right maxillary sinus. Mastoid air cells are clear. Orbits are unremarkable. There is no fluid collection within the face to suggest an abscess. Multiple teeth are absent. Multiple dental implants and amalgams are present. Several periapical lucencies are noted. There is no adjacent soft tissue a bscess. Epiglottis is normal. Parotid and submandibular glands are unremarkable. Major vasculature of the upper neck is patent. IMPRESSION: 1. Odontogenic disease with multiple absent teeth and multiple periapical lucencies. However, no rosalinda cent soft tissue abscess identified. No facial fluid collection to suggest abscess. 2. 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 3. Suspected mucous retention cyst within the left sphenoid sinus. No sinus air-fluid levels. Mild ri ght maxillary sinus mucosal thickening. ACT 112: Negative or not required by law. Electronically signed by: Juanjose Gaspar M.D. 08/11/2022 7:10 PM
--- NOTE | 2022-08-11 19:42 | Billing Data ---
Date of Service August 11, 2022 Coding Level of Care Code 28683 SUB INP/OBS CARE 3MIN
[2022-08-11 19:43] LABS: Hematocrit (blood only) 21.7 % (42.0-52.0); Hemoglobin 7.4 g/dl (14.0-18.0); Mean Corpuscular Hemoglobin 30.2 pg (25.0-34.0); Mean Corpuscular Hgb Conc 34.1 g/dL (32.0-36.0); Mean Corpuscular Volume 88.6 fL (80.0-100.0); Mean Platelet Volume 9.8 fL (9.4-12.4); Platelet Count 10 K/uL (130-400); RDW Coefficient of Variation 13.3 % (11.5-14.5); RDW Standard Deviation 43.1 fL (36.4-46.3); Red Blood Count 2.45 M/uL (4.70-6.10); White Blood Count 0.08 K/ul (4.8-10.8)
[2022-08-11] MEDS: ONDANSETRON INJ 2 MG/ML 2 ML VIAL IV PRN (20:54)
[2022-08-12] MEDS: CEFEPIME 2,000 MG in SYRINGE 0 ML IV SCH ×2 (02:01→17:36)
[2022-08-12] MEDS: metroNIDAZOLE 500 MG/100 ML BAG IV SCH (04:13)
[2022-08-12 07:00] LABS: Hematocrit (blood only) 24.5 % (42.0-52.0); Hemoglobin 8.3 g/dl (14.0-18.0); Mean Corpuscular Hemoglobin 29.6 pg (25.0-34.0); Mean Corpuscular Hgb Conc 33.9 g/dL (32.0-36.0); Mean Corpuscular Volume 87.5 fL (80.0-100.0); Platelet Count 8 K/uL (130-400); RDW Coefficient of Variation 13.2 % (11.5-14.5); RDW Standard Deviation 43.5 fL (36.4-46.3); White Blood Count 0.07 K/ul (4.8-10.8)
--- NOTE | 2022-08-12 08:06 | Hospitalist Progress Note ---
Date of Service August 12, 2022 Assessment & Plan (1) Neutropenic fever: Plan: Shawn Gardiner is a 66 yo male with PMHx significant for AML with associated pancytopenia, HLD, depression, and CAD who presented to [facility] on 08/07 with neutropenic fever. Of note patient was recently admitted here from 07/24-07/30 for MRSA bacteremia due to Lainez line (had it removed and was discharged on Daptomycin). Neutropenic fever, Unknown Source Patient is asymptomatic apart from fever/chills, weakness and fatigue - no localizing symptoms. UA, KUB and CXR without signs of infection. Unclear etiology - may be developing endocarditis although less likely given Daptomycin treatment prior to admission, as well as recent negative TTE 4 weeks ago. Patie nt did have upset stomach several days ago --> may have had colitis although asymptomatic currently. - blood cx negative on 08/07, repeated 08/09 no growth at 24 hours - procalcitonin elevated at 1.01 on 08/09, blood cx 4 bottles no growth at 24/48 hours - CT A/P with IV contrast - nonspecifc stranding, mild GB wall thickening, and abd u/s with possible sludge, HIDA normal - PCR stool panel and Resp Biofire negative - TTE, neg for endocarditis eval - may need TERRANCE but would need improvement in platelet count first - consulted ID - recommendations included - patient on Daptomycin for recent MRSA bacteremia (has been covered with Vanco/Daptomycin since 07/25 - 2 weeks treatment thus far), per ID recommendation, Daptomycin stopped 08/11, recommend blood cx in the next few days, cefepime 2 g and metronidazole changed to meropenem 2 g IV q8 on 08/12 - Hx of dental abscesses, face CT no sign of abscess or infection - PO prophylaxis of antivral/antifungal continued. IV antibiotics replaced outpatient PO levofloxacin. Posaconazole replaced with voriconazole per hospital formulary, will request if patient can arrange for home posaconazole. - Neutropenic isolation precautions AML; Pancytopenia due to antineoplastic chemotherapy - Hem/Onc consulted, recommendations to maintain hemoglobin greater than 7.5 and platelet count greater than 10,000. - S/p 2u prbc and 1u irradiated prbc at [facility] on 08/07 and 1u irradiated prbc at admission. 1 unit irradiated plts on 08/09, Platelet transfusion threshold 15. - 08/10. Hgb 6.6, plts 11, 1u irradiated pRBC and 2u irradiated plts, - 08/11 Hgb 6.9 plts 15, 1u pRBC and 1u plts - 08/12 Hgb 8.3 plts 8 - Venetoclax on hold for upcoming bone biopsy (cancelled) and recent bacteremia. 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 grade 2 diastolic dysfunction. RVSP 40-50. mildly dilated IVC. - 08/09 TTE EF 60-65%, small pericardial effusion - cautious use of IVFs if becomes necessary - Continue home PO Lasix 40. Currently euvolemic. - strict I/Os, daily weights Coronary artery disease - Not on antiplatelet therapy due to thrombocytopenia. Per cardiology, recommends resuming baby ASA 81mg when thrombocytopenia is milder. - Not on statin therapy; defer to outpatient cardiology - Continue atenolol FEN/GI - regular diet DVT ppx - SCDs. chemical prophylaxis contraindicated due to thrombocytopenia Code status: full Disposition - med/tele (2) Pancytopenia due to antineoplastic chemotherapy: (3) Acute myelogenous leukemia: (4) Depression: (5) Coronary artery disease: (6) Lower abdominal pain: (7) Congestive heart failure: Admission and Anticipated Discharge Date Admission Date: August 07, 2022 Supervising Physician Co-Signing Physician Notes I personally examined the patient and verified all huston points of history and exam, discussed case, and agree with decision making with S Joe MS4 fever again. no other new copmlaints vitals noted nad heent nc at mmm breathing unlabored no accessory muscles good effort skin no rashes no pallor or icterus, R chest port site c/d/i. neutropenic fever - continue broad empiric abx coverage, follow cultures, serial exams, supportive care. continue broad empiric abx but concern is that fever may be from underlying process and not infection. otherwise as above Subjective Shawn Gardiner is a 66 yo male with acute myelogenous leukemia who presented to the ED on 08/07 with several days diarrhea, vomiting, and fever. Last episode of diarrhea was . Fever yesterday at noon and overnight around 11pm/midnight. Feeling a bit down, did not sleep after the face CT. No bowel movement today, semi formed stools yesterday. Physical Exam Constitutional: WD/WN, vitals as above ENMT: external ear and nose normal, oropharynx normal Neck: trachea midline, no thyromegaly Respiratory: normal respiratory effort, lungs clear to auscultation Cardiovascular: RRR, no murmur, no edema Gastrointestinal (Abdomen): normal bowel sounds, soft, nontender, no hepatosplenomegaly Musculoskeletal: no cyanosis or clubbing, extremities motor strength 5/5 Neurologic: moves all extremities and awake; not confused Psychiatric: A+Ox3, euthymic affect Results & Data Results & Data ([facility]) Vital Signs (Past 12 Hours) Vital Signs Temp Pulse Pulse Resp BP Pulse Ox O2 Del Method 08/12/22 03:52 37 C 69 18 128/78 99 Room Air 08/12/22 00:04 37.7 C H 08/11/22 23:39 82 08/11/22 23:30 39.2 C H 08/11/22 22:14 38.9 C H 83 18 126/74 95 Room Air Laboratory Results 08/12/22 06:13 08/12/22 06:13
[2022-08-12 08:42] LABS: Albumin Globulin Ratio 0.8 (0.9-2); Albumin Level 2.6 gm/dl (3.4-5.0); BUN Creatinine Ratio 40.9 (10-20); Bilirubin,Total 1.9 mg/dl (0.2-1.0); Calcium 8.7 mg/dl (8.5-10.1); Creatinine Clr Calc Pharmacy 92.2 ml/min; Est GFR (African American) 116.8 ml/min; Est GFR (Non-African American) 100.7 ml/min; Globulin 3.2 gm/dl (2.5-4.0); Potassium 4.4 mmol/L (3.5-5.1); Total Protein 5.8 gm/dl (6.0-8.3)
[2022-08-12] MEDS: DOCUSATE SODIUM 100 MG CAP PO SCH ×2 (08:53→20:50)
[2022-08-12] MEDS: ATENOLOL 25 MG TABLET PO SCH (08:53)
[2022-08-12] MEDS: ACYCLOVIR 400 MG TAB PO SCH ×2 (08:53→20:51)
[2022-08-12] MEDS: MAGNESIUM OXIDE 400 MG TAB PO SCH ×2 (08:54→20:54)
[2022-08-12] MEDS: FUROSEMIDE 40 MG TAB PO SCH (08:55)
[2022-08-12] MEDS: VORICONAZOLE 200 MG TABLET PO SCH ×2 (08:56→20:52)
[2022-08-12] MEDS: POTASSIUM CHLORIDE CRTAB 20 MEQ TABCR PO SCH ×2 (08:56→20:52)
[2022-08-12] MEDS: LORATADINE 10 MG TAB PO SCH (08:56)
[2022-08-12] MEDS: ISOSORBIDE MONO EXTENDED REL 60 MG TABCR PO SCH (08:56)
[2022-08-12] MEDS: POLYETHYLENE (MIRALAX) 17 GM PACK PO SCH ×2 (09:04→20:51)
--- NOTE | 2022-08-12 10:03 | Infectious Disease Progress Nt ---
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 2D echo had no evidence of mass or vegetation. Patient underwent Sweeney removal 07/27. 07/26 blood cultures were negative. Plan was for daptomycin 350 mg (~6 mg/kilograms) IV da verónica until 08/10/2022 (2 weeks after clearance) with repeat blood cultures performed 3-7 days after IV therapy completed. It was recommended that he continue with prophylaxis with acyclovir, posaconazole and levofloxacin. Patient was discharged on 07/30/2022. Patient then presented to the ED on 08/07/2022 reporting fever the night prior of 102. Patient is neutropenic with ANC of 0 and mentioned the fever to his team when he presented for blood transfusion and therefore was sent over for admission. He reported having mild fever for the last several nights but denied any URI complaints, shortness of breath, cough, chest pain, or urinary symptoms. Patient reported some lower abdominal pain associated with constipation. He developed fever at home while on daptomycin, as well as LVQ, posaconazole and acyclovir ppx. He denied recent travel, procedures, sick contacts, animal exposures (other than occasional visits with puppy who lives in another household), exposure to construction sites. [place]- [place] was to the [facility] but not for several years. 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 During admission, he was continued on dapto and cefepime/metronidazole added empirically. Multiple sets of Bcxs were no growth, so daptomycin was stopped 08/11 with plan to repeat Bcxs in several days off antibiotics. Pt has continued to have fever, sweats, chills (not rigors) and fatigue in absence of other focal complaints other than ongoing constipation with mild L- sided discomfort, although pt has been having small BMs on a stool regimen. #neutropenic fever -in setting of AML, last chemo Jun 2022, pancytopenia -developed at home while pt was on daptomycin IV as well as LVQ, acyclovir, azole ppx -absence of focal symptoms other than some abd discomfort related to constipation, now significantly improved with semi-formed BMs per pt -stool GI PCR panel negative -RVP negative -08/07 and 08/09 Bcxs are NGTD. 08/11 Bcx pending -CT a/p with mild GB wall thickening and abd u/s with possible sludge. HIDA negative for cholecystitis -CT face w/contrast negative for abscess, significant sinusitis -pt has been on dapto, cefepime/metro, as well as azole and acyclovir ppx. Dapto stopped 08/11, cefepime/metro changed empirically to meropenem 08/12 #h/o MRSE bacteremia - present in 4 out of 4 bottles 07/24, likely secondary to line. 2D echo had no evidence of mass or vegetation. Patient underwent Sweeney removal 07/27. 07/26 blood cultures were negative. Plan was for daptomycin 350 mg (~6 mg/kilograms) IV daily until 08/10/2022 (2 weeks after clearance) with repeat blood cultures performed 3-7 days after IV therapy completed. -agree that IE is unlikely, as Bcxs quickly cleared, and lesion on hand does not appear c/w lesion -TTE 08/09 negative for vegetations -08/11 CPK 12 -daptomycin stopped 08/11 given negative multiple sets of Bcxs. pt's oncology office notified of plan to repeat Bcxs after several days off daptomycin #AML, severe pancytopenia- followed by oncology- oncology plans BM biopsy given persistent pancytopenia Plan Rec:As multiple Bcxs have been no growth to date and fever developed while pt on daptomycin, resuming dapto, or starting vanco or other broader gram positive coverage is unlikely to benefit pt at this time. He continues to have fever but without any new complaints- he is still c/o constipation. In terms of further imaging, CT chest seems unlikely to be helpful given absence of any respiratory symptoms and negative CXR. Possible that fevers are secondary to transient gut translocation in setting of constipation- or that fevers are secondary to underlying persistent severe neutropenia due to AML. Will change cefepime 2 g IV q8 and metronidazole 500mg q8 to meropenem 2 g IV q8 today for broader GN coverage. F/u 08/11 Bcxs. Please page with any questions. Lindsay Nolasco M.D. [facility] [employer] Pager [phone] Admission and Anticipated Discharge Date Admission Date: August 07, 2022 Subjective Subsequent visit was provided via telemedicine using two-way real-time interactive telecommunication between the patient and the telemedicine provider. For the duration of the visit, the provider was performing the assessment from a different facility than the patient. This includesuse of bluetooth stethoscope forauscultationperformed by the telepresenter that the telemedicine provider can hear if described in the physical exam. Fan Mail Clerk contact information: Please call ID Connect Call Center . (Phone Number For Physician Use Only) After establishing a telemedicine visit, patient was: Patient was verified with two unique identifiers, Patient/authorized rep acknowledged consent and understanding and Gave permission to continue telehealth session Time Spent with Patient: Subsequent => 25 min Pt reports "rough night" last night due to fever. No BMs today so far. Yesterday, some formed stool- no liquid BMs- he is concerned he is "blocking up" again and taking more miralax. He continues to deny any other symptoms- including specifically respiratory or dental complaints. Facial CT with contrast without evidence of abscess or significant sinusitis. 08/11 Bcxs in process. Physical Exam Physical Exam: .PE: Gen: Awake, alert, NAD, fatigued-appearing HEENT: anicteric, ok dentition, multiple fillings, no thrush Resp: no resp distress on RA Chest: R chest prior sweeney site incision with sutures- dry, no evidence infection Abd: Soft, slightly tender LUQ and LLQ, no RUQ tenderness, umbilical hernia Extr: no c/c/e R 4th digit with small erythematous papule dorsal surface Skin: R and L UE IVs ok. Results & Data ([facility]) Vital Signs (Past 12 Hours) Vital Signs Temp Pulse Pulse Resp BP BP Pulse Ox 08/12/22 08:00 37.3 C 92 H 18 126/83 08/12/22 07:56 37.3 C 80 18 120/73 96 08/12/22 07:14 79 08/12/22 03:52 37 C 69 18 128/78 99 08/12/22 00:04 37.7 C H 08/11/22 23:39 82 08/11/22 23:30 39.2 C H 08/11/22 22:14 38.9 C H 83 18 126/74 95 O2 Del Method 08/12/22 08:00 08/12/22 07:56 Room Air 08/12/22 07:14 08/12/22 03:52 Room Air 08/12/22 00:04 08/11/22 23:39 08/11/22 23:30 08/11/22 22:14 Room Air Laboratory Results 08/11/22 20:23 Aerobic Blood Culture - Pending Blood Anaerobic Blood Culture - Pending 08/11/22 20:23 Aerobic Blood Culture - Pending Blood Anaerobic Blood Culture - Pending 08/09/22 09:38 Aerobic Blood Culture - Preliminary Blood No growth in Aerobic bottle after 48 hours. Anaerobic Blood Culture - Preliminary No growth in Anaerobic bottle after 48 hours. 08/09/22 09:38 Aerobic Blood Culture - Preliminary Blood No growth in Aerobic bottle after 48 hours. Anaerobic Blood Culture - Preliminary No growth in Anaerobic bottle after 48 hours. 08/12/22 08/12/22 08/11/22 06:13 06:13 18:39 WBC 0.07 L* 0.08 L* RBC 2.80 L 2.45 L Hgb 8.3 L 7.4 L Hct 24.5 L 21.7 L MCV 87.5 88.6 MCH 29.6 30.2 MCHC 33.9 34.1 RDW Std Deviation 43.5 43.1 RDW Coeff of Lazaro 13.2 13.3 Plt Count 8 L* 10 L* MPV 9.8 Immature Gran % (Auto) Cancelled Cancelled Neut % (Auto) Cancelled Cancelled Lymph % (Auto) Cancelled Cancelled [place] % (Auto) Cancelled Cancelled Eos % (Auto) Cancelled Cancelled Baso % (Auto) Cancelled Cancelled Neut # (Auto) Cancelled Cancelled Lymph # (Auto) Cancelled Cancelled [place] # (Auto) Cancelled Cancelled Eos # (Auto) Cancelled Cancelled Baso # (Auto) Cancelled Cancelled Immature Gran # (Auto) Cancelled Cancelled Neutrophils % (Manual) Cancelled Cancelled Band Neutrophils % Cancelled Cancelled Lymphocytes % (Manual) Cancelled Cancelled Prolymphocyte % Cancelled Cancelled Reactive Lymphs % (Man) Cancelled Cancelled Monocytes % (Manual) Cancelled Cancelled Eosinophils % (Manual) Cancelled Cancelled Basophils % (Manual) Cancelled Cancelled Metamyelocytes % (Man) Cancelled Cancelled Myelocytes % (Man) Cancelled Cancelled Promyelocytes % (Man) Cancelled Cancelled Blast Cells % (Manual) Cancelled Cancelled Plasma Cell % (Manual) Cancelled Cancelled Other Cells % Cancelled Cancelled Nucleated RBC % Cancelled Cancelled Neutrophils # (Manual) Cancelled Cancelled Band Neutrophils # Cancelled Cancelled Total Absolute Neuts Cancelled Cancelled Lymphocytes # (Manual) Cancelled Cancelled Prolymphocyte # Cancelled Cancelled Reactive Lymphs # Cancelled Cancelled Total Abs Lymphocytes Cancelled Cancelled Monocytes # (Manual) Cancelled Cancelled Eosinophils # (Manual) Cancelled Cancelled Basophils # (Manual) Cancelled Cancelled Metamyelocytes # (Man) Cancelled Cancelled Myelocytes # (Manual) Cancelled Cancelled Promyelocytes # (Man) Cancelled Cancelled Blast Cells # (Man) Cancelled Cancelled Plasma Cell # (Manual) Cancelled Cancelled Other Cells # Cancelled Cancelled Nucleated RBCs # (Man) Cancelled Cancelled Hypersegmented Neuts Cancelled Cancelled Hyposegmented Neuts Cancelled Cancelled Hypogranular Neuts Cancelled Cancelled Large Granular Lymphs Cancelled Cancelled # Lrg Granular Lymphs Cancelled Cancelled Hairy Cells Cancelled Cancelled Smudge Cells Cancelled Cancelled Toxic Granulation Cancelled Cancelled Toxic Vacuolation Cancelled Cancelled Dohle Bodies Cancelled Cancelled Hina Rods Cancelled Cancelled Hypogranular Platelets Cancelled Cancelled Giant Platelets Cancelled Cancelled Platelet Satelliting Cancelled Cancelled RBC Morphology Cancelled Cancelled Polychromasia Cancelled Cancelled Hypochromasia Cancelled Cancelled Poikilocytosis Cancelled Cancelled Basophilic Stippling Cancelled Cancelled Anisocytosis Cancelled Cancelled Microcytosis Cancelled Cancelled Macrocytosis Cancelled Cancelled Spherocytes Cancelled Cancelled Pappenheimer Bodies Cancelled Cancelled Sickle Cells Cancelled Cancelled Target Cells Cancelled Cancelled Tear Drop Cells Cancelled Cancelled Ovalocytes Cancelled Cancelled Stomatocytes Cancelled Cancelled Hines-Newald Bodies Cancelled Cancelled Echinocytes Cancelled Cancelled Acanthocytes (Spur) Cancelled Cancelled Rouleaux Cancelled Cancelled RBC Agglutinates Cancelled Cancelled Schistocytes Cancelled Cancelled Sezary Cell Cancelled Cancelled Sodium 136 Potassium 4.4 Chloride 103 Carbon Dioxide 31 Anion Gap 2 L BUN 27 H Creatinine 0.66 Est Cr Clr Drug Dosing 92.2 Est GFR ( Amer) 116.8 Est GFR (Non-Af Amer) 100.7 BUN/Creatinine Ratio 40.9 H Glucose 92 Calcium 8.7 Total Bilirubin 1.9 H AST 9 L ALT 18 Alkaline Phosphatase 83 Total Protein 5.8 L Albumin 2.6 L Globulin 3.2 Albumin/Globulin Ratio 0.8 L Blood Parasites ID Cancelled Cancelled Blood Type Antibody Screen Crossmatch 08/10/22 08:07 WBC RBC Hgb Hct MCV MCH MCHC RDW Std Deviation RDW Coeff of Lazaro Plt Count MPV Immature Gran % (Auto) Neut % (Auto) Lymph % (Auto) [place] % (Auto) Eos % (Auto) Baso % (Auto) Neut # (Auto) Lymph # (Auto) [place] # (Auto) Eos # (Auto) Baso # (Auto) Immature Gran # (Auto) Neutrophils % (Manual) Band Neutrophils % Lymphocytes % (Manual) Prolymphocyte % Reactive Lymphs % (Man) Monocytes % (Manual) Eosinophils % (Manual) Basophils % (Manual) Metamyelocytes % (Man) Myelocytes % (Man) Promyelocytes % (Man) Blast Cells % (Manual) Plasma Cell % (Manual) Other Cells % Nucleated RBC % Neutrophils # (Manual) Band Neutrophils # Total Absolute Neuts Lymphocytes # (Manual) Prolymphocyte # Reactive Lymphs # Total Abs Lymphocytes Monocytes # (Manual) Eosinophils # (Manual) Basophils # (Manual) Metamyelocytes # (Man) Myelocytes # (Manual) Promyelocytes # (Man) Blast Cells # (Man) Plasma Cell # (Manual) Other Cells # Nucleated RBCs # (Man) Hypersegmented Neuts Hyposegmented Neuts Hypogranular Neuts Large Granular Lymphs # Lrg Granular Lymphs Hairy Cells Smudge Cells Toxic Granulation Toxic Vacuolation Dohle Bodies Hina Rods Hypogranular Platelets Giant Platelets Platelet Satelliting RBC Morphology Polychromasia Hypochromasia Poikilocytosis Basophilic Stippling Anisocytosis Microcytosis Macrocytosis Spherocytes Pappenheimer Bodies Sickle Cells Target Cells Tear Drop Cells Ovalocytes Stomatocytes Hines-Newald Bodies Echinocytes Acanthocytes (Spur) Rouleaux RBC Agglutinates Schistocytes Sezary Cell Sodium Potassium Chloride Carbon Dioxide Anion Gap BUN Creatinine Est Cr Clr Drug Dosing Est GFR ( Amer) Est GFR (Non-Af Amer) BUN/Creatinine Ratio Glucose Calcium Total Bilirubin AST ALT Alkaline Phosphatase Total Protein Albumin Globulin Albumin/Globulin Ratio Blood Parasites ID Blood Type A Positive Antibody Screen NEGATIVE Crossmatch See Detail Diagnostic Findings Hepatobiliary Scan Nuclear Medicine 08/11/22 08:00 NM hepatobiliary CLINICAL HISTORY: r/o cholecystitis TECHNIQUE: Following the intravenous injection of 5.0 mCi of Tc-99m labeled Technetium 99m mebrofenin, multiple images of the upper abdomen were obtained in the anterior projection with uptake measurements of the gallbladder obtained. Comparison: None available at the time of this dictation. FINDINGS: Sequential images demonstrate normal uptake in the liver, common bile duct, and small bowel. No defects in uptake are identified. IMPRESSION: Normal uptake of contrast by the gallbladder. No evidence of acute cholecystitis. ACT 112: Negative or not required by law. Electronically signed by: Orville Garcia M.D. 08/11/2022 10:[address] 08/11/22 18:[address] WITH CONTRAST CLINICAL HISTORY: h/o dental abscess; neutropenic fever COMPARISON STUDY: No previous studies for comparison. TECHNIQUE: Axial images of the face were obtained following intravenous injection of 84 cc of Optiray. Sagittal and coronal reconstructions were viewed. Automated exposure control was utilized for the study. A dose lowering technique was utilized adhering to the principles of ALARA. FINDINGS: Incidental note is made of a small 3 mm aneurysm arising from the junction of the right A1 and A2 segments of the right anterior cerebral artery. Left A1 segment is hypoplastic. No additional intracranial abnormalities are identified on this exam. Possible mucous retention cyst within the left] sinus is present. No air-fluid levels are present. There is mild mucosal thickening within the inferior right maxillary sinus. Mastoid air cells are clear. Orbits are unremarkable. There is no fluid collection within the face to suggest an abscess. Multiple teeth are absent. Multiple dental implants and amalgams are present. Several periapical lucencies are noted. There is no adjacent soft tissue abscess. Epiglottis is normal. Parotid and submandibular glands are unremarkable. Major vasculature of the upper neck is patent. IMPRESSION: 1. Odontogenic disease with multiple absent teeth and multiple periapical lucencies. However, no adjacent soft tissue abscess identified. No facial fluid collection to suggest abscess. 2. 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 3. Suspected mucous retention cyst within the left sphenoid sinus. No sinus air- fluid levels. Mild right maxillary sinus mucosal thickening. ACT 112: Negative or not required by law. Electronically signed by: Juanjose Gaspar M.D. 08/11/2022 7:10 PM Medications Administered Current Medications Acetaminophen (Acetaminophen 325 Mg Tab) 650 mg PO Q4H PRN PRN Reason: Pain or Fever Stop: 09/06/22 18:05 Last Admin: 08/11/22 22:33 Dose: 650 mg Acyclovir (Acyclovir 400 Mg Tab) 400 mg PO BID [facility] Stop: 09/06/22 20:59 Last Admin: 08/12/22 08:53 Dose: 400 mg Atenolol (Atenolol 25 Mg Tablet) 25 mg PO DAILY [facility] Stop: 09/07/22 08:59 Last Admin: 08/12/22 08:53 Dose: 25 mg Docusate Sodium (Docusate Sodium 100 Mg Cap) 100 mg PO BID [facility] Stop: 09/06/22 20:59 Last Admin: 08/12/22 08:53 Dose: 100 mg Furosemide (Furosemide 40 Mg Tab) 40 mg PO DAILY [facility] Stop: 09/07/22 08:59 Last Admin: 08/12/22 08:55 Dose: 40 mg Cefepime HCl 2,000 mg/ Syringe 20 mls @ 5 mls/min IV Q8H [facility]; Protocol Stop: 08/17/22 10:14 Last Admin: 08/12/22 02:01 Dose: 5 mls/min Metronidazole (Flagyl) 500 mg in 100 mls @ 100 mls/hr IV Q8H [facility] Stop: 08/20/22 11:59 Last Infusion: 08/12/22 05:24 Dose: Infused Isosorbide Mononitrate (Isosorbide [place] Extended Rel 60 Mg Tabcr) 120 mg PO QAM [facility] Stop: 09/07/22 08:59 Last Admin: 08/12/22 08:56 Dose: 120 mg Loratadine (Loratadine 10 Mg Tab) 10 mg PO DAILY [facility] Stop: 09/06/22 18:05 Last Admin: 08/12/22 08:56 Dose: 10 mg Magnesium Oxide (Magnesium Oxide 400 Mg Tab) 400 mg PO BID [facility] Stop: 09/06/22 20:59 Last Admin: 08/12/22 08:54 Dose: 400 mg Melatonin (Melatonin 3 Mg Tab) 9 mg PO HS PRN PRN Reason: Insomnia Stop: 09/06/22 18:16 Miscellaneous (Posaconazole: Order Awaiting Action) 1 each N/A QS [facility] Stop: 09/09/22 15:59 Last Admin: 08/12/22 01:13 Dose: Not Given Ondansetron HCl (Ondansetron Inj 2 Mg/Ml 2 Ml Vial) 4 mg IV Q4H PRN PRN Reason: Nausea Stop: 09/06/22 18:05 Last Admin: 08/11/22 20:54 Dose: 4 mg Polyethylene Glycol (Polyethylene (Miralax) 17 Gm Pack) 17 gm PO BID [facility] Stop: 09/07/22 10:44 Last Admin: 08/12/22 09:04 Dose: 17 gm Potassium Chloride (Potassium Chloride Crtab 20 Meq Tabcr) 20 meq PO BID [facility] Stop: 09/06/22 20:59 Last Admin: 08/12/22 08:56 Dose: Not Given Voriconazole (Voriconazole 200 Mg Tablet) 200 mg PO BID [facility] Stop: 09/07/22 15:29 Last Admin: 08/12/22 08:56 Dose: 200 mg
[2022-08-12] MEDS ORDERED: MEROPENEM 2,000 MG in 0.9 % SODIUM CHLORIDE 58 ML IV SCH (11:30)
[2022-08-12] MEDS: MEROPENEM 2,000 MG in 0.9 % SODIUM CHLORIDE 58 ML IV SCH ×2 (12:40→20:49)
[2022-08-12] MEDS: ACETAMINOPHEN 325 MG TAB PO PRN (16:02)
[2022-08-12] MEDS: ONDANSETRON INJ 2 MG/ML 2 ML VIAL IV PRN (16:02)
[2022-08-13] MEDS: MEROPENEM 2,000 MG in 0.9 % SODIUM CHLORIDE 58 ML IV SCH ×3 (03:33→18:37)
[2022-08-13] MEDS: ACETAMINOPHEN 325 MG TAB PO PRN ×3 (03:34→22:46)
[2022-08-13] MEDS: ONDANSETRON INJ 2 MG/ML 2 ML VIAL IV PRN (08:15)
[2022-08-13 08:50] LABS: Albumin Level 2.2 gm/dl (3.4-5.0); Bilirubin,Total 1.5 mg/dl (0.2-1.0); Calcium 8.2 mg/dl (8.5-10.1); Magnesium 2.1 mg/dl (1.7-2.4); Potassium 4.1 mmol/L (3.5-5.1)
[2022-08-13 08:55] LABS: Albumin Globulin Ratio 0.7 (0.9-2); Creatinine Clr Calc Pharmacy 85.7 ml/min; Est GFR (African American) 113.3 ml/min; Est GFR (Non-African American) 97.8 ml/min; Total Protein 5.2 gm/dl (6.0-8.3)
--- NOTE | 2022-08-13 09:30 | Hospitalist Progress Note ---
Date of Service August 13, 2022 Assessment & Plan (1) Neutropenic fever: Plan: Shawn Gardiner is a 66 yo male with PMHx significant for AML with associated pancytopenia, HLD, depression, and CAD who presented to [facility] on 08/07 with neutropenic fever. Of note patient was recently admitted here from 07/24-07/30 for MRSA bacteremia due to Lainez line (had it removed and was discharged on Daptomycin). Neutropenic fever, Unknown Source Patient is asymptomatic apart from fever/chills, weakness and fatigue - no localizing symptoms. UA, KUB and CXR without signs of infection. Unclear etiology - may be developing endocarditis although less likely given Daptomycin treatment prior to admission, as well as recent negative TTE 4 weeks ago. Patie nt did have upset stomach several days ago --> may have had colitis although asymptomatic currently. - blood cx negative on 08/07, repeated 08/09 no growth at 24 hours - procalcitonin elevated at 1.01 on 08/09, blood cx 4 bottles no growth at 24/48 hours - CT A/P with IV contrast - nonspecifc stranding, mild GB wall thickening, and abd u/s with possible sludge, HIDA normal - PCR stool panel and Resp Biofire negative - TTE, neg for endocarditis eval - may need TERRANCE but would need improvement in platelet count first - consulted ID - recommendations included - patient on Daptomycin for recent MRSA bacteremia (has been covered with Vanco/Daptomycin since 07/25 - 2 weeks treatment thus far), per ID recommendation, Daptomycin stopped 08/11, recommend blood cx in the next few days, cefepime 2 g and metronidazole changed to meropenem 2 g IV q8 on 08/12, continue - Hx of dental abscesses, face CT no sign of abscess or infection - PO prophylaxis of antivral/antifungal continued. IV antibiotics replaced outpatient PO levofloxacin. Posaconazole replaced with voriconazole per hospital formulary, will request if patient can arrange for home posaconazole. - Neutropenic isolation precautions AML; Pancytopenia due to antineoplastic chemotherapy - Hem/Onc consulted, recommendations to maintain hemoglobin greater than 7.5 and platelet count greater than 10,000. - S/p 2u prbc and 1u irradiated prbc at [facility] on 08/07 and 1u irradiated prbc at admission. 1 unit irradiated plts on 08/09, Platelet transfusion threshold 15. - 08/10. Hgb 6.6, plts 11, 1u irradiated pRBC and 2u irradiated plts, - 08/11 Hgb 6.9 plts 15, 1u pRBC and 1u plts - 08/12 Hgb 8.3 plts 8 - 08/13 Hgb 8.0 plts 9 - Venetoclax on hold for upcoming bone biopsy (cancelled) and recent bacteremia. 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 grade 2 diastolic dysfunction. RVSP 40-50. mildly dilated IVC. - 08/09 TTE EF 60-65%, small pericardial effusion - cautious use of IVFs if becomes necessary - Continue home PO Lasix 40. Currently euvolemic. - strict I/Os, daily weights Coronary artery disease - Not on antiplatelet therapy due to thrombocytopenia. Per cardiology, recommends resuming baby ASA 81mg when thrombocytopenia is milder. - Not on statin therapy; defer to outpatient cardiology - Continue atenolol FEN/GI - regular diet DVT ppx - SCDs. chemical prophylaxis contraindicated due to thrombocytopenia Code status: full Disposition - med/tele (2) Pancytopenia due to antineoplastic chemotherapy: (3) Acute myelogenous leukemia: (4) Depression: (5) Coronary artery disease: (6) Lower abdominal pain: (7) Congestive heart failure: Admission and Anticipated Discharge Date Admission Date: August 07, 2022 Supervising Physician Co-Signing Physician Notes I personally examined the patient and verified all huston points of history and exam, discussed case, and agree with decision making with Nevaeh Diaz MS4 wonders about transfer to [place] - worried he will never get there as outpt. no new complaints. vitals noted nad heent nc at mmm breathing unlabored no accessory muscles good effort skin no rashes no pallor or icterus, R chest port site c/d/i. neutropenic fever - continue broad empiric abx coverage, follow cultures, serial exams, supportive care. more suspicious this is all cytopenia/malignancy related and not infectious. will d/w heme/onc ?facilitate transfer for hopefully moving his journey forward - i'm concerned that the window of him being fever free may be too narrow/the pace of the outpt world may fail him. otherwise as above Subjective Shawn Gardiner is a 66 yo male with acute myelogenous leukemia who presented to the ED on 08/07 with several days diarrhea, vomiting, and fever. Last episode of diarrhea was . Fevers throughout the night and continues to feel worn down. No MORROW, nausea, vomiting, joint pain, or rashes. No cough, shortness of breath, or chest pain. No bowel movement today, notes small solid stools yesterday. Patient expressed interest in transfer to [place] to expedite the bone marrow biopsy when fevers subside. Review of Systems Review of Systems: See hpi Physical Exam Constitutional: WD/WN, vitals as above ENMT: external ear and nose normal, oropharynx normal Neck: trachea midline, no thyromegaly Respiratory: normal respiratory effort, lungs clear to auscultation Cardiovascular: RRR, no murmur, no edema Gastrointestinal (Abdomen): normal bowel sounds, soft, nontender, no hepatosplenomegaly Musculoskeletal: no cyanosis or clubbing, extremities motor strength 5/5 Neurologic: moves all extremities and awake; not confused Psychiatric: A+Ox3, euthymic affect Results & Data Results & Data ([facility]) Vital Signs (Past 12 Hours) Vital Signs Temp Pulse Pulse Resp BP Pulse Ox O2 Del Method 08/13/22 07:44 36.5 C 68 18 102/65 98 Room Air 08/13/22 02:59 38.8 C H 85 16 113/63 92 Room Air 08/12/22 22:15 84 08/13/22 00:25 37.3 C 08/12/22 22:00 38.7 C H 83 18 138/73 93 Room Air Laboratory Results 08/13/22 07:56 08/13/22 09:16 08/13/22 07:56
[2022-08-13] MEDS: LORATADINE 10 MG TAB PO SCH (09:52)
[2022-08-13] MEDS: FUROSEMIDE 40 MG TAB PO SCH (09:52)
[2022-08-13] MEDS: DOCUSATE SODIUM 100 MG CAP PO SCH ×2 (09:52→21:13)
[2022-08-13] MEDS: ISOSORBIDE MONO EXTENDED REL 60 MG TABCR PO SCH (09:52)
[2022-08-13] MEDS: VORICONAZOLE 200 MG TABLET PO SCH ×2 (09:52→21:15)
[2022-08-13] MEDS: ACYCLOVIR 400 MG TAB PO SCH ×2 (09:52→21:12)
[2022-08-13] MEDS: POTASSIUM CHLORIDE CRTAB 20 MEQ TABCR PO SCH ×3 (09:53→21:17)
[2022-08-13] MEDS: POLYETHYLENE (MIRALAX) 17 GM PACK PO SCH ×2 (10:02→21:14)
[2022-08-13] MEDS ORDERED: MAGNESIUM HYDROXIDE SUSP 30 ML UDC PO ONE (10:19)
[2022-08-13 10:20] LABS: Hematocrit (blood only) 24.1 % (42.0-52.0); Mean Corpuscular Hemoglobin 30.2 pg (25.0-34.0); Mean Corpuscular Hgb Conc 33.2 g/dL (32.0-36.0); Mean Corpuscular Volume 90.9 fL (80.0-100.0); Platelet Count 9 K/uL (130-400); RDW Coefficient of Variation 13.8 % (11.5-14.5); RDW Standard Deviation 45.6 fL (36.4-46.3); Red Blood Count 2.65 M/uL (4.70-6.10); White Blood Count 0.13 K/ul (4.8-10.8)
--- NOTE | 2022-08-13 10:21 | Infectious Disease Progress Nt ---
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, on prophylaxis with acyclovir and voriconazole, recently admitted 07/24 with neutropenic fever and found to have MRSE bacteremia in 4 out of 4 bottles 07/24, likely secondary to line. 2D echo had no evidence of mass or vegetation. Patient underwent Sweeney removal 07/27. 07/26 blood cultures were negative. Plan was for daptomycin 350 mg (~6 mg/kilograms) IV da verónica until 08/10/2022 (2 weeks after clearance) with repeat blood cultures performed 3-7 days after IV therapy completed. It was recommended that he continue with prophylaxis with acyclovir, posaconazole and levofloxacin. Patient was discharged on 07/30/2022. Patient then presented to the ED on 08/07/2022 reporting fever the night prior of 102. Patient is neutropenic with ANC of 0 and mentioned the fever to his team when he presented for blood transfusion and therefore was sent over for admission. He reported having mild fever for the last several nights but denied any URI complaints, shortness of breath, cough, chest pain, or urinary symptoms. Patient reported some lower abdominal pain associated with constipation. He developed fever at home while on daptomycin, as well as LVQ, posaconazole and acyclovir ppx. He denied recent travel, procedures, sick contacts, animal exposures (other than occasional visits with puppy who lives in another household), exposure to construction sites. [place] was [place], [place] outside [place], [place] outside country- [place] travel outside [place] was to the [facility] but not for several years. 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 During admission, he was continued on dapto and cefepime/metronidazole added empirically. Multiple sets of Bcxs were no growth, so daptomycin was stopped 08/11 with plan to repeat Bcxs in several days off antibiotics. Pt has continued to have fever, sweats, chills (not rigors) and fatigue in absence of other focal complaints other than ongoing constipation with mild L- sided discomfort, although pt has been having small BMs on a stool regimen. #neutropenic fever -in setting of AML, last chemo Jun 2022, pancytopenia -developed at home while pt was on daptomycin IV as well as LVQ, acyclovir, azole ppx -absence of focal symptoms other than some abd discomfort related to constipation, now significantly improved with semi-formed BMs per pt -stool GI PCR panel negative -RVP negative -08/07 and 08/09 Bcxs are NGTD. 08/11 Bcx pending -CT a/p with mild GB wall thickening and abd u/s with possible sludge. HIDA negative for cholecystitis -CT face w/contrast negative for abscess, significant sinusitis -pt has been on dapto, cefepime/metro, as well as azole and acyclovir ppx. Dapto stopped 08/11, cefepime/metro changed empirically to meropenem 08/12 #h/o MRSE bacteremia - present in 4 out of 4 bottles 07/24, likely secondary to line. 2D echo had no evidence of mass or vegetation. Patient underwent Sweeney removal 07/27. 07/26 blood cultures were negative. Plan was for daptomycin 350 mg (~6 mg/kilograms) IV daily until 08/10/2022 (2 weeks after clearance) with repeat blood cultures performed 3-7 days after IV therapy completed. -agree that IE is unlikely, as Bcxs quickly cleared, and lesion on hand does not appear c/w lesion -TTE 08/09 negative for vegetations -08/11 CPK 12 -daptomycin stopped 08/11 given negative multiple sets of Bcxs. pt's oncology office notified of plan to repeat Bcxs after several days off daptomycin #AML, severe pancytopenia- followed by oncology- oncology plans BM biopsy given persistent pancytopenia Plan Rec:As multiple Bcxs have been no growth to date and fever developed while pt on daptomycin, resuming dapto, or starting vanco or other broader gram positive coverage is unlikely to benefit pt at this time. He continues to have fever but without any new complaints- he is still c/o constipation. In terms of further imaging, CT chest seems unlikely to be helpful given absence of any respiratory symptoms and negative CXR. Possible that fevers are secondary to transient gut translocation in setting of constipation- or that fevers are secondary to underlying persistent severe neutropenia due to AML. Pt is on bowel regimen as per primary team. Will continue meropenem 2 g IV q8 for now. F/u 08/11 Bcxs. Please page with any questions. Lindsay Nolasco M.D. [facility] [employer] Pager [phone] Admission and Anticipated Discharge Date Admission Date: August 07, 2022 Subjective Subsequent visit was provided via telemedicine using two-way real-time interactive telecommunication between the patient and the telemedicine provider. For the duration of the visit, the provider was performing the assessment from a different facility than the patient. This includesuse of bluetooth stethoscope forauscultationperformed by the telepresenter that the telemedicine provider can hear if described in the physical exam. [employer] contact information: Please call [employer] [facility] Call Center [phone]. (Phone Number For Physician Use Only) After establishing a telemedicine visit, patient was: Patient was verified with two unique identifiers, Patient/authorized rep acknowledged consent and understanding and Gave permission to continue telehealth session Time Spent with Patient: Subsequent => 25 min Pt continues to have fever. He reports overall feeling better than prior to admission in terms of fatigue. He reports having mostly gas, and feeling blocked up- his last BM was yesterday- miralax increased. No new complaints. Had c-scope about 8 years ago with polyps- reports overdue about 2 years for repeat. Physical Exam Physical Exam: PE: Gen: Awake, alert, NAD, fatigued-appearing HEENT: anicteric, ok dentition, multiple fillings, no thrush Resp: no resp distress on RA Chest: R chest prior sweeney site incision with sutures- dry, no evidence infection Abd: Soft, no longer tender LUQ and LLQ, no RUQ tenderness, umbilical hernia Extr: no c/c/e R 4th digit with small erythematous papule dorsal surface Skin: R and L UE IVs ok. Results & Data ([facility]) Vital Signs (Past 12 Hours) Vital Signs Temp Pulse Resp BP Pulse Ox O2 Del Method 08/13/22 07:44 36.5 C 68 18 102/65 98 Room Air 08/13/22 02:59 38.8 C H 85 16 113/63 92 Room Air 08/13/22 00:25 37.3 C Laboratory Results 08/11/22 20:23 Aerobic Blood Culture - Preliminary Blood No growth in Aerobic bottle after 24 hours. Anaerobic Blood Culture - Final 08/11/22 20:23 Aerobic Blood Culture - Preliminary Blood No growth in Aerobic bottle after 24 hours. Anaerobic Blood Culture - Preliminary No growth in Anaerobic bottle after 24 hours. 08/12/22 16:23 Aerobic Blood Culture - Pending Blood Anaerobic Blood Culture - Pending 08/12/22 16:11 Aerobic Blood Culture - Pending Blood Anaerobic Blood Culture - Pending 08/07/22 14:38 Aerobic Blood Culture - Final Blood No growth in Aerobic bottle after 5 days. Anaerobic Blood Culture - Final No growth in Anaerobic bottle after 5 days. 08/07/22 12:12 Aerobic Blood Culture - Final Blood No growth in Aerobic bottle after 5 days. Anaerobic Blood Culture - Final No growth in Anaerobic bottle after 5 days. 08/13/22 08/13/22 08/13/22 09:16 07:56 07:56 WBC 0.13 L* Cancelled RBC 2.65 L Cancelled Hgb 8.0 L Cancelled Hct 24.1 L Cancelled MCV 90.9 Cancelled MCH 30.2 Cancelled MCHC 33.2 Cancelled RDW Std Deviation 45.6 Cancelled RDW Coeff of Lazaro 13.8 Cancelled Plt Count 9 L* Cancelled MPV Cancelled Immature Gran % (Auto) Cancelled Cancelled Neut % (Auto) Cancelled Cancelled Lymph % (Auto) Cancelled Cancelled Call[place] % (Auto) Cancelled Cancelled Eos % (Auto) Cancelled Cancelled Baso % (Auto) Cancelled Cancelled Neut # (Auto) Cancelled Cancelled Lymph # (Auto) Cancelled Cancelled Call[place] # (Auto) Cancelled Cancelled Eos # (Auto) Cancelled Cancelled Baso # (Auto) Cancelled Cancelled Immature Gran # (Auto) Cancelled Cancelled Absolute Nucleated RBC Cancelled Nucleated RBC % (auto) Cancelled Neutrophils % (Manual) Cancelled Cancelled Band Neutrophils % Cancelled Cancelled Lymphocytes % (Manual) Cancelled Cancelled Prolymphocyte % Cancelled Cancelled Reactive Lymphs % (Man) Cancelled Cancelled Monocytes % (Manual) Cancelled Cancelled Eosinophils % (Manual) Cancelled Cancelled Basophils % (Manual) Cancelled Cancelled Metamyelocytes % (Man) Cancelled Cancelled Myelocytes % (Man) Cancelled Cancelled Promyelocytes % (Man) Cancelled Cancelled Blast Cells % (Manual) Cancelled Cancelled Plasma Cell % (Manual) Cancelled Cancelled Other Cells % Cancelled Cancelled Nucleated RBC % Cancelled Cancelled Neutrophils # (Manual) Cancelled Cancelled Band Neutrophils # Cancelled Cancelled Total Absolute Neuts Cancelled Cancelled Lymphocytes # (Manual) Cancelled Cancelled Prolymphocyte # Cancelled Cancelled Reactive Lymphs # Cancelled Cancelled Total Abs Lymphocytes Cancelled Cancelled Monocytes # (Manual) Cancelled Cancelled Eosinophils # (Manual) Cancelled Cancelled Basophils # (Manual) Cancelled Cancelled Metamyelocytes # (Man) Cancelled Cancelled Myelocytes # (Manual) Cancelled Cancelled Promyelocytes # (Man) Cancelled Cancelled Blast Cells # (Man) Cancelled Cancelled Plasma Cell # (Manual) Cancelled Cancelled Other Cells # Cancelled Cancelled Nucleated RBCs # (Man) Cancelled Cancelled Hypersegmented Neuts Cancelled Cancelled Hyposegmented Neuts Cancelled Cancelled Hypogranular Neuts Cancelled Cancelled Large Granular Lymphs Cancelled Cancelled # Lrg Granular Lymphs Cancelled Cancelled Hairy Cells Cancelled Cancelled Smudge Cells Cancelled Cancelled Toxic Granulation Cancelled Cancelled Toxic Vacuolation Cancelled Cancelled Dohle Bodies Cancelled Cancelled Hina Rods Cancelled Cancelled Platelet Estimate Cancelled Hypogranular Platelets Cancelled Cancelled Giant Platelets Cancelled Cancelled Platelet Satelliting Cancelled Cancelled RBC Morphology Cancelled Cancelled Polychromasia Cancelled Cancelled Hypochromasia Cancelled Cancelled Poikilocytosis Cancelled Cancelled Basophilic Stippling Cancelled Cancelled Anisocytosis Cancelled Cancelled Microcytosis Cancelled Cancelled Macrocytosis Cancelled Cancelled Spherocytes Cancelled Cancelled Pappenheimer Bodies Cancelled Cancelled Sickle Cells Cancelled Cancelled Target Cells Cancelled Cancelled Tear Drop Cells Cancelled Cancelled Ovalocytes Cancelled Cancelled Stomatocytes Cancelled Cancelled [place] Bodies Cancelled Cancelled Echinocytes Cancelled Cancelled Acanthocytes (Spur) Cancelled Cancelled Rouleaux Cancelled Cancelled RBC Agglutinates Cancelled Cancelled Schistocytes Cancelled Cancelled Sezary Cell Cancelled Cancelled Sodium 136 Potassium 4.1 Chloride 103 Carbon Dioxide 29 Anion Gap 4 BUN 27 H Creatinine 0.71 Est Cr Clr Drug Dosing 85.7 Est GFR ( Amer) 113.3 Est GFR (Non-Af Amer) 97.8 BUN/Creatinine Ratio 38.0 H Glucose 99 Calcium 8.2 L Magnesium 2.1 Total Bilirubin 1.5 H AST 12 L ALT 11 Alkaline Phosphatase 66 Total Protein 5.2 L Albumin 2.2 L Globulin 3.0 Albumin/Globulin Ratio 0.7 L Blood Parasites ID Cancelled Cancelled Medications Administered Current Medications Acetaminophen (Acetaminophen 325 Mg Tab) 650 mg PO Q4H PRN PRN Reason: Pain or Fever Stop: 09/06/22 18:05 Last Admin: 08/13/22 03:34 Dose: 650 mg Acyclovir (Acyclovir 400 Mg Tab) 400 mg PO BID [facility] Stop: 09/06/22 20:59 Last Admin: 08/13/22 09:52 Dose: 400 mg Atenolol (Atenolol 25 Mg Tablet) 25 mg PO DAILY [facility] Stop: 09/07/22 08:59 Last Admin: 08/13/22 11:42 Dose: 25 mg Docusate Sodium (Docusate Sodium 100 Mg Cap) 100 mg PO BID [facility] Stop: 09/06/22 20:59 Last Admin: 08/13/22 09:52 Dose: 100 mg Furosemide (Furosemide 40 Mg Tab) 40 mg PO DAILY [facility] Stop: 09/07/22 08:59 Last Admin: 08/13/22 09:52 Dose: 40 mg Meropenem 2,000 mg/ Sodium (Chloride) 100 mls @ 200 mls/hr IV Q8H [facility]; Protocol Stop: 08/22/22 10:29 Last Infusion: 08/13/22 11:52 Dose: Infused Isosorbide Mononitrate (Isosorbide [place] Extended Rel 60 Mg Tabcr) 120 mg PO QAM [facility] Stop: 09/07/22 08:59 Last Admin: 08/13/22 09:52 Dose: 120 mg Loratadine (Loratadine 10 Mg Tab) 10 mg PO DAILY [facility] Stop: 09/06/22 18:05 Last Admin: 08/13/22 09:52 Dose: 10 mg Magnesium Oxide (Magnesium Oxide 400 Mg Tab) 400 mg PO BID [facility] Stop: 09/06/22 20:59 Last Admin: 08/13/22 11:42 Dose: 400 mg Melatonin (Melatonin 3 Mg Tab) 9 mg PO HS PRN PRN Reason: Insomnia Stop: 09/06/22 18:16 Miscellaneous (Posaconazole: Order Awaiting Action) 1 each N/A QS [facility] Stop: 09/09/22 15:59 Last Admin: 08/13/22 08:15 Dose: Not Given Ondansetron HCl (Ondansetron Inj 2 Mg/Ml 2 Ml Vial) 4 mg IV Q4H PRN PRN Reason: Nausea Stop: 09/06/22 18:05 Last Admin: 08/13/22 08:15 Dose: 4 mg Polyethylene Glycol (Polyethylene (Miralax) 17 Gm Pack) 17 gm PO BID [facility] Stop: 09/07/22 10:44 Last Admin: 08/13/22 10:02 Dose: 17 gm Potassium Chloride (Potassium Chloride Crtab 20 Meq Tabcr) 20 meq PO BID SAULO Stop: 09/06/22 20:59 Last Admin: 08/13/22 09:53 Dose: 20 meq Voriconazole (Voriconazole 200 Mg Tablet) 200 mg PO BID [facility] Stop: 09/07/22 15:29 Last Admin: 08/13/22 09:52 Dose: 200 mg
[2022-08-13] MEDS: MAGNESIUM OXIDE 400 MG TAB PO SCH ×2 (11:42→21:14)
[2022-08-13] MEDS: ATENOLOL 25 MG TABLET PO SCH (11:42)
--- NOTE | 2022-08-13 20:13 | Billing Data ---
Date of Service August 13, 2022 Coding Level of Care Code 79716 SUB INP/OBS CARE 3MIN
--- NOTE | 2022-08-13 20:54 | Billing Data ---
Date of Service August 12, 2022 Coding Level of Care Code 07938 SUB INP/OBS CARE 3MIN
[2022-08-14] MEDS: MEROPENEM 2,000 MG in 0.9 % SODIUM CHLORIDE 58 ML IV SCH ×3 (02:22→18:21)
[2022-08-14] MEDS: ISOSORBIDE MONO EXTENDED REL 60 MG TABCR PO SCH (08:17)
[2022-08-14] MEDS: ATENOLOL 25 MG TABLET PO SCH (08:17)
[2022-08-14] MEDS: FUROSEMIDE 40 MG TAB PO SCH (08:17)
[2022-08-14] MEDS: LORATADINE 10 MG TAB PO SCH (08:21)
[2022-08-14] MEDS: POTASSIUM CHLORIDE CRTAB 20 MEQ TABCR PO SCH ×2 (08:21→21:04)
[2022-08-14] MEDS: ACETAMINOPHEN 325 MG TAB PO PRN ×2 (08:21→21:00)
[2022-08-14] MEDS: ACYCLOVIR 400 MG TAB PO SCH ×2 (08:21→21:02)
[2022-08-14] MEDS: DOCUSATE SODIUM 100 MG CAP PO SCH ×2 (08:22→21:02)
[2022-08-14] MEDS: VORICONAZOLE 200 MG TABLET PO SCH ×2 (08:22→21:02)
[2022-08-14] MEDS: MAGNESIUM OXIDE 400 MG TAB PO SCH ×2 (08:22→21:02)
[2022-08-14] MEDS: POLYETHYLENE (MIRALAX) 17 GM PACK PO SCH ×2 (08:30→21:01)
--- NOTE | 2022-08-14 08:34 | Hospitalist Progress Note ---
Date of Service August 14, 2022 Assessment & Plan (1) Neutropenic fever: Plan: Shawn Gardiner is a 66 yo male with PMHx significant for AML with associated pancytopenia, HLD, depression, and CAD who presented to [facility] on 08/07 with neutropenic fever. Of note patient was recently admitted here from 07/24-07/30 for MRSA bacteremia due to Lainez line (had it removed and was discharged on Daptomycin). Neutropenic fever, Unknown Source Patient is asymptomatic apart from fever/chills, weakness and fatigue - no localizing symptoms. UA, KUB and CXR without signs of infection. Unclear etiology - may be developing endocarditis although less likely given Daptomycin treatment prior to admission, as well as recent negative TTE 4 weeks ago. Patient did have upset stomach several days ago --> may have had colitis although asymptomatic currently. - blood cx negative on 08/07, repeated 08/09 no growth at 24 hours - procalcitonin elevated at 1.01 on 08/09, blood cx 4 bottles no growth at 24/48 hours - CT A/P with IV contrast - nonspecifc stranding, mild GB wall thickening, and abd u/s with possible sludge, HIDA normal - PCR stool panel and Resp Biofire negative - TTE, neg for endocarditis eval - may need TERRANCE but would need improvement in platelet count first - consulted ID - recommendations included - patient on Daptomycin for recent MRSA bacteremia (has been covered with Vanco/Daptomycin since 07/25 - 2 weeks treatment thus far), per ID recommendation, Daptomycin stopped 08/11, recommend blood cx in the next few days, cefepime 2 g and metronidazole changed to meropenem 2 g IV q8 on 08/12, continue - Hx of dental abscesses, face CT no sign of abscess or infection - PO prophylaxis of antivral/antifungal continued. IV antibiotics replaced outpatient PO levofloxacin. Posaconazole replaced with voriconazole per hospital formulary, will request if patient can arrange for home posaconazole. - Neutropenic isolation precautions - Possible transport to [place] considering small window patient has fever free to obtain bone marrow biopsy AML; Pancytopenia due to antineoplastic chemotherapy - Hem/Onc consulted, recommendations to maintain hemoglobin greater than 7.5 and platelet count greater than 10,000. - S/p 2u prbc and 1u irradiated prbc at [facility] on 08/07 and 1u irradiated prbc at admission. 1 unit irradiated plts on 08/09, Platelet transfusion threshold 15. - 08/10. Hgb 6.6, plts 11, 1u irradiated pRBC and 2u irradiated plts, - 08/11 Hgb 6.9 plts 15, 1u pRBC and 1u plts - 08/12 Hgb 8.3 plts 8 - 08/13 Hgb 8.0 plts 9 - 08/14 Hgb 6.5, plts 5, 1u pRBC and 1u plts - Venetoclax on hold for upcoming bone biopsy (cancelled) and recent bacteremia. 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 grade 2 diastolic dysfunction. RVSP 40-50. mildly dilated IVC. - 08/09 TTE EF 60-65%, small pericardial effusion - cautious use of IVFs if becomes necessary - Continue home PO Lasix 40. Currently euvolemic. - strict I/Os, daily weights Coronary artery disease - Not on antiplatelet therapy due to thrombocytopenia. Per cardiology, recommends resuming baby ASA 81mg when thrombocytopenia is milder. - Not on statin therapy; defer to outpatient cardiology - Continue atenolol FEN/GI - regular diet DVT ppx - SCDs. chemical prophylaxis contraindicated due to thrombocytopenia Code status: full Disposition - med/tele (2) Pancytopenia due to antineoplastic chemotherapy: (3) Acute myelogenous leukemia: (4) Depression: (5) Coronary artery disease: (6) Lower abdominal pain: (7) Congestive heart failure: Admission and Anticipated Discharge Date Admission Date: August 07, 2022 Supervising Physician Co-Signing Physician Notes I personally examined the patient and verified all huston points of history and exam, discussed case, and agree with decision making with S Joe MS4 with ongoing fevers and concern on related to AML/neutropenic process > infection - arrangements made to tx to [facility]. vitals noted nad heent nc at mmm breathing unlabored no accessory muscles good effort skin no rashes no pallor or icterus, R chest port site c/d/i. neutropenic fever - continue broad empiric abx coverage, no focal s/s infection, serial exams, supportive care. continue broad empiric abx but concern is that fever may be from underlying process and not infection. for transfer to [place] once bed available. ongoing high risk management due to severe immunocompro mise/febrile otherwise as above Subjective Shawn Gardiner is a 66 yo male with acute myelogenous leukemia who presented to the ED on 08/07 with several days diarrhea, vomiting, and fever. Last episode of diarrhea was . Fevers throughout the night and continues to feel worn down. No MORROW, nausea, vomiting, joint pain, or rashes. No cough, shortness of breath, or chest pain. No diarrhea, small formed stools, does not have an abdominal pain, bloating, or constipation. Per case management, patient feels to weak for PT, does not feel ready to return home due to weakness, does not want to go to rehab due to concern of germs. Previously has returned home with [facility] home health. Would like transfer to [place] to obtain bone marrow biopsy when fever free. Review of Systems Review of Systems: See HPI Physical Exam Constitutional: WD/WN, vitals as above ENMT: external ear and nose normal, oropharynx normal Neck: trachea midline, no thyromegaly Respiratory: normal respiratory effort, lungs clear to auscultation Cardiovascular: RRR, no murmur, no edema Gastrointestinal (Abdomen): normal bowel sounds, soft, nontender, no hepatosplenomegaly Musculoskeletal: no cyanosis or clubbing, extremities motor strength 5/5 Neurologic: moves all extremities and awake; not confused Psychiatric: A+Ox3, euthymic affect Results & Data Results & Data ([facility]) Vital Signs (Past 12 Hours) Vital Signs Temp Pulse Pulse Resp BP Pulse Ox O2 Del Method 08/14/22 03:00 37.4 C 77 18 120/73 97 Room Air 08/13/22 23:45 38.6 C H 08/13/22 22:03 83 08/13/22 22:00 39.4 C H 86 18 128/70 93 Room Air
[2022-08-14 08:35] LABS: Mean Corpuscular Hemoglobin 30.2 pg (25.0-34.0); Mean Corpuscular Volume 88.8 fL (80.0-100.0); Platelet Count 5 K/uL (130-400); RDW Coefficient of Variation 13.6 % (11.5-14.5); RDW Standard Deviation 44.7 fL (36.4-46.3); Red Blood Count 2.15 M/uL (4.70-6.10); White Blood Count 0.14 K/ul (4.8-10.8)
[2022-08-14 08:40] LABS: Hematocrit (blood only) 19.1 % (42.0-52.0); Hemoglobin 6.5 g/dl (14.0-18.0)
[2022-08-14 08:42] LABS: Albumin Globulin Ratio 0.8 (0.9-2); Albumin Level 2.3 gm/dl (3.4-5.0); BUN Creatinine Ratio 36.9 (10-20); Bilirubin,Total 1.3 mg/dl (0.2-1.0); Calcium 8.1 mg/dl (8.5-10.1); Creatinine Clr Calc Pharmacy 93.6 ml/min; Est GFR (African American) 117.5 ml/min; Est GFR (Non-African American) 101.4 ml/min; Globulin 2.9 gm/dl (2.5-4.0); Total Protein 5.2 gm/dl (6.0-8.3)
[2022-08-14] MEDS ORDERED: SODIUM CHLORIDE 0.9% 250 ML IV PRN (08:48)
--- NOTE | 2022-08-14 10:32 | Infectious Disease Progress Nt ---
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 2D echo had no evidence of mass or vegetation. Patient underwent Sweeney removal 07/27. 07/26 blood cultures were negative. Plan was for daptomycin 350 mg (~6 mg/kilograms) IV da verónica until 08/10/2022 (2 weeks after clearance) with repeat blood cultures performed 3-7 days after IV therapy completed. It was recommended that he continue with prophylaxis with acyclovir, posaconazole and levofloxacin. Patient was discharged on 07/30/2022. Patient then presented to the ED on 08/07/2022 reporting fever the night prior of 102. Patient is neutropenic with ANC of 0 and mentioned the fever to his team when he presented for blood transfusion and therefore was sent over for admission. He reported having mild fever for the last several nights but denied any URI complaints, shortness of breath, cough, chest pain, or urinary symptoms. Patient reported some lower abdominal pain associated with constipation. He developed fever at home while on daptomycin, as well as LVQ, posaconazole and acyclovir ppx. He denied recent travel, procedures, sick contacts, animal exposures (other than occasional visits with puppy who lives in another household), exposure to construction sites. [place], [place] outside country- [place] travel outside [place] was to the [facility] but not for several years. 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 During admission, he was continued on dapto and cefepime/metronidazole added empirically. Multiple sets of Bcxs were no growth, so daptomycin was stopped 08/11 with plan to repeat Bcxs in several days off antibiotics. Cefepime/metro was expanded empirically to meropenem in context of ongoing constipation but improved abd discomfort. Pt has continued to have fever, sweats, chills (not rigors) and fatigue in absence of other focal complaints other than ongoing constipation with mild L- sided discomfort, although pt has been having small BMs on a stool regimen. #neutropenic fever -in setting of AML, last chemo Jun 2022, pancytopenia -developed at home while pt was on daptomycin IV as well as LVQ, acyclovir, posaconazole ppx -absence of focal symptoms other than some abd discomfort related to constipation, now significantly improved with semi-formed BMs per pt- although pt still reports sensation of incomplete bowel emptying -stool GI PCR panel negative -RVP negative -08/07 Bcxs negative. 08/09 and 08/11 Bcxs are NGTD. -CT a/p with mild GB wall thickening and abd u/s with possible sludge. HIDA negative for cholecystitis -CT face w/contrast negative for abscess or significant sinusitis -pt has been on dapto, cefepime/metro, as well as azole and acyclovir ppx. Dapto stopped 08/11, cefepime/metro changed empirically to meropenem 08/12 #h/o MRSE bacteremia - present in 4 out of 4 bottles 07/24, likely secondary to line. 2D echo had no evidence of mass or vegetation. Patient underwent Sweeney removal 07/27. 07/26 blood cultures were negative. Plan was for daptomycin 350 mg (~6 mg/kilograms) IV daily until 08/10/2022 (2 weeks after clearance) with repeat blood cultures performed 3-7 days after IV therapy completed. -agree that IE is unlikely, as Bcxs quickly cleared, and lesion on hand does not appear c/w lesion -TTE 08/09 negative for vegetations -08/11 CPK 12 -daptomycin stopped 08/11 given negative multiple sets of Bcxs. pt's oncology office notified of plan to repeat Bcxs after several days off daptomycin #AML, severe pancytopenia- followed by oncology- oncology plans BM biopsy given persistent pancytopenia Plan Rec: He continues to have fever but without any new complaints- he is still c/o constipation. In terms of further imaging, CT chest was thought to be unlikely to be helpful given absence of any respiratory symptoms and negative CXR. However, given ongoing fever despite meropenem, recommend CT chest to evaluate for subtle findings such as nodules or GGO that may help direct further workup. Pt is noted to have been on mold prophylaxis at home but will send aspergillus ag and B-d glucan. Will send CMV PCR. Pt states that he will be transferred to [facility] when bed available for BM biopsy. As multiple Bcxs have been no growth to date and fever developed while pt on daptomycin, resuming dapto, or starting vanco or other broader gram positive coverage is unlikely to benefit pt at this time. Possible that fevers are secondary to underlying persistent severe neutropenia due to AML. Pt is on bowel regimen as per primary team. He was advised to be cautious with irritation of rectal mucosa. Will continue meropenem 2 g IV q8 for now. Please page with any questions. Lindsay Nolasco M.D. [facility] [employer] Pager [phone] Admission and Anticipated Discharge Date Admission Date: August 07, 2022 Subjective Subsequent visit was provided via telemedicine using two-way real-time interactive telecommunication between the patient and the telemedicine provider. For the duration of the visit, the provider was performing the assessment from a different facility than the patient. This includesuse of bluetooth stethoscope forauscultationperformed by the telepresenter that the telemedicine provider can hear if described in the physical exam. Medical Technologist Chemistry contact information: Please call [employer] Connect Call Center . (Phone Number For Physician Use Only) After establishing a telemedicine visit, patient was: Patient was verified with two unique identifiers, Patient/authorized rep acknowledged consent and understanding and Gave permission to continue telehealth session Time Spent with Patient: Subsequent => 25 min Pt continues to have fever, sweats, fatigue. Reports had a formed BM this AM, but afterwards just gas. Abdominal discomfort resolved. Continues to deny cough/SOB/BAILEY or other focal complaints. Physical Exam Physical Exam: PE: Gen: Awake, alert, NAD, fatigued-appearing HEENT: anicteric, ok dentition, multiple fillings, no thrush or mucositis Resp: no resp distress on RA Chest: R chest prior sweeney site incision with sutures- dry, no evidence infection Abd: Soft, no longer tender LUQ and LLQ, no RUQ tenderness, umbilical hernia Extr: no c/c Trace pedal edema b/l. R 4th digit with small papule dorsal surface- less erythematous Skin: R and L UE IVs ok. Results & Data ([facility]) Vital Signs (Past 12 Hours) Vital Signs Temp Pulse Pulse Resp BP BP Pulse Ox 08/14/22 10:09 37.7 C H 84 20 105/68 96 08/14/22 09:54 37.1 C 88 20 113/74 98 08/14/22 09:36 37.0 C 90 20 114/73 95 08/14/22 07:45 38.2 C H 89 18 111/69 93 08/14/22 03:00 37.4 C 77 18 120/73 97 08/13/22 23:45 38.6 C H O2 Del Method O2 Flow Rate 08/14/22 10:09 08/14/22 09:54 0 08/14/22 09:36 0 08/14/22 07:45 Room Air 08/14/22 03:00 Room Air 08/13/22 23:45 Laboratory Results 08/11/22 20:23 Aerobic Blood Culture - Preliminary Blood No growth in Aerobic bottle after 48 hours. Anaerobic Blood Culture - Final 08/11/22 20:23 Aerobic Blood Culture - Preliminary Blood No growth in Aerobic bottle after 48 hours. Anaerobic Blood Culture - Preliminary No growth in Anaerobic bottle after 48 hours. 08/12/22 16:23 Aerobic Blood Culture - Preliminary Blood No growth in Aerobic bottle after 24 hours. Anaerobic Blood Culture - Preliminary No growth in Anaerobic bottle after 24 hours. 08/12/22 16:11 Aerobic Blood Culture - Preliminary Blood No growth in Aerobic bottle after 24 hours. Anaerobic Blood Culture - Preliminary No growth in Anaerobic bottle after 24 hours. 08/14/22 08/14/22 08/14/22 08:03 08:03 08:03 WBC 0.14 L* RBC 2.15 L Hgb 6.5 L* Hct 19.1 L* MCV 88.8 MCH 30.2 MCHC 34.0 RDW Std Deviation 44.7 RDW Coeff of Lazaro 13.6 Plt Count 5 L* Immature Gran % (Auto) Cancelled Neut % (Auto) Cancelled Lymph % (Auto) Cancelled Mchenry % (Auto) Cancelled Eos % (Auto) Cancelled Baso % (Auto) Cancelled Neut # (Auto) Cancelled Lymph # (Auto) Cancelled Mchenry # (Auto) Cancelled Eos # (Auto) Cancelled Baso # (Auto) Cancelled Immature Gran # (Auto) Cancelled Neutrophils % (Manual) Cancelled Band Neutrophils % Cancelled Lymphocytes % (Manual) Cancelled Prolymphocyte % Cancelled Reactive Lymphs % (Man) Cancelled Monocytes % (Manual) Cancelled Eosinophils % (Manual) Cancelled Basophils % (Manual) Cancelled Metamyelocytes % (Man) Cancelled Myelocytes % (Man) Cancelled Promyelocytes % (Man) Cancelled Blast Cells % (Manual) Cancelled Plasma Cell % (Manual) Cancelled Other Cells % Cancelled Nucleated RBC % Cancelled Neutrophils # (Manual) Cancelled Band Neutrophils # Cancelled Total Absolute Neuts Cancelled Lymphocytes # (Manual) Cancelled Prolymphocyte # Cancelled Reactive Lymphs # Cancelled Total Abs Lymphocytes Cancelled Monocytes # (Manual) Cancelled Eosinophils # (Manual) Cancelled Basophils # (Manual) Cancelled Metamyelocytes # (Man) Cancelled Myelocytes # (Manual) Cancelled Promyelocytes # (Man) Cancelled Blast Cells # (Man) Cancelled Plasma Cell # (Manual) Cancelled Other Cells # Cancelled Nucleated RBCs # (Man) Cancelled Hypersegmented Neuts Cancelled Hyposegmented Neuts Cancelled Hypogranular Neuts Cancelled Large Granular Lymphs Cancelled # Lrg Granular Lymphs Cancelled Hairy Cells Cancelled Smudge Cells Cancelled Toxic Granulation Cancelled Toxic Vacuolation Cancelled Dohle Bodies Cancelled Hina Rods Cancelled Hypogranular Platelets Cancelled Giant Platelets Cancelled Platelet Satelliting Cancelled RBC Morphology Cancelled Polychromasia Cancelled Hypochromasia Cancelled Poikilocytosis Cancelled Basophilic Stippling Cancelled Anisocytosis Cancelled Microcytosis Cancelled Macrocytosis Cancelled Spherocytes Cancelled Pappenheimer Bodies Cancelled Sickle Cells Cancelled Target Cells Cancelled Tear Drop Cells Cancelled Ovalocytes Cancelled Stomatocytes Cancelled [place] Bodies Cancelled Echinocytes Cancelled Acanthocytes (Spur) Cancelled Rouleaux Cancelled RBC Agglutinates Cancelled Schistocytes Cancelled Sezary Cell Cancelled Sodium 136 Potassium 4.0 Chloride 102 Carbon Dioxide 32 Anion Gap 2 L BUN 24 H Creatinine 0.65 Est Cr Clr Drug Dosing 93.6 Est GFR ( Amer) 117.5 Est GFR (Non-Af Amer) 101.4 BUN/Creatinine Ratio 36.9 H Glucose 101 H Calcium 8.1 L Total Bilirubin 1.3 H AST 7 L ALT 8 Alkaline Phosphatase 68 Total Protein 5.2 L Albumin 2.3 L Globulin 2.9 Albumin/Globulin Ratio 0.8 L Blood Parasites ID Cancelled Blood Type A Positive Antibody Screen NEGATIVE Crossmatch See Detail Medications Administered Current Medications Acetaminophen (Acetaminophen 325 Mg Tab) 650 mg PO Q4H PRN PRN Reason: Pain or Fever Stop: 09/06/22 18:05 Last Admin: 08/14/22 08:21 Dose: 650 mg Acyclovir (Acyclovir 400 Mg Tab) 400 mg PO BID [facility] Stop: 09/06/22 20:59 Last Admin: 08/14/22 08:21 Dose: 400 mg Atenolol (Atenolol 25 Mg Tablet) 25 mg PO DAILY [facility] Stop: 09/07/22 08:59 Last Admin: 08/14/22 08:17 Dose: Not Given Docusate Sodium (Docusate Sodium 100 Mg Cap) 100 mg PO BID [facility] Stop: 09/06/22 20:59 Last Admin: 08/14/22 08:22 Dose: 100 mg Furosemide (Furosemide 40 Mg Tab) 40 mg PO DAILY [facility] Stop: 09/07/22 08:59 Last Admin: 08/14/22 08:17 Dose: Not Given Meropenem 2,000 mg/ Sodium (Chloride) 100 mls @ 200 mls/hr IV Q8H [facility]; Protocol Stop: 08/22/22 10:29 Last Infusion: 08/14/22 11:03 Dose: Infused Sodium Chloride (Nss) 250 mls @ 15 mls/hr IV .[id number] PRN PRN Reason: For Transfusion Duration Stop: 08/14/22 18:48 Isosorbide Mononitrate (Isosorbide Mchenry Extended Rel 60 Mg Tabcr) 120 mg PO QAM [facility] Stop: 09/07/22 08:59 Last Admin: 08/14/22 08:17 Dose: Not Given Loratadine (Loratadine 10 Mg Tab) 10 mg PO DAILY [facility] Stop: 09/06/22 18:05 Last Admin: 08/14/22 08:21 Dose: 10 mg Magnesium Oxide (Magnesium Oxide 400 Mg Tab) 400 mg PO BID [facility] Stop: 09/06/22 20:59 Last Admin: 08/14/22 08:22 Dose: 400 mg Melatonin (Melatonin 3 Mg Tab) 9 mg PO HS PRN PRN Reason: Insomnia Stop: 09/06/22 18:16 Miscellaneous (Posaconazole: Order Awaiting Action) 1 each N/A QS [facility] Stop: 09/09/22 15:59 Last Admin: 08/14/22 08:14 Dose: Not Given Ondansetron HCl (Ondansetron Inj 2 Mg/Ml 2 Ml Vial) 4 mg IV Q4H PRN PRN Reason: Nausea Stop: 09/06/22 18:05 Last Admin: 08/13/22 08:15 Dose: 4 mg Polyethylene Glycol (Polyethylene (Miralax) 17 Gm Pack) 17 gm PO BID [facility] Stop: 09/07/22 10:44 Last Admin: 08/14/22 08:30 Dose: 17 gm Potassium Chloride (Potassium Chloride Crtab 20 Meq Tabcr) 20 meq PO BID [facility] Stop: 09/06/22 20:59 Last Admin: 08/14/22 08:21 Dose: 20 meq Voriconazole (Voriconazole 200 Mg Tablet) 200 mg PO BID [facility] Stop: 09/07/22 15:29 Last Admin: 08/14/22 08:22 Dose: 200 mg
--- NOTE | 2022-08-14 17:00 | Billing Data ---
Date of Service August 14, 2022 Coding Level of Care Code 72132 SUB INP/OBS CARE MIN
[2022-08-15] MEDS: MEROPENEM 2,000 MG in 0.9 % SODIUM CHLORIDE 58 ML IV SCH ×2 (03:18→10:49)
[2022-08-15 06:46] LABS: Albumin Globulin Ratio 0.8 (0.9-2); Albumin Level 2.3 gm/dl (3.4-5.0); BUN Creatinine Ratio 37.3 (10-20); Bilirubin,Total 1.5 mg/dl (0.2-1.0); Creatinine Clr Calc Pharmacy 103.1 ml/min; Est GFR (African American) 122.3 ml/min; Est GFR (Non-African American) 105.5 ml/min; Total Protein 5.3 gm/dl (6.0-8.3)
[2022-08-15 06:51] LABS: Hemoglobin 8.4 g/dl (14.0-18.0); Mean Corpuscular Hemoglobin 30.4 pg (25.0-34.0); Mean Platelet Volume 10.8 fL (9.4-12.4); Platelet Count 11 K/uL (130-400); RDW Coefficient of Variation 13.9 % (11.5-14.5); RDW Standard Deviation 44.1 fL (36.4-46.3); Red Blood Count 2.76 M/uL (4.70-6.10); White Blood Count 0.13 K/ul (4.8-10.8)
[2022-08-15 06:52] LABS: Platelet Estimate Signific. Decreased (Normal)
[2022-08-15] MEDS: ACETAMINOPHEN 325 MG TAB PO PRN (07:20)
--- NOTE | 2022-08-15 07:27 | Hospitalist Progress Note ---
Date of Service August 15, 2022 Assessment & Plan (1) Neutropenic fever: Plan: Shawn Gardiner is a 66 yo male with PMHx significant for AML with associated pancytopenia, HLD, depression, and CAD who presented to [facility] on 08/07 with neutropenic fever. Of note patient was recently admitted here from 07/24-07/30 for MRSA bacteremia due to Lainez line (had it removed and was discharged on Daptomycin). Neutropenic fever, Unknown Source Patient is asymptomatic apart from fever/chills, weakness and fatigue - no localizing symptoms. UA, KUB and CXR without signs of infection. Unclear etiology - may be developing endocarditis although less likely given Daptomycin treatment prior to admission, as well as recent negative TTE 4 weeks ago. Patient did have upset stomach several days ago --> may have had colitis although asymptomatic currently. - blood cx negative on 08/07, repeated 08/09 no growth, repeated again 08/12 with no growth - procalcitonin elevated at 1.01 on 08/09, blood cx 4 bottles no growth at 24/48 hours - CT A/P with IV contrast - nonspecific stranding, mild GB wall thickening, and abd u/s with possible sludge, HIDA normal - PCR stool panel and Resp Biofire negative - TTE, neg for endocarditis eval - may need TERRANCE but would need improvement in platelet count first - consulted ID - recommendations included - patient on Daptomycin for recent MRSA bacteremia (has been covered with Vanco/Daptomycin since 07/25 - 2 weeks treatment thus far),per ID recommendation, Daptomycin stopped 08/11, recommend blood cx in the next few days, cefepime 2 g and metronidazole changed to meropenem 2 g IV q8 on 08/12, continue - Hx of dental abscesses, face CT no sign of abscess or infection - PO prophylaxis of antiviral/antifungal continued. IV antibiotics replaced outpatient PO levofloxacin. Posaconazole replaced with voriconazole per hospital formulary, will request if patient can arrange for home posaconazole. - Neutropenic isolation precautions - Heme/Onc recommending transfer to [facility] for more specialized Oncologic care under his usual team - Has been accepted to [facility] due to ongoing fevers despite infectious coverage with IV abx and negatives blood cultures AML; Pancytopenia due to antineoplastic chemotherapy - Hem/Onc consulted, recommendations to maintainhemoglobin greater than 7.5 and platelet count greater than 10,000. - S/p 2u prbc and 1u irradiated prbc at [facility] on 08/07 and 1u irradiated prbc at admission. 1 unit irradiated plts on 08/09, Platelet transfusion threshold 15. - 08/10. Hgb 6.6, plts 11, 1u irradiated pRBC and 2u irradiated plts, - 08/11 Hgb 6.9 plts 15, 1u pRBC and 1u plts - 08/12 Hgb 8.3 plts 8 - 08/13 Hgb 8.0 plts 9 - 08/14 Hgb 6.5, plts 5, 1u pRBC and 1u plts - 08/15 WBC 0.13, Hgb 8.4, Plt 11K - Venetoclax on hold for upcoming bone biopsy (cancelled) and recent bacteremia. CHF with mildly reduced EF TTE 07/26 with EF 45-50%,. grade 2 diastolic dysfunction. RVSP 40-50. mildly dilated IVC. - 08/09 TTE EF 60-65%, small pericardial effusion - cautious use of IVFs if becomes necessary - Continue home PO Lasix 40. Currently euvolemic. - strict I/Os, daily weights Coronary artery disease - Not on antiplatelet therapy due to thrombocytopenia. Per cardiology, recommends resuming baby ASA 81mg when thrombocytopenia is milder. - Not on statin therapy; defer to outpatient cardiology - Continue atenolol FEN/GI - regular diet DVT ppx - SCDs. chemical prophylaxis contraindicated due to thrombocytopenia Code status: full Disposition - med/tele, neutropenic precautions (2) Pancytopenia due to antineoplastic chemotherapy: (3) Acute myelogenous leukemia: (4) Depression: (5) Coronary artery disease: (6) Lower abdominal pain: (7) Congestive heart failure: Admission and Anticipated Discharge Date Admission Date: August 07, 2022 Supervising Physician Co-Signing Physician Notes I personally examined the patient and verified all huston points of history and exam, discussed case, and agree with decision making with Dr Alysha Barillas at [place], going this afternoon. vitals noted nad heent nc at mmm breathing unlabored no accessory muscles good effort skin no rashes no pallor or icterus, R chest port site c/d/i. neutropenic fever - continue broad empiric abx coverage, no focal s/s infection, serial exams, supportive care. continue broad empiric abx but concern is that fever may be from underlying process and not infection. for transfer to [place] today. otherwise as above Results & Data Results & Data ([facility]) Vital Signs (Past 12 Hours) Vital Signs Temp Pulse Pulse Resp BP BP Pulse Ox 08/15/22 03:19 37.9 C H 86 18 139/81 96 08/15/22 01:19 36.8 C 90 20 127/77 94 08/15/22 00:41 94 H 08/15/22 00:25 36.8 C 88 20 126/78 94 08/14/22 23:00 37.7 C H 94 H 18 115/71 92 08/14/22 23:25 37.5 C 87 110/68 97 08/14/22 22:55 37.3 C 90 18 110/71 94 08/14/22 22:40 37.4 C 90 18 113/71 94 08/14/22 22:21 37.7 C H 92 H 18 110/68 94 08/14/22 21:11 37.4 C 08/14/22 20:00 39.4 C H 83 18 124/73 96 O2 Del Method O2 Flow Rate 08/15/22 03:19 Room Air 08/15/22 01:19 0 08/15/22 00:41 08/15/22 00:25 08/14/22 23:00 Room Air 08/14/22 23:25 08/14/22 22:55 08/14/22 22:40 08/14/22 22:21 08/14/22 21:11 08/14/22 20:00 Room Air Resident Activity Tracking Resident Involvement: Resident Care Provided Care Provided: Adult Hospital Medicine
[2022-08-15 07:43] LABS: Calcium 8.2 mg/dl (8.5-10.1)
[2022-08-15] MEDS: POLYETHYLENE (MIRALAX) 17 GM PACK PO SCH (08:39)
[2022-08-15] MEDS: ISOSORBIDE MONO EXTENDED REL 60 MG TABCR PO SCH (08:42)
[2022-08-15] MEDS: ATENOLOL 25 MG TABLET PO SCH (08:42)
[2022-08-15] MEDS: ACYCLOVIR 400 MG TAB PO SCH (08:42)
[2022-08-15] MEDS: FUROSEMIDE 40 MG TAB PO SCH (08:42)
[2022-08-15] MEDS: LORATADINE 10 MG TAB PO SCH (08:42)
[2022-08-15] MEDS: DOCUSATE SODIUM 100 MG CAP PO SCH (08:42)
[2022-08-15] MEDS: VORICONAZOLE 200 MG TABLET PO SCH (08:43)
[2022-08-15] MEDS: POTASSIUM CHLORIDE CRTAB 20 MEQ TABCR PO SCH (08:43)
[2022-08-15] MEDS: MAGNESIUM OXIDE 400 MG TAB PO SCH (08:43)
--- NOTE | 2022-08-15 16:24 | Discharge Summary ---
Date of Service August 15, 2022 Admission HPI Per Admitting Provider Shawn Gardiner is a 66-year-old male with acute myelogenous leukemia who presents to the ER from the medical treatment unit due to a fever last night and current neutropenia. He was seen in the medical treatment unit for blood and platelet transfusions. He reports receiving 2 units of platelets and 1 unit of packed red blood cells and was due to receive a second unit of packed red blood cells when he was transferred to the emergency room. He reports having a mild fever for the last 3 nights but reached 102 F last night. He denies any nasal congestion, sinus pain, cough, sore throat, chest pain, shortness of breath, abdominal pain, diarrhea, melena, bright red blood in stool, hemoptysis, epistaxis, hematemesis, nausea, vomiting, urinary symptoms. The patient has acute myelogenous leukemia s/p induction chemotherapy with decitabine/venetoclax, reinduction with CLAG regimen July 08 to July 12, 2022 at [facility]. He was taking venetoclax up until his admission here from July 24 to July 30, 2022 with neutropenic fever with subsequent coag negative staph bacteremia and Lainez catheter removal. Follow-up blood cultures were negative. He has been taking daily intravenous daptomycin since then. He also went back on his usual prophylaxis of Levaquin. In the ER white blood count 0.14, platelets 23. He was started on vancomycin and cefepime for broad-spectrum antibiotics for neutropenic fever. He was referred to medicine for admission ongoing management of neutropenic fever. Principal Diagnosis Neutropenic fever Discharge Exam General: A&Ox3. NAD. Cooperative. HEENT: Atraumatic, normocephalic. Pulm: CTAB A&P. -wheezes, -rales, -rhonchi. Symmetrical chest rise. No increase work of breathing. No respiratory distress. Cardiac: RRR, -mrg. Radial pulses intact and symmetrical. No LE edema. Abdominal: soft, non-tender, non-distended, BS x 4 Skin: warm, dry, no rash Discharge Data Allergies Allergy/AdvReac Type Severity Reaction Status Date / Time No Known Allergies Allergy Verified 08/04/22 12:48 Consultations 08/07/22 12:49 ED Decision to Admit Stat 08/07/22 23:40 Consult Cardiology Routine 08/09/22 10:50 Consult Infectious Diseases Routine 08/10/22 10:21 Consult Oncology Routine Ordered Studies 08/09/22 10:48 CT Abd and Pelvis [CT abd pelvis IV con only] Urgent 08/09/22 17:26 US liver Urgent 08/11/22 18:22 CT face [CT facial bones w con] Routine Hospital Course (1) Neutropenic fever: Shawn Gardiner is a 66 yo male with PMHx significant for AML with associated pancytopenia, HLD, depression, and CAD who presented to [facility] on 08/07 with neutropenic fever. Of note patient was recently admitted here from 07/24-07/30 for MRSA bacteremia due to Lainez line (had it removed and was discharged on Daptomycin). Neutropenic fever, Unknown Source Patient is asymptomatic apart from fever/chills, weakness and fatigue - no localizing symptoms. UA, KUB and CXR without signs of infection. Unclear etiology - may be developing endocarditis although less likely given Daptomycin treatment prior to admission, as well as recent negative TTE 4 weeks ago. Patient did have upset stomach several days ago --> may have had colitis although asymptomatic currently. - blood cx negative on 08/07, repeated 08/09 no growth, repeated again 08/12 with no growth - procalcitonin elevated at 1.01 on 08/09, blood cx 4 bottles no growth at 24/48 hours - CT A/P with IV contrast - nonspecific stranding, mild GB wall thickening, and abd u/s with possible sludge, HIDA normal - PCR stool panel and Resp Biofire negative - TTE, neg for endocarditis eval - may need TERRANCE but would need improvement in platelet count first - consulted ID - recommendations included - patient on Daptomycin for recent MRSA bacteremia (has been covered with Vanco/Daptomycin since 07/25 - 2 weeks treatment thus far),per ID recommendation, Daptomycin stopped 08/11, recommend blood cx in the next few days, cefepime 2 g and metronidazole changed to meropenem 2 g IV q8 on 08/12, continue - Hx of dental abscesses, face CT no sign of abscess or infection - PO prophylaxis of antiviral/antifungal continued. IV antibiotics replaced outpatient PO levofloxacin. Posaconazole replaced with voriconazole per hospital formulary, will request if patient can arrange for home posaconazole. - Neutropenic isolation precautions - Heme/Onc recommending transfer to [facility] for more specialized Oncologic care under his usual team - Has been accepted to [facility] due to ongoing fevers despite infectious coverage with IV abx and negative blood cultures AML; Pancytopenia due to antineoplastic chemotherapy - Hem/Onc consulted, recommendations to maintainhemoglobin greater than 7.5 and platelet count greater than 10,000. - S/p 2u prbc and 1u irradiated prbc at [facility] on 08/07 and 1u irradiated prbc at admission. 1 unit irradiated plts on 08/09, Platelet transfusion threshold 15. - 08/10. Hgb 6.6, plts 11, 1u irradiated pRBC and 2u irradiated plts, - 08/11 Hgb 6.9 plts 15, 1u pRBC and 1u plts - 08/12 Hgb 8.3 plts 8 - 08/13 Hgb 8.0 plts 9 - 08/14 Hgb 6.5, plts 5, 1u pRBC and 1u plts - 08/15 WBC 0.13, Hgb 8.4, Plt 11K - Venetoclax on hold for upcoming bone biopsy (cancelled) and recent bacteremia. CHF with mildly reduced EF TTE 07/26 with EF 45-50%,. grade 2 diastolic dysfunction. RVSP 40-50. mildly dilated IVC. - 08/09 TTE EF 60-65%, small pericardial effusion - cautious use of IVFs if becomes necessary - Continue home PO Lasix 40. Currently euvolemic. - strict I/Os, daily weights Coronary artery disease - Not on antiplatelet therapy due to thrombocytopenia. Per cardiology, recommends resuming baby ASA 81mg when thrombocytopenia is milder. - Not on statin therapy; defer to outpatient cardiology - Continue atenolol Code status: full Disposition - Transfer to [facility] (2) Pancytopenia due to antineoplastic chemotherapy: (3) Acute myelogenous leukemia: (4) Depression: (5) Coronary artery disease: (6) Lower abdominal pain: (7) Congestive heart failure: Total Time Total Time Spent Total Time Spent (In Minutes): <30 Discharge Plan Discharge Items Patient Disposition: Transfer Acute Care Hospital Reason For Visit: NEUTROPENIC FEVER Discharge Diagnosis: neutropenic fever Activity: Per Instructions section Non-emergency contact: Oncologist Call non-emergency contact if: you have any medication questions and your symptoms worsen Follow-up/Referrals: PCP,NO [Primary Care Provider] - Diet: Regular Addtl Attending Provider Instructions: Shawn Gardiner is a 66 yo male with PMHx significant for AML with associated pancytopenia, HLD, depression, and CAD who presented to [facility] on 08/07 with neutropenic fever. Of note patient was recently admitted here from 07/24-07/30 for MRSA bacteremia due to Lainez line (had it removed and was discharged on Daptomycin). Neutropenic fever, Unknown Source Patient is asymptomatic apart from fever/chills, weakness and fatigue - no localizing symptoms. UA, KUB and CXR without signs of infection. Unclear etiolo gy - may be developing endocarditis although less likely given Daptomycin treatment prior to admission, as well as recent negative TTE 4 weeks ago. Patient did have upset stomach several days ago --> may have had colitis although asymptomatic currently. - blood cx negative on 08/07, repeated 08/09 no growth, repeated again 08/12 with no growth - procalcitonin elevated at 1.01 on 08/09, blood cx 4 bottles no growth at 24/48 hours - CT A/P with IV contrast - nonspecific stranding, mild GB wall thickening, and abd u/s with possible sludge, HIDA normal - PCR stool panel and Resp Biofire negative - TTE, neg for endocarditis eval - may need TERRANCE but would need improvement in platelet count first - consulted ID - recommendations included - patient on Daptomycin for recent MRSA bacteremia (has been covered with Vanco/Daptomycin since 07/25 - 2 weeks treatment thus far),per ID recommendation, Daptomycin stopped 08/11, recommend blood cx in the next few days, cefepime 2 g and metronidazole changed to meropenem 2 g IV q8 on 08/12, continue - Hx of dental abscesses, face CT no sign of abscess or infection - PO prophylaxis of antiviral/antifungal continued. IV antibiotics replaced outpatient PO levofloxacin. Posaconazole replaced with voriconazole per hospital formulary, will request if patient can arrange for home posaconazole. - Neutropenic isolation precautions - Heme/Onc recommending transfer to [facility] for more specialized Oncologic care under his usual team - Has been accepted to [facility] due to ongoing fevers despite infectious coverage with IV abx and negatives blood cultures AML; Pancytopenia due to antineoplastic chemotherapy - Hem/Onc consulted, recommendations to maintainhemoglobin greater than 7.5 and platelet count greater than 10,000. - S/p 2u prbc and 1u irradiated prbc at [facility] on 08/07 and 1u irradiated prbc at admission. 1 unit irradiated plts on 08/09, Platelet transfusion threshold 15. - 08/10. Hgb 6.6, plts 11, 1u irradiated pRBC and 2u irradiated plts, - 08/11 Hgb 6.9 plts 15, 1u pRBC and 1u plts - 08/12 Hgb 8.3 plts 8 - 08/13 Hgb 8.0 plts 9 - 08/14 Hgb 6.5, plts 5, 1u pRBC and 1u plts - 08/15 WBC 0.13, Hgb 8.4, Plt 11K - Venetoclax on hold for upcoming bone biopsy (cancelled) and recent bacteremia. CHF with mildly reduced EF TTE 07/26 with EF 45-50%,. grade 2 diastolic dysfunction. RVSP 40-50. mildly dilated IVC. - 08/09 TTE EF 60-65%, small pericardial effusion - cautious use of IVFs if becomes necessary - Continue home PO Lasix 40. Currently euvolemic. - strict I/Os, daily weights Coronary artery disease - Not on antiplatelet therapy due to thrombocytopenia. Per cardiology, recommends resuming baby ASA 81mg when thrombocytopenia is milder. - Not on statin therapy; defer to outpatient cardiology - Continue atenolol FEN/GI - regular diet DVT ppx - SCDs. chemical prophylaxis contraindicated due to thrombocytopenia Code status: full Pending Studies at Discharge: No Stand-Alone Forms: [facility] Skilled Items Patient informed of condition?: Yes DNR: No Discharge Level of Care: Other Communicable Disease: No Discharge Prognosis: Stable Lines: Peripheral IV Urinary Catheter: No Medications and DC Order Prescriptions: Continued Venclexta 10 mg tablet 20 mg PO DAILY Rx Instructions: On HOLD daptomycin IV DAILY Rx Instructions: unsure of dosing furosemide 40 mg Tablet 40 mg PO DAILY polyethylene glycol 3350 [Miralax] 17 gram Powder In Packet 17 g PO BID atenolol 25 mg Tablet 25 mg PO DAILY Rx Instructions: hold for HR <55 acyclovir 400 mg Tablet 400 mg PO BID ondansetron 8 mg Tablet,Disintegrating 8 mg PO Q8H PRN (Reason: nausea) isosorbide mononitrate 120 mg Tablet Extended Release 24 Hr 120 mg PO QAM calcium carbonate [Tums] 200 mg calcium (500 mg) Tablet,Chewable 200 mg PO TID PRN (Reason: GERD) docusate sodium [Colace] 100 mg Capsule 100 mg PO BID levofloxacin 750 mg Tablet 750 mg PO DAILY loratadine 10 mg Tablet 10 mg PO DAILY PRN (Reason: Allergy Symptoms) melatonin 10 mg Tablet 10 mg PO HS PRN (Reason: Insomnia) posaconazole 100 mg Tablet,Delayed Release (Dr/Ec) 400 mg PO DAILY potassium chloride 20 mEq Tablet Extended Release 20 meq PO BID venetoclax 50 mg Tablet 50 mg PO DAILY Rx Instructions: On Hold magnesium oxide 400 mg magnesium Tablet 400 mg PO BID Discharge Orders: Discharge Order (Routine); Ordered 08/15/22 Ordered By: Ben Atwood Admission Data Admit Date/Time: 08/07/22 14:22 Attending Provider: Gilberto Russell Admit Provider: Edd Valenzuela Primary Care Provider: PCP,NO Other Providers: Edd Valenzuela ; Hubert Vitale ; [facility] ; Margot Mcclellan ; Dionisio Blackburn ; Melissa Cardoza ; Kika Hancock ; Lindsay Nolasco ; Nancy Miles ; Zeenat Orta ; Yonatan Greer ; Itzel Alvarez ; Beba Marte Other Interventions: Discharge Summary Assessment (RN) Last Done: 08/15/22 14:57 Supervising Physician Co-Signing Physician Notes I personally examined the patient and verified all huston points of history and exam, discussed case, and agree with decision making with Dr Encarnacion Accepted at [place], going this afternoon. vitals noted nad heent nc at mmm breathing unlabored no accessory muscles good effort skin no rashes no pallor or icterus, R chest port site c/d/i. neutropenic fever - continue broad empiric abx coverage, no focal s/s infection, serial exams, supportive care. continue broad empiric abx but concern is that fever may be from underlying process and not infection. for transfer to [place] today. otherwise as above Resident Activity Tracking Resident Involvement: Resident Care Provided Care Provided: Adult Hospital Medicine
--- NOTE | 2022-08-15 18:05 | Billing Data ---
Date of Service August 15, 2022 Coding Level of Care Code HOSP INP/OBS DISCH >30 MIN
--- NOTE | 2022-08-15 18:06 | Billing Data ---
Date of Service August 15, 2022 Coding Level of Care Code HOSP INP/OBS DISCH 30 MIN/LESS
[2022-08-18 22:17] LABS: Aspergillus Antigen, Serum Not Detected (Not Detected); CMV DNA Qnt Real Time PCR Not Detected; CMV DNA Quant PCR Not Detected log IU/mL; Fungitell (1-3)-B-D-Glucan <31 pg/mL
== END 2022-08-15 16:19 | disposition short-term general hospital (02) | DRG 809 ==
LOC: ED 11:36 → SUATTDRO 14:22 → 2W 14:22